=== PATIENT | female | born 1970 | race Caucasian/White ===

== ENCOUNTER 2020-10-07 10:39 | Outpatient (REF) | payer OTHER, SELFPAY ==
--- NOTE | 2020-10-07 11:00 | CT_ITS ---
EXAMINATION: CT ABDOMEN AND PELVIS WITHOUT CONTRAST CLINICAL INFORMATION: Right-sided abdominal pain, mass upper abdominal wall. COMPARISON: None TECHNIQUE: Multidetector volumetric imaging was performed from the superior aspect of the liver through the pubic symphysis. Sagittal and coronal reformatted images were obtained on the technologist's workstation. This CT examination was performed using dose optimization techniques as appropriate, variously including the following: *Automated exposure control *Adjustment of mA and/or kV according to patient size (this includes techniques or standardized protocols for targeted exams where dose is matched to indication/reason for exam; i.e. extremities or head) *Use of iterative reconstruction technique DLP: 507 mGy-cm FINDINGS: LUNG BASES: There is a 3 mm subpleural nodule right lower lobe anterobasal segment image 8/23. Otherwise, the lung bases are clear. Heart size appears normal. No pleural effusion or thickening. LIVER, GALLBLADDER, AND BILIARY TREE: The liver is enlarged in size measuring 19 cm. Otherwise normal shape and attenuation. No focal hepatic lesion or biliary ductal dilatation is present. The gallbladder has been surgically removed. PANCREAS: Unremarkable. SPLEEN: Unremarkable. ADRENAL GLANDS: Unremarkable. KIDNEYS AND URETERS: The kidneys are normal in size, shape, and attenuation. No hydronephrosis, hydroureter, or calculi seen. No perinephric stranding. BLADDER: Unremarkable. GASTROINTESTINAL TRACT: There is scattered stool and gas seen throughout the colon. A few scattered diverticula are seen in the sigmoid colon. No mural thickening, pericolic fat stranding, obstruction seen. Oral contrast opacified small bowel loops are normal caliber. The appendix is normal caliber. ABDOMINAL WALL: No significant hernia is appreciated. LYMPH NODES: Normal. VASCULAR: Unremarkable. PELVIC VISCERA: The uterus is atrophied or surgically removed. No pelvic mass or free fluid seen. OSSEOUS STRUCTURES: Unremarkable. CT/CT abdomen pelvis wo con IMPRESSION: Mild constipation. No acute intra-abdominal process seen. No radiopaque urolith or hydronephrosis. No evidence of abdominal mass seen. The gallbladder has been surgically removed. Suspect mild hepatomegaly.
[2020-10-07 12:00] LABS: Basophils Absolute Auto 0.2 X10*3/uL (0.0-0.2); Basophils Percent Auto 1.3 % (0-2); Eosinophils Absolute Auto 0.3 X10*3/uL (0.0-0.4); Eosinophils Percent Auto 2.2 % (0-4); Hemoglobin 15.8 g/dl (12.0-16.0); Imm Gran Abs Auto 0.08 X10*3/uL (0.00-0.03); Imm Gran Pct Auto 0.6 % (0.0-0.4); Lymphocytes Absolute Auto 5.7 X10*3/uL (1.2-4.9); Lymphocytes Percent Auto 42.2 % (20-40); MANUAL DIFF FLAG SCAN; Mean Corpuscular HGB Conc 32.2 g/dl (31.0-35.0); Mean Corpuscular Hemoglobin 29.8 pg (27.0-33.0); Mean Corpuscular Volume 92.3 fL (80-98); Monocytes Absolute Auto 0.6 X10*3/uL (0.1-1.2); Monocytes Percent Auto 4.6 % (2-11); Neutrophils Absolute Auto 6.6 X10*3/uL (2.0-8.3); Neutrophils Percent Auto 49.1 % (45-73); Platelet Count 308 X10*3/uL (160-400); Red Blood Count 5.31 X10*6/uL (4.20-5.50); Red Cell Distribution Width 14.2 % (11.0-16.0); SCAN SMEAR FLAG 1; White Blood Count 13.5 X10*3/uL (4.8-10.8)
[2020-10-07 13:55] LABS: Alanine Aminotransferase 31 U/L (0-31); Albumin Level 4.3 g/dL (3.5-5.0); Alkaline Phosphatase 79 U/L (39-117); Anion Gap 14 (12-20); Aspartate Amino Transferase 34 U/L (5-31); Bilirubin Total 0.3 mg/dL (0.0-1.0); Blood Urea Nitrogen 13 mg/dL (9-16); C Reactive Protein 2.65 mg/dL (< or = 0.50); Calcium 9.5 mg/dL (8.4-10.2); Carbon Dioxide 29 mmol/L (22-29); Chloride 104 mmol/L (96-108); Cholesterol 269 mg/dL; Estimated Glomerular Filt Rate > 60; Glucose Random 115 mg/dL (60-115); Lipase 21 U/L (8-78); Potassium 4.8 mmol/l (3.3-5.1); Sodium 142 mmol/L (135-145)
[2020-10-07 14:10] LABS: T4 Thyroxine 6.4 ug/dL (4.5-12.0)
[2020-10-07] MEDS: Barium Sulfate Oral (Vanilla) 450 ML ORAL.SUSP 900 ML PO (14:10)
[2020-10-07 14:21] LABS: SLIDE REVIEW VERIFIED
== END 2020-10-07 10:40 | disposition home or self-care (01) ==
LOC: HO.CT 10:39
PROVIDERS: PCP Internal Medicine; Visit Provider Internal Medicine
DX: R10.11 Right upper quadrant pain (principal); R19.00 Intra-abdominal and pelvic swelling, mass and lump, unspecified site; J44.9 Chronic obstructive pulmonary disease, unspecified
CPT/HCPCS: 36415; 74176; 80053; 82465; 83690; 84436; 84443; 85025; 86140

== ENCOUNTER → 2020-10-14 10:50 | Outpatient (BNVA) | payer OTHER, SELFPAY | PROVIDERS: PCP Internal Medicine; Referring Provider Internal Medicine; Visit Provider Surgery | DX: D17.1 Benign lipomatous neoplasm of skin and subcutaneous tissue of trunk (principal) | CPT/HCPCS: 99202 ==

== ENCOUNTER 2020-11-09 11:25 | Outpatient (REF) | payer OTHER, SELFPAY ==
[2020-11-09 11:51] VITALS: BP 136/77; PULSE 96; RESP 16; TEMP 36.4; O2SAT 96
[2020-11-09 11:52] VITALS: BMI 32.9
[2020-11-09 12:10] VITALS: BP 115/76; PULSE 92; RESP 16; O2SAT 97
--- NOTE | 2020-11-09 12:32 | OP_ITS ---
SURGEON: Alexander Pascual MD INDICATIONS: The patient is a 50-year-old female with note of a lipomatous mass on the lower chest wall near the xiphoid region. This was about 2.5 cm lipoma. She understood technique of excision under local anesthesia. She was aware of the risks, benefits, and alternatives. PREOPERATIVE DIAGNOSIS: Lipoma, lower chest wall. POSTOPERATIVE DIAGNOSIS: Lipoma, lower chest wall. PROCEDURE PERFORMED: Excision of lipoma, lower chest wall. ESTIMATED BLOOD LOSS: COMPLICATIONS: ANESTHESIA: ASSISTANTS: SPECIMENS: DESCRIPTION OF PROCEDURE: She was brought to the minor procedure room and placed supine on the table. The area of the lipoma was prepped and draped. Lidocaine 1% was used for local anesthesia. A transverse incision was made on the skin overlying the lipoma using blade #15. It was carried down to full-thickness skin and subcutaneous fat. We proceeded to do sharp dissection of the subcutaneous layer using Metzenbaum scissors until we were able to visualize the lipoma. We sharply dissected lipoma off the rest of subcutaneous layer until this was completely delivered and sent as specimen. The lipoma measured about 2.5 cm x 2 cm. I closed incision with multiple full-thickness nylon 3-0 interrupted sutures. Dressings were applied. The patient tolerated the procedure well. There were no complications noted. There was minimal blood loss. She will be seen in the office for followup in 2 weeks for removal of sutures. MD CATRACHITO Ramirez/ILIANA / [phone]
--- NOTE | 2020-11-09 13:41 | PM.OP ---
Brief Operative Note Date of Service: 11/09/20 Pre-op diagnosis: lipoma lower chest wall Post-op diagnosis: same Procedure: exc of lipoma lower chest wall Surgeon: Alexander Pascual MD Anesthesia: local Estimated blood loss (mL): 1 Pathology: other (lipoma) Condition: stable Disposition: other (home)
== END 2020-11-09 11:26 | disposition home or self-care (01) ==
LOC: HO.MS 11:25
PROVIDERS: PCP Internal Medicine; Visit Provider Surgery
PROC: (CPT 21555; principal; 2020-11-09 12:00)
DX: D17.1 Benign lipomatous neoplasm of skin and subcutaneous tissue of trunk (principal); J44.9 Chronic obstructive pulmonary disease, unspecified; Z88.0 Allergy status to penicillin
CPT/HCPCS: 21555; 88304

== ENCOUNTER → 2020-11-10 09:45 | Outpatient (BNVA) | payer OTHER, SELFPAY | PROVIDERS: PCP Internal Medicine; Visit Provider Physician Assistant | DX: Z13.89 Encounter for screening for other disorder (principal) | CPT/HCPCS: 99212 ==

== ENCOUNTER → 2020-11-24 08:46 | Outpatient (BNVA) | payer OTHER, SELFPAY | PROVIDERS: PCP Internal Medicine; Visit Provider Surgery | DX: D17.1 Benign lipomatous neoplasm of skin and subcutaneous tissue of trunk (principal) | CPT/HCPCS: 99212 ==

== ENCOUNTER → 2020-12-15 13:38 | Outpatient (BNVA) | payer OTHER, SELFPAY | PROVIDERS: PCP Internal Medicine; Visit Provider Internal Medicine | DX: J44.9 Chronic obstructive pulmonary disease, unspecified (principal); F17.200 Nicotine dependence, unspecified, uncomplicated | CPT/HCPCS: 99212 ==

== ENCOUNTER → 2020-12-22 13:41 | Outpatient (BNVA) | payer OTHER, SELFPAY | PROVIDERS: PCP Internal Medicine; Visit Provider Physician Assistant ==

== ENCOUNTER → 2021-04-21 10:36 | Outpatient (BNVA) | payer OTHER, SELFPAY | PROVIDERS: PCP Internal Medicine; Visit Provider Internal Medicine | DX: J44.9 Chronic obstructive pulmonary disease, unspecified (principal); J45.909 Unspecified asthma, uncomplicated; F17.200 Nicotine dependence, unspecified, uncomplicated | CPT/HCPCS: 99212 ==

== ENCOUNTER 2021-07-01 07:31 | Outpatient (REF) | payer OTHER, SELFPAY | END 2021-07-01 07:32 | disposition home or self-care (01) | LOC: HO.HOSX 07:31 | PROVIDERS: Visit Provider Orthopaedic Surgery | DX: G56.01 Carpal tunnel syndrome, right upper limb (principal); M25.511 Pain in right shoulder; F17.210 Nicotine dependence, cigarettes, uncomplicated | CPT/HCPCS: 99202 ==

== ENCOUNTER 2021-07-01 08:01 | Outpatient (REF) | payer OTHER, SELFPAY ==
--- NOTE | ~2021-07-01 | XR_ITS ---
EXAMINATION: XR SHOULDER, RIGHT CLINICAL INFORMATION: Right shoulder pain. COMPARISON: 06/17/2014 TECHNIQUE: AP external rotation, Grashey, scapular Y, and axillary views of the right shoulder. FINDINGS: The bones and soft tissues are normal, unchanged when compared to 06/17/2014. No fracture. Glenohumeral and acromioclavicular alignment is anatomic with normal joint space. No abnormal soft tissue calcifications. XR/XR shoulder RT min 2V IMPRESSION: Normal unchanged right shoulder.
== END 2021-07-01 08:02 | disposition home or self-care (01) ==
LOC: HO.XRAY 08:01
PROVIDERS: PCP Internal Medicine; Visit Provider Orthopaedic Surgery
DX: M25.511 Pain in right shoulder (principal); G56.01 Carpal tunnel syndrome, right upper limb
CPT/HCPCS: 73030

== ENCOUNTER → 2021-07-07 12:45 | Outpatient (BNVA) | payer OTHER, SELFPAY | PROVIDERS: PCP Internal Medicine; Visit Provider Physician Assistant ==

== ENCOUNTER 2021-08-17 10:47 | Outpatient (REF) | payer OTHER, SELFPAY ==
[2021-08-17 11:56] LABS: Basophils Absolute Auto 0.1 X10*3/uL (0.0-0.2); Basophils Percent Auto 1.1 % (0-2); Eosinophils Absolute Auto 0.4 X10*3/uL (0.0-0.4); Eosinophils Percent Auto 2.6 % (0-4); Hematocrit 47.6 % (37-47); Hemoglobin 15.3 g/dl (12.0-16.0); Imm Gran Abs Auto 0.11 X10*3/uL (0.00-0.03); Imm Gran Pct Auto 0.8 % (0.0-0.4); Lymphocytes Absolute Auto 5.1 X10*3/uL (1.2-4.9); Lymphocytes Percent Auto 38.1 % (20-40); MANUAL DIFF FLAG SCAN; Mean Corpuscular HGB Conc 32.1 g/dl (31.0-35.0); Mean Corpuscular Hemoglobin 30.1 pg (27.0-33.0); Mean Corpuscular Volume 93.7 fL (80-98); Mean Platelet Volume 11.4 fL (9.4-12.3); Monocytes Absolute Auto 0.7 X10*3/uL (0.1-1.2); Monocytes Percent Auto 5.4 % (2-11); Neutrophils Absolute Auto 6.9 X10*3/uL (2.0-8.3); Platelet Count 334 X10*3/uL (160-400); Red Blood Count 5.08 X10*6/uL (4.20-5.50); Red Cell Distribution Width 14.4 % (11.0-16.0); SCAN SMEAR FLAG 1; White Blood Count 13.3 X10*3/uL (4.8-10.8)
[2021-08-17 12:29] LABS: Alanine Aminotransferase 31 U/L (0-31); Albumin Level 4.3 g/dL (3.5-5.0); Alkaline Phosphatase 80 U/L (39-117); Anion Gap 13 (12-20); Aspartate Amino Transferase 22 U/L (5-31); Bilirubin Total 0.3 mg/dL (0.0-1.0); Blood Urea Nitrogen 5 mg/dL (9-16); Carbon Dioxide 31 mmol/L (22-29); Chloride 100 mmol/L (96-108); Cholesterol 318 mg/dL; Estimated Glomerular Filt Rate > 60; Glucose Random 112 mg/dL (60-115); HDL Cholesterol 34 mg/dL; LDL Cholesterol Calculated 216 mg/dl; Potassium 4.8 mmol/L (3.3-5.1); Sodium 139 mmol/L (135-145); Triglycerides 340 mg/dL
[2021-08-17 13:07] LABS: SLIDE REVIEW VERIFIED
[2021-08-17 13:42] LABS: Estimated Average Glucose 128 mg/dL; Hemoglobin A1c % 6.1 %
[2021-08-18 19:07] LABS: Prolactin 11.2 ng/mL
== END 2021-08-17 10:48 | disposition home or self-care (01) ==
LOC: HO.LAB 10:47
PROVIDERS: Absent Provider Physician Assistant; PCP Internal Medicine; Visit Provider Internal Medicine
DX: F43.10 Post-traumatic stress disorder, unspecified (principal); K21.9 Gastro-esophageal reflux disease without esophagitis; Z79.899 Other long term (current) drug therapy; J44.9 Chronic obstructive pulmonary disease, unspecified; F17.200 Nicotine dependence, unspecified, uncomplicated; Z71.6 Tobacco abuse counseling
CPT/HCPCS: 36415; 80053; 80061; 83036; 84146; 85025; 99212

== ENCOUNTER 2021-08-24 10:03 | Outpatient (REF) | payer OTHER, SELFPAY ==
--- NOTE | 2021-08-24 10:03 | EMG_ITS ---
This is a 50-year-old woman with a 1-year history of right hand pain and numbness. Complete list of medications is not available. Normal neurological examination. IMPRESSION: Rule out carpal tunnel syndrome. Nerve conduction EMG study: Normal electrodiagnostic study of the right upper extremity with no evidence of carpal tunnel syndrome. Mild delay in the right ulnar nerve at the elbow consistent with early compression of the ulnar nerve at the elbow. Normal EMG of the right C5-T1 innervated muscles. MD PAT Romano/ILIANA / [id number]
== END 2021-08-24 10:04 | disposition home or self-care (01) ==
LOC: HO.NEURO 10:03
PROVIDERS: PCP Internal Medicine; Visit Provider Orthopaedic Surgery
DX: G56.01 Carpal tunnel syndrome, right upper limb (principal)
CPT/HCPCS: 95885; 95910

== ENCOUNTER 2021-09-13 09:01 | Outpatient (REF) | payer OTHER, SELFPAY ==
--- NOTE | ~2021-09-13 | MM_ITS ---
EXAMINATION: MM SCREENING DIGITAL BREAST TOMOSYNTHESIS, BILATERAL CLINICAL INFORMATION: Screening. Asymptomatic. The lifetime risk of breast cancer based on the Tyrer-Cuzick Model is 4.5%. COMPARISON: Mammography: May 06, 2018 and studies dating back to December 01, 2011 TECHNIQUE: Digital breast tomosynthesis is performed in both the craniocaudal and mediolateral oblique views along with computer-aided detection (CAD). Synthesized 2D images are generated from the tomosynthesis. FINDINGS: The breasts are almost entirely fatty (ACR BI-RADS breast composition Category a). There are no significant masses, abnormal calcifications, or other abnormalities. MM/MM tomosynthesis screening BI IMPRESSION: There are no significant changes from prior study. ASSESSMENT: BI-RADS 1: Negative RECOMMENDATION: Routine annual mammography screening. This patient's information was entered into a reminder system with a target due date for their next mammogram.
--- NOTE | ~2021-09-13 | MM_ITS ---
EXAMINATION: BONE DENSITOMETRY CLINICAL INDICATION: Menopause. COMPARISON: This is the patient's baseline examination. TECHNIQUE: Using a [employer] DXA System (software version: 13.1) manufactured by [employer], dual-energy x-ray absorptiometry was performed of the lumbar spine and left hip. The images are of good technical quality. Summary results are attached. FINDINGS: AP SPINE L1-L4: BMD 1.134 g/cm2, Z-score -0.4, T-score -0.4, normal. LEFT FEMUR, NECK: BMD 0.892 g/cm2, Z-score -0.5, T-score -1.1, osteopenia. LEFT FEMUR, TOTAL: BMD 1.031 g/cm2, Z-score 0.3, T-score 0.2, normal. IDENTIFIED RISK FACTORS: Early menopause, secondary osteoporosis, tobacco use (current smoker), anticonvulsants, hysterectomy, right oophorectomy. HISTORY OF FRACTURE: None listed. MEDICATIONS: None listed. MM/XR DEXA axial skeleton IMPRESSION: 1. DIAGNOSIS: Osteopenia based on the lowest T-score value of -1.1 in the femoral neck applying World Health Organization criteria. 2. 10-YEAR FRACTURE RISK PREDICTION, FRAX: Major osteoporotic fracture (clinical spine, forearm, hip or shoulder) 3.7%. Hip fracture 0.3%. 3. Treatment Recommendations: NOF guidelines recommend consideration for treatment in postmenopausal women and men age 50 and older presenting with the following: -A hip or vertebral (clinical or morphometric) fracture. -T-score less than or equal to -2.5 at the femoral neck or spine after appropriate evaluation to exclude secondary causes. -Low bone mass at the hip or spine and a 10-year fracture probability by FRAX of greater than or equal to 3% for hip fracture or greater than or equal to 20% for major osteoporotic fracture based on the [place] adapted WHO algorithm. 4. Other Recommendations: All treatment decisions require clinical judgment and consideration of individual patient factors, including patient preferences, comorbidities, previous drug use, risk factors not captured in the FRAX model (e.g. frailty, falls, vitamin D deficiency, increased bone turnover, interval significant decline in bone density) and possible under or overestimation of fracture risk by FRAX. Additional medical evaluation for secondary cause of low bone mineral density may be appropriate. FUTURE SCAN RECOMMENDATION: People with diagnosed cases of osteoporosis or at high risk for fracture should have regular bone mineral density tests. For patients eligible for Medicare, routine testing is allowed once every 2 years. The testing frequency can be increased to one year for patients who have rapidly progressing disease, those who are receiving or discontinuing medical therapy to restore bone mass, or have additional risk factors.
== END 2021-09-13 09:02 | disposition home or self-care (01) ==
LOC: HO.MAMMO 09:01
PROVIDERS: Visit Provider Internal Medicine
DX: Z12.31 Encounter for screening mammogram for malignant neoplasm of breast (principal); Z13.820 Encounter for screening for osteoporosis; M85.80 Other specified disorders of bone density and structure, unspecified site; F17.200 Nicotine dependence, unspecified, uncomplicated; N95.1 Menopausal and female climacteric states; Z79.899 Other long term (current) drug therapy
CPT/HCPCS: 77063; 77067; 77080; 99202

== ENCOUNTER 2021-09-17 06:57 | Outpatient (REF) | payer OTHER, SELFPAY | END 2021-09-17 06:58 | disposition home or self-care (01) | LOC: HO.LAB 06:57 | PROVIDERS: PCP Internal Medicine; Visit Provider Internal Medicine Gastroenterology | DX: Z13.89 Encounter for screening for other disorder (principal) ==

== ENCOUNTER 2021-09-19 11:37 | Outpatient (REF) | payer OTHER, SELFPAY ==
[2021-09-19 13:42] LABS: C Reactive Protein 2.87 mg/dL (< or = 0.50); Iron 60 mcg/dL (30-160); Percent Iron Saturation 16 % (15-50); Total Iron Binding Capacity 375 mcg/dL (228-428); Unsaturated Iron Binding 315 ug/dL
[2021-09-19 14:04] LABS: Ferritin 40 ng/mL (10-250)
[2021-09-19 14:14] LABS: Folate 4.2 ng/mL (> or = 4.0); Vitamin B12 290 pg/mL (200-900)
[2021-09-21 14:16] LABS: Anti Nuclear Antibody Screen NEGATIVE (NEGATIVE)
[2021-09-21 19:01] LABS: IgA 267 mg/dL (47-310); IgG 902 mg/dL (600-1640); IgM 66 mg/dL (50-300)
[2021-09-21 19:07] LABS: Alpha 1 Anti-trypsin 163 mg/dL (83-199)
[2021-09-22 06:56] LABS: Aldolase 7.8 U/L (<=8.1)
[2021-09-23 21:41] LABS: Calprotectin, Fecal 57 mcg/g
[2021-09-25 09:26] LABS: Soluble Liver Ag Autoantibody <20.1 U (0.0-20.0)
[2021-09-25 12:11] LABS: Smooth Muscle Antibody <20 U (<20)
[2021-09-26 18:56] LABS: Histamine Plasma <1.5 ng/mL (< OR = 1.8)
[2021-09-27 14:06] LABS: Gliadin Deamidated IgA Ab 6.7 U/mL; Gliadin Deamidated IgG Ab <1.0 U/mL; Transglutaminase Ab IgG <1.0 U/mL; Transglutaminase IgA <1.0 U/mL
[2021-09-27 14:37] LABS: A1A Clinical Indication NG; A1A Referring Physician NG
== END 2021-09-19 11:38 | disposition home or self-care (01) ==
LOC: HO.LAB 11:37
PROVIDERS: PCP Internal Medicine; Visit Provider Internal Medicine Gastroenterology
DX: G89.29 Other chronic pain (principal); R10.33 Periumbilical pain; D72.829 Elevated white blood cell count, unspecified; K52.839 Microscopic colitis, unspecified; R94.5 Abnormal results of liver function studies; R79.82 Elevated C-reactive protein (CRP)
CPT/HCPCS: 36415; 82085; 82103; 82104; 82550; 82607; 82728; 82746; 82784; 83088; 83516; 83520; 83540; 83993; 85652; 86038; 86039; 86140; 86255

== ENCOUNTER → 2021-11-29 10:17 | Outpatient (BNVA) | payer OTHER, SELFPAY | PROVIDERS: PCP Internal Medicine; Visit Provider Internal Medicine | DX: J44.9 Chronic obstructive pulmonary disease, unspecified (principal); F17.200 Nicotine dependence, unspecified, uncomplicated | CPT/HCPCS: 99212 ==

== ENCOUNTER 2022-01-03 08:55 | Inpatient (IN) | payer OTHER, SELFPAY ==
[2022-01-03] VITALS (12 sets, daily range): BP systolic 102–131; BP diastolic 56–91; PULSE 83–134; RESP 15–32; TEMP 36.6–37.1; O2SAT 02–99; BMI 31.7
--- NOTE | ~2022-01-03 | XR_ITS ---
EXAMINATION: XR CHEST CLINICAL INFORMATION: Shortness of breath, hypoxia and wheezing COMPARISON: Previous chest x-ray December 2017 TECHNIQUE: Frontal view of the chest was obtained. FINDINGS: No significant abnormality is noted involving the heart, lungs, mediastinum, bony thorax or soft tissues. XR/XR chest 1V IMPRESSION: Unremarkable examination.
--- NOTE | ~2022-01-03 | CT_ITS ---
EXAMINATION: CT ANGIOGRAM OF THE CHEST WITH AND WITHOUT CONTRAST (CT PULMONARY ANGIOGRAM FOR PE) CLINICAL INFORMATION: Reason for Exam dyspnea, hypoxia COMPARISON: Previous chest x-ray 01/03/2022 TECHNIQUE: Prior to contrast administration, noncontrast localization images were obtained. Subsequently, multidetector volumetric imaging was performed from the thoracic inlet to below the diaphragms following the administration of 65 mL Omnipaque 350 intravenous contrast. No contrast reaction reported Sagittal, coronal, and MIP oblique sagittal reformatted images were obtained on the CT workstation, uploaded to PACS, and reviewed. This CT examination was performed using dose optimization techniques as appropriate, variously including the following: *Automated exposure control *Adjustment of mA and/or kV according to patient size (this includes techniques or standardized protocols for targeted exams where dose is matched to indication/reason for exam; i.e. extremities or head) *Use of iterative reconstruction technique Total exam dose-length product 169 mGy-cm FINDINGS: QUALITY OF STUDY/CONTRAST BOLUS: Satisfactory. PULMONARY ARTERIES: No central or segmental pulmonary emboli. THORACIC AORTA: No aneurysm or dissection. LUNG: There is a small 3 mm right upper lobe nodule axial image 102 series 7. There is a 2 mm calcified left upper lobe nodule axial image 167 series 7. There is a 4 mm peripheral or subpleural right upper lobe nodule axial image 185 series 7. PLEURA: No pleural effusion or pneumothorax. MEDIASTINUM: Normal heart size. Trace pericardial effusion. No hilar or mediastinal lymphadenopathy. No evidence of septal bowing or right heart strain. CHEST WALL/AXILLA: No axillary or internal mammary lymphadenopathy. OSSEOUS STRUCTURES: No acute or suspicious osseous abnormality. UPPER ABDOMEN: Unremarkable. The gallbladder has been removed. No reflux of contrast into the hepatic veins to suggest elevated right heart pressures. CT/CT angio chest PE protocol IMPRESSION: No evidence of pulmonary embolism.. Small pulmonary nodules. According to the UPDATED 2017 Fleischner Society recommendations, the advised follow-up imaging for less than 6 mm nodule: Low risk, no chest CT follow-up and high risk, optional chest CT follow-up in one VTE: negative
--- NOTE | 2022-01-03 09:03 | ECG_ITS ---
Test Reason : SOB Blood Pressure : / mmHG Vent. Rate : 128 BPM Atrial Rate : 128 BPM P-R Int : 142 ms QRS Dur : 064 ms QT Int : 296 ms P-R-T Axes : 071 120 071 degrees QTc Int : 432 ms Poor data quality Likely limb leads reversal Sinus tachycardia Low voltage QRS Septal infarct , age undetermined Lateral infarct , age undetermined Abnormal ECG When compared with ECG of 07-FEB-2008 13:32, Vent. rate has increased BY 47 BPM Questionable change in QRS duration Septal infarct is now Present Lateral infarct is now Present Referred By: Crissy Tran Electronically Signed By:Bryan Rico
--- NOTE | 2022-01-03 09:04 | ED_ITS ---
HPI - SOB/Dyspnea General Chief Complaint: Dyspnea Stated Complaint: SOB X'S 7 DAYS, ON CPAP PER EMS Time Seen by Provider: 01/03/22 09:03 Source: patient, EMS and old records reviewed Mode of arrival: EMS Limitations: no limitations History of Present Illness HPI Narrative: 51-year-old female with a history of COPD, active smoker, bipolar disorder, depression, GERD, PTSD who presents to the ER from home via EMS with 7 days of worsening shortness of breath. She reports this all started when she started to cut back on her cigarette smoking to try to quit. Also reports her inhalers ran out. she states her breathing is worse with any exertion she has to stop and lean over. It is also worse with lying flat. She has a dry cough without any phlegm production. She has had no fever or chills, no chest pain. She reports nausea since she was in the back of the ambulance. EMS found her hypoxic to 78% on room air and in respiratory distress. She was placed on 100% CPAP 10, given a Duoneb and brought to the ER for further evaluation. MD elicited complaint: shortness of breath Pertinent past history: COPD Onset (ago): week(s) (1) Timing: constant Severity: severe Exacerbating factors: lying flat and exertion Relieving factors: nothing Known history of: COPD Associated symptoms: wheezing and orthopnea Treatment prior to arrival: oxygen, bronchodilator and NIPPV Related Data Home oxygen amount: none Home Medications Medication Instructions Recorded Confirmed quetiapine 200 mg tablet,extended 200 mg PO BEDTIME 10/14/20 01/03/22 release 24 hr risperidone 2 mg tablet 2 mg PO BEDTIME 10/14/20 01/03/22 gabapentin 600 mg tablet 1,200 mg PO TID tab 12/15/20 01/03/22 hydroxyzine HCl 25 mg tablet 25 mg PO TID PRN tab 12/15/20 01/03/22 omeprazole 40 mg capsule,delayed 40 mg PO .qhs cap 12/15/20 01/03/22 release albuterol sulfate 90 mcg/actuation 2 inh INHALATION Q4H PRN 01/03/22 01/03/22 aerosol inhaler (ProAir HFA) naproxen sodium 220 mg tablet 220 mg PO BID PRN 01/03/22 01/03/22 simethicone 80 mg chewable tablet 80 mg PO DAILY PRN 01/03/22 01/03/22 Previous Rx's Medication Instructions Recorded fluticasone 500 mcg-salmeterol 50 1 ea INHALATION BID #60 ea 12/05/21 mcg/dose blistr powdr for inhalation (Wixela Inhub) montelukast 10 mg tablet 10 mg PO DAILY #90 tab 12/05/21 umeclidinium 62.5 mcg/actuation 1 inh PO DAILY #30 ea 12/05/21 blister powder for inhalation (Incruse Ellipta) Allergies Allergy/AdvReac Type Severity Reaction Status Date / Time codeine [CODEINE] Allergy Unknown NAUSEA & Verified 11/29/21 10:36 VOMITING, HIVES Penicillins [PENICILLINS] Allergy Unknown DIFF Verified 11/29/21 10:36 BREATHING, RASH ENVIRONMENTAL Allergy Unknown SOB,WHEEZIN Uncoded 07/07/21 12:46 G Review of Systems Review of Systems: Constitutional: No Fever, No Chills ENT/Mouth: No sore throat, No Rhinorrhea, No Swallowing Difficulty Eyes: No Eye Pain, No Swelling, No Redness Cardiovascular: No Chest Pain, + SOB, + Orthopnea, No Edema Respiratory: + Cough, No Sputum, + Wheezing, + dyspnea Gastrointestinal: No Nausea, No Vomiting, No Diarrhea, No abdominal Pain Genitourinary: No Dysuria, No Urinary Frequency, No Hematuria Musculoskeletal: No joint pain, No Myalgias Skin: No Skin Lesions, No rash Neuro: No Weakness, No Numbness, No Dizziness, No Headache Psych: + Anxiety/Panic, No Depression Heme/Lymph: No Bruising, No Lymphadenopathy Endocrine: No Polyuria, No Polydipsia [facility] Past Medical History Medical History Acid reflux Asthma COPD (chronic obstructive pulmonary disease) Depression Hx of lipoma Lipoma of abdominal wall Smoker Surgical History History of cholecystectomy History of hysterectomy History of shoulder surgery Family History Family History Mother Crohn disease Brother Colitis Social History Social History Household Members: Spouse Alcohol intake: never Patient Tobacco Use Status: Current everyday Tobacco user Cigarettes Per Day: 8 Use of substances other than those prescribed or required for medical reasons: No Substance Use Type: Marijuana Advance Directives: No Advance Directives Information Provided: Yes Current occupational status: disabled 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 Oriented X3. Moderate respiratory distress. Eyes: Pupils equal, round and reactive to light. ENT: Pharynx normal. Neck: Normal inspection. Neck supple. CVS: Pulses normal. Tachycardic, regular rhythm, HR 130 Respiratory: Moderate respiratory distress. Breath sounds coarse throughout with decreased aeration of the left lung and expiratory wheezes throughout Abdomen: Obese, Soft and nontender. +BS x4 Skin: Skin warm and dry. Normal skin color. Normal skin turgor. No rashes. Extremities: No lower extremity edema. No calf tenderness Neuro: Oriented X 3. No motor deficit. No sensory deficit. Course Course Course Narrative: 51 y/o female with history of COPD, active smoker, depression, bipolar who presents with SOB x1 week in the setting of running out of her inhalers and cutting back on her cigarette smoking. Found hypoxic and respiratory distress with SpO2 78% requiring rescue CPAP by EMS. On arrival to the ER she is tachypneic and tachycardic, poor air entry in left lung and wheezey. Transitioned to V60 rescue BiPAP 15/10 with 30% FiO2. Albuterol 10 mg in line ordered as well as Solumedrol 125 mg. Will check ABG, CXR, EKG, and lab workup. BP stable 120s systolic. Holding off on fluids for now with concern for possible CHF component. Reevaluation(s) Reevaluation #1: 9:50 - ABG showing compensated hypercarbic and hypoxic resp failue w/ PO2 PCO2 both in the 60s. Nauseated and needed to come off BiPAP. Zofran ordered. More alert now. CXR without PNA. COVID negative. Levaquin ordered for COPD exaceration. BNP normal. 1L IVF ordered as well. Reevaluation #2: 10:45 - remains on BiPAP, FiO2 up to 40%. RR high 20s and HR 130s. She reports feeling better. She remains coarse and wheezy now with scattered rhonchi. [place] Body Weight 105lbs - sepsis bolus 1.5L total, an additional 500 cc ordered. Duoneb ordered now - will reassess. Reevaluation #3: 12 pm - patient's RR down to 17. She is feeling better. She would like a trial off of BiPAP. Placed on 6L NC and maintaining saturations of 95%, speaking in complete sentences. Will plan for admission. patient agrees with plan. MDM - SOB/Dyspnea Differential Diagnosis Differential diagnosis: Likely acute exacerbation of chronic obstructive airways disease, congestive heart failure, pneumonia, asthma with exacerbation, pulmonary embolism, pleural effusion, sleep apnea and anemia Medical Records Attestation: I reviewed the patient's medical records. Lab Data Attestation: I reviewed the patient's lab results. Result diagrams: 01/03/22 09:44 01/03/22 09:44 Labs: Lab Results 01/03/22 01/03/22 01/03/22 Range/Units 09:18 09:44 09:44 WBC 20.6 H (4.8-10.8) X10*3/uL RBC 5.24 (4.20-5.50) X10*6/uL Hgb 14.9 (12.0-16.0) g/dl Hct 47.9 H (37.0-47.0) % MCV 91.4 (80.0-98.0) fL MCH 28.4 (27.0-33.0) pg MCHC 31.1 (31.0-35.0) g/dl RDW 15.0 (11.0-16.0) % Plt Count 268 (160-400) X10*3/uL MPV 11.5 (9.4-12.3) fL Immature Gran % (Auto) 0.6 H (0.0-0.4) % Neut % (Auto) 66.2 (45-73) % Lymph % (Auto) 27.2 (20-40) % Gates % (Auto) 4.6 (2-11) % Eos % (Auto) 0.7 (0-4) % Baso % (Auto) 0.7 (0-2) % Lymph # (Auto) 5.6 H (1.2-4.9) X10*3/uL Gates # (Auto) 0.9 (0.1-1.2) X10*3/uL Eos # (Auto) 0.2 (0.0-0.4) X10*3/uL Baso # (Auto) 0.1 (0.0-0.2) X10*3/uL Abs Immat Gran (auto) 0.13 H (0.00-0.03) X10*3/uL Absolute Neuts (auto) 13.7 H (2.0-8.3) x10*3/uL Absolute Nucleated RBC 0.000 (0.0-0.012) X10*3/uL Nucleated RBC % (auto) 0.0 (0.0-0.2) /100WBC Smear Tech's Comments VERIFIED O2 Saturation 86.0 % ABG pH at Pt Temp 7.41 (7.35-7.45) ABG pCO2 at Pt Temp 65 H* (32-45) mmHg ABG pO2 at Pt Temp 61 L (83-108) mmHg ABG HCO3 41 H (22-26) mmol/L ABG Base Excess (Actual) 13.3 mmol/L Sodium 137 (135-145) mmol/L Potassium 4.1 (3.3-5.1) mmol/L Chloride 94 L (96-108) mmol/L Carbon Dioxide 36 H (22-29) mmol/L Anion Gap 11 L (12-20) BUN 4 L (9-16) mg/dL Creatinine 0.75 (0.5-1.4) mg/dL Estim Creat Clear Calc 83.8 Estimated GFR > 60 Random Glucose 135 H (60-115) mg/dL Lactic Acid (0.5-2.0) mmol/L Calcium 9.4 (8.4-10.2) mg/dL Magnesium 1.9 (1.6-2.6) mg/dL Total Bilirubin 0.4 (0.0-1.0) mg/dL Direct Bilirubin 0.2 (0.0-0.5) mg/dL AST 14 (5-31) U/L ALT 13 (0-31) U/L Alkaline Phosphatase 74 (39-117) U/L Troponin I High Sens (<3.5-17.0) ng/L B-Natriuretic Peptide (<100) pg/mL Total Protein 6.7 (6.5-8.0) g/dL Albumin 4.0 (3.5-5.0) g/dL Procalcitonin ng/mL COVID-19 ([facility]) (Negative) COVID-19 Clin Com 01/03/22 01/03/22 01/03/22 Range/Units 09:44 09:44 09:44 WBC (4.8-10.8) X10*3/uL RBC (4.20-5.50) X10*6/uL Hgb (12.0-16.0) g/dl Hct (37.0-47.0) % MCV (80.0-98.0) fL MCH (27.0-33.0) pg MCHC (31.0-35.0) g/dl RDW (11.0-16.0) % Plt Count (160-400) X10*3/uL MPV (9.4-12.3) fL Immature Gran % (Auto) (0.0-0.4) % Neut % (Auto) (45-73) % Lymph % (Auto) (20-40) % Gates % (Auto) (2-11) % Eos % (Auto) (0-4) % Baso % (Auto) (0-2) % Lymph # (Auto) (1.2-4.9) X10*3/uL Gates # (Auto) (0.1-1.2) X10*3/uL Eos # (Auto) (0.0-0.4) X10*3/uL Baso # (Auto) (0.0-0.2) X10*3/uL Abs Immat Gran (auto) (0.00-0.03) X10*3/uL Absolute Neuts (auto) (2.0-8.3) x10*3/uL Absolute Nucleated RBC (0.0-0.012) X10*3/uL Nucleated RBC % (auto) (0.0-0.2) /100WBC Smear Tech's Comments O2 Saturation % ABG pH at Pt Temp (7.35-7.45) ABG pCO2 at Pt Temp (32-45) mmHg ABG pO2 at Pt Temp (83-108) mmHg ABG HCO3 (22-26) mmol/L ABG Base Excess (Actual) mmol/L Sodium (135-145) mmol/L Potassium (3.3-5.1) mmol/L Chloride (96-108) mmol/L Carbon Dioxide (22-29) mmol/L Anion Gap (12-20) BUN (9-16) mg/dL Creatinine (0.5-1.4) mg/dL Estim Creat Clear Calc Estimated GFR Random Glucose (60-115) mg/dL Lactic Acid (0.5-2.0) mmol/L Calcium (8.4-10.2) mg/dL Magnesium (1.6-2.6) mg/dL Total Bilirubin (0.0-1.0) mg/dL Direct Bilirubin (0.0-0.5) mg/dL AST (5-31) U/L ALT (0-31) U/L Alkaline Phosphatase (39-117) U/L Troponin I High Sens < 3.5 (<3.5-17.0) ng/L B-Natriuretic Peptide 53 (<100) pg/mL Total Protein (6.5-8.0) g/dL Albumin (3.5-5.0) g/dL Procalcitonin 0.03 ng/mL COVID-19 ([facility]) Negative (Negative) COVID-19 Clin Com See Note 01/03/22 Range/Units 09:55 WBC (4.8-10.8) X10*3/uL RBC (4.20-5.50) X10*6/uL Hgb (12.0-16.0) g/dl Hct (37.0-47.0) % MCV (80.0-98.0) fL MCH (27.0-33.0) pg MCHC (31.0-35.0) g/dl RDW (11.0-16.0) % Plt Count (160-400) X10*3/uL MPV (9.4-12.3) fL Immature Gran % (Auto) (0.0-0.4) % Neut % (Auto) (45-73) % Lymph % (Auto) (20-40) % Gates % (Auto) (2-11) % Eos % (Auto) (0-4) % Baso % (Auto) (0-2) % Lymph # (Auto) (1.2-4.9) X10*3/uL Gates # (Auto) (0.1-1.2) X10*3/uL Eos # (Auto) (0.0-0.4) X10*3/uL Baso # (Auto) (0.0-0.2) X10*3/uL Abs Immat Gran (auto) (0.00-0.03) X10*3/uL Absolute Neuts (auto) (2.0-8.3) x10*3/uL Absolute Nucleated RBC (0.0-0.012) X10*3/uL Nucleated RBC % (auto) (0.0-0.2) /100WBC Smear Tech's Comments O2 Saturation % ABG pH at Pt Temp (7.35-7.45) ABG pCO2 at Pt Temp (32-45) mmHg ABG pO2 at Pt Temp (83-108) mmHg ABG HCO3 (22-26) mmol/L ABG Base Excess (Actual) mmol/L Sodium (135-145) mmol/L Potassium (3.3-5.1) mmol/L Chloride (96-108) mmol/L Carbon Dioxide (22-29) mmol/L Anion Gap (12-20) BUN (9-16) mg/dL Creatinine (0.5-1.4) mg/dL Estim Creat Clear Calc Estimated GFR Random Glucose (60-115) mg/dL Lactic Acid 1.0 (0.5-2.0) mmol/L Calcium (8.4-10.2) mg/dL Magnesium (1.6-2.6) mg/dL Total Bilirubin (0.0-1.0) mg/dL Direct Bilirubin (0.0-0.5) mg/dL AST (5-31) U/L ALT (0-31) U/L Alkaline Phosphatase (39-117) U/L Troponin I High Sens (<3.5-17.0) ng/L B-Natriuretic Peptide (<100) pg/mL Total Protein (6.5-8.0) g/dL Albumin (3.5-5.0) g/dL Procalcitonin ng/mL COVID-19 ([facility]) (Negative) COVID-19 Clin Com ABG Data Attestation: I personally reviewed and interpreted this ABG as follows: Interpretation: Compensated chronic hypoxic and hypercarbic respiratory failure ECG Data Attestation: I personally reviewed and interpreted this ECG as follows: ECG interpretation date: 01/03/22 Interpretation: sinus tachycardia, heart rate 120 beats per minute, normal MN interval, low v oltage QRS, no ST segment elevations or depressions Critical Care Time Critical Care Time Critical Care Time: Yes Total Critical Care Time: 60 Attestation: I have personally provided critical care time exclusive of time spent on separately billable procedures. Time includes review of lab data, radiology results, discussion with consultants, and monitoring for potential decompensation. Intervention performed as documented. Discharge Plan Discharge Clinical Impression: Acute respiratory failure with hypoxia, Acute exacerbation of chronic obstructive airways disease Patient Disposition: Admitted As Inpatient
[2022-01-03] MEDS: methylPREDNISolone Sod Succ 125 MG/2 ML VIAL IVPUSH (09:10)
[2022-01-03] MEDS: ondansetron HCL 4 MG/2 ML VIAL IVPUSH ×2 (09:11→15:46)
[2022-01-03 09:25] LABS: ABG Base Excess 13.3 mmol/L; ABG HCO3 41 mmol/L (22-26); ABG pCO2 65 mmHg (32-45); ABG pH 7.41 (7.35-7.45); ABG pO2 61 mmHg (83-108)
[2022-01-03] MEDS: Albuterol Sulfate (0.083%) 2.5 MG/3 ML VIAL.NEB 10 MG INHALE (09:34)
[2022-01-03 09:56] LABS: Basophils Absolute Auto 0.1 X10*3/uL (0.0-0.2); Basophils Percent Auto 0.7 % (0-2); Eosinophils Absolute Auto 0.2 X10*3/uL (0.0-0.4); Eosinophils Percent Auto 0.7 % (0-4); Hematocrit 47.9 % (37.0-47.0); Hemoglobin 14.9 g/dl (12.0-16.0); Imm Gran Abs Auto 0.13 X10*3/uL (0.00-0.03); Imm Gran Pct Auto 0.6 % (0.0-0.4); Lymphocytes Absolute Auto 5.6 X10*3/uL (1.2-4.9); Lymphocytes Percent Auto 27.2 % (20-40); MANUAL DIFF FLAG SCAN; Mean Corpuscular HGB Conc 31.1 g/dl (31.0-35.0); Mean Corpuscular Hemoglobin 28.4 pg (27.0-33.0); Mean Corpuscular Volume 91.4 fL (80.0-98.0); Mean Platelet Volume 11.5 fL (9.4-12.3); Monocytes Absolute Auto 0.9 X10*3/uL (0.1-1.2); Monocytes Percent Auto 4.6 % (2-11); Neutrophils Absolute Auto 13.7 x10*3/uL (2.0-8.3); Neutrophils Percent Auto 66.2 % (45-73); Platelet Count 268 X10*3/uL (160-400); Red Blood Count 5.24 X10*6/uL (4.20-5.50); SCAN SMEAR FLAG 1; White Blood Count 20.6 X10*3/uL (4.8-10.8)
[2022-01-03] MEDS: 0.9 % Sodium Chloride 1,000 ML 999 ML IVCONT (10:03)
[2022-01-03 10:05] LABS: ABG Refer to POC result
[2022-01-03 10:08] LABS: Alanine Aminotransferase 13 U/L (0-31); Alkaline Phosphatase 74 U/L (39-117); Anion Gap 11 (12-20); Aspartate Amino Transferase 14 U/L (5-31); Bilirubin Direct 0.2 mg/dL (0.0-0.5); Bilirubin Total 0.4 mg/dL (0.0-1.0); Blood Urea Nitrogen 4 mg/dL (9-16); Calcium 9.4 mg/dL (8.4-10.2); Carbon Dioxide 36 mmol/L (22-29); Chloride 94 mmol/L (96-108); Creatinine Clr Calc Pharmacy 83.8; Estimated Glomerular Filt Rate > 60; Glucose Random 135 mg/dL (60-115); Magnesium 1.9 mg/dL (1.6-2.6); Potassium 4.1 mmol/L (3.3-5.1); Sodium 137 mmol/L (135-145); Total Protein 6.7 g/dL (6.5-8.0)
[2022-01-03 10:11] LABS: B Type Natriuretic Peptide 53 pg/mL (<100); Troponin-I High Sensitivity < 3.5 ng/L (<3.5-17.0)
[2022-01-03] MEDS: levoFLOXacin/D5W 750 MG/150 ML PIGGYBACK 100 MG IV (10:15)
[2022-01-03 10:17] LABS: SLIDE REVIEW VERIFIED
[2022-01-03 10:24] LABS: COVID-19 Test Negative (Negative)
[2022-01-03 10:26] LABS: Procalcitonin 0.03 ng/mL
--- NOTE | 2022-01-03 10:44 | PC.NURSE ---
CPAP WAS INCREASED TO 40% AT 1000. SHE IS ANXIOUS AT TIMES AND ON HER PHONE. HER O2 SATS DECREASE TO 83% WHEN PT REMOVED HER CPAP. REPLACED
--- NOTE | 2022-01-03 10:50 | PHA.MEDREC ---
Pharmacy Consult ? Medication Reconciliation Pharmacy has completed the medication reconciliation. Spoke with patient's spouse Ozzie, as patient was having difficult breathing. Chayo Bhandari, PharmD
[2022-01-03] MEDS: Albuterol/Iprat 2.5/0.5MG 3 ML AMPUL.NEB INHALE ×2 (11:05→16:37)
[2022-01-03] MEDS: 0.9 % Sodium Chloride 500 ML IV (13:30)
--- NOTE | 2022-01-03 13:37 | PM.IMHP ---
History of Present Illness Date of Service: 01/03/22 Chief Complaint: Shortness of breath ?51-year-old female with a history of COPD not on home O2, active smoker, bipolar disorder, depression, GERD, PTSD who presents to the ED with progressive dyspnea for a week, associated with non productive cough, she continues to smoke and furter states that she has run out of her inhalers. Her symptoms are more prominent with exertion, has no leg edema, no PND or orthopnea, reports no fever. On presentation was signficantly hpoxic with oxygen saturation of 78 on room air and was put on rescue CPAP, IV steroid and bronchodilators but nebs. She did well and was later transitioned to oxygen by nasal canula and at the time I saw her, she was talking full sentences and relates that she felt much more comfortable. WBC is 20 K, CXR is unremarkable. Covid is negative. She is double vaccinated with J and J and Moderna for booster. Review of Systems Review of Systems: Gen: no fever Resp: + sob, + cough CV: no chest, + [place], no leg edema GI: No n/v, no abd pain Neuro: No confusion Yes all other systems are reviewed and are negative [facility] Medical History Acid reflux Asthma COPD (chronic obstructive pulmonary disease) Depression Hx of lipoma Lipoma of abdominal wall Smoker Family History Mother Crohn disease Brother Colitis Surgical History History of cholecystectomy History of hysterectomy History of shoulder surgery Social History Household Members: Spouse Alcohol intake: never Patient Tobacco Use Status: Current everyday Tobacco user Cigarettes Per Day: 8 Use of substances other than those prescribed or required for medical reasons: No Substance Use Type: Marijuana Advance Directives: No Advance Directives Information Provided: Yes Current occupational status: disabled 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 Meds Allergies Allergy/AdvReac Type Severity Reaction Status Date / Time codeine [CODEINE] Allergy Unknown NAUSEA & Verified 11/29/21 10:36 VOMITING, HIVES Penicillins [PENICILLINS] Allergy Unknown DIFF Verified 11/29/21 10:36 BREATHING, RASH ENVIRONMENTAL Allergy Unknown SOB,WHEEZIN Uncoded 07/07/21 12:46 G Active Medications: Current Medications Pharmacy Consult (Consult Rx Perform Med Rec) 1 each MISCELLANE ONCE PRN PRN Reason: Consult order Home Medications Medication Instructions Recorded Confirmed Last Taken Type quetiapine 200 mg tablet,extended 200 mg PO BEDTIME 10/14/20 01/03/22 01/02/22 History release 24 hr risperidone 2 mg tablet 2 mg PO BEDTIME 10/14/20 01/03/22 01/02/22 History gabapentin 600 mg tablet 1,200 mg PO TID tab 12/15/20 01/03/22 01/02/22 History hydroxyzine HCl 25 mg tablet 25 mg PO TID PRN tab 12/15/20 01/03/22 01/02/22 History omeprazole 40 mg capsule,delayed 40 mg PO .qhs cap 12/15/20 01/03/22 01/02/22 History release albuterol sulfate 90 mcg/actuation 2 inh INHALATION Q4H PRN 01/03/22 01/03/22 01/03/22 History aerosol inhaler (ProAir HFA) naproxen sodium 220 mg tablet 220 mg PO BID PRN 01/03/22 01/03/22 Unknown History simethicone 80 mg chewable tablet 80 mg PO DAILY PRN 01/03/22 01/03/22 Unknown History Physical Exam Vital Signs and Narrative: Vital Signs: Last Vital Signs Temp 98.7 F 01/03/22 09:01 Pulse 122 H 01/03/22 12:00 Resp 24 H 01/03/22 12:00 BP 131/91 H 01/03/22 12:00 Pulse Ox 95 01/03/22 12:00 BMI result Body Mass Index 31.7 Const: Other: Constitutional: Alert, in no distress, Mental Status: Oriented to person, place and time. Eyes: Pupils are equal, round and reactive to light. Ear, Nose and Throat: Oropharynx clear, mucous membranes moist. Trachea midline. Respiratory: mild wheezes wheezing, rales or rhonchi. No accessory muscle use Cardiovascular: S1 S2 regular. No murmurs, rubs or gallops. Gastrointestinal: Abdomen soft, non-tender, non-distended. Normal bowel sounds.? Neurologic: Cranial nerves II-XII grossly intact. No focal neurological deficits. Moves all extremities spontaneously.? Skin: No rashes or lesions.? Musculoskeletal: No cyanosis or clubbing. Psychiatric: Normal mood and affect? Results Labs CBC and Chem 7: 01/03/22 09:44 01/03/22 09:44 Imaging Radiologist's Impressions: Impressions Chest X-Ray 01/03/22 09:29 IMPRESSION: Unremarkable examination. Assessment and Plan (1) Acute respiratory failure with hypoxia: Status: Acute (2) Acute exacerbation of chronic obstructive airways disease: Status: Acute (3) Leucocytosis: Status: Acute Plan 51-year-old female with a history of COPD not on home O2, active smoker, bipolar disorder, depression, GERD, PTSD who presents to the ED with progressive dyspnea for a week, associated with non productive cough, she continues to smoke and furter states that she has run out of her inhalers. She has acute hypoxic respiratory failure due to exacerbation of COPD 1/Acute Hypoxic respiratory failure due to COPD exacerbation and required rescue CPAP but is now doing better -Bronchodilators by Nebs -IV steroid -Azithromcyin for its anti imflamatory properties -Smoking cessation disucssed -Keep Oxygen around 92 % 2/PTSD/Depression/Anxiety--continue Hydroxyxine, risperidal, Seroquel 3/Leukocytosis--likely reactive, no sings of infection, monitor, repeat tomorrow 4/GERD--omeprazole 4/ Lovenox for DVT prophy Quality Stroke Does the patient have a stroke diagnosis?: No VTE Prior VTE?: No VTE Risk Level:: Medical - moderate - high VTE Device Contraindication: Treatment Not Indicated VTE Drug Contraindication: N/A - Med Ordered
[2022-01-03] MEDS: 0.9 % Sodium Chloride Flush 3 ML SYRINGE IVFLUSH (15:36)
[2022-01-03] MEDS: Enoxaparin Sodium 40 MG/0.4 ML SYRINGE SUBCUT (15:36)
[2022-01-03] MEDS: Gabapentin 600 MG TABLET 1200 MG PO ×2 (15:36→21:53)
[2022-01-03] MEDS: methylPREDNISolone Sod Succ 40 MG/ML VIAL IVPUSH (17:14)
--- NOTE | 2022-01-03 17:44 | PC.NURSE ---
assumed care of pt at 1730. pt moved to overflow bed 10, alert and oriented on a nasal cannula.
--- NOTE | 2022-01-03 21:40 | PC.NURSE ---
Assumed care of pt Pt medicated per JAN Pt tolerated well Will continue to monitor
[2022-01-03] MEDS: QUEtiapine Fumarate 100 MG TABLET PO (21:52)
[2022-01-03] MEDS: Melatonin 3 MG TABLET 6 MG PO (21:53)
--- NOTE | 2022-01-03 22:24 | PC.NURSE ---
Assumed care of pt Pt medicated per JAN Pt's HR in 120s. Looks like 120s all day. Pt afebrile. Denies any CP or palpitations Dr. Lowry made aware. Per orders, pt moved to bed 5 for tele. Pt O2 sat high 70s-low 80s on 2L NC. Pt O2 increased to 5L NC to keep O2 >88%. Pt denies any feeling of SOB. Pt states feeling much better than when she came in. Dr. Lowry aware.
[2022-01-03 23:11] LABS: D Dimer High Sensitivity 162 NG/ML
[2022-01-04] VITALS (9 sets, daily range): BP systolic 88–142; BP diastolic 59–74; PULSE 102–115; RESP 17–28; TEMP 36.4–36.8; O2SAT 86–93
[2022-01-04] MEDS: 0.9 % Sodium Chloride Flush 3 ML SYRINGE IVFLUSH (00:10)
[2022-01-04] MEDS: methylPREDNISolone Sod Succ 40 MG/ML VIAL IVPUSH ×3 (01:30→17:48)
[2022-01-04 01:43] LABS: Venous Blood Gas Refer to POC result
[2022-01-04 01:44] LABS: VBG Base Excess 16.9 mmol/L; VBG HCO3 47 mmol/L (22-26); VBG pCO2 82 mmHg; VBG pH 7.36 (7.32-7.43); VBG pO2 45 mmHg
[2022-01-04] MEDS: Omeprazole 40 MG CAPSULE.DR PO (05:59)
[2022-01-04] MEDS: Fluticasone/Vilanterol 100/25 BLST.W.DEV 1 PUFF INHALE (08:00)
[2022-01-04] MEDS: Albuterol/Iprat 2.5/0.5MG 3 ML AMPUL.NEB INHALE ×4 (08:00→20:20)
[2022-01-04] MEDS: Gabapentin 600 MG TABLET 1200 MG PO ×3 (08:05→20:06)
[2022-01-04] MEDS: Montelukast Sodium 10 MG TABLET PO (08:12)
[2022-01-04] MEDS: QUEtiapine Fumarate 100 MG TABLET PO ×2 (08:17→21:31)
[2022-01-04 08:40] LABS: Hematocrit 44.6 % (37.0-47.0); Hemoglobin 13.7 g/dl (12.0-16.0); Mean Corpuscular HGB Conc 30.7 g/dl (31.0-35.0); Mean Corpuscular Volume 94.5 fL (80.0-98.0); Mean Platelet Volume 12.2 fL (9.4-12.3); Platelet Count 267 X10*3/uL (160-400); Red Blood Count 4.72 X10*6/uL (4.20-5.50); Red Cell Distribution Width 14.7 % (11.0-16.0); White Blood Count 16.8 X10*3/uL (4.8-10.8)
--- NOTE | 2022-01-04 09:53 | HO.PM.IMPN ---
Subjective Subjective Date of Service: 01/04/22 Interval History: Seen in f/u copd exacerbation with acute hypoxic respiratory failure. She is doing overall better, but remains hypoxic on 6 liters by nasal canula Review of Systems Gen: no fever Resp: + sob, + cough CV: no chest, + [place], no leg edema GI: No n/v, no abd pain Neuro: No confusion Physical Exam Vital Signs: Vital Signs: Last Vital Signs Temp 97.8 F 01/04/22 08:03 Pulse 112 H 01/04/22 08:06 Resp 28 H 01/04/22 08:06 BP 102/64 01/04/22 08:04 Pulse Ox 88 L 01/04/22 08:03 BMI result Body Mass Index 31.7 Const: Other: Constitutional: Alert, in no distress, Mental Status: Oriented to person, place and time. Respiratory: mild wheezing, rales or rhonchi. No accessory muscle use Cardiovascular: S1 S2 regular. No murmurs, rubs or gallops. Gastrointestinal: Abdomen soft, non-tender, non-distended. Normal bowel sounds.? Neurologic: Cranial nerves II-XII grossly intact. No focal neurological deficits. Skin: No rashes or lesions.? Musculoskeletal: No cyanosis or clubbing. Psychiatric: Normal mood and affect? Objective Data Active Medications Acetaminophen (Acetaminophen 325 Mg Tablet) 650 mg PO Q6H PRN PRN Reason: Pain, Mild (Pain Scale 1-3) Al Hydroxide/Mg Hydroxide (Magnesium Hydrox/Alum Hydrox 30 Ml Oral.Susp) 30 ml PO Q4H PRN PRN Reason: Heartburn/Nausea Albuterol/Ipratropium (Albuterol/Iprat 2.5/0.5mg 3 Ml Ampul.Neb) 3 ml INHALE RQ4H WHILE AWAKE [facility] Last Admin: 01/04/22 08:00 Dose: 3 ml Documented by: BHASKAR Albuterol/Ipratropium (Albuterol/Iprat 2.5/0.5mg 3 Ml Ampul.Neb) 3 ml INHALE Q2H PRN PRN Reason: Shortness of Breath Doxycycline Hyclate (Doxycycline Hyclate 100 Mg Tablet) 100 mg PO Q12H [facility] Last Admin: 01/04/22 00:10 Dose: 100 mg Documented by: CARLA Enoxaparin Sodium (Enoxaparin Sodium 40 Mg/0.4 Ml Syringe) 40 mg SUBCUT Q24H [facility] Last Admin: 01/03/22 15:36 Dose: 40 mg Documented by: GAMALIEL Fluticasone/Vilanterol (Fluticasone/Vilanterol 100/25 Blst.W.Dev) 1 puff INHALE RDAILY [facility] Last Admin: 01/04/22 08:00 Dose: 1 puff Documented by: BHASKAR Gabapentin (Gabapentin 600 Mg Tablet) 1,200 mg PO TID [facility] Last Admin: 01/04/22 08:05 Dose: 1,200 mg Documented by: CHRISTIANO Hydroxyzine HCl (Hydroxyzine Hcl 25 Mg Tablet) 25 mg PO TID PRN PRN Reason: Anxiety Melatonin (Melatonin 3 Mg Tablet) 6 mg PO BEDTIME PRN PRN Reason: Insomnia Last Admin: 01/03/22 21:53 Dose: 6 mg Documented by: CARLA Methylprednisolone Sodium Succinate (Methylprednisolone Sod Succ 40 Mg/Ml Vial) 40 mg IVPUSH Q8H [facility] Last Admin: 01/04/22 08:05 Dose: 40 mg Documented by: CHRISTIANO Montelukast Sodium (Montelukast Sodium 10 Mg Tablet) 10 mg PO DAILY [facility] Last Admin: 01/04/22 08:12 Dose: 10 mg Documented by: CHRISTIANO Naproxen (Naproxen 250 Mg Tablet) 250 mg PO BID PRN PRN Reason: Pain, Mild (Pain Scale 1-3) Non-Formulary Medication (Umeclidinium [Incruse Ellipta]) 1 inhalation PO DAILY [facility] Omeprazole (Omeprazole 40 Mg Capsule.Dr) 40 mg PO DAILY@0630 [facility] Last Admin: 01/04/22 05:59 Dose: 40 mg Documented by: CARLA Ondansetron HCl (Ondansetron Hcl 4 Mg/2 Ml Vial) 4 mg IVPUSH Q8H PRN PRN Reason: Nausea and Vomiting Last Admin: 01/03/22 15:46 Dose: 4 mg Documented by: GAMALIEL Pharmacy Consult (Consult Rx Perform Med Rec) 1 each MISCELLANE ONCE PRN PRN Reason: Consult order Quetiapine Fumarate (Quetiapine Fumarate 100 Mg Tablet) 100 mg PO BID [facility] Last Admin: 01/04/22 08:17 Dose: 100 mg Documented by: CHRISTIANO Risperidone (Risperidone 2 Mg Tablet) 2 mg PO BEDTIME [facility] Last Admin: 01/03/22 22:14 Dose: Not Given Documented by: CARLA Non-Admin Reason: Nausea Simethicone (Simethicone 80 Mg Tab.Chew) 80 mg PO DAILY PRN PRN Reason: Abdominal Pain Sodium Chloride (0.9 % Sodium Chloride Flush 3 Ml Syringe) 3 ml IVFLUSH QSHIFT [facility] Last Admin: 01/04/22 08:10 Dose: Not Given Documented by: CHRISTIANO Non-Admin Reason: IV Running Labs CBC & Chem 7: 01/04/22 08:31 01/03/22 09:44 Labs: Laboratory Results - last 24 hr 01/03/22 01/03/22 01/03/22 09:44 09:44 09:44 MCV 91.4 MCH 28.4 MCHC 31.1 RDW 15.0 Plt Count 268 MPV 11.5 Immature Gran % (Auto) 0.6 H Neut % (Auto) 66.2 Lymph % (Auto) 27.2 [place]ner % (Auto) 4.6 Eos % (Auto) 0.7 Baso % (Auto) 0.7 Lymph # (Auto) 5.6 H [place]ner # (Auto) 0.9 Eos # (Auto) 0.2 Baso # (Auto) 0.1 Abs Immat Gran (auto) 0.13 H Absolute Neuts (auto) 13.7 H Absolute Nucleated RBC 0.000 Nucleated RBC % (auto) 0.0 Smear Tech's Comments VERIFIED D-Dimer High Sensitivty VBG pH VBG pCO2 VBG pO2 VBG HCO3 VBG O2 Saturation VBG Base Excess Anion Gap 11 L Estim Creat Clear Calc 83.8 Estimated GFR > 60 Random Glucose 135 H Lactic Acid Calcium 9.4 Magnesium 1.9 Total Bilirubin 0.4 Direct Bilirubin 0.2 AST 14 ALT 13 Alkaline Phosphatase 74 B-Natriuretic Peptide Total Protein 6.7 Albumin 4.0 Procalcitonin COVID-19 ([facility]) Negative COVID-19 Clin Com See Note 01/03/22 01/03/22 01/03/22 09:44 09:44 09:55 MCV MCH MCHC RDW Plt Count MPV Immature Gran % (Auto) Neut % (Auto) Lymph % (Auto) Sumner % (Auto) Eos % (Auto) Baso % (Auto) Lymph # (Auto) Sumner # (Auto) Eos # (Auto) Baso # (Auto) Abs Immat Gran (auto) Absolute Neuts (auto) Absolute Nucleated RBC Nucleated RBC % (auto) Smear Tech's Comments D-Dimer High Sensitivty VBG pH VBG pCO2 VBG pO2 VBG HCO3 VBG O2 Saturation VBG Base Excess Anion Gap Estim Creat Clear Calc Estimated GFR Random Glucose Lactic Acid 1.0 Calcium Magnesium Total Bilirubin Direct Bilirubin AST ALT Alkaline Phosphatase B-Natriuretic Peptide 53 Total Protein Albumin Procalcitonin 0.03 COVID-19 ([facility]) COVID-19 [facility] 01/03/22 01/04/22 01/04/22 22:59 01:36 08:31 MCV 94.5 MCH 29.0 MCHC 30.7 L RDW 14.7 Plt Count 267 MPV 12.2 Immature Gran % (Auto) Neut % (Auto) Lymph % (Auto) Sumner % (Auto) Eos % (Auto) Baso % (Auto) Lymph # (Auto) [place]ner # (Auto) Eos # (Auto) Baso # (Auto) Abs Immat Gran (auto) Absolute Neuts (auto) Absolute Nucleated RBC 0.000 Nucleated RBC % (auto) 0.0 Smear Tech's Comments D-Dimer High Sensitivty 162 VBG pH 7.36 VBG pCO2 82 VBG pO2 45 VBG HCO3 47 H VBG O2 Saturation 71.0 VBG Base Excess 16.9 Anion Gap Estim Creat Clear Calc Estimated GFR Random Glucose Lactic Acid Calcium Magnesium Total Bilirubin Direct Bilirubin AST ALT Alkaline Phosphatase B-Natriuretic Peptide Total Protein Albumin Procalcitonin COVID-19 ([facility]) COVID-19 Clin WebEvents Assessment and Plan (1) Acute respiratory failure with hypoxia: Status: Acute (2) COPD exacerbation: Status: Acute Plan 51-year-old female with a history of COPD not on home O2, active smoker, bipolar disorder, depression, GERD, PTSD who presents to the ED with progressive dyspnea for a week, associated with non productive cough, she continues to smoke and furter states that she has run out of her inhalers. She has acute hypoxic respiratory failure due to exacerbation of COPD 1/Acute Hypoxic respiratory failure due to COPD exacerbation and required rescue CPAP but is now doing better -Bronchodilators by Nebs -IV steroid for 1 more day -Doxy for bronchitis -Smoking cessation disucssed once again -Keep Oxygen around 92 % 2/PTSD/Depression/Anxiety--continue Hydroxyxine, risperidal, Seroquel 3/Leukocytosis--likely reactive, no sings of infection, monitor, repeat tomorrow 4/GERD--omeprazole 4/ Lovenox for DVT prophy Quality Stroke Does the patient have a stroke diagnosis?: No VTE Prior VTE?: No VTE Risk Level:: Medical - moderate - high VTE Device Contraindication: Treatment Not Indicated VTE Drug Contraindication: N/A - Med Ordered
--- NOTE | 2022-01-04 10:20 | PC.NURSE ---
Pt medicated per jan. Pt verbalizes feeling a lot better than when she came in. Pt continues to require O2 in the bed. Provider aware. BP at one point this AM 88/63. Provider made aware and tech rechecked it. BP came up to 102/64 and provider notified. no orders to follow. pt offering no complaints of pain at this time. lungs sound diminished. Pt is an ax1 to the bedside commode. Belongings and call pandya within reach.
--- NOTE | 2022-01-04 15:13 | MHC.CM.PN ---
Addendum entered by Clementina Kessler 01/04/22 15:53: HCP completed, signed and witnessed. Original given to patient. Copy placed in chart. Original Note: Met with patient in regards to discharge planning. Patient lives with her Joseph, ambulates independently and had no services prior to coming to the hospital. No services anticipated to be needed because pateint is not homebound. PCP verified. Patient received J&J vaccine and Moderna booster. Patient's brother will transport patient home when medically stable. Continue to monitor for d/c needs.
[2022-01-04] MEDS: Enoxaparin Sodium 40 MG/0.4 ML SYRINGE SUBCUT (15:18)
[2022-01-04] MEDS: risperiDONE 2 MG TABLET PO (20:06)
[2022-01-05] VITALS (10 sets, daily range): BP systolic 112–124; BP diastolic 61–85; PULSE 93–115; RESP 18–20; TEMP 36.5–37.1; O2SAT 88–94
[2022-01-05] MEDS: 0.9 % Sodium Chloride Flush 3 ML SYRINGE IVFLUSH ×4 (00:35→20:55)
[2022-01-05] MEDS: methylPREDNISolone Sod Succ 40 MG/ML VIAL IVPUSH ×3 (00:35→17:42)
[2022-01-05] MEDS: ondansetron HCL 4 MG/2 ML VIAL IVPUSH (00:36)
[2022-01-05] MEDS: Benzonatate 100 MG CAPSULE PO ×2 (01:02→08:57)
[2022-01-05] MEDS: Omeprazole 40 MG CAPSULE.DR PO (05:50)
[2022-01-05] MEDS: Montelukast Sodium 10 MG TABLET PO (08:54)
[2022-01-05] MEDS: Gabapentin 600 MG TABLET 1200 MG PO ×3 (08:54→20:54)
[2022-01-05] MEDS: QUEtiapine Fumarate 100 MG TABLET PO ×2 (09:49→20:54)
--- NOTE | 2022-01-05 10:34 | HO.PM.IMPN ---
Subjective Subjective Date of Service: 01/05/22 Interval History: Seen in f/u copd exacerbation with acute hypoxic respiratory failure. She feels better but still fairly hypoxic and requiring high amount of O2 that signficantly drops with exertion Review of Systems Gen: no fever Resp: + sob, + cough CV: no chest, + [place], no leg edema GI: No n/v, no abd pain Neuro: No confusion Physical Exam Vital Signs: Vital Signs: Last Vital Signs Temp 98.1 F 01/05/22 07:06 Pulse 104 H 01/05/22 07:06 Resp 18 01/05/22 07:06 BP 114/61 01/05/22 07:06 Pulse Ox 89 L 01/05/22 08:24 BMI result Body Mass Index 31.7 Const: Other: Constitutional: Alert, in no distress, Mental Status: Oriented to person, place and time. Respiratory: mild wheezing, rales or rhonchi. No accessory muscle use Cardiovascular: S1 S2 regular. No murmurs, rubs or gallops. Gastrointestinal: Abdomen soft, non-tender, non-distended. Normal bowel sounds.? Neurologic: Cranial nerves II-XII grossly intact. No focal neurological deficits. Skin: No rashes or lesions.? Musculoskeletal: No cyanosis or clubbing. Psychiatric: Normal mood and affect? Objective Data Active Medications Acetaminophen (Acetaminophen 325 Mg Tablet) 650 mg PO Q6H PRN PRN Reason: Pain, Mild (Pain Scale 1-3) Al Hydroxide/Mg Hydroxide (Magnesium Hydrox/Alum Hydrox 30 Ml Oral.Susp) 30 ml PO Q4H PRN PRN Reason: Heartburn/Nausea Albuterol/Ipratropium (Albuterol/Iprat 2.5/0.5mg 3 Ml Ampul.Neb) 3 ml INHALE RQ4H WHILE AWAKE [facility] Last Admin: 01/05/22 08:09 Dose: Not Given Documented by: BRITNI Non-Admin Reason: Patient Refused Albuterol/Ipratropium (Albuterol/Iprat 2.5/0.5mg 3 Ml Ampul.Neb) 3 ml INHALE Q2H PRN PRN Reason: Shortness of Breath Benzonatate (Benzonatate 100 Mg Capsule) 100 mg PO TID PRN PRN Reason: Cough Last Admin: 01/05/22 08:57 Dose: 100 mg Documented by: IVORY Doxycycline Hyclate (Doxycycline Hyclate 100 Mg Tablet) 100 mg PO Q12H [facility] Last Admin: 01/04/22 21:28 Dose: 100 mg Documented by: KASIA Enoxaparin Sodium (Enoxaparin Sodium 40 Mg/0.4 Ml Syringe) 40 mg SUBCUT Q24H [facility] Last Admin: 01/04/22 15:18 Dose: 40 mg Documented by: CHRISTIANO Fluticasone/Vilanterol (Fluticasone/Vilanterol 100/25 Blst.W.Dev) 1 puff INHALE RDAILY [facility] Last Admin: 01/05/22 08:09 Dose: Not Given Documented by: BRITNI Non-Admin Reason: Patient Refused Gabapentin (Gabapentin 600 Mg Tablet) 1,200 mg PO TID [facility] Last Admin: 01/05/22 08:54 Dose: 1,200 mg Documented by: IVORY Hydroxyzine HCl (Hydroxyzine Hcl 25 Mg Tablet) 25 mg PO TID PRN PRN Reason: Anxiety Melatonin (Melatonin 3 Mg Tablet) 6 mg PO BEDTIME PRN PRN Reason: Insomnia Last Admin: 01/03/22 21:53 Dose: 6 mg Documented by: CARLA Methylprednisolone Sodium Succinate (Methylprednisolone Sod Succ 40 Mg/Ml Vial) 40 mg IVPUSH Q8H [facility] Last Admin: 01/05/22 08:54 Dose: 40 mg Documented by: IVORY Montelukast Sodium (Montelukast Sodium 10 Mg Tablet) 10 mg PO DAILY [facility] Last Admin: 01/05/22 08:54 Dose: 10 mg Documented by: IVORY Naproxen (Naproxen 250 Mg Tablet) 250 mg PO BID PRN PRN Reason: Pain, Mild (Pain Scale 1-3) Omeprazole (Omeprazole 40 Mg Capsule.Dr) 40 mg PO DAILY@0630 [facility] Last Admin: 01/05/22 05:50 Dose: 40 mg Documented by: GEOFFREY Ondansetron HCl (Ondansetron Hcl 4 Mg/2 Ml Vial) 4 mg IVPUSH Q8H PRN PRN Reason: Nausea and Vomiting Last Admin: 01/05/22 00:36 Dose: 4 mg Documented by: GEOFFREY Pharmacy Consult (Consult Rx Perform Med Rec) 1 each MISCELLANE ONCE PRN PRN Reason: Consult order Quetiapine Fumarate (Quetiapine Fumarate 100 Mg Tablet) 100 mg PO BID [facility] Last Admin: 01/05/22 09:49 Dose: 100 mg Documented by: IVORY Risperidone (Risperidone 2 Mg Tablet) 2 mg PO BEDTIME [facility] Last Admin: 01/04/22 20:06 Dose: 2 mg Documented by: KANWAL Simethicone (Simethicone 80 Mg Tab.Chew) 80 mg PO DAILY PRN PRN Reason: Abdominal Pain Sodium Chloride (0.9 % Sodium Chloride Flush 3 Ml Syringe) 3 ml IVFLUSH QSHIFT [facility] Last Admin: 01/05/22 08:54 Dose: 3 ml Documented by: IVORY Tiotropium [place] (Tiotropium [place] 18 Mcg Cap.W.Dev) 1 puff INHALE RDAILY [facility] Last Admin: 01/05/22 08:10 Dose: Not Given Documented by: BRITNI Non-Admin Reason: Patient Refused Labs CBC & Chem 7: 01/04/22 08:31 01/03/22 09:44 Microbiology Microbiology Results: Microbiology 01/03/22 09:55 Blood Culture - Preliminary Blood - Venous No growth after 24 hours. 01/03/22 09:44 Blood Culture - Preliminary Blood - Venous No growth after 24 hours. Assessment and Plan (1) Acute respiratory failure with hypoxia: Status: Acute (2) COPD exacerbation: Status: Acute (3) Acute exacerbation of chronic obstructive airways disease: Status: Acute Plan 51-year-old female with a history of COPD not on home O2, active smoker, bipolar disorder, depression, GERD, PTSD who presents to the ED with progressive dyspnea for a week, associated with non productive cough, she continues to smoke and furter states that she has run out of her inhalers. She has acute hypoxic respiratory failure due to exacerbation of COPD 1/Acute Hypoxic respiratory failure due to COPD exacerbation and required rescue CPAP but is now doing better -Bronchodilators by Nebs -IV steroid for 1 more day -Doxy for bronchitis -Smoking cessation disucssed once again -Keep Oxygen around 92 % -Assess heart function with Echo - 2/PTSD/Depression/Anxiety--continue Hydroxyxine, risperidal, Seroquel 3/Leukocytosis--likely reactive, no sings of infection, monitor, repeat tomorrow 4/GERD--omeprazole 4/ Lovenox for DVT prophy Quality Stroke Does the patient have a stroke diagnosis?: No VTE Prior VTE?: No VTE Risk Level:: Medical - moderate - high VTE Device Contraindication: Treatment Not Indicated VTE Drug Contraindication: N/A - Med Ordered
[2022-01-05] MEDS: Albuterol/Iprat 2.5/0.5MG 3 ML AMPUL.NEB INHALE ×3 (11:58→19:46)
[2022-01-05 13:34] LABS: Appearance Urine CLEAR; Color Urine YELLOW; Glucose Urine UA NEG (NEG); Leukocyte Esterase Urine NEG (NEG); Nitrite Urine NEG (NEG); PH 6.5 (5.0-8.0); Specific Gravity - Urine <= 1.005 (1.005-1.025); Urine Blood NEG (NEG); Urine Ketones NEG (NEG); Urine Protein NEG (NEG-TRACE)
--- NOTE | 2022-01-05 14:00 | CA_ITS ---
Transthoracic Echocardiogram Patient (Last, First, Middle): Milagro Loyd L Gender: Female Date of : 1970 Age: 51 Procedure Date: 01/05/2022 Procedure Type: Transthoracic Echocardiogram Location: [facility] Height: 154.94 cm Weight: 75.75 kg BSA: 1.75 m2 Heart Rate: bpm BP: 112 / 68 mmHg Engineering Teacher: JOSE Referring MD: Charlie Chandler MD Symptoms: [place] Study Quality: Fair/Contrast Conclusions: - Normal left ventricular cavity size. There is normal left ventricular wall thickness. The left ventricular systolic function is hyperdynamic. The visually estimated ejection fraction is between 65-70%. Findings Procedure Information Contrast agent, definity, is being given per protocol without apparent complications. Left Ventricle Normal left ventricular cavity size. There is normal left ventricular wall thickness. The left ventricular systolic function is hyperdynamic. The visually estimated ejection fraction is between 65-70%. There is no evidence of regional wall motion abnormalities. Diastolic function is normal for age. Right Ventricle Normal right ventricular cavity size and systolic function. Atria Both atria are normal in size. Aortic Valve Normal aortic valve structure and function. There is no aortic valve stenosis. There is no aortic valve regurgitation. Mitral Valve Normal mitral valve structure and function. There is no mitral valve regurgitation. There is no mitral valve stenosis. Pulmonic Valve Normal pulmonic valve structure and function. Tricuspid Valve Normal tricuspid valve structure and function. There is trace tricuspid valve regurgitation. Normal right atrial pressure. There is no evidence of pulmonary hypertension. Great Vessels All visible segments of the aorta are normal in size. The visualized portions of the pulmonary artery and branches are normal. Venous The inferior vena cava is normal in size and collapses greater than 50% with inspiration. Pericardium/Pleural Prominent epicardial adipose tissue noted. There is no evidence of pericardial effusion. Prior Study Comparison No prior study available for comparison. Measurements 2D Linear Measurements IVSd: 0.81 0.6-0.9/0.6-1.0 cm LVIDd: 4.25 3.9-5.3/4.2-5.9 cm LVIDd Index: 2.43 2.4-3.2/2.2-3.1 cm/m2 LVIDs: 3.00 2.0-3.6 cm LVPWd: 0.85 0.7-1.1 cm LA Diam: 2.60 2.7-3.8/3.0-4.0 cm LAIDs Index: 1.49 1.5-2.3 cm/m2 LV Mass: 134.74 67-162/88-224 g LV Mass Index: 76.99 43-95/49-115 g/m2 LVOT Diam: 1.90 3.0+(-)1.3 cm 2D Systolic Function EF 4C: 74.00 >55% EF 2C: 64.20 >55% EF BiP: 69.30 >55% Mitral Valve MV Pk E: 0.86 MV PK A: 0.99 MV Decel Time: 169.00 E/A: 0.90 E'Lateral: 9.14 E'Medial: 7.51 E/E' Med: 11.50 E/E' Lat: 9.40 PHT: 50.00 MVA PHT: 4.40 Decel Potter: 5.11 Aortic Valve AoV Pk Jaison: 1.60 AoV Mn Jaison: 1.00 AoV VTI: 0.28 AoV Pk Grad: 10.00 Aov Mn Grad: 5.00 NURA Cont.VTI: 2.32 LVOT LVOT Pk Jaison: 1.17 LVOT Mn Jaison: 0.91 LVOT VTI: 0.23 LVOT Pk Grad: 5.00 LVOT Mn Grad: 4.00 LVOT Diam: 1.90 LVOT Area: 2.84 Diastolic Function MV Pk E: 0.86 MV Pk A: 0.99 E/A: 0.90 E'Medial: 7.51 E/E' Med: 11.50 E' Laterial: 9.14 E/E' Lat: 9.40 Right Ventricle TAPSE (mm): 19.50 TVS' Jaison: 10.70 Tricuspid Valve TR Pk Jaison: 1.33 TR Pk Grad: 7.00 RA Press: 3.00 RVSP: 10.00 Great Vessels Aorta Sinus of Valsalva: 3.10 2.0-3.5 cm Ao Asc: 2.70 2.1-3.4 cm Ao Arch: 2.80 Updated in Other Vendor System with Status of Final Bryan Rico MD electronically signed on 01/05/2022 10:04:46 PM with status of Final
[2022-01-05] MEDS: Enoxaparin Sodium 40 MG/0.4 ML SYRINGE SUBCUT (14:25)
[2022-01-05] MEDS: risperiDONE 2 MG TABLET PO (20:54)
[2022-01-06] VITALS (12 sets, daily range): BP systolic 114–159; BP diastolic 65–82; PULSE 94–136; RESP 18–20; TEMP 36.2–36.9; O2SAT 82–97
[2022-01-06] MEDS: methylPREDNISolone Sod Succ 40 MG/ML VIAL IVPUSH ×3 (00:18→16:39)
[2022-01-06] MEDS: Benzonatate 100 MG CAPSULE PO ×3 (00:18→20:24)
[2022-01-06] MEDS: Omeprazole 40 MG CAPSULE.DR PO (05:24)
[2022-01-06] MEDS: Albuterol/Iprat 2.5/0.5MG 3 ML AMPUL.NEB INHALE ×4 (07:48→20:36)
[2022-01-06] MEDS: Fluticasone/Vilanterol 100/25 BLST.W.DEV 1 PUFF INHALE (07:48)
[2022-01-06] MEDS: Montelukast Sodium 10 MG TABLET PO (07:56)
[2022-01-06] MEDS: Gabapentin 600 MG TABLET 1200 MG PO ×3 (07:56→20:18)
[2022-01-06] MEDS: 0.9 % Sodium Chloride Flush 3 ML SYRINGE IVFLUSH ×3 (07:56→20:18)
[2022-01-06] MEDS: QUEtiapine Fumarate 100 MG TABLET PO ×2 (07:56→20:18)
--- NOTE | 2022-01-06 10:58 | P.PNIM_ITS ---
Subjective Subjective Date of Service: 01/06/22 Interval History: Seen in f/u copd exacerbation with acute hypoxic respiratory failure. She feels good and thinks she's good to go home Review of Systems Gen: no fever Resp: + sob, + cough CV: no chest, + [place], no leg edema GI: No n/v, no abd pain Neuro: No confusion Physical Exam Vital Signs: Vital Signs: Last Vital Signs Temp 97.4 F 01/06/22 07:26 Pulse 102 H 01/06/22 07:50 Resp 18 01/06/22 07:50 BP 123/82 01/06/22 07:26 Pulse Ox 92 01/06/22 07:26 BMI result Body Mass Index 31.7 Const: Other: Constitutional: Alert, in no distress, Mental Status: Oriented to person, place and time. Respiratory: mild wheezing, rales or rhonchi. No accessory muscle use Cardiovascular: S1 S2 regular. No murmurs, rubs or gallops. Gastrointestinal: Abdomen soft, non-tender, non-distended. Normal bowel sounds.? Neurologic: Cranial nerves II-XII grossly intact. No focal neurological deficits. Skin: No rashes or lesions.? Musculoskeletal: No cyanosis or clubbing. Psychiatric: Normal mood and affect? Objective Data Active Medications Acetaminophen (Acetaminophen 325 Mg Tablet) 650 mg PO Q6H PRN PRN Reason: Pain, Mild (Pain Scale 1-3) Al Hydroxide/Mg Hydroxide (Magnesium Hydrox/Alum Hydrox 30 Ml Oral.Susp) 30 ml PO Q4H PRN PRN Reason: Heartburn/Nausea Albuterol/Ipratropium (Albuterol/Iprat 2.5/0.5mg 3 Ml Ampul.Neb) 3 ml INHALE RQ4H WHILE AWAKE [facility] Last Admin: 01/06/22 07:48 Dose: 3 ml Documented by: BHARATI Albuterol/Ipratropium (Albuterol/Iprat 2.5/0.5mg 3 Ml Ampul.Neb) 3 ml INHALE Q2H PRN PRN Reason: Shortness of Breath Benzonatate (Benzonatate 100 Mg Capsule) 100 mg PO TID PRN PRN Reason: Cough Last Admin: 01/06/22 00:18 Dose: 100 mg Documented by: TIMMY Doxycycline Hyclate (Doxycycline Hyclate 100 Mg Tablet) 100 mg PO Q12H [facility] Last Admin: 01/05/22 20:55 Dose: 100 mg Documented by: TIMMY Enoxaparin Sodium (Enoxaparin Sodium 40 Mg/0.4 Ml Syringe) 40 mg SUBCUT Q24H [facility] Last Admin: 01/05/22 14:25 Dose: 40 mg Documented by: IVORY Fluticasone/Vilanterol (Fluticasone/Vilanterol 100/25 Blst.W.Dev) 1 puff INHALE RDAILY [facility] Last Admin: 01/06/22 07:48 Dose: 1 puff Documented by: BHARATI Gabapentin (Gabapentin 600 Mg Tablet) 1,200 mg PO TID [facility] Last Admin: 01/06/22 07:56 Dose: 1,200 mg Documented by: CHACORTA Hydroxyzine HCl (Hydroxyzine Hcl 25 Mg Tablet) 25 mg PO TID PRN PRN Reason: Anxiety Melatonin (Melatonin 3 Mg Tablet) 6 mg PO BEDTIME PRN PRN Reason: Insomnia Last Admin: 01/03/22 21:53 Dose: 6 mg Documented by: CARLA Methylprednisolone Sodium Succinate (Methylprednisolone Sod Succ 40 Mg/Ml Vial) 40 mg IVPUSH Q8H [facility] Last Admin: 01/06/22 07:56 Dose: 40 mg Documented by: CHACORTA Montelukast Sodium (Montelukast Sodium 10 Mg Tablet) 10 mg PO DAILY [facility] Last Admin: 01/06/22 07:56 Dose: 10 mg Documented by: CHACORTA Naproxen (Naproxen 250 Mg Tablet) 250 mg PO BID PRN PRN Reason: Pain, Mild (Pain Scale 1-3) Omeprazole (Omeprazole 40 Mg Capsule.Dr) 40 mg PO DAILY@0630 [facility] Last Admin: 01/06/22 05:24 Dose: 40 mg Documented by: TIMMY Ondansetron HCl (Ondansetron Hcl 4 Mg/2 Ml Vial) 4 mg IVPUSH Q8H PRN PRN Reason: Nausea and Vomiting Last Admin: 01/05/22 00:36 Dose: 4 mg Documented by: GEOFFREY Pharmacy Consult (Consult Rx Perform Med Rec) 1 each MISCELLANE ONCE PRN PRN Reason: Consult order Quetiapine Fumarate (Quetiapine Fumarate 100 Mg Tablet) 100 mg PO BID [facility] Last Admin: 01/06/22 07:56 Dose: 100 mg Documented by: CHACORTA Risperidone (Risperidone 2 Mg Tablet) 2 mg PO BEDTIME [facility] Last Admin: 01/05/22 20:54 Dose: 2 mg Documented by: TIMMY Simethicone (Simethicone 80 Mg Tab.Chew) 80 mg PO DAILY PRN PRN Reason: Abdominal Pain Sodium Chloride (0.9 % Sodium Chloride Flush 3 Ml Syringe) 3 ml IVFLUSH QSHIFT [facility] Last Admin: 01/06/22 07:56 Dose: 3 ml Documented by: CHACORTA Tiotropium [place] (Tiotropium [place] 18 Mcg Cap.W.Dev) 1 puff INHALE RDAILY [facility] Last Admin: 01/06/22 07:48 Dose: 1 puff Documented by: BHARATI Labs CBC & Chem 7: 01/04/22 08:31 01/03/22 09:44 Labs: Laboratory Results - last 24 hr 01/05/22 13:24 Urine Color YELLOW Urine Appearance CLEAR Urine pH 6.5 Ur Specific [place] <= 1.005 Urine Protein NEG Urine Glucose (UA) NEG Urine Ketones NEG Urine Blood NEG Urine Nitrite NEG Ur Leukocyte Esterase NEG Microbiology Microbiology Results: Microbiology 01/03/22 09:55 Blood Culture - Preliminary Blood - Venous No growth after 48 hours. 01/03/22 09:44 Blood Culture - Preliminary Blood - Venous No growth after 48 hours. Assessment and Plan (1) COPD exacerbation: Status: Acute (2) Acute respiratory failure with hypoxia: Status: Acute Plan 51-year-old female with a history of COPD not on home O2, active smoker, bipolar disorder, depression, GERD, PTSD who presents to the ED with progressive dyspnea for a week, associated with non productive cough, she continues to smoke and furter states that she has run out of her inhalers. She has acute hypoxic respiratory failure due to exacerbation of COPD 1/Acute Hypoxic respiratory failure due to COPD exacerbation and required rescue CPAP but is now doing better -Bronchodilators by Nebs -IV steroid to Prednisone today -Doxy for bronchitis -Smoking cessation disucssed once again -Keep Oxygen around 92 % -pulmonology consult -Assessed heart function with Echo 01/05/: Normal left ventricular cavity size.? There is normal left ? ? ventricular wall thickness.? The left ventricular systolic ? ? ? function is hyperdynamic.? The visually estimated ejection ? ? ? fraction is between 65-70%.? - 2/PTSD/Depression/Anxiety--continue Hydroxyxine, risperidal, Seroquel 3/Leukocytosis--likely reactive, no sings of infection, monitor, repeat tomorrow 4/GERD--omeprazole 4/ Lovenox for DVT prophy Quality Stroke Does the patient have a stroke diagnosis?: No VTE Prior VTE?: No VTE Risk Level:: Medical - moderate - high VTE Device Contraindication: Treatment Not Indicated VTE Drug Contraindication: N/A - Med Ordered
--- NOTE | 2022-01-06 11:14 | PM.DS ---
DS: Providers Provider Date of Service: 01/08/22 Date of admission: 01/03/22 13:52 Primary care physician: Alexander Malik MD Consults: 01/06/22 10:54 Consult to Pulmonology Routine Consulting Provider: David Cody Reason for consultation: COPD with severe hypoxia Has provider been notified: Yes DS: Diagnosis Discharge Diagnosis (1) COPD exacerbation: Status: Resolved (2) Acute respiratory failure with hypoxia: Status: Resolved DS: Summary Hospital Course Hospital Course: Chief Complaint: Shortness of breath 51-year-old female with a history of COPD not on home O2, active smoker, bipolar disorder, depression, GERD, PTSD who presents to the ED with progressive dyspnea for a week, associated with non productive cough, she continues to smoke and furter states that she has run out of her inhalers. Her symptoms are more prominent with exertion, has no leg edema, no PND or orthopnea, reports no fever.? On presentation was signficantly hpoxic with oxygen saturation of 78 on room air and was put on rescue CPAP, IV steroid and bronchodilators but nebs. She did well and was later transitioned to oxygen by nasal canula and at the time I saw her, she was talking full sentences and relates that she felt much more comfortable. WBC is 20 K, CXR is unremarkable. Covid is negative. She is double vaccinated with J and J and Moderna for booster.? Hospital course: 51-year-old female with a history of COPD not on home O2, active smoker, bipolar disorder, depression, GERD, PTSD who presents to the ED with progressive dyspnea for a week, associated with non productive cough, she continues to smoke and furter states that she has run out of her inhalers. She has acute hypoxic respiratory failure due to exacerbation of COPD 1/Acute Hypoxic respiratory failure due to COPD exacerbation and required rescue CPAP in the ED, further work included CT of chest which was negative for PE. She continued to be singificantly hypoxic despite IV steroid and bronchodilators by nebs with oxygen requimenet as high 8 liters and dropping dramatically with activity as such a consultation was requested with Dr. Cody from pulmonary and Diamox was added with improvement in her condition. She is now doing much better and will be discharged with home oxygen, steroid elton and smoking cessation is strongly advise. 2/PTSD/Depression/Anxiety--continue Hydroxyxine, risperidal, Seroquel 3/Leukocytosis--likely reactive, no sings of infection, monitor, repeat tomorrow 4/GERD--omeprazole 5/HTN--started on Cardizem 120 in light of tacycardia assocated with COPD and likely bronchodilators. Time Spent with Patient Time attestation: Total time spent providing and/or coordinating discharge services: Discharge coordination time: Greater than 30 minutes Quality: Stroke Does the patient have a stroke diagnosis?: No Physical Exam Vital Signs: Vital Signs: Last Vital Signs Temp 97.4 F 01/06/22 07:26 Pulse 102 H 01/06/22 07:50 Resp 18 01/06/22 07:50 BP 123/82 01/06/22 07:26 Pulse Ox 92 01/06/22 07:26 BMI result Body Mass Index 31.7 DS: Data Data Completed and Pending Labs on day of discharge: Laboratory Results - last 24 hr 01/05/22 13:24 Urine Color YELLOW Urine Appearance CLEAR Urine pH 6.5 Ur Specific [place] <= 1.005 Urine Protein NEG Urine Glucose (UA) NEG Urine Ketones NEG Urine Blood NEG Urine Nitrite NEG Ur Leukocyte Esterase NEG Preliminary micro results at discharge 01/03/22 09:55 Blood Culture - Preliminary Blood - Venous No growth after 48 hours. 01/03/22 09:44 Blood Culture - Preliminary Blood - Venous No growth after 48 hours. Discharge Plan Discharge Anticipated Discharge Date/Time: 01/08/22 12:10 Patient Disposition: Home, Self-Care Discharge Diagnosis: Acute on chronic hypoxic respiratory failure due to COPD exacerbation Referrals: Alexander Malik MD [Primary Care Provider] - 1 Week Discharge Medications: New diltiazem HCl [Cardizem CD] 120 mg Capsule,Extended Release 24hr 120 mg PO DAILY Qty: 30 0RF Protocol: Hold for SBP/HR < HOLD for SBP < : 90 HOLD for HR < : 60 (DME) compressor, for nebulizer Device See Rx Instructions .Route Qty: 1 0RF Rx Instructions: As directed 4 times a day Continued fluticasone propion-salmeterol [Wixela Inhub] 500-50 mcg/dose blister with device 1 ea inhalation BID Qty: 60 3RF montelukast 10 mg tablet 10 mg PO DAILY Qty: 90 0RF Incruse Ellipta 62.5 mcg/actuation blister with device 1 inh PO DAILY Qty: 30 2RF albuterol sulfate [ProAir HFA] 90 mcg/actuation HFA aerosol inhaler 2 inh inhalation Q4H PRN (Reason: Wheezing) 0RF naproxen sodium 220 mg Tablet 220 mg PO BID PRN (Reason: Pain) 0RF simethicone 80 mg Tablet,Chewable 80 mg PO DAILY PRN (Reason: Abdominal Pain) 0RF quetiapine 200 mg tablet extended release 24 hr 200 mg PO BEDTIME 0RF risperidone 2 mg tablet 2 mg PO BEDTIME 0RF gabapentin 600 mg tablet 1,200 mg PO TID 0RF hydroxyzine HCl 25 mg tablet 25 mg PO TID PRN (Reason: Anxiety) 0RF Rx Instructions: 1-2 a day prn omeprazole 40 mg capsule,delayed release(DR/EC) 40 mg PO .qhs 0RF No Action levalbuterol HCl [Xopenex] 1.25 mg/3 mL solution for nebulization 1.25 mg inhalation Q4-6H PRN (Reason: shortness of breath or wheezing) 15 Days Qty: 90 5RF Discharge Orders: Discharge Order (Routine); Ordered 01/08/22 Ordered By: Charlie Chandler Diet: advance to usual diet and diabetic diet Activity on Discharge: As tolerated Stand Alone Forms: Patient Portal Discharge page Care Plan Goals: prevent rehospitalization and controll of COPD and chronic respiratory failure Health Concerns: Chronic respiratory failure with Hypoxia COPD Plan of Treatment: use onxygen as directed use inhalers as directed make appointment to go see Dr. Longo your lung doctor Assessment: as above Discharge Date/Time: 01/08/22 14:52
--- NOTE | 2022-01-06 12:54 | P.CONPL_ITS ---
History of Present Illness History of Present Illness Consult date: 01/06/22 Requesting physician: Charlie Chandler Chief complaint: COPD ex, hypoxic resp failure Narrative: 51-year-old lady, active 40+ pack-year smoker, follows with Dr. Longo, not on home supplemental O2 admitted on 01/03/2022 with progressive shortness of breath over week. Patient was noted to have significant hypoxia on ER evaluation was admitted to general medical gutierrez and treated with systemic glucocorticoids and bronchodilators for presumed COPD exacerbation. Patient FiO2 requirements r emain significantly higher requiring 6 L at rest and 10 L with exertion, which is new for her. She denies cough or sputum production, or any wheezing. Review of Systems Constitutional: Constitutional: Denies daytime sleepiness, Denies excessive sweating, Denies fatigue, Denies fever(s), Denies lethargy, Denies malaise, Denies night sweats, Denies snoring and Denies weight loss Eyes: Eyes: Denies blurry vision and Denies itchy eyes ENT: Denies nasal congestion, Denies post nasal drip, Denies sinus pain, Den ies sinus pressure and Denies other ( Thrush) Cardiovascular: Cardiovascular: Denies chest pain, Denies pedal edema, Reports dyspnea, Reports dyspnea on exertion, Denies orthopnea and Denies paroxysmal nocturnal dyspnea Respiratory: Respiratory: Denies cough, Denies hemoptysis, Denies excessive phlegm production, Reports dyspnea, Reports dyspnea on exertion, Denies snoring and Denies wheezing Gastrointestinal: Gastrointestinal: Denies abdominal pain and Denies heartburn Musculoskeletal: Musculoskeletal: Denies myalgias, Denies arthralgias and Denies joint swelling Integumentary/Breasts: Skin/Breast: Denies rash Neurologic: Denies memory loss and Denies seizure-like activity Psychiatric: Psychiatric: Denies abnormal sleep pattern, Denies anxiety and Denies memory loss Endocrine: Endocrine: Denies excessive sweating, Denies fatigue and Denies heat intolerance Hematologic/Lymphatic: Hematologic/Lymphatic: Denies easy bruising Allergic/Immunologic: Allergic/Immunologic: Denies itchy eyes, Denies seasonal rhinorrhea and Denies wheezing PMFSH Past Medical History Medical History Acid reflux Asthma COPD (chronic obstructive pulmonary disease) Depression Hx of lipoma Lipoma of abdominal wall Smoker Family History Family History Mother Crohn disease Brother Colitis Surgical History Surgical History History of cholecystectomy History of hysterectomy History of shoulder surgery Social History Social History Household Members: Spouse Housing: Apartment Do you presently have visiting nurse or other home services: No Alcohol intake: never Patient Tobacco Use Status: Current everyday Tobacco user Cigarettes Per Day: 8 Use of substances other than those prescribed or required for medical reasons: Yes Substance Use Type: Marijuana Substance Use Frequency: Daily Last Used Substance: Days (ago) Currently Displaying Signs/Symptoms of Drug Intoxication Withdrawal: No Any prior treatment program specific to substance use: No Advance Directives: No Advance Directives Information Provided: Yes Do you have thoughts of harming others: None Do you have a plan to hurt others: No Plan Recently lost weight without trying: No service: No Current occupational status: unemployed and disabled 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 Meds Allergies Allergy/AdvReac Type Severity Reaction Status Date / Time codeine [CODEINE] Allergy Unknown NAUSEA & Verified 11/29/21 10:36 VOMITING, HIVES Penicillins [PENICILLINS] Allergy Unknown DIFF Verified 11/29/21 10:36 BREATHING, RASH ENVIRONMENTAL Allergy Unknown SOB,WHEEZIN Uncoded 07/07/21 12:46 G Active Medications: Current Medications Acetaminophen (Acetaminophen 325 Mg Tablet) 650 mg PO Q6H PRN PRN Reason: Pain, Mild (Pain Scale 1-3) Al Hydroxide/Mg Hydroxide (Magnesium Hydrox/Alum Hydrox 30 Ml Oral.Susp) 30 ml PO Q4H PRN PRN Reason: Heartburn/Nausea Albuterol/Ipratropium (Albuterol/Iprat 2.5/0.5mg 3 Ml Ampul.Neb) 3 ml INHALE RQ4H WHILE AWAKE [facility] Last Admin: 01/06/22 11:32 Dose: 3 ml Documented by: Albuterol/Ipratropium (Albuterol/Iprat 2.5/0.5mg 3 Ml Ampul.Neb) 3 ml INHALE Q2H PRN PRN Reason: Shortness of Breath Benzonatate (Benzonatate 100 Mg Capsule) 100 mg PO TID PRN PRN Reason: Cough Last Admin: 01/06/22 11:07 Dose: 100 mg Documented by: Doxycycline Hyclate (Doxycycline Hyclate 100 Mg Tablet) 100 mg PO Q12H [facility] Last Admin: 01/06/22 11:05 Dose: 100 mg Documented by: Enoxaparin Sodium (Enoxaparin Sodium 40 Mg/0.4 Ml Syringe) 40 mg SUBCUT Q24H [facility] Last Admin: 01/05/22 14:25 Dose: 40 mg Documented by: Fluticasone/Vilanterol (Fluticasone/Vilanterol 100/25 Blst.W.Dev) 1 puff INHALE RDAILY [facility] Last Admin: 01/06/22 07:48 Dose: 1 puff Documented by: Gabapentin (Gabapentin 600 Mg Tablet) 1,200 mg PO TID [facility] Last Admin: 01/06/22 07:56 Dose: 1,200 mg Documented by: Hydroxyzine HCl (Hydroxyzine Hcl 25 Mg Tablet) 25 mg PO TID PRN PRN Reason: Anxiety Melatonin (Melatonin 3 Mg Tablet) 6 mg PO BEDTIME PRN PRN Reason: Insomnia Last Admin: 01/03/22 21:53 Dose: 6 mg Documented by: Methylprednisolone Sodium Succinate (Methylprednisolone Sod Succ 40 Mg/Ml Vial) 40 mg IVPUSH Q8H [facility] Last Admin: 01/06/22 07:56 Dose: 40 mg Documented by: Montelukast Sodium (Montelukast Sodium 10 Mg Tablet) 10 mg PO DAILY [facility] Last Admin: 01/06/22 07:56 Dose: 10 mg Documented by: Naproxen (Naproxen 250 Mg Tablet) 250 mg PO BID PRN PRN Reason: Pain, Mild (Pain Scale 1-3) Omeprazole (Omeprazole 40 Mg Capsule.Dr) 40 mg PO DAILY@0630 [facility] Last Admin: 01/06/22 05:24 Dose: 40 mg Documented by: Ondansetron HCl (Ondansetron Hcl 4 Mg/2 Ml Vial) 4 mg IVPUSH Q8H PRN PRN Reason: Nausea and Vomiting Last Admin: 01/05/22 00:36 Dose: 4 mg Documented by: Pharmacy Consult (Consult Rx Perform Med Rec) 1 each MISCELLANE ONCE PRN PRN Reason: Consult order Quetiapine Fumarate (Quetiapine Fumarate 100 Mg Tablet) 100 mg PO BID [facility] Last Admin: 01/06/22 07:56 Dose: 100 mg Documented by: Risperidone (Risperidone 2 Mg Tablet) 2 mg PO BEDTIME [facility] Last Admin: 01/05/22 20:54 Dose: 2 mg Documented by: Simethicone (Simethicone 80 Mg Tab.Chew) 80 mg PO DAILY PRN PRN Reason: Abdominal Pain Sodium Chloride (0.9 % Sodium Chloride Flush 3 Ml Syringe) 3 ml IVFLUSH QSHIFT [facility] Last Admin: 01/06/22 07:56 Dose: 3 ml Documented by: Tiotropium [place] (Tiotropium [place] 18 Mcg Cap.W.Dev) 1 puff INHALE RDAILY [facility] Last Admin: 01/06/22 07:48 Dose: 1 puff Documented by: Home Medications Medication Instructions Recorded Confirmed Last Taken Type quetiapine 200 mg tablet,extended 200 mg PO BEDTIME 10/14/20 01/03/22 01/02/22 History release 24 hr risperidone 2 mg tablet 2 mg PO BEDTIME 10/14/20 01/03/22 01/02/22 History gabapentin 600 mg tablet 1,200 mg PO TID tab 12/15/20 01/03/22 01/02/22 History hydroxyzine HCl 25 mg tablet 25 mg PO TID PRN tab 12/15/20 01/03/22 01/02/22 History omeprazole 40 mg capsule,delayed 40 mg PO .qhs cap 12/15/20 01/03/22 01/02/22 History release albuterol sulfate 90 mcg/actuation 2 inh INHALATION Q4H PRN 01/03/22 01/03/22 01/03/22 History aerosol inhaler (ProAir HFA) naproxen sodium 220 mg tablet 220 mg PO BID PRN 01/03/22 01/03/22 Unknown History simethicone 80 mg chewable tablet 80 mg PO DAILY PRN 01/03/22 01/03/22 Unknown History Physical Exam Vital Signs: Vital Signs: Last Vital Signs Temp 97.2 F 01/06/22 11:32 Pulse 112 H 01/06/22 11:33 Resp 20 01/06/22 11:33 BP 137/76 01/06/22 11:32 Pulse Ox 89 L 01/06/22 11:32 BMI result Body Mass Index 31.7 Const: General: no acute distress and alert Nutritional Appearance: obese Orientation/consciousness: Other orientation findings ( oriented) HENMT: Head: Yes atraumatic Mouth: no other ( thrush) Throat: No postnasal drainage Eyes: General: appearance normal, both eyes and all related structures Sclerae: sclerae normal EOM: EOMs intact bilaterally Neck: Neck: Yes supple Lymphatic: no lymphadenopathy noted Resp: Effort & Inspection: normal respiratory effort and no use of accessory muscles Auscultation: clear to auscultation bilaterally Cardio: Rate: regular rate Rhythm: regular rhythm Heart sounds: no gallops, no murmurs and no rubs GI: Palpation (GI): Soft to palpation and Other GI palpation findings present ( nontender) Skin: General skin exam: other ( warm) Rashes: no rashes Extrem: General: No clubbing, No cyanosis and Yes edema ( Trace bilateral) Results Laboratory Findings CBC and BMP: 01/04/22 08:31 01/03/22 09:44 Abnormal lab findings: Abnormal Labs 01/03/22 01/03/22 01/03/22 09:18 09:44 09:44 WBC 20.6 H Hct 47.9 H MCHC Immature Gran % (Auto) 0.6 H Lymph # (Auto) 5.6 H Abs Immat Gran (auto) 0.13 H Absolute Neuts (auto) 13.7 H ABG pCO2 at Pt Temp 65 H* ABG pO2 at Pt Temp 61 L ABG HCO3 41 H VBG HCO3 Chloride 94 L Carbon Dioxide 36 H Anion Gap 11 L BUN 4 L Random Glucose 135 H 01/04/22 01/04/22 01:36 08:31 WBC 16.8 H Hct MCHC 30.7 L Immature Gran % (Auto) Lymph # (Auto) Abs Immat Gran (auto) Absolute Neuts (auto) ABG pCO2 at Pt Temp ABG pO2 at Pt Temp ABG HCO3 VBG HCO3 47 H Chloride Carbon Dioxide Anion Gap BUN Random Glucose Microbiology: Microbiology 01/03/22 09:55 Blood - Venous Blood Culture - Preliminary No growth after 48 hours. 01/03/22 09:44 Blood - Venous Blood Culture - Preliminary No growth after 48 hours. Assessment and Plan (1) Acute respiratory failure with hypoxia: Status: Acute (2) COPD (chronic obstructive pulmonary disease): Status: Acute Plan Impression: 51-year-old lady with underlying at least moderate COPD, previously not supplemental oxygen dependent, now admitted with progressive hypoxia. Patient has been empirically treated for COPD exacerbation with mild improvement, however she still has significant FiO2 requirements now at 6 L continuous flow. At this time patient does not appear to be in acute exacerbation of COPD, and other etiologies for her current dyspnea and hypoxia should be evaluated. Recommendations: Will start with CT angiogram with PE protocol. Consider di scontinuation of systemic glucocorticoids. Procedures Date of Service Date of Service: 01/06/22
--- NOTE | 2022-01-06 12:55 | MHC.CM.PN ---
Female 51 COPD DP home with family transport. No discharge today. Patient is requiring high supplemental Oxygen 12L. Per MD rounds, a pulmonary consult has been ordered. CM will follow to assess dc needs, and adjust the plan as needed.
[2022-01-06] MEDS: iohexoL 350 MG/ML 100 ML INFUS..BTL IV (14:45)
[2022-01-06] MEDS: Enoxaparin Sodium 40 MG/0.4 ML SYRINGE SUBCUT (14:54)
[2022-01-06] MEDS: methylPREDNISolone Sod Succ 40 MG/ML VIAL 60 MG IVPUSH (20:17)
[2022-01-06] MEDS: risperiDONE 2 MG TABLET PO (20:18)
[2022-01-07] VITALS (10 sets, daily range): BP systolic 112–142; BP diastolic 58–86; PULSE 98–121; RESP 16–22; TEMP 36.4–36.6; O2SAT 91–96
[2022-01-07] MEDS: methylPREDNISolone Sod Succ 40 MG/ML VIAL 60 MG IVPUSH ×3 (06:11→20:10)
[2022-01-07] MEDS: Omeprazole 40 MG CAPSULE.DR PO (06:11)
[2022-01-07] MEDS: Fluticasone/Vilanterol 100/25 BLST.W.DEV 1 PUFF INHALE (07:57)
[2022-01-07] MEDS: Albuterol/Iprat 2.5/0.5MG 3 ML AMPUL.NEB INHALE ×4 (07:57→19:31)
[2022-01-07] MEDS: QUEtiapine Fumarate 100 MG TABLET PO ×2 (09:24→20:10)
[2022-01-07] MEDS: 0.9 % Sodium Chloride Flush 3 ML SYRINGE IVFLUSH ×3 (09:25→20:11)
[2022-01-07] MEDS: acetaZOLAMIDE sodium 500 MG VIAL 375 MG IVPUSH ×2 (09:54→20:11)
[2022-01-07] MEDS: Gabapentin 600 MG TABLET 1200 MG PO ×3 (09:54→20:10)
--- NOTE | 2022-01-07 11:07 | P.PNIM_ITS ---
Subjective Subjective Date of Service: 01/07/22 Interval History: Seen in f/u copd exacerbation with acute hypoxic respiratory failure. She feels much better, O2 is better and wants to go home, CTA yesterday was negative for PE Review of Systems Gen: no fever Resp: + sob, + cough CV: no chest, + [place], no leg edema GI: No n/v, no abd pain Neuro: No confusion Physical Exam Vital Signs: Vital Signs: Last Vital Signs Temp 97.9 F 01/07/22 07:38 Pulse 121 H 01/07/22 11:05 Resp 18 01/07/22 11:05 BP 142/86 H 01/07/22 07:38 Pulse Ox 92 01/07/22 07:38 BMI result Body Mass Index 31.7 Const: Other: General: AO X 3, no acute distress Resp: CTA bilateral CVS: S1,S2,RRR GI: +BS, NT, no distention Skin: No rash Neuro: motor grossly intact Psych: appropriate affect Objective Data Active Medications Acetaminophen (Acetaminophen 325 Mg Tablet) 650 mg PO Q6H PRN PRN Reason: Pain, Mild (Pain Scale 1-3) Al Hydroxide/Mg Hydroxide (Magnesium Hydrox/Alum Hydrox 30 Ml Oral.Susp) 30 ml PO Q4H PRN PRN Reason: Heartburn/Nausea Albuterol/Ipratropium (Albuterol/Iprat 2.5/0.5mg 3 Ml Ampul.Neb) 3 ml INHALE RQ4H WHILE AWAKE [facility] Last Admin: 01/07/22 11:04 Dose: 3 ml Documented by: BHASKAR Albuterol/Ipratropium (Albuterol/Iprat 2.5/0.5mg 3 Ml Ampul.Neb) 3 ml INHALE Q2H PRN PRN Reason: Shortness of Breath Benzonatate (Benzonatate 100 Mg Capsule) 100 mg PO TID PRN PRN Reason: Cough Last Admin: 01/06/22 20:24 Dose: 100 mg Documented by: TRICIA Doxycycline Hyclate (Doxycycline Hyclate 100 Mg Tablet) 100 mg PO Q12H [facility] Last Admin: 01/06/22 22:29 Dose: 100 mg Documented by: TRICIA Enoxaparin Sodium (Enoxaparin Sodium 40 Mg/0.4 Ml Syringe) 40 mg SUBCUT Q24H [facility] Last Admin: 01/06/22 14:54 Dose: 40 mg Documented by: CHACORTA Fluticasone/Vilanterol (Fluticasone/Vilanterol 100/25 Blst.W.Dev) 1 puff INHALE RDAILY [facility] Last Admin: 01/07/22 07:57 Dose: 1 puff Documented by: BHASKAR Gabapentin (Gabapentin 600 Mg Tablet) 1,200 mg PO TID [facility] Last Admin: 01/07/22 09:54 Dose: 1,200 mg Documented by: LAURENCE Hydroxyzine HCl (Hydroxyzine Hcl 25 Mg Tablet) 25 mg PO TID PRN PRN Reason: Anxiety Melatonin (Melatonin 3 Mg Tablet) 6 mg PO BEDTIME PRN PRN Reason: Insomnia Last Admin: 01/03/22 21:53 Dose: 6 mg Documented by: CARLA Methylprednisolone Sodium Succinate (Methylprednisolone Sod Succ 40 Mg/Ml Vial) 60 mg IVPUSH Q8H [facility] Last Admin: 01/07/22 06:11 Dose: 60 mg Documented by: TRICIA Montelukast Sodium (Montelukast Sodium 10 Mg Tablet) 10 mg PO DAILY [facility] Last Admin: 01/06/22 07:56 Dose: 10 mg Documented by: CHACORTA Naproxen (Naproxen 250 Mg Tablet) 250 mg PO BID PRN PRN Reason: Pain, Mild (Pain Scale 1-3) Omeprazole (Omeprazole 40 Mg Capsule.Dr) 40 mg PO DAILY@0630 [facility] [place] Last Admin: 01/07/22 06:11 Dose: 40 mg Documented by: TRICIA Ondansetron HCl (Ondansetron Hcl 4 Mg/2 Ml Vial) 4 mg IVPUSH Q8H PRN PRN Reason: Nausea and Vomiting Last Admin: 01/05/22 00:36 Dose: 4 mg Documented by: EGOFFREY Pharmacy Consult (Consult Rx Perform Med Rec) 1 each MISCELLANE ONCE PRN PRN Reason: Consult order Quetiapine Fumarate (Quetiapine Fumarate 100 Mg Tablet) 100 mg PO BID [facility] [place] Last Admin: 01/07/22 09:24 Dose: 100 mg Documented by: LAURENCE Risperidone (Risperidone 2 Mg Tablet) 2 mg PO BEDTIME [facility] [place] Last Admin: 01/06/22 20:18 Dose: 2 mg Documented by: TRICIA Simethicone (Simethicone 80 Mg Tab.Chew) 80 mg PO DAILY PRN PRN Reason: Abdominal Pain Sodium Chloride (0.9 % Sodium Chloride Flush 3 Ml Syringe) 3 ml IVFLUSH QSHIFT [facility] [place] Last Admin: 01/07/22 09:25 Dose: 3 ml Documented by: LAURENCE Tiotropium [place] (Tiotropium [place] 18 Mcg Cap.W.Dev) 1 puff INHALE RDAILY [facility] [place] Last Admin: 01/07/22 07:57 Dose: 1 puff Documented by: BHASKAR Labs CBC & Chem 7: 01/04/22 08:31 01/03/22 09:44 Assessment and Plan (1) COPD exacerbation: Status: Acute (2) Acute respiratory failure with hypoxia: Status: Acute Plan 51-year-old female with a history of COPD not on home O2, active smoker, bipolar disorder, depression, GERD, PTSD who presents to the ED with progressive dyspnea for a week, associated with non productive cough, she continues to smoke and furter states that she has run out of her inhalers. She has acute hypoxic respiratory failure due to exacerbation of COPD 1/Acute Hypoxic respiratory failure due to COPD exacerbation and required rescue CPAP but is now doing better -Bronchodilators by Nebs -IV steroid to Prednisone today -Doxy for bronchitis -Smoking cessation disucssed once again -Keep Oxygen around 92 % -pulmonology consult -Assessed heart function with Echo 01/05/: Normal left ventricular cavity size.? There is normal left ? ? ventricular wall thickness.? The left ventricular systolic ? ? ? function is hyperdynamic.? The visually estimated ejection ? ? ? fraction is between 65-70%.? CTA negative for PE.. Will reassess home O2? - 2/PTSD/Depression/Anxiety--continue Hydroxyxine, risperidal, Seroquel 3/Leukocytosis--likely reactive, no sings of infection, monitor, repeat tomorrow 4/GERD--omeprazole 5/HTN--add Cardizem 120 daily Lovenox for DVT prophy Quality Stroke Does the patient have a stroke diagnosis?: No VTE Prior VTE?: No VTE Risk Level:: Medical - moderate - high VTE Device Contraindication: Treatment Not Indicated VTE Drug Contraindication: N/A - Med Ordered
[2022-01-07] MEDS: dilTIAZem HCL CD 120 MG CAP.ER.DEG PO (12:35)
[2022-01-07] MEDS: Benzonatate 100 MG CAPSULE PO ×2 (12:40→21:39)
[2022-01-07] MEDS: Enoxaparin Sodium 40 MG/0.4 ML SYRINGE SUBCUT (17:32)
[2022-01-07] MEDS: risperiDONE 2 MG TABLET PO (20:10)
[2022-01-08] VITALS (7 sets, daily range): BP systolic 114–128; BP diastolic 61–73; PULSE 94–139; RESP 16–20; TEMP 36.4–36.7; O2SAT 88–131
[2022-01-08] MEDS: Omeprazole 40 MG CAPSULE.DR PO (05:17)
[2022-01-08] MEDS: methylPREDNISolone Sod Succ 40 MG/ML VIAL 60 MG IVPUSH (05:19)
[2022-01-08] MEDS: Albuterol/Iprat 2.5/0.5MG 3 ML AMPUL.NEB INHALE ×3 (07:37→14:42)
[2022-01-08] MEDS: Fluticasone/Vilanterol 100/25 BLST.W.DEV 1 PUFF INHALE (07:37)
[2022-01-08] MEDS: predniSONE 10 MG TABLET 30 MG PO (08:21)
[2022-01-08] MEDS: dilTIAZem HCL CD 120 MG CAP.ER.DEG PO (08:21)
[2022-01-08] MEDS: QUEtiapine Fumarate 100 MG TABLET PO (08:21)
[2022-01-08] MEDS: Gabapentin 600 MG TABLET 1200 MG PO ×2 (08:22→14:25)
--- NOTE | 2022-01-08 08:22 | HO.PM.IMPN ---
Subjective Subjective Date of Service: 01/08/22 Interval History: Seen in f/u copd exacerbation with acute hypoxic respiratory failure. She feels much better, O2 is better and wants to go home, CTA yesterday was negative for PE Review of Systems Gen: no fever Resp: + sob, + cough CV: no chest, + [place], no leg edema GI: No n/v, no abd pain Neuro: No confusion Physical Exam Vital Signs: Vital Signs: Last Vital Signs Temp 98.1 F 01/08/22 08:00 Pulse 110 H 01/08/22 08:00 Resp 16 01/08/22 08:00 BP 128/73 01/08/22 08:00 Pulse Ox 96 01/08/22 08:00 BMI result Body Mass Index 31.7 Const: Other: General: AO X 3, no acute distress Resp: CTA bilateral CVS: S1,S2,RRR GI: +BS, NT, no distention Skin: No rash Neuro: motor grossly intact Psych: appropriate affect Objective Data Active Medications Acetaminophen (Acetaminophen 325 Mg Tablet) 650 mg PO Q6H PRN PRN Reason: Pain, Mild (Pain Scale 1-3) Al Hydroxide/Mg Hydroxide (Magnesium Hydrox/Alum Hydrox 30 Ml Oral.Susp) 30 ml PO Q4H PRN PRN Reason: Heartburn/Nausea Albuterol/Ipratropium (Albuterol/Iprat 2.5/0.5mg 3 Ml Ampul.Neb) 3 ml INHALE RQ4H WHILE AWAKE [facility] Last Admin: 01/08/22 07:37 Dose: 3 ml Documented by: BRITNI Albuterol/Ipratropium (Albuterol/Iprat 2.5/0.5mg 3 Ml Ampul.Neb) 3 ml INHALE Q2H PRN PRN Reason: Shortness of Breath Benzonatate (Benzonatate 100 Mg Capsule) 100 mg PO TID PRN PRN Reason: Cough Last Admin: 01/07/22 21:39 Dose: 100 mg Documented by: TRICIA Diltiazem HCl (Diltiazem Hcl Cd 120 Mg Cap.Er.Deg) 120 mg PO DAILY [facility]; Protocol Last Admin: 01/07/22 12:35 Dose: 120 mg Documented by: LAURENCE Doxycycline Hyclate (Doxycycline Hyclate 100 Mg Tablet) 100 mg PO Q12H [facility] Last Admin: 01/07/22 21:39 Dose: 100 mg Documented by: TRICIA Enoxaparin Sodium (Enoxaparin Sodium 40 Mg/0.4 Ml Syringe) 40 mg SUBCUT Q24H [facility] Last Admin: 01/07/22 17:32 Dose: 40 mg Documented by: LAURENCE Fluticasone/Vilanterol (Fluticasone/Vilanterol 100/25 Blst.W.Dev) 1 puff INHALE RDAILY [facility] Last Admin: 01/08/22 07:37 Dose: 1 puff Documented by: BRITNI Gabapentin (Gabapentin 600 Mg Tablet) 1,200 mg PO TID [facility] Last Admin: 01/07/22 20:10 Dose: 1,200 mg Documented by: TRICIA Hydroxyzine HCl (Hydroxyzine Hcl 25 Mg Tablet) 25 mg PO TID PRN PRN Reason: Anxiety Melatonin (Melatonin 3 Mg Tablet) 6 mg PO BEDTIME PRN PRN Reason: Insomnia Last Admin: 01/03/22 21:53 Dose: 6 mg Documented by: CARLA Montelukast Sodium (Montelukast Sodium 10 Mg Tablet) 10 mg PO DAILY [facility] Last Admin: 01/07/22 12:41 Dose: Not Given Documented by: LAURENCE Non-Admin Reason: Med Not Available Naproxen (Naproxen 250 Mg Tablet) 250 mg PO BID PRN PRN Reason: Pain, Mild (Pain Scale 1-3) Omeprazole (Omeprazole 40 Mg Capsule.Dr) 40 mg PO DAILY@0630 [facility] Last Admin: 01/08/22 05:17 Dose: 40 mg Documented by: TRICIA Ondansetron HCl (Ondansetron Hcl 4 Mg/2 Ml Vial) 4 mg IVPUSH Q8H PRN PRN Reason: Nausea and Vomiting Last Admin: 01/05/22 00:36 Dose: 4 mg Documented by: GEOFFREY Pharmacy Consult (Consult Rx Perform Med Rec) 1 each MISCELLANE ONCE PRN PRN Reason: Consult order Prednisone (Prednisone 10 Mg Tablet) 30 mg PO DAILY [facility] Quetiapine Fumarate (Quetiapine Fumarate 100 Mg Tablet) 100 mg PO BID [facility] Last Admin: 01/07/22 20:10 Dose: 100 mg Documented by: TRICIA Risperidone (Risperidone 2 Mg Tablet) 2 mg PO BEDTIME [facility] Last Admin: 01/07/22 20:10 Dose: 2 mg Documented by: TRICIA Simethicone (Simethicone 80 Mg Tab.Chew) 80 mg PO DAILY PRN PRN Reason: Abdominal Pain Sodium Chloride (0.9 % Sodium Chloride Flush 3 Ml Syringe) 3 ml IVFLUSH QSHIFT [facility] Last Admin: 01/07/22 20:11 Dose: 3 ml Documented by: TRICIA Tiotropium [place] (Tiotropium [place] 18 Mcg Cap.W.Dev) 1 puff INHALE RDAILY [facility] Last Admin: 01/08/22 07:37 Dose: 1 puff Documented by: BRITNI Labs CBC & Chem 7: 01/04/22 08:31 01/03/22 09:44 Assessment and Plan (1) COPD exacerbation: Status: Acute (2) Acute respiratory failure with hypoxia: Status: Acute Plan 51-year-old female with a history of COPD not on home O2, active smoker, bipolar disorder, depression, GERD, PTSD who presents to the ED with progressive dyspnea for a week, associated with non productive cough, she continues to smoke and furter states that she has run out of her inhalers. She has acute hypoxic respiratory failure due to exacerbation of COPD 1/Acute Hypoxic respiratory failure due to COPD exacerbation and required rescue CPAP but is now doing better -Bronchodilators by Nebs - Prednisone -Doxy for bronchitis -Smoking cessation disucssed once again -Keep Oxygen around 92 % -pulmonology consult -Assessed heart function with Echo 01/05/: Normal left ventricular cavity size.? There is normal left ? ? ventricular wall thickness.? The left ventricular systolic ? ? ? function is hyperdynamic.? The visually estimated ejection ? ? ? fraction is between 65-70%.? CTA negative for PE.. Will reassess home O2? - 2/PTSD/Depression/Anxiety--continue Hydroxyxine, risperidal, Seroquel 3/Leukocytosis--likely reactive, no sings of infection, monitor, repeat tomorrow 4/GERD--omeprazole 5/HTN--add Cardizem 120 daily Lovenox for DVT prophy Quality Stroke Does the patient have a stroke diagnosis?: No VTE Prior VTE?: No VTE Risk Level:: Medical - moderate - high VTE Device Contraindication: Treatment Not Indicated VTE Drug Contraindication: N/A - Med Ordered
[2022-01-08] MEDS: 0.9 % Sodium Chloride Flush 3 ML SYRINGE IVFLUSH (08:23)
[2022-01-08] MEDS: Montelukast Sodium 10 MG TABLET PO (08:25)
--- NOTE | 2022-01-08 10:55 | PM.PNPUL ---
Subjective Subjective Date of Service: 01/08/22 Interval history: Dyspnea and O2 requirements improving with diuresis. Objective Data Labs CBC & Chem 7: 01/04/22 08:31 01/03/22 09:44 Microbiology Microbiology Results: Microbiology 01/03/22 09:55 Blood - Venous Blood Culture - Preliminary No growth after 48 hours. 01/03/22 09:44 Blood - Venous Blood Culture - Preliminary No growth after 48 hours. Review of Systems Cardiovascular: Reports dyspnea and Reports dyspnea on exertion Respiratory: Denies cough, Reports dyspnea, Reports dyspnea on exertion and Denies wheezing Allergic/Immunologic: Denies wheezing Physical Exam Vital Signs: Vital Signs: Last Vital Signs Temp 98.1 F 01/08/22 08:00 Pulse 110 H 01/08/22 08:00 Resp 16 01/08/22 08:00 BP 128/73 01/08/22 08:00 Pulse Ox 96 01/08/22 08:00 BMI result Body Mass Index 31.7 Const: General: no acute distress, alert and awake Eyes: Sclerae: sclerae normal EOM: EOMs intact bilaterally Neck: Neck: Yes no lymphadenopathy, Yes trachea midline and Yes supple Resp: Effort & Inspection: normal respiratory effort and no respiratory distress Auscultation: clear to auscultation bilaterally Cardio: Rate: regular rate Rhythm: regular rhythm Heart sounds: no gallops, no murmurs and no rubs GI: Palpation (GI): Soft to palpation and Other GI palpation findings present ( Nontender) Auscultation: normal bowel sounds Extrem: General: No clubbing, No cyanosis and Yes pedal edema ( Trace bilateral) Procedures Date of Service Date of Service: 01/08/22 Assessment and Plan Assessment and plan (1) Acute respiratory failure with hypoxia: Status: Acute Plan Impression: 51-year-old lady, active smoker, with underlying moderate to severe COPD, not on home O2 hospitalized with progressive dyspnea. No evidence of an acute COPD exacerbation at this time. CT angiogram chest negative for pulmonary embolism, but with some evidence of pulmonary edema. FiO2 requirements a improving with diuresis. Recommendations: Consider discontinuation of doxycycline. Consider further diuresis with monitoring of electrolytes and renal function. Time Spent With Patient Time: Total time spent is greater than 50% in coordination of care (as documented) at patient's floor/unit and/or counseling patient: Time with patient: 25 - 35 minutes Progress Note: Quality Stroke Does the patient have a stroke diagnosis?: No
[2022-01-08] MEDS: Benzonatate 100 MG CAPSULE PO (11:29)
[2022-01-08] MEDS: acetaZOLAMIDE sodium 500 MG VIAL 375 MG IVPUSH (11:30)
[2022-01-08 11:47] LABS: Anion Gap 11 (12-20); Blood Urea Nitrogen 15 mg/dL (9-16); Calcium 9.6 mg/dL (8.4-10.2); Carbon Dioxide 28 mmol/L (22-29); Chloride 102 mmol/L (96-108); Creatinine Clr Calc Pharmacy 74.8; Estimated Glomerular Filt Rate > 60; Glucose Random 132 mg/dL (60-115); Potassium 4.6 mmol/L (3.3-5.1); Sodium 136 mmol/L (135-145)
--- NOTE | 2022-01-08 13:01 | MHC.CM.PN ---
PT CLEARED TO DC HOME TODAY WITH NO NEW SERVICES PT TO ARRANGE TRANSPORT
[2022-01-08] MEDS: Enoxaparin Sodium 40 MG/0.4 ML SYRINGE SUBCUT (14:25)
== END 2022-01-08 14:52 | disposition home or self-care (01) | DRG 140 ==
LOC: HO.ED 12:40 → HO.EDOVER 14:11 → HO.IMC 01-04 19:49
PROVIDERS: Hospitalist; Internal Medicine Pulmonary Disease; Physician Assistant; Admitting Provider Internal Medicine; Emergency Provider Emergency Medicine; PCP Internal Medicine; Visit Provider Internal Medicine
DX: J44.1 Chronic obstructive pulmonary disease with (acute) exacerbation (principal); J96.01 Acute respiratory failure with hypoxia; F17.210 Nicotine dependence, cigarettes, uncomplicated; K21.9 Gastro-esophageal reflux disease without esophagitis; F31.9 Bipolar disorder, unspecified; F43.10 Post-traumatic stress disorder, unspecified; Z20.822 Contact with and (suspected) exposure to COVID-19; D72.829 Elevated white blood cell count, unspecified; Z71.6 Tobacco abuse counseling; Z88.0 Allergy status to penicillin; Z88.5 Allergy status to narcotic agent; Z79.1 Long term (current) use of non-steroidal anti-inflammatories (NSAID); Z79.51 Long term (current) use of inhaled steroids; Z79.899 Other long term (current) drug therapy
CPT/HCPCS: 36415; 71045; 71275; 80048; 80076; 81003; 82803; 83605; 83735; 83880; 84145; 84484; 85025; 85027; 85379; 87040; 87635; 93005; 93306; 94640; 94644; 94660; 96361; 96365; 96366; 96375; 99285; 99291; J1650; J1956; J2405; J2920; J2930; Q9957; Q9967

== ENCOUNTER → 2022-01-11 11:05 | Outpatient (BNVA) | payer OTHER, SELFPAY | PROVIDERS: PCP Internal Medicine; Visit Provider Internal Medicine | DX: J44.1 Chronic obstructive pulmonary disease with (acute) exacerbation (principal); J96.01 Acute respiratory failure with hypoxia; F17.200 Nicotine dependence, unspecified, uncomplicated; Z99.81 Dependence on supplemental oxygen | CPT/HCPCS: 99212 ==

== ENCOUNTER → 2022-03-22 11:02 | Outpatient (BNVA) | payer OTHER, SELFPAY | PROVIDERS: PCP Internal Medicine; Visit Provider Internal Medicine | DX: J44.9 Chronic obstructive pulmonary disease, unspecified (principal); J96.91 Respiratory failure, unspecified with hypoxia; F17.210 Nicotine dependence, cigarettes, uncomplicated | CPT/HCPCS: 99212 ==

== ENCOUNTER → 2022-03-29 10:31 | Outpatient (BNVA) | payer OTHER, SELFPAY | PROVIDERS: PCP Internal Medicine; Visit Provider Orthopaedic Surgery | DX: R20.0 Anesthesia of skin (principal); R20.2 Paresthesia of skin | CPT/HCPCS: 99212 ==

== ENCOUNTER → 2022-10-04 09:28 | Outpatient (BNVA) | payer OTHER, SELFPAY | PROVIDERS: PCP Internal Medicine; Visit Provider Internal Medicine | DX: J44.9 Chronic obstructive pulmonary disease, unspecified (principal); J96.91 Respiratory failure, unspecified with hypoxia; F17.210 Nicotine dependence, cigarettes, uncomplicated | CPT/HCPCS: 99212 ==

== ENCOUNTER 2022-12-06 10:12 | Outpatient (REF) | payer OTHER, SELFPAY ==
[2022-12-06 10:45] LABS: Basophils Absolute Auto 0.2 X10*3/uL (0.0-0.2); Basophils Percent Auto 1.2 % (0-2); Eosinophils Absolute Auto 0.5 X10*3/uL (0.0-0.4); Eosinophils Percent Auto 3.8 % (0-4); Hematocrit 48.9 % (37.0-47.0); Hemoglobin 15.1 g/dl (12.0-16.0); Imm Gran Abs Auto 0.04 X10*3/uL (0.00-0.03); Imm Gran Pct Auto 0.3 % (0.0-0.4); Lymphocytes Absolute Auto 5.1 X10*3/uL (1.2-4.9); Lymphocytes Percent Auto 37.6 % (20-40); MANUAL DIFF FLAG SCAN; Mean Corpuscular HGB Conc 30.9 g/dl (31.0-35.0); Mean Corpuscular Hemoglobin 27.8 pg (27.0-33.0); Mean Corpuscular Volume 90.1 fL (80.0-98.0); Mean Platelet Volume 12.2 fL (9.4-12.3); Monocytes Absolute Auto 0.6 X10*3/uL (0.1-1.2); Neutrophils Absolute Auto 7.3 x10*3/uL (2.0-8.3); Neutrophils Percent Auto 53.1 % (45-73); Platelet Count 342 X10*3/uL (160-400); Red Blood Count 5.43 X10*6/uL (4.20-5.50); Red Cell Distribution Width 15.1 % (11.0-16.0); SCAN SMEAR FLAG 1; White Blood Count 13.7 X10*3/uL (4.8-10.8)
[2022-12-06 11:14] LABS: SLIDE REVIEW VERIFIED
[2022-12-06 11:19] LABS: Alanine Aminotransferase 15 U/L (0-31); Albumin Level 4.3 g/dL (3.5-5.0); Alkaline Phosphatase 92 U/L (39-117); Anion Gap 11 (12-20); Aspartate Amino Transferase 11 U/L (5-31); Bilirubin Total 0.6 mg/dL (0.0-1.0); Blood Urea Nitrogen 7 mg/dL (9-16); Calcium 9.6 mg/dL (8.4-10.2); Carbon Dioxide 33 mmol/L (22-29); Chloride 102 mmol/L (96-108); Cholesterol 293 mg/dL; Estimated Glomerular Filt Rate > 60; Glucose Fasting 139 mg/dL (60-99); HDL Cholesterol 35 mg/dL; LDL Cholesterol Calculated 208 mg/dl; Potassium 4.3 mmol/L (3.3-5.1); Sodium 142 mmol/L (135-145); Total Protein 7.5 g/dL (6.5-8.0); Triglycerides 251 mg/dL
[2022-12-06 11:22] LABS: Vitamin D 25-OH Total 17.1 ng/mL (>30)
== END 2022-12-06 10:13 | disposition home or self-care (01) ==
LOC: HO.LAB 10:12
PROVIDERS: PCP Internal Medicine; Visit Provider Internal Medicine
DX: Z00.00 Encounter for general adult medical examination without abnormal findings (principal); E55.9 Vitamin D deficiency, unspecified
CPT/HCPCS: 36415; 80053; 80061; 82306; 85025

== ENCOUNTER → 2022-12-20 10:23 | Outpatient (BNVA) | payer OTHER, SELFPAY | PROVIDERS: PCP Internal Medicine; Visit Provider Internal Medicine | DX: J44.9 Chronic obstructive pulmonary disease, unspecified (principal); J96.91 Respiratory failure, unspecified with hypoxia; J45.909 Unspecified asthma, uncomplicated; F17.210 Nicotine dependence, cigarettes, uncomplicated | CPT/HCPCS: 99212 ==

== ENCOUNTER → 2023-01-03 10:08 | Outpatient (BNVA) | payer OTHER, SELFPAY | PROVIDERS: PCP Internal Medicine; Visit Provider Internal Medicine | DX: J44.9 Chronic obstructive pulmonary disease, unspecified (principal); J96.91 Respiratory failure, unspecified with hypoxia; F17.210 Nicotine dependence, cigarettes, uncomplicated | CPT/HCPCS: 99212 ==

== ENCOUNTER 2023-01-24 10:13 | Outpatient (REF) | payer OTHER, SELFPAY ==
--- NOTE | ~2023-01-24 | MM_ITS ---
EXAMINATION: MM SCREENING DIGITAL BREAST TOMOSYNTHESIS, BILATERAL CLINICAL INFORMATION: Screening. Asymptomatic. The lifetime risk of breast cancer based on the Tyrer-Cuzick Model is 4%. COMPARISON: Mammography: 09/13/2021, 05/06/2018 TECHNIQUE: Digital breast tomosynthesis is performed in both the craniocaudal and mediolateral oblique views along with computer-aided detection (CAD). Synthesized 2D images are generated from the tomosynthesis. FINDINGS: The breasts are almost entirely fatty (ACR BI-RADS breast composition Category a). There are no significant masses, abnormal calcifications, or other abnormalities. No architectural abnormality or developing density or significant change from prior studies. Background stromal markings are stable. The axilla are unremarkable. MM/MM tomosynthesis screening BI IMPRESSION: No mammographic evidence of malignancy. ASSESSMENT: BI-RADS 1: Negative RECOMMENDATION: Routine annual mammography screening. This patient's information was entered into a reminder system with a target due date for their next mammogram.
== END 2023-01-24 10:14 | disposition home or self-care (01) ==
LOC: HO.MAMMO 10:13
PROVIDERS: PCP Internal Medicine; Visit Provider Internal Medicine
DX: Z12.31 Encounter for screening mammogram for malignant neoplasm of breast (principal)
CPT/HCPCS: 77063; 77067

== ENCOUNTER → 2023-03-07 11:00 | Outpatient (BNVA) | payer OTHER, SELFPAY | PROVIDERS: PCP Internal Medicine; Visit Provider Internal Medicine | DX: J44.9 Chronic obstructive pulmonary disease, unspecified (principal); J96.91 Respiratory failure, unspecified with hypoxia; F17.210 Nicotine dependence, cigarettes, uncomplicated; Z99.81 Dependence on supplemental oxygen | CPT/HCPCS: 99212 ==

== ENCOUNTER → 2023-05-09 10:53 | Outpatient (BNVA) | payer OTHER, SELFPAY | PROVIDERS: Visit Provider Internal Medicine | DX: J44.9 Chronic obstructive pulmonary disease, unspecified (principal); J96.91 Respiratory failure, unspecified with hypoxia; F17.210 Nicotine dependence, cigarettes, uncomplicated | CPT/HCPCS: 99212 ==

== ENCOUNTER 2023-07-11 11:05 | Outpatient (AMB) | payer OTHER, SELFPAY ==
--- NOTE | 2023-07-11 11:16 | MHC.OFFVIS ---
Intake Vital Signs 07/11/23 11:17 Height 5 ft 1 in Weight 161 lb BMI 30.4 BP 110/60 Blood Pressure Location Lt brachial Position Sitting Pulse 121 H Pulse Source Pulse Oximeter Pulse Oximetry (%) 90 L Oxygen Delivery Method Nasal Cannula Oxygen Flow Rate 2 Intake Visit Reasons: COPD Intake Note: pt is here for follow up and states she is doing okay, her baseline, she does need 90 days supply on medication per insurance. 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 Allergies codeine [CODEINE] Allergy (Unknown, Verified 07/11/23 11:45) NAUSEA & VOMITING, HIVES Penicillins [PENICILLINS] Allergy (Unknown, Verified 07/11/23 11:45) DIFF BREATHING, RASH ENVIRONMENTAL Allergy (Unknown, Uncoded 07/11/23 11:45) SOB,WHEEZING Medication List - Last Reconciled 07/11/23 by Haven Longo MD Advair Diskus 500-50 mcg/dose (fluticasone propion-salmeterol) 1 ea PO BID NS albuterol sulfate 2.5 mg (3 mL) inhalation Q4-6H PRN compressor, for nebulizer As directed 4 times a day diltiazem HCl (Cardizem CD) 120 mg See Protocol PO DAILY docusate sodium (Colace) 200 mg (2 x 100 mg) PO BEDTIME 30 days gabapentin 1,200 mg PO TID hydroxyzine HCl 25 mg PO TID PRN montelukast 10 mg PO DAILY naproxen sodium 220 mg PO BID PRN omeprazole 40 mg PO DAILY 90 days quetiapine ER 200 mg PO BEDTIME risperidone 2 mg PO BEDTIME umeclidinium 62.5 mcg/actuation (Incruse Ellipta) 1 inh PO DAILY 30 days Ventolin HFA 90 mcg/actuation (albuterol sulfate) 2 puffs inhalation Q4-6H PRN NS Do you need a note to return to daycare/school/sports/work: No HPI COPD HPI Details 52 YEARS OLD FEMALE, PAST SMOKER, HAS SUCCESSFULLY QUIT SINCE 2 MONTHS AGO. SHE IS TELLING THE PROUDLY THAT SHE HAS NOT GONE BACK TO SMOKING. CONTINUES TO HAVE COUGH AND INTERMITTENT WHEEZING. IN THE LAST FEW DAYS SHE IS HAVING WHEEZING THROUGHOUT THE DAY ON ANY MINIMAL EXERTION. YET SHE DOES NOT HAVE ANY UPPER AIRWAYS INFECTION. SHE IS ON OXYGEN 24 HOURS A DAY. SHE HAS SMOKED DID 1 PACK OF CIGARETTES A DAY FOR ALMOST 35 YEARS. SO EVEN THOUGH SHE HAS QUIT SMOKING I THINK SHE IS GOOD CANDIDATE FOR ANNUAL LUNG SCREENING PROGRAM. PFSH Medical History Acid reflux Acute exacerbation of chronic obstructive airways disease Asthma COPD (chronic obstructive pulmonary disease) COPD (chronic obstructive pulmonary disease) Depression History of smoking at least 1 pack per day for at least 30 years Hx of lipoma Lipoma of abdominal wall Respiratory failure with hypoxia Smoker Surgical History History of cholecystectomy History of hysterectomy History of shoulder surgery Family History Mother Crohn disease Brother Colitis Social History Household Members: Spouse Housing: Apartment Do you presently have visiting nurse or other home services: No Alcohol intake: never Patient Tobacco Use Status: Former Tobacco user Cigarettes Per Day: 2 Substance Use Type: Marijuana service: No Current occupational status: unemployed and disabled 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 Review of Systems Const All systems reviewed & are unremarkable except as noted in HPI and below Eyes Reports no additional complaints ENT Reports no additional complaints Card Denies chest pain, Denies irregular heart rhythm and Denies leg edema Resp Reports as per HPI GI Reports heartburn (Controlled with omeprazole) Reports no additional complaints Musc Reports back pain (Mild off and on) Skin/Breast Reports system reviewed and no additional complaints, except as documented Neuro Reports no additional complaints Psych Reports anxiety Endo Reports no additional complaints Physical Exam Vital Signs: Last Vital Signs Pulse 121 H 07/11/23 11:17 BP 110/60 07/11/23 11:17 Pulse Ox 90 L 07/11/23 11:17 Oxygen Delivery Method Nasal Cannula 07/11/23 11:17 Oxygen Flow Rate 2 07/11/23 11:17 BMI result Body Mass Index 30.4 Const General: healthy appearing, comfortable, no acute distress, alert and awake Orientation/consciousness: patient oriented x3 HEENT Head: Yes normal to inspection General nose exam: No nasal polyps present and No nasal discharge present Face and sinus: Yes sinuses nontender Mouth: oropharynx normal Throat: Yes posterior oropharynx normal Eyes General: appearance normal, both eyes and all related structures Neck Neck: Yes normal visual inspection, Yes no lymphadenopathy, Yes trachea midline and Yes no JVD Thyroid: Thyroid normal Chest Chest palpation & inspection: normal inspection of the chest, normal palpation of entire chest wall and no tenderness Resp Other: PERCUSSION NOTE IS RESONANT, BREATH SOUNDS ARE DISTANT WITH PROLONGED EXPIRATORY PHASE. NO CREPITATIONS BUT SHE HAS SCATTERED WHEEZES ON BOTH SIDES. Cardio Palpation: normal PMI Rate: regular rate and tachycardic (HR 100 TO 120 BP IS A LITTLE LOW. ) Rhythm: regular rhythm Heart sounds: no gallops and no murmurs GI Palpation (GI): Soft to palpation, nontender, No hepatosplenomegaly present and no masses Auscultation: normal bowel sounds Back/Spine/Pelvis Thoracic/Lumbar Spine: thoracic and lumbar spine normal to inspection Skin General skin exam: no rashes or lesions noted Neuro General: patient oriented x3 and no focal motor deficits Cranial nerves: Yes CN's II-XII intact bilaterally Extrem General: Yes normal to inspection, Yes no clubbing, cyanosis or edema and Yes no calf tenderness Psych Appearance: grossly normal and well kempt Speech and movement: Normal speech and movement present Affect: Anxious affect present Assessment & Plan Assessment & Plan (1) COPD (chronic obstructive pulmonary disease): Comment: She has severe obstructive airway disorder, related to her long-time smoking. Has mild acute exacerbation at this time . PREDNISONE 10 MG ONCE A DAY FOR 7 DAYS IS AGAIN PRESCRIBED. And she is advised to continue her regular medical regimen as below. *ADVAIR 500-50 1 inh bid INCRUSE ELLIPTA 1 inhalation daily in the evening. ProAir 2 puffs Q 4-6 hours p.r.n. for acute distress, when outdoors. Albuterol solution by nebulizer Q 4-6 hours p.r.n. when indoors Code(s): J44.9 - Chronic obstructive pulmonary disease, unspecified (2) Respiratory failure with hypoxia: Comment: She has resting and exertional Hypoxemia , requiring oxygen supplementation. Does desaturate very quickly if taken off the oxygen. Advised to continue 2 L/minute at rest and increased to 3 L/minute when walking or doing any physical work. Also use O2 2 L/minute during sleep. Code(s): J96.91 - Respiratory failure, unspecified with hypoxia (3) History of smoking at least 1 pack per day for at least 30 years: Comment: SHE HAS HISTORY OF SMOKING 1 PACK A DAY FOR AT LEAST 35 YEARS. AT PRESENT SHE. HAS QUIT FOR THE PAST 2 MONTHS SHE IS STILL GOOD CANDIDATE FOR ANNUAL LUNG SCREENING, AND IS BEING REFERRED FOR THE SAME. Code(s): Z87.891 - Personal history of nicotine dependence Orders: Referrals Thoracic Surgery Referral J44.9 - Chronic obstructive pulmonary disease, unspecified, J96.91 - Respiratory failure, unspecified with hypoxia, Z87.891 - Personal history of nicotine dependence Medications: New prednisone 5 mg PO BID 7 days 14 tabs 0RF Asthma excarbation Changed From Advair Diskus 500-50 mcg/dose (fluticasone propion-salmeterol) 1 ea PO BID 180 ea 3RF copd NS To Advair Diskus 500-50 mcg/dose (fluticasone propion-salmeterol) 1 ea PO BID 180 ea 3RF COPD 90 days NS From umeclidinium 62.5 mcg/actuation (Incruse Ellipta) 1 inh PO DAILY 30 days 30 ea 3RF copd To umeclidinium 62.5 mcg/actuation (Incruse Ellipta) 1 inh PO DAILY 30 ea 3RF copd 90 days Coding Level of Care Code Est Pt Level 3 (43375) Diagnoses COPD (chronic obstructive pulmonary disease) J44.9 Respiratory failure with hypoxia J96.91 History of smoking at least 1 pack per day for at least 30 years Z87.891
[2023-07-11 11:17] VITALS: BP 110/60; PULSE 121; O2SAT 90; BMI 30.4
== END 2023-07-11 11:35 | disposition home or self-care (01) ==
PROVIDERS: PCP Internal Medicine; Visit Provider Internal Medicine
DX: J44.9 Chronic obstructive pulmonary disease, unspecified (principal); J96.91 Respiratory failure, unspecified with hypoxia; Z87.891 Personal history of nicotine dependence
CPT/HCPCS: 99213

== ENCOUNTER → 2023-07-11 11:05 | Outpatient (BNVA) | payer OTHER, SELFPAY | PROVIDERS: PCP Internal Medicine; Visit Provider Internal Medicine | DX: J96.91 Respiratory failure, unspecified with hypoxia (principal); J44.1 Chronic obstructive pulmonary disease with (acute) exacerbation; Z87.891 Personal history of nicotine dependence; Z99.81 Dependence on supplemental oxygen | CPT/HCPCS: 99212 ==

== ENCOUNTER 2023-09-19 10:46 | Outpatient (AMB) | payer OTHER, SELFPAY ==
--- NOTE | 2023-09-19 10:52 | MHC.OFFVIS ---
Intake Vital Signs 09/19/23 10:53 Height 5 ft 1 in Weight 165 lb BMI 31.2 BP 128/77 Blood Pressure Location Lt brachial Position Sitting Pulse 126 H Intake Visit Reasons: Gastroesophageal reflux disease (GERD) Intake Note: Patient follow up for GERD. Patient denies any GI issues, GERD med is helping her. Supervisor Contact Lens Required: No Accompanied by: Self / Same As Patient Allergies codeine [CODEINE] Allergy (Unknown, Verified 09/19/23 10:51) NAUSEA & VOMITING, HIVES Penicillins [PENICILLINS] Allergy (Unknown, Verified 09/19/23 10:51) DIFF BREATHING, RASH ENVIRONMENTAL Allergy (Unknown, Uncoded 07/11/23 11:45) SOB,WHEEZING Medication List - Last Reconciled 09/19/23 by Kortney Moctezuma PA-C Advair Diskus 500-50 mcg/dose (fluticasone propion-salmeterol) 1 ea PO BID 90 days NS albuterol sulfate 2.5 mg (3 mL) inhalation Q4-6H PRN compressor, for nebulizer As directed 4 times a day diltiazem HCl (Cardizem CD) 120 mg See Protocol PO DAILY docusate sodium (Colace) 200 mg (2 x 100 mg) PO BEDTIME 30 days gabapentin 1,200 mg PO TID hydroxyzine HCl 25 mg PO TID PRN montelukast 10 mg PO DAILY naproxen sodium 220 mg PO BID PRN omeprazole 40 mg PO DAILY 90 days quetiapine ER 200 mg PO BEDTIME risperidone 2 mg PO BEDTIME umeclidinium 62.5 mcg/actuation (Incruse Ellipta) 1 inh PO DAILY 90 days Ventolin HFA 90 mcg/actuation (albuterol sulfate) 2 puffs inhalation Q4-6H PRN NS HPI HPI Comments History of Present Illness Details A 53 y/o female f/u acid reflux-she needed refill for omeprazole and stool she need to come in for appointment. Doing very well- omeprazole 40 mg -she has had no issues Appetite is good-dietary modifications with good response Difficult for her getting around due to respiratory problems-does get short of breath on exertion O2 dependent @ 2l Smoking 2 cigs QD- down from pk 11/2022-cologuard negative No nausea, vomiting, hematemesis, hematochezia fever or chills PFSH Medical History (Updated 09/19/23 @ 13:46 by Kortney Moctezuma PA-C) Respiratory failure with hypoxia COPD (chronic obstructive pulmonary disease) Asthma Nicotine dependence, cigarettes, uncomplicated Acid reflux Depression Surgical History Status post excision of lipoma History of cholecystectomy History of shoulder surgery History of hysterectomy History of endometrial ablation History of loop electrosurgical excision procedure (LEEP) History of colposcopy Family History Mother Crohn disease Brother Colitis Social History Household Members: Spouse Housing: Apartment Do you presently have visiting nurse or other home services: No Alcohol intake: never Patient Tobacco Use Status: Former Tobacco user Cigarettes Per Day: 2 Substance Use Type: Marijuana service: No Current occupational status: unemployed and disabled 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 Review of Systems Const Reports fatigue Card Denies chest pain and Denies dyspnea Resp Denies dyspnea GI Denies abdominal pain Psych Reports depression, Denies homicidal ideation and Denies suicidal ideation Endo Reports fatigue Physical Exam Vital Signs: Last Vital Signs Pulse 126 H 09/19/23 10:53 BP 128/77 09/19/23 10:53 BMI result Body Mass Index 31.2 Const General: comfortable and no acute distress Orientation/consciousness: patient oriented x3 Limitations: physical limitations (O2 l) Eyes Sclerae: sclerae normal Resp Other: O2 via in nasal cannula Effort & Inspection: normal respiratory effort and able to speak in complete sentences Auscultation: no wheezes and diminished lung sounds Cardio Rate: tachycardic (FEB 104) Rhythm: regular rhythm GI Palpation (GI): Soft to palpation and nontender Auscultation: normal bowel sounds Skin General skin exam: no rashes or lesions noted Neuro General: patient oriented x3 Extrem General: Yes full ROM Psych Mental Status: mental status grossly normal Speech and movement: Clear speech present Affect: normal affect Attitude: cooperative Thought process: Normal thought process present Thought content: Normal thought content present Assessment & Plan Assessment & Plan (1) Acid reflux: Comment: Good spirits, asymptomatic Continue omeprazole 40 mg daily, Continue eating small portions at a time, avoidance of culprits, Code(s): K21.9 - Gastro-esophageal reflux disease without esophagitis Medications: Refilled omeprazole 40 mg PO DAILY 90 days 90 caps 4RF Patient Instructions: Pleasant 53-year-old female multiple comorbidities O2 dependent, follows up with acid reflux. Dietary modifications and consistent PPI with good response Reviewed reflux precautions Encouraged to call questions or concerns Reviewed Cologuard report negative Appreciate the opportunity assist in the care the patient She may follow-up p.r.n. Coding Level of Care Code Est Pt Level 4 (06464) Diagnoses Acid reflux K21.9 Time Spent (min) 35
[2023-09-19 10:53] VITALS: BP 128/77; PULSE 126; BMI 31.2
== END 2023-09-19 13:29 | disposition home or self-care (01) ==
PROVIDERS: PCP Internal Medicine; Visit Provider Physician Assistant
DX: K21.9 Gastro-esophageal reflux disease without esophagitis (principal)
CPT/HCPCS: 99214

== ENCOUNTER → 2023-09-19 10:46 | Outpatient (BNVA) | payer OTHER, SELFPAY | PROVIDERS: PCP Internal Medicine; Visit Provider Physician Assistant | DX: K21.9 Gastro-esophageal reflux disease without esophagitis (principal) | CPT/HCPCS: 99212 ==

== ENCOUNTER 2023-11-14 10:44 | Outpatient (AMB) | payer OTHER, SELFPAY ==
[2023-11-14 10:50] VITALS: BP 110/70; PULSE 139; O2SAT 88; BMI 31.9
--- NOTE | 2023-11-14 10:50 | MHC.OFFVIS ---
Intake Vital Signs 11/14/23 10:50 Height 5 ft 1 in Weight 168 lb 10.458 oz BMI 31.9 BP 110/70 Blood Pressure Location Lt brachial Position Sitting Pulse 139 H Pulse Source Pulse Oximeter Pulse Oximetry (%) 88 L Oxygen Delivery Method Nasal Cannula Oxygen Flow Rate 2 Intake Visit Reasons: COPD Intake Note: pt is here for follow up and states she is having a flare up of her copd that started last night, she can tell her oxygen is being affected, dry cough. She is asking for a standard wheelchair if possible to help with long distance walking. Also, she needs nebulizer supplies sent to [place]. She also needs refills sent in on inhalers and albuterol solution, she just picked up last ones. Allergies codeine [CODEINE] Allergy (Unknown, Verified 11/14/23 11:06) NAUSEA & VOMITING, HIVES Penicillins [PENICILLINS] Allergy (Unknown, Verified 11/14/23 11:06) DIFF BREATHING, RASH ENVIRONMENTAL Allergy (Unknown, Uncoded 11/14/23 11:06) SOB,WHEEZING Medication List - Last Reconciled 11/14/23 by Haven Longo MD Advair Diskus 500-50 mcg/dose (fluticasone propion-salmeterol) 1 ea PO BID 90 days NS albuterol sulfate 2.5 mg (3 mL) inhalation Q4-6H PRN compressor, for nebulizer As directed 4 times a day diltiazem HCl (Cardizem CD) 120 mg See Protocol PO DAILY docusate sodium (Colace) 200 mg (2 x 100 mg) PO BEDTIME 30 days gabapentin 1,200 mg PO TID hydroxyzine HCl 25 mg PO TID PRN montelukast 10 mg PO DAILY naproxen sodium 220 mg PO BID PRN omeprazole 40 mg PO DAILY 90 days quetiapine ER 200 mg PO BEDTIME risperidone 2 mg PO BEDTIME umeclidinium 62.5 mcg/actuation (Incruse Ellipta) 1 inh PO DAILY 90 days Ventolin HFA 90 mcg/actuation (albuterol sulfate) 2 puffs inhalation Q4-6H PRN NS Do you need a note to return to daycare/school/sports/work: No HPI COPD HPI Details THIS 53 YEARS OLD FEMALE, WITH SEVERE OBSTRUCTIVE PULMONARY DISORDER, COMES FOR HER ROUTINE FOLLOW-UP. CONTINUES TO HAVE VERY FREQUENT BOUTS OF COUGH AND ALWAYS FEELS CONGESTED. THE SYMPTOMS ARE SOMEWHAT WORSE DUE TO CHANGE IN THE WEATHER. SHE CLAIMS THAT SHE HAS HARD TIME IN WALKING MORE THAN A FEW BLOCKS. SHE CLAIMS THAT SHE HAS NOT SMOKED FOR THE LAST FEW MONTHS. [facility] Medical History Respiratory failure with hypoxia COPD (chronic obstructive pulmonary disease) Asthma Nicotine dependence, cigarettes, uncomplicated Acid reflux Depression Surgical History Status post excision of lipoma History of cholecystectomy History of shoulder surgery History of hysterectomy History of endometrial ablation History of loop electrosurgical excision procedure (LEEP) History of colposcopy Family History Mother Crohn disease Brother Colitis Social History Household Members: Spouse Housing: Apartment Do you presently have visiting nurse or other home services: No Alcohol intake: never Patient Tobacco Use Status: Former Tobacco user Cigarettes Per Day: 2 Substance Use Type: Marijuana service: No Current occupational status: unemployed and disabled 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 Review of Systems Const All systems reviewed & are unremarkable except as noted in HPI and below Eyes Reports no additional complaints ENT Reports no additional complaints Card Denies chest pain, Denies irregular heart rhythm and Denies leg edema Resp Reports as per HPI GI Reports heartburn (Controlled with omeprazole) Reports no additional complaints Musc Reports back pain (Mild off and on) Skin/Breast Reports system reviewed and no additional complaints, except as documented Neuro Reports no additional complaints Psych Reports anxiety Endo Reports no additional complaints Physical Exam Vital Signs: Last Vital Signs Pulse 139 H 11/14/23 10:50 BP 110/70 11/14/23 10:50 Pulse Ox 88 L 11/14/23 10:50 Oxygen Delivery Method Nasal Cannula 11/14/23 10:50 Oxygen Flow Rate 2 11/14/23 10:50 BMI result Body Mass Index 31.9 Const General: healthy appearing, comfortable, no acute distress, alert and awake Orientation/consciousness: patient oriented x3 HEENT Head: Yes normal to inspection General nose exam: No nasal polyps present and No nasal discharge present Face and sinus: Yes sinuses nontender Mouth: oropharynx normal Throat: Yes posterior oropharynx normal Eyes General: appearance normal, both eyes and all related structures Neck Neck: Yes normal visual inspection, Yes no lymphadenopathy, Yes trachea midline and Yes no JVD Thyroid: Thyroid normal Chest Chest palpation & inspection: normal inspection of the chest, normal palpation of entire chest wall and no tenderness Resp Other: PERCUSSION NOTE IS RESONANT, BREATH SOUNDS ARE DISTANT WITH PROLONGED EXPIRATORY PHASE. NO CREPITATIONS BUT SHE HAS SCATTERED WHEEZES ON BOTH SIDES. SHE IS OBVIOUSLY SHORT OF BREATH DURING EXAMINATION. Cardio Palpation: normal PMI Rate: regular rate and tachycardic (HR 100 TO 120 BP IS A LITTLE LOW. ) Rhythm: regular rhythm Heart sounds: no gallops and no murmurs GI Palpation (GI): Soft to palpation, nontender, No hepatosplenomegaly present and no masses Auscultation: normal bowel sounds Back/Spine/Pelvis Thoracic/Lumbar Spine: thoracic and lumbar spine normal to inspection Skin General skin exam: no rashes or lesions noted Neuro General: patient oriented x3 and no focal motor deficits Cranial nerves: Yes CN's II-XII intact bilaterally Extrem General: Yes normal to inspection, Yes no clubbing, cyanosis or edema and Yes no calf tenderness Psych Appearance: grossly normal and well kempt Speech and movement: Normal speech and movement present Affect: Anxious affect present Assessment & Plan Assessment & Plan (1) COPD (chronic obstructive pulmonary disease): Comment: She has severe obstructive airway disorder, related to her long-time smoking. SHE CONTINUES TO BE SIGNIFICANTLY SHORT OF BREATH. SHE IS ALSO PRONE TO HAVE ACUTE EXACERBATION , QUITE FREQUENTLY. Code(s): J44.9 - Chronic obstructive pulmonary disease, unspecified Plan: TX: ADVAIR 500-50 1 inh bid INCRUSE ELLIPTA 1 inhalation daily in the evening. ProAir 2 puffs Q 4-6 hours p.r.n. for acute distress, when outdoors. Albuterol solution by nebulizer Q 4-6 hours p.r.n. when indoors BECAUSE OF HER ONGOING SYMPTOMS, I WILL START HER ON AZITHROMYCIN 250 MG 3 TIMES A WEEK AND PREDNISONE 5 MG ON ALTERNATE DAYS. I DID OFFER HER TO JOIN PULMONARY REHAB PROGRAM, BUT SHE WANTS TO WAIT . (2) Respiratory failure with hypoxia: Comment: She has resting and exertional Hypoxemia , requiring oxygen supplementation. Does desaturate very quickly if taken off the oxygen. Advised to continue 2 L/minute at rest and increased to 3 L/minute when walking or doing any physical work. Also use O2 2 L/minute during sleep. Code(s): J96.91 - Respiratory failure, unspecified with hypoxia Plan: ABOVE (3) Asthma: Comment: Mild asthma but more predominantly she has chronic obstructive pulmonary disease. Treatment as under COPD Code(s): J45.909 - Unspecified asthma, uncomplicated Plan: ABOVE Medications: New azithromycin 250 MG TAB PO ON ,W,F ( 3 DAYS A WEEK ) 250 mg PO 3XW 30 days 13 tabs 3RF COPD RXCERBATION prednisone 5 mg PO Q OTHER DAY 28 days 14 tabs 3RF COPD Coding Level of Care Code Est Pt Level 4 (85756) Diagnoses COPD (chronic obstructive pulmonary disease) J44.9 Respiratory failure with hypoxia J96.91 Asthma J45.909
== END 2023-11-14 11:06 | disposition home or self-care (01) ==
PROVIDERS: PCP Internal Medicine; Visit Provider Internal Medicine
DX: J44.9 Chronic obstructive pulmonary disease, unspecified (principal); J96.91 Respiratory failure, unspecified with hypoxia; J45.909 Unspecified asthma, uncomplicated
CPT/HCPCS: 99214

== ENCOUNTER → 2023-11-14 10:44 | Outpatient (BNVA) | payer OTHER, SELFPAY | PROVIDERS: PCP Internal Medicine; Visit Provider Internal Medicine | DX: J44.9 Chronic obstructive pulmonary disease, unspecified (principal); J45.909 Unspecified asthma, uncomplicated; J96.91 Respiratory failure, unspecified with hypoxia | CPT/HCPCS: 99212 ==

== ENCOUNTER 2024-01-30 10:11 | Outpatient (REF) | payer OTHER, SELFPAY | END 2024-01-30 10:12 | disposition home or self-care (01) | LOC: HO.MAMMO 10:11 | PROVIDERS: PCP Internal Medicine; Visit Provider Internal Medicine | DX: Z12.31 Encounter for screening mammogram for malignant neoplasm of breast (principal) | CPT/HCPCS: 77063; 77067 ==

== ENCOUNTER → 2024-01-30 10:30 | Outpatient (BNV) | payer OTHER, SELFPAY | PROVIDERS: PCP Internal Medicine; Visit Provider Radiology Diagnostic Radiology | DX: Z12.31 Encounter for screening mammogram for malignant neoplasm of breast (principal) | CPT/HCPCS: 77063; 77067 ==

== ENCOUNTER 2024-02-06 14:14 | Outpatient (AMB) | payer OTHER, SELFPAY ==
[2024-02-06 14:42] VITALS: BP 92/60; PULSE 115; O2SAT 91; BMI 31.2
--- NOTE | 2024-02-06 14:42 | MHC.OFFVIS ---
Intake Vital Signs 02/06/24 14:42 Height 5 ft 1 in Weight 165 lb BMI 31.2 BP 92/60 Blood Pressure Location Lt brachial Position Sitting Pulse 115 H Pulse Source Pulse Oximeter Pulse Oximetry (%) 91 L Oxygen Delivery Method Nasal Cannula Oxygen Flow Rate 2.5 Intake Visit Reasons: COPD Intake Note: pt is here for follow for up and states all is well needs refill on zithomax, incruse, dulura, albuterol hfa and albuterol for neb. and prednisone. and nicotine patch at 7mg. 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: No Allergies codeine [CODEINE] Allergy (Unknown, Verified 02/06/24 14:57) NAUSEA & VOMITING, HIVES Penicillins [PENICILLINS] Allergy (Unknown, Verified 02/06/24 14:57) DIFF BREATHING, RASH ENVIRONMENTAL Allergy (Unknown, Uncoded 02/06/24 14:57) SOB,WHEEZING Medication List - Last Reconciled 02/06/24 by Haven Longo MD albuterol sulfate 2.5 mg (3 mL) inhalation Q4-6H PRN azithromycin 250 mg PO 3XW 30 days compressor, for nebulizer As directed 4 times a day diltiazem HCl (Cardizem CD) 120 mg See Protocol PO DAILY docusate sodium (Colace) 200 mg (2 x 100 mg) PO BEDTIME 30 days gabapentin 1,200 mg PO TID hydroxyzine HCl 25 mg PO TID PRN mometasone-formoterol 200-5 mcg/actuation (Dulera) 2 puffs inhalation BID montelukast 10 mg PO DAILY naproxen sodium 220 mg PO BID PRN omeprazole 40 mg PO DAILY 90 days prednisone 5 mg PO Q OTHER DAY 28 days quetiapine ER 200 mg PO BEDTIME risperidone 2 mg PO BEDTIME umeclidinium 62.5 mcg/actuation (Incruse Ellipta) 1 inh PO DAILY Ventolin HFA 90 mcg/actuation (albuterol sulfate) 2 puffs inhalation Q4-6H PRN NS Do you need a note to return to daycare/school/sports/work: No HPI COPD HPI Details 53 YEARS OLD FEMALE WITH HARD CORE COPD AND CHRONIC BRONCHITIS, IS HERE. FOR FOLLOW-UP AFTER 3 MONTHS SHE HAS BEEN ABLE TO REDUCE CIGARETTES FROM WHOLE 1 PACK TO 1 OR 2 CIGARETTES A DAY. SHE IS FEELING RELATIVELY BETTER, BUT STILL HAS CONGESTED FEELING WITH INTERMITTENT COUGH AND STILL GETS SHORT OF BREATH ON EXERTION. SHE IS ON CONTINUOUS OXYGEN 2 L/MINUTE. OVERALL SHE FEELS BETTER THAN BEFORE. [facility] Medical History Respiratory failure with hypoxia COPD (chronic obstructive pulmonary disease) Asthma Nicotine dependence, cigarettes, uncomplicated Acid reflux Depression Surgical History Status post excision of lipoma History of cholecystectomy History of shoulder surgery History of hysterectomy History of endometrial ablation History of loop electrosurgical excision procedure (LEEP) History of colposcopy Family History Mother Crohn disease Brother Colitis Social History Household Members: Spouse Housing: Apartment Do you presently have visiting nurse or other home services: No Alcohol intake: never Patient Tobacco Use Status: Former Tobacco user Cigarettes Per Day: 1 Substance Use Type: Marijuana service: No Current occupational status: unemployed and disabled 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 Review of Systems Const All systems reviewed & are unremarkable except as noted in HPI and below Eyes Reports no additional complaints ENT Reports no additional complaints Card Denies chest pain, Denies irregular heart rhythm and Denies leg edema Resp Reports as per HPI GI Reports heartburn (Controlled with omeprazole) Reports no additional complaints Musc Reports back pain (Mild off and on) Skin/Breast Reports system reviewed and no additional complaints, except as documented Neuro Reports no additional complaints Psych Reports anxiety Endo Reports no additional complaints Physical Exam Vital Signs: Last Vital Signs Pulse 115 H 02/06/24 14:42 BP 92/60 02/06/24 14:42 Pulse Ox 91 L 02/06/24 14:42 Oxygen Delivery Method Nasal Cannula 02/06/24 14:42 Oxygen Flow Rate 2.5 02/06/24 14:42 BMI result Body Mass Index 31.2 Const General: healthy appearing, comfortable, no acute distress, alert and awake Orientation/consciousness: patient oriented x3 HEENT Head: Yes normal to inspection General nose exam: No nasal polyps present and No nasal discharge present Face and sinus: Yes sinuses nontender Mouth: oropharynx normal Throat: Yes posterior oropharynx normal Eyes General: appearance normal, both eyes and all related structures Neck Neck: Yes normal visual inspection, Yes no lymphadenopathy, Yes trachea midline and Yes no JVD Thyroid: Thyroid normal Chest Chest palpation & inspection: normal inspection of the chest, normal palpation of entire chest wall and no tenderness Resp Other: PERCUSSION NOTE IS RESONANT, BREATH SOUNDS ARE DISTANT WITH PROLONGED EXPIRATORY PHASE. NO CREPITATIONS BUT SHE HAS A FEW SCATTERED WHEEZES ON BOTH SIDES. Cardio Palpation: normal PMI Rate: regular rate and tachycardic (HR 100 TO 120 BP IS A LITTLE LOW. ) Rhythm: regular rhythm Heart sounds: no gallops and no murmurs GI Palpation (GI): Soft to palpation, nontender, No hepatosplenomegaly present and no masses Auscultation: normal bowel sounds Back/Spine/Pelvis Thoracic/Lumbar Spine: thoracic and lumbar spine normal to inspection Skin General skin exam: no rashes or lesions noted Neuro General: patient oriented x3 and no focal motor deficits Cranial nerves: Yes CN's II-XII intact bilaterally Extrem General: Yes normal to inspection, Yes no clubbing, cyanosis or edema and Yes no calf tenderness Psych Appearance: grossly normal and well kempt Speech and movement: Normal speech and movement present Affect: Anxious affect present Assessment & Plan Assessment & Plan (1) COPD (chronic obstructive pulmonary disease): Comment: She has severe obstructive airway disorder, related to her long-time smoking. SHE CONTINUES TO BE SIGNIFICANTLY SHORT OF BREATH. SHE IS ALSO PRONE TO HAVE ACUTE EXACERBATION , QUITE FREQUENTLY. Code(s): J44.9 - Chronic obstructive pulmonary disease, unspecified Plan: CONTINUE PRESENT TREATMENT PLAN. AZITHROMYCIN 250 MG 3 TIMES A WEEK, FOR ANTI-INFLAMMATORY PURPOSE . DULERA 200-5 2 PUFFS B.I.D. Incruse ellipta one inh daily ALBUTEROL HFA 2 PUFFS Q 4-6 HOURS P.R.N. MONTELUKAST 10 MG DAILY. WILL HOLD PREDNISONE , AND TO BE USED ONLY DURING ACUTE EXACERBATION (2) Respiratory failure with hypoxia: Comment: She has resting and exertional Hypoxemia , requiring oxygen supplementation. Does desaturate very quickly if taken off the oxygen. Code(s): J96.91 - Respiratory failure, unspecified with hypoxia Plan: Advised to continue 2 L/minute at rest and increased to 3 L/minute when walking or doing any physical work. Also use O2 2 L/minute during sleep. (3) Nicotine dependence, cigarettes, uncomplicated: Comment: (smoker recently quit), but still smokes 1 or 2 cigarettes a day Code(s): F17.210 - Nicotine dependence, cigarettes, uncomplicated Plan: Again stressed that she should quit completely Medications: Refilled azithromycin 250 MG TAB PO ON ,W,F ( 3 DAYS A WEEK ) 250 mg PO 3XW 30 days 13 tabs 3RF COPD RXCERBATION umeclidinium 62.5 mcg/actuation (Incruse Ellipta) 1 inh PO DAILY 90 ea 5RF copd J44.9 - Chronic obstructive pulmonary disease, unspecified Coding Level of Care Code Est Pt Level 3 (84812) Diagnoses COPD (chronic obstructive pulmonary disease) J44.9 Respiratory failure with hypoxia J96.91 Nicotine dependence, cigarettes, uncomplicated F17.210
== END 2024-02-06 15:07 | disposition home or self-care (01) ==
PROVIDERS: PCP Internal Medicine; Visit Provider Internal Medicine
DX: J44.9 Chronic obstructive pulmonary disease, unspecified (principal); J96.91 Respiratory failure, unspecified with hypoxia; F17.210 Nicotine dependence, cigarettes, uncomplicated
CPT/HCPCS: 99213

== ENCOUNTER → 2024-02-06 14:14 | Outpatient (BNVA) | payer OTHER, SELFPAY | PROVIDERS: PCP Internal Medicine; Visit Provider Internal Medicine | DX: J42 Unspecified chronic bronchitis (principal); J96.91 Respiratory failure, unspecified with hypoxia; F17.210 Nicotine dependence, cigarettes, uncomplicated; Z99.81 Dependence on supplemental oxygen | CPT/HCPCS: 99212 ==

== ENCOUNTER 2024-05-30 10:33 | Outpatient (AMB) | payer OTHER, SELFPAY ==
--- NOTE | 2024-05-30 07:53 | MHC.OFFVIS ---
Intake Visit Reasons: Current Smoker Allergies codeine [CODEINE] Allergy (Unknown, Verified 02/06/24 14:57) NAUSEA & VOMITING, HIVES Penicillins [PENICILLINS] Allergy (Unknown, Verified 02/06/24 14:57) DIFF BREATHING, RASH ENVIRONMENTAL Allergy (Unknown, Uncoded 02/06/24 14:57) SOB,WHEEZING HPI HPI Current Smoker: Details: Initial visit for this 53yo smoker with a 35PYH. Patient has been smoking since age 15 for 38 years at 1ppd. Currently down to 2 cigarettes a day. . Reports daily marijuana use. Denies second hand smoke exposure. Denies exposure to chemicals or substances like asbestos. . Denies known family history of lung cancer. Denies personal history of cancers. Denies chest CT in last year. . Denies recent travel outside the [place]. Denies recent respiratory illness or recent hospitalization for respiratory issues. Denies testing positive for COVID. Admits receiving COVID Vaccine. x 2. . She does not shortness of breath. On portable O2, Notes cough. Denies fever, chills, hemoptysis, hoarseness or dysphagia. Denies significant chest pain, or unintentional weight loss. Patient Lung Cancer Screening Questionnaire reviewed with patient by provider. . Shared Decision Making Completed. Patient meets criteria. Discussed in detail with patient, the risk vs benefit of LDCT screening. Patient consents to proceed with scan. Discussed smoking cessation. [facility] Medical History (Updated 05/30/24 @ 10:49 by Roseline Wilson PA-C) Respiratory failure with hypoxia COPD (chronic obstructive pulmonary disease) Asthma Nicotine dependence, cigarettes, uncomplicated Acid reflux Depression Surgical History Status post excision of lipoma History of cholecystectomy History of shoulder surgery History of hysterectomy History of endometrial ablation History of loop electrosurgical excision procedure (LEEP) History of colposcopy Family History Mother Crohn disease Brother Colitis Social History (Updated 05/30/24 @ 10:50 by Roseline Wilson PA-C) Household Members: Spouse Housing: Apartment Do you presently have visiting nurse or other home services: No Alcohol intake: never Patient Tobacco Use Status: Former Tobacco user Cigarettes Per Day: 2 Years Smoked: (onset 15yo, 1ppd x 38yrs, now 2cig/day - 35pyh) Substance Use Type: Marijuana service: No Current occupational status: unemployed and disabled 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 - Patient meets criteria for LDCT for lung cancer screening purposes and is asymptomatic. - Smoking cessation counseling offered. Patients can always call [phone]. - Will arrange for a LDCT scan of the chest for screening purposes at [facility]. - Risks, benefits, and alternatives were discussed in detail and the patient agrees to proceed. - Risks discussed include but are not limited to: radiation exposure, anxiety during testing and while awaiting results, false negatives, false positives and possibility of additional intervention such as further imaging or surgical procedures for benign disease. - Benefits are obviously detection of lung cancer at an early stage which can lead to improved outcomes. - Discussed the importance of screening program compliance with adherence to yearly LDCT scan as scheduled - or sooner interval scans for personalized screening regimen. - Discussed follow up plan. Our office will send a letter discussing results and if needed set up phone call and office visit based on CT findings. - Patient educated on results categorization and the management decisions for suspicious findings potentially found on the screening LDCT scan. Any patient with a Lung RADS score of 3 or 4 will be reviewed by a multidisciplinary team at [facility] to form a plan of action in regards to scan findings. - If further work up is warranted for a suspicious lung finding this will be followed by the Lung Cancer Screening program in conjunction with the Thoracic Surgery Department at [facility]. - A copy of the office note and LDCT will be sent to the patient's PCP - as well as documentation on any associated further plans of care. - Incidental findings on LDCT are the PCP's responsibility. These findings are indicated with an S finding on the LDCT Assessment. A note discussing the findings will be sent to the PCP who is then responsible for further management. - All questions answered.? Coding Level of Care Code Lung Cancer Screening [id number] Diagnoses Nicotine dependence, cigarettes, uncomplicated F17.210
== END 2024-05-30 11:23 | disposition home or self-care (01) ==
PROVIDERS: PCP Internal Medicine; Referring Provider Internal Medicine; Visit Provider Physician Assistant Medical
DX: F17.210 Nicotine dependence, cigarettes, uncomplicated (principal)
CPT/HCPCS: G0296

== ENCOUNTER 2024-05-30 11:02 | Outpatient (REF) | payer OTHER, SELFPAY ==
--- NOTE | ~2024-05-30 | CT_ITS ---
EXAMINATION: CT LOW-DOSE SCREENING CHEST WITHOUT CONTRAST CLINICAL INFORMATION: Nicotine dependence, cigarettes, uncomplicated. The patient is a current smoker with a 38 pack-year history of smoking. COMPARISON: CT chest 01/06/2022. X-ray chest 01/03/2022. TECHNIQUE: Multidetector volumetric CT imaging of the chest is performed on a Siemens SOMATOM Definition scanner without contrast using low dose technique. Additional 2D coronal and sagittal reformatted images and axial 3D maximum intensity projection (MIP) images are generated on the CT workstation. This CT examination was performed using dose optimization techniques as appropriate, variously including the following: *Automated exposure control *Adjustment of mA and/or kV according to patient size (this includes techniques or standardized protocols for targeted exams where dose is matched to indication/reason for exam; i.e. extremities or head) *Use of iterative reconstruction technique TOTAL EXAM DLP: 49 mGy-cm. CTDIvol: 1.56 mGy. FINDINGS: PULMONARY NODULES: -Moderate respiratory motion limits the examination. -Exam is also limited by beam starvation artifact from patient habitus on this low-dose examination. -2 mm subpleural nodule lateral right apex, (series 5, image 69), previously measuring 4 mm when measured similarly. This is smaller and thus benign. -3 mm pleural-based nodule lateral posterior right upper lobe, posterior segment, (series 5, image 89) not seen previously. This has an inflammatory or infectious appearance. -4 mm groundglass nodule anterior right upper lobe, apical segment (series 5, image 89) not previously seen. -There are several similar scattered groundglass nodules in the lungs bilaterally, the largest in the anterior left apex measuring 5 mm, (series 5, image 88), which have an inflammatory/infectious appearance. -5 mm nodule anterior right upper lobe medially, subpleural location, new (series 5, image 143). -Triangular average diameter of 3 mm nodule in the minor fissure is consistent with an intrapulmonary lymph node (series 5, image 252). -No enlarging pre-existing nodules identified. LUNGS: -There is mild to moderate centrilobular emphysema. -Scattered centrilobular tree in bud type nodules most numerous in the lower lobes bilaterally are present, increased from the prior exam, and consistent with infectious/inflammatory etiology. -There is diffuse bronchial wall thickening and bronchiectasis, with numerous foci of endobronchial filling defects in the lower lobes bilaterally. -The number of small centrilobular groundglass nodules in both lungs limits detection of small solid nodules, and consideration for repeat exam after treatment is suggested. There are scattered foci of subpleural atelectasis/scarring. MEDIASTINUM: -There is a calcified 1.0 cm nodule in the left thyroid lobe. -There is a mildly prominent subcarinal lymph node measuring 10 mm, likely reactive. No additional mediastinal or hilar lymph nodes present. -Aorta is minimally calcified, and normal in caliber and course. -Main pulmonary artery is normal in size. -Esophagus appears normal. -Heart size is normal. There is a small pericardial effusion present. CORONARY ARTERY CALCIFICATION: Mild to moderate three-vessel calcification noted. CHEST WALL/AXILLA: No suspicious enlarged lymph nodes or masses, incompletely imaged due to body habitus. UPPER ABDOMEN: -Unremarkable. OSSEOUS STRUCTURES: No suspicious focal findings. CT/CT lung screening IMPRESSION: 1. Somewhat limited exam due to respiratory motion and beam starvation from body habitus. 2. Innumerable new centrilobular groundglass nodules, many grouped in tree in bud formations, consistent with infectious/inflammatory abnormality. These are most numerous in the lower lobes. There is associated diffuse bronchiectasis, with bilateral lower lobe bronchial wall thickening and endobronchial mucous plugging. A repeat examination may be of benefit after clearing of these infectious/inflammatory abnormalities. 3. Otherwise, stable solid nodules measuring up to 3 mm with no enlarging nodules or definite new solid nodules. A lateral right upper lobe nodule has apparently decreased in size from 4 mm to 2 mm. This finding is benign. 4. Mild to moderate emphysema. 5. Small pericardial effusion. ASSESSMENT: 1. Lung-RADS Category 2: Benign appearance or behavior of nodules. Findings possibly obscured by acute abnormality, beam starvation, and mild respiratory artifact. 2. Lung-RADS Category S: None. RECOMMENDATION: Return for repeat examination due to limitations of the study as detailed, after treatment/clearing of the acute infectious/inflammatory abnormalities.
== END 2024-05-30 11:03 | disposition home or self-care (01) ==
LOC: HO.CT 11:02
PROVIDERS: PCP Internal Medicine; Visit Provider Physician Assistant Medical
DX: Z12.2 Encounter for screening for malignant neoplasm of respiratory organs (principal); F17.210 Nicotine dependence, cigarettes, uncomplicated
CPT/HCPCS: 71271; G0296

== ENCOUNTER → 2024-05-30 11:02 | Outpatient (BNV) | payer OTHER, SELFPAY | PROVIDERS: PCP Internal Medicine; Visit Provider Radiology Diagnostic Radiology | DX: F17.200 Nicotine dependence, unspecified, uncomplicated (principal) | CPT/HCPCS: 71271 ==

== ENCOUNTER 2024-06-18 10:17 | Outpatient (AMB) | payer OTHER, SELFPAY ==
[2024-06-18 10:31] VITALS: BP 110/74; PULSE 128; O2SAT 88; BMI 32.1
--- NOTE | 2024-06-18 10:31 | MHC.OFFVIS ---
Vital Signs 06/18/24 10:31 Height 5 ft 1 in Weight 169 lb 12.095 oz BMI 32.1 BP 110/74 Blood Pressure Location Lt brachial Position Sitting Pulse 128 H Pulse Source Pulse Oximeter Pulse Oximetry (%) 88 L Oxygen Delivery Method Nasal Cannula Oxygen Flow Rate 2 Intake Visit Reasons: COPD Allergies codeine [CODEINE] Allergy (Unknown, Verified 06/18/24 11:09) NAUSEA & VOMITING, HIVES Penicillins [PENICILLINS] Allergy (Unknown, Verified 06/18/24 11:09) DIFF BREATHING, RASH ENVIRONMENTAL Allergy (Unknown, Uncoded 06/18/24 11:09) SOB,WHEEZING Medication List - Last Reconciled 06/18/24 by Haven Longo MD albuterol sulfate 2.5 mg (3 mL) inhalation Q4-6H PRN albuterol sulfate 2.5 mg (3 mL) inhalation Q4-6H PRN 30 days azithromycin 250 mg PO 3XW 30 days budesonide-formoterol 160-4.5 mcg/actuation (Symbicort) 2 puffs inhalation BID 30 days compressor, for nebulizer As directed 4 times a day diltiazem HCl CD (Cardizem CD) 120 mg See Protocol PO DAILY docusate sodium (Colace) 200 mg (2 x 100 mg) PO BEDTIME 30 days gabapentin 1,200 mg PO TID hydroxyzine HCl 25 mg PO TID PRN montelukast 10 mg PO DAILY naproxen sodium 220 mg PO BID PRN nicotine 1 patch transdermal DAILY 28 days omeprazole 40 mg PO DAILY 90 days prednisone 5 mg PO Q OTHER DAY 28 days quetiapine ER 200 mg PO BEDTIME risperidone 2 mg PO BEDTIME umeclidinium 62.5 mcg/actuation (Incruse Ellipta) 1 inh PO DAILY Ventolin HFA 90 mcg/actuation (albuterol sulfate) 2 puffs inhalation Q4-6H PRN NS Do you need a note to return to daycare/school/sports/work: No HPI HPI COPD: Details: THIS 53 YEARS OLD FEMALE A [employer] SMOKER WITH COPD AND HYPOXEMIA , IS HERE FOR FOLLOW-UP. SHE HAS BEEN RELATIVELY STABLE IN THE LAST 4 MONTHS. SHE HAS TRIED CUT DOWN SMOKING AND CLAIMS THAT SHE IS DOWN TO ONLY 1-2 CIGARETTES A DAY. SHE PLANS TO QUIT COMPLETELY IN THE NEXT. MONTH OR SO SHE IS ON NICOTINE PATCH . HER LONG-ACTING INHALER HAS BEEN CHANGED FROM DULERA TO SYMBICORT WHICH SHE IS USING 2 PUFFS B.I.D. SHE CONTINUES TO USE O2 2 L/MINUTE 24 HOURS A DAY. WITH THE HELP OF PREDNISONE 5 MG ON ALTERNATE DAYS AND AZITHROMYCIN 3 TIMES A WEEK, SHE HAS HAD NO ACUTE EXACERBATION. [facility] Medical History Respiratory failure with hypoxia COPD (chronic obstructive pulmonary disease) Asthma Nicotine dependence, cigarettes, uncomplicated Acid reflux Depression Surgical History Status post excision of lipoma History of cholecystectomy History of shoulder surgery History of hysterectomy History of endometrial ablation History of loop electrosurgical excision procedure (LEEP) History of colposcopy Family History Mother Crohn disease Brother Colitis Social History Household Members: Spouse Housing: Apartment Do you presently have visiting nurse or other home services: No Alcohol intake: never Patient Tobacco Use Status: Former Tobacco user Cigarettes Per Day: 2 Years Smoked: (onset 15yo, 1ppd x 38yrs, now 2cig/day - 35pyh) Substance Use Type: Marijuana service: No Current occupational status: unemployed and disabled 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 Review of Systems Const All systems reviewed & are unremarkable except as noted in HPI and below Eyes Reports no additional complaints ENT Reports no additional complaints Card Denies chest pain, Denies irregular heart rhythm and Denies leg edema Resp Reports as per HPI GI Reports heartburn (Controlled with omeprazole) Reports no additional complaints Musc Reports back pain (Mild off and on) Skin/Breast Reports system reviewed and no additional complaints, except as documented Neuro Reports no additional complaints Psych Reports anxiety Endo Reports no additional complaints Physical Exam Vital Signs: Last Vital Signs Pulse 128 H 06/18/24 10:31 BP 110/74 06/18/24 10:31 Pulse Ox 88 L 06/18/24 10:31 Oxygen Delivery Method Nasal Cannula 06/18/24 10:31 Oxygen Flow Rate 2 06/18/24 10:31 BMI result Body Mass Index 32.1 Const General: healthy appearing, comfortable, no acute distress, alert and awake Orientation/consciousness: patient oriented x3 HEENT Head: Yes normal to inspection General nose exam: No nasal polyps present and No nasal discharge present Face and sinus: Yes sinuses nontender Mouth: oropharynx normal Throat: Yes posterior oropharynx normal Eyes General: appearance normal, both eyes and all related structures Neck Neck: Yes normal visual inspection, Yes no lymphadenopathy, Yes trachea midline and Yes no JVD Thyroid: Thyroid normal Chest Chest palpation & inspection: normal inspection of the chest, normal palpation of entire chest wall and no tenderness Resp Other: PERCUSSION NOTE IS RESONANT, BREATH SOUNDS ARE DISTANT WITH PROLONGED EXPIRATORY PHASE. NO CREPITATIONS BUT SHE HAS A FEW SCATTERED WHEEZES ON BOTH SIDES. Cardio Palpation: normal PMI Rate: regular rate and tachycardic (HR 100 TO 120 BP IS A LITTLE LOW. ) Rhythm: regular rhythm Heart sounds: no gallops and no murmurs GI Palpation (GI): Soft to palpation, nontender, No hepatosplenomegaly present and no masses Auscultation: normal bowel sounds Back/Spine/Pelvis Thoracic/Lumbar Spine: thoracic and lumbar spine normal to inspection Skin General skin exam: no rashes or lesions noted Neuro General: patient oriented x3 and no focal motor deficits Cranial nerves: Yes CN's II-XII intact bilaterally Extrem General: Yes normal to inspection, Yes no clubbing, cyanosis or edema and Yes no calf tenderness Psych Appearance: grossly normal and well kempt Speech and movement: Normal speech and movement present Affect: Anxious affect present Assessment & Plan Assessment & Plan (1) Nicotine dependence, cigarettes, uncomplicated: Comment: (current smoker - onset 15yo, 1ppd x 38yrs, now 2cig/day, 35pyh), SHE IS ON QUIT SMOKING PLAN WITH THE USE OF NICOTINE PATCH. Code(s): F17.210 - Nicotine dependence, cigarettes, uncomplicated Category: Medical Plan: CLAIMS THAT SHE IS DOWN TO ONLY 1 OR 2 CI,GARETTES A DAY. DISCUSSED AGAIN AND I ENCOURAGED HER TO QUIT COMPLETELY. (2) COPD (chronic obstructive pulmonary disease): Comment: (severe obstructive airway disorder, related to long-time smoking. Continues to be significantly short of breath and prone to acute exacerbations) she has been started on prednisone 5 mg on alternate days and azithromycin 250 mg 3 days a week. with this regimen she has had no acute exacerbation and symptoms are much less than before. Code(s): J44.9 - Chronic obstructive pulmonary disease, unspecified Category: Medical Plan: Continue present medical regimen which includes. Symbicort 160-4.52 puffs b.i.d. montelukast 10 mg daily . Incruse Ellipta 1 inhalation daily Ventolin HFA 2 puffs Q 6 hours p.r.n. prednisone 5 mg on alternate days azithromycin 250 mg p.o. 3 days a week (3) Respiratory failure with hypoxia: Comment: She has resting and exertional Hypoxemia , requiring oxygen supplementation. Does desaturate very quickly if taken off the oxygen. Code(s): J96.91 - Respiratory failure, unspecified with hypoxia Category: Medical Plan: continue to use O2 2 L/minute 24 hours a day Coding Level of Care Code Est Pt Level 4 (35366) Diagnoses Nicotine dependence, cigarettes, uncomplicated F17.210 COPD (chronic obstructive pulmonary disease) J44.9 Respiratory failure with hypoxia J96.91
== END 2024-06-18 11:05 | disposition home or self-care (01) ==
PROVIDERS: PCP Internal Medicine; Visit Provider Internal Medicine
DX: F17.210 Nicotine dependence, cigarettes, uncomplicated (principal); J44.9 Chronic obstructive pulmonary disease, unspecified; J96.91 Respiratory failure, unspecified with hypoxia
CPT/HCPCS: 99214

== ENCOUNTER → 2024-06-18 10:17 | Outpatient (BNVA) | payer OTHER, SELFPAY | PROVIDERS: PCP Internal Medicine; Visit Provider Internal Medicine | DX: J44.9 Chronic obstructive pulmonary disease, unspecified (principal); J96.91 Respiratory failure, unspecified with hypoxia; F17.210 Nicotine dependence, cigarettes, uncomplicated; Z99.81 Dependence on supplemental oxygen | CPT/HCPCS: 99212 ==

== ENCOUNTER 2024-08-18 22:38 | Inpatient (IN) | payer OTHER, SELFPAY ==
--- NOTE | ~2024-08-18 | XR_ITS ---
EXAMINATION: XR CHEST CLINICAL INFORMATION: Shortness of breath COMPARISON: 01/03/2022 TECHNIQUE: 2 views of the chest were obtained. FINDINGS: Normal cardiomediastinal silhouette. No consolidation, mild bronchial wall thickening. No pleural effusion or pneumothorax. No acute osseous abnormalities. XR/XR chest 2V IMPRESSION: Mild bronchial wall thickening suggesting small airways disease. No consolidation. Electronically signed by: Juan Mclean MD 08/19/2024 12:30 AM EDT
--- NOTE | ~2024-08-18 | CT_ITS ---
EXAMINATION: CT ANGIOGRAM CHEST CLINICAL INFORMATION: Pain. COMPARISON: May 30, 2024 TECHNIQUE: Multiple axial images were obtained through the chest after the administration of 65 mL of Omnipaque 350 intravenous contrast. Extensive vascular post-processing including two-dimensional and three-dimensional reformatted images were created and reviewed on an independent workstation. This CT examination was performed using dose optimization techniques as appropriate, variously including the following: *Automated exposure control *Adjustment of mA and/or kV according to patient size (this includes techniques or standardized protocols for targeted exams where dose is matched to indication/reason for exam; i.e. extremities or head) *Use of iterative reconstruction technique DLP: 382 mGy-cm FINDINGS: QUALITY OF STUDY/CONTRAST BOLUS: Satisfactory PULMONARY ARTERIES: No pulmonary emboli. THORACIC AORTA: No aneurysm. LUNG: There is bilateral bronchial thickening with bilateral lower lobe mild bronchiectasis. There is also diffuse bilateral reticular nodular densities most pronounced in the lower lung jones. There is atelectatic change or scarring at the lung bases. PLEURA: No pleural effusion or pneumothorax. MEDIASTINUM: Normal heart size. No pericardial effusion. No hilar or mediastinal lymphadenopathy. No evidence of septal bowing or right heart strain. CORONARY ARTERY CALCIFICATION: Minimal. CHEST WALL/AXILLA: No axillary or internal mammary lymphadenopathy. OSSEOUS STRUCTURES: No acute or suspicious osseous abnormality. UPPER ABDOMEN: Unremarkable. No reflux of contrast into the hepatic veins to suggest elevated right heart pressures. CT/CT angio chest PE protocol IMPRESSION: 1. No evidence of PE. 2. No evidence of aortic aneurysm. 3. There is diffuse bilateral reticular nodular densities most pronounced in the lower lung jones with bilateral lower lobe mild bronchiectasis. A similar finding was seen on most recent CT. 4. There is atelectatic change or scarring at the lung bases. VTE: negative. Fleischner guidelines were followed. Electronically signed by: Edwar Stinson MD 08/19/2024 06:17 AM EDT
[2024-08-18 22:47] VITALS: BP 116/71; PULSE 120; O2SAT 97
--- NOTE | 2024-08-18 22:48 | ECG_ITS ---
Test Reason : SOB Blood Pressure : / mmHG Vent. Rate : 126 BPM Atrial Rate : 126 BPM P-R Int : 136 ms QRS Dur : 086 ms QT Int : 320 ms P-R-T Axes : 075 132 059 degrees QTc Int : 463 ms Sinus tachycardia Right ventricular hypertrophy with repolarization abnormality Anterior infarct (cited on or before 03-JAN-2022) Abnormal ECG When compared with ECG of 03-JAN-2022 09:15, No significant changes seen Referred By: Reagan Garza Electronically Signed By:VICTOR M COOPER
[2024-08-18 22:49] VITALS: BP 122/80; PULSE 130; RESP 35; TEMP 36.7; O2SAT 92; BMI 50.2
--- NOTE | 2024-08-18 22:56 | ED.GENADULT ---
HPI - General Adult General Chief complaint: Dyspnea Stated complaint: SOB Time Seen by Provider: 08/18/24 22:47 History of Present Illness ED Provider: Kayla RAY narrative: 53-year-old female with past medical history of COPD on 3 L baseline presenting for shortness of breath. Patient states that her symptoms began earlier today with chest tightness and difficulty breathing. They have gotten progressively worse. She endorses nausea and cough however denies diaphoresis, chest pain, abdominal pain, nausea, vomiting, urinary symptoms, fevers, chills Related Data Home Medications ?Medication ?Instructions ?Recorded ?Confirmed quetiapine 200 mg tablet,extended 200 mg PO BEDTIME 10/14/20 09/19/23 release 24 hr risperidone 2 mg tablet 2 mg PO BEDTIME 10/14/20 09/19/23 gabapentin 600 mg tablet 1,200 mg PO TID 12/15/20 09/19/23 hydroxyzine HCl 25 mg tablet 25 mg PO TID PRN Anxiety 12/15/20 09/19/23 naproxen sodium 220 mg tablet 220 mg PO BID PRN Pain 01/03/22 09/19/23 Previous Rx's ?Medication ?Instructions ?Recorded compressor, for nebulizer #1 ea 01/08/22 diltiazem HCl 120 mg 120 mg PO DAILY #30 caps 01/08/22 capsule,extended release 24 hr (Cardizem CD) docusate sodium 100 mg capsule 200 mg (2 x 100 mg) PO BEDTIME 30 05/23/23 (Colace) days #60 caps omeprazole 40 mg capsule,delayed 40 mg PO DAILY 90 days #90 caps 09/19/23 release prednisone 5 mg tablet 5 mg PO Q OTHER DAY COPD 28 days 11/14/23 #14 tabs albuterol sulfate 2.5 mg/3 mL 2.5 mg (3 mL) inhalation Q4-6H PRN 02/12/24 (0.083 %) solution for nebulization shortness of breath or wheezing 30 days #180 mL nicotine 14 mg/24 hr daily 1 patch transdermal DAILY smoking 02/12/24 transdermal patch 28 days #28 ea albuterol sulfate 2.5 mg/3 mL 2.5 mg (3 mL) inhalation Q4-6H PRN 06/06/24 (0.083 %) solution for nebulization for wheezing #300 mL Ventolin HFA 90 mcg/actuation 2 puff inhalation Q4-6H PRN for 06/09/24 aerosol inhaler (albuterol sulfate) wheezing #18 ea budesonide-formoterol HFA 160 2 puff inhalation BID copd 30 days 06/16/24 mcg-4.5 mcg/actuation aerosol #10.2 grams inhaler (Symbicort) azithromycin 250 mg tablet 250 mg PO 3XW COPD RXCERBATION 07/02/24 30 days #13 tabs montelukast 10 mg tablet 10 mg PO DAILY #90 tabs 07/02/24 umeclidinium 62.5 mcg/actuation 1 inh PO DAILY copd #90 ea 07/02/24 blister powder for inhalation (Incruse Ellipta) Allergies Allergy/AdvReac Type Severity Reaction Status Date / Time codeine [CODEINE] Allergy Unknown NAUSEA & Verified 08/18/24 22:50 VOMITING, HIVES Penicillins [PENICILLINS] Allergy Unknown DIFF Verified 08/18/24 22:50 BREATHING, RASH ENVIRONMENTAL Allergy Unknown SOB,WHEEZIN Uncoded 08/18/24 22:50 G Review of Systems Review of Systems: Patient endorses shortness of breath, chest tightness, nausea cough Patient denies fevers, chills, headache, neck pain, abdominal pain, vomiting, urinary symptom Yes all other systems are reviewed and are negative PMFSH Past Medical History Medical History Respiratory failure with hypoxia COPD (chronic obstructive pulmonary disease) Asthma Nicotine dependence, cigarettes, uncomplicated Acid reflux Depression Surgical History Status post excision of lipoma History of cholecystectomy History of shoulder surgery History of hysterectomy History of endometrial ablation History of loop electrosurgical excision procedure (LEEP) History of colposcopy Family History Family History Mother Crohn disease Brother Colitis Social History Social History Household Members: Spouse Housing: Apartment Do you presently have visiting nurse or other home services: No Alcohol intake: never Patient Tobacco Use Status: Former Tobacco user Cigarettes Per Day: 2 Years Smoked: (onset 15yo, 1ppd x 38yrs, now 2cig/day - 35pyh) Use of substances other than those prescribed or required for medical reasons: No Substance Use Type: Marijuana Advance Directives: Yes Advance Directives on File: Yes Advance Directives Date on File: 01/04/22 Do you have a plan to hurt others: No Plan Patient : No service: No Current occupational status: unemployed and disabled 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 Physical Exam ED Vital Signs: Vital Signs - 24 hr 08/18/24 22:49 08/18/24 23:11 08/19/24 01:07 Temperature 98.1 F Pulse Rate 130 H 120 H 120 H Respiratory Rate 35 H 24 H 24 H Blood Pressure 122/80 Pulse Oximetry 92 Oxygen Delivery Method Nasal Cannula Oxygen Flow Rate 08/19/24 01:10 08/19/24 02:54 08/19/24 03:25 Temperature 98.4 F 98.6 F Pulse Rate 122 H 129 H Respiratory Rate 22 H 17 24 H Blood Pressure 148/79 H 143/101 H Pulse Oximetry 92 95 Oxygen Delivery Method Nasal Cannula Nasal Cannula Oxygen Flow Rate 3 3 08/19/24 04:19 08/19/24 05:08 08/19/24 07:34 Temperature 98.5 F Pulse Rate 133 H 125 H Respiratory Rate 26 H 22 H 20 Blood Pressure 111/63 108/66 Pulse Oximetry 98 91 L Oxygen Delivery Method BiPAP Nasal Cannula Oxygen Flow Rate 08/19/24 09:09 Temperature Pulse Rate 129 H Respiratory Rate 16 Blood Pressure 105/72 Pulse Oximetry 93 Oxygen Delivery Method Nasal Cannula Oxygen Flow Rate 4 BMI result Body Mass Index 50.2 Wheezing auscultated bilaterally Normal S1-S2 tachycardic with regular rhythm Abdomen is soft nontender nondistended Mild lower extremity edema appreciated Medications Administered Discontinued Medications Generic Name Dose Route Start Last Admin Trade Name Freq PRN Reason Stop Dose Admin Albuterol Sulfate 2.5 mg/ 5 mg 08/19/24 00:32 08/19/24 01:07 Albuterol Sulfate 2.5 mg INHALE 08/19/24 00:33 5 mg ONCE ONE Administration Albuterol/Ipratropium 9 ml 08/18/24 22:51 08/18/24 23:10 Albuterol/Iprat 2.5/0.5mg 3 Ml Ampul.Neb INHALE 08/18/24 22:52 9 ml ONCE ONE Administration Levofloxacin 750 mg in 150 mls @ 100 mls/hr 08/19/24 00:29 08/19/24 03:51 Levaquin IV 08/19/24 01:58 Infused ONCE ONE Infusion Magnesium Sulfate 2 gm in 50 mls @ 25 mls/hr 08/19/24 01:29 08/19/24 04:55 Magnesium Sulfate/H2o IV 08/19/24 03:28 Infused ONCE ONE Infusion Iohexol 65 ml 08/19/24 03:20 08/19/24 03:21 Iohexol 350 Mg/Ml 100 Ml Infus..Btl IV 08/19/24 03:21 65 ml ONCE ONE Administration Lorazepam 2 mg 08/19/24 03:36 08/19/24 03:51 Lorazepam 2 Mg/Ml Vial IVPUSH 08/19/24 03:37 2 mg ONCE ONE Administration Ondansetron HCl 4 mg 08/19/24 03:03 08/19/24 03:50 Ondansetron Hcl 4 Mg/2 Ml Vial IVPUSH 08/19/24 03:04 4 mg ONCE ONE Administration Prednisone 60 mg 08/18/24 22:51 08/18/24 23:02 Prednisone 20 Mg Tablet PO 08/18/24 22:52 60 mg ONCE ONE Administration Medical Decision Making Medical Decision Making MDM Narrative: This is a 53-year-old female with past medical history of COPD presenting for shortness of breath. I am concerned for the following; COPD exacerbation, pneumonia, COVID, flu, viral URI - minimal concern for ACS given HPI however I will obtain troponins and EKG - at this time there is no concern for PE as patient is low risk however should her clinical status deteriorates or remain unchanged I will reconsider this diagnosis - labs, imaging studies, duo nebs and steroids ordered - antibiotics ordered - I do not appreciate any large consolidation on chest x-ray and Radiology interpretation reads mild bronchial wall thickening - labs notable for negative troponin, leukocytosis, blood gas within normal limits, - reassessment patient is still moderate work of breathing - albuterol neb and magnesium ordered - pt now appears more comfortable - ICU consulted for evaluation -I discussed the patient with Dr. Wright from the medicine team. Recommendations: Patient needs BiPAP -PATRIC Modi from the ICU came to evaluate the patient: Plan: Keep the patient on BiPAP for 3-4 hours, get blood gases and re-evaluate. -throughout this 3 hours, patient kept taking off the BiPAP. Patient seems to be more awake and alert. -blood gases 730 in the morning show a venous pH of 7.37, pCO2 69, bicarb of 40. -patient is on 3 L of oxygen, states that she feels well, speaking full sentences, completely awake. Patient has been off BiPAP for about an hour. -I believe that at this time 8am, patient is stable to go to the floor. Patient discussed with Dr. Gill from the Medicine team. Dr. Emperatriz Jimenez from the ICU is aware of the patient. The medicine team is reviewing patient's chart, they will follow up with the ED shortly -sign out given to my colleage Dr. Almaguer 08/19/2024 at 09:18 hours,Dr. Aguilar Almaguer's note: Patient was accepted by the covering hospitalist, Dr. Gill. Differential Diagnosis Differential Diagnoses: The differential diagnosis associated with the presentation includes (Asthma exacerbation, chronic lung disease, respiratory failure) Admission/Observation Consideration of admission/observation: Escalation of care including admission/observation considered Consult Healthcare Provider Management of the patient was discussed with: Hospitalist and Apron Operator Lab Data MDM Lab Attestation statement: I reviewed the patient's lab results. 08/18/24 22:54 08/18/24 22:54 Labs: Lab Results 08/18/24 08/18/24 08/18/24 Range/Units 22:54 23:05 23:06 WBC 14.7 H (4.8-10.8) X10*3/uL RBC 4.73 (4.20-5.50) X10*6/uL Hgb 13.9 (12.0-16.0) g/dl Hct 44.1 (37.0-47.0) % MCV 93.2 (80.0-98.0) fL MCH 29.4 (27.0-33.0) pg MCHC 31.5 (31.0-35.0) g/dl RDW 13.8 (11.0-16.0) % Plt Count 296 (160-400) X10*3/uL MPV 11.2 (9.4-12.3) fL Immature Gran % (Auto) 0.5 H (0.0-0.4) % Neut % (Auto) 71.2 (45-73) % Lymph % (Auto) 22.3 (20-40) % [place] % (Auto) 4.0 (2-11) % Eos % (Auto) 1.0 (0-4) % Baso % (Auto) 1.0 (0-2) % Lymph # (Auto) 3.3 (1.2-4.9) X10*3/uL [place] # (Auto) 0.6 (0.1-1.2) X10*3/uL Eos # (Auto) 0.2 (0.0-0.4) X10*3/uL Baso # (Auto) 0.2 (0.0-0.2) X10*3/uL Abs Immat Gran (auto) 0.07 H (0.00-0.03) X10*3/uL Absolute Neuts (auto) 10.4 H (2.0-8.3) x10*3/uL Absolute Nucleated RBC 0.000 (0.0-0.012) X10*3/uL Nucleated RBC % (auto) 0.0 (0.0-0.2) /100WBC VBG pH 7.34 (7.32-7.43) VBG pCO2 77 mmHg VBG pO2 37 mmHg VBG HCO3 42 H (22-26) mmol/L VBG O2 Saturation 52.0 % VBG Base Excess 12.1 mmol/L Sodium 142 (135-145) mmol/L Potassium 4.2 (3.3-5.1) mmol/L Chloride 96 (96-108) mmol/L Carbon Dioxide 39 H (22-29) mmol/L Anion Gap 11 L (12-20) BUN 3 L (9-16) mg/dL Creatinine 0.65 (0.5-1.4) mg/dL Estim Creat Clear Calc 69.1 Estimated GFR > 60 Random Glucose 162 H (60-115) mg/dL Lactic Acid 1.2 (0.5-2.0) mmol/L Calcium 9.7 (8.4-10.2) mg/dL Total Bilirubin 0.4 (0.0-1.0) mg/dL AST 19 (5-31) U/L ALT 21 (0-31) U/L Alkaline Phosphatase 90 (39-117) U/L Troponin I High Sens < 2.7 (<3.5-17.0) ng/L B-Natriuretic Peptide 32 (<100) pg/mL Total Protein 7.5 (6.5-8.0) g/dL Albumin 4.1 (3.5-5.0) g/dL Influenza Type A (PCR) NEGATIVE (Negative) Influenza Type B (PCR) NEGATIVE (Negative) RSV RNA Qual (PCR) NEGATIVE (Negative) SARS-CoV-2 RNA (RT-PCR) NEGATIVE (Negative) 08/19/24 08/19/24 Range/Units 01:10 07:34 WBC (4.8-10.8) X10*3/uL RBC (4.20-5.50) X10*6/uL Hgb (12.0-16.0) g/dl Hct (37.0-47.0) % MCV (80.0-98.0) fL MCH (27.0-33.0) pg MCHC (31.0-35.0) g/dl RDW (11.0-16.0) % Plt Count (160-400) X10*3/uL MPV (9.4-12.3) fL Immature Gran % (Auto) (0.0-0.4) % Neut % (Auto) (45-73) % Lymph % (Auto) (20-40) % [place] % (Auto) (2-11) % Eos % (Auto) (0-4) % Baso % (Auto) (0-2) % Lymph # (Auto) (1.2-4.9) X10*3/uL [place] # (Auto) (0.1-1.2) X10*3/uL Eos # (Auto) (0.0-0.4) X10*3/uL Baso # (Auto) (0.0-0.2) X10*3/uL Abs Immat Gran (auto) (0.00-0.03) X10*3/uL Absolute Neuts (auto) (2.0-8.3) x10*3/uL Absolute Nucleated RBC (0.0-0.012) X10*3/uL Nucleated RBC % (auto) (0.0-0.2) /100WBC VBG pH 7.37 (7.32-7.43) VBG pCO2 69 mmHg VBG pO2 49 mmHg VBG HCO3 40 H (22-26) mmol/L VBG O2 Saturation 76.0 % VBG Base Excess 11.7 mmol/L Sodium (135-145) mmol/L Potassium (3.3-5.1) mmol/L Chloride (96-108) mmol/L Carbon Dioxide (22-29) mmol/L Anion Gap (12-20) BUN (9-16) mg/dL Creatinine (0.5-1.4) mg/dL Estim Creat Clear Calc Estimated GFR Random Glucose (60-115) mg/dL Lactic Acid (0.5-2.0) mmol/L Calcium (8.4-10.2) mg/dL Total Bilirubin (0.0-1.0) mg/dL AST (5-31) U/L ALT (0-31) U/L Alkaline Phosphatase (39-117) U/L Troponin I High Sens 4.0 (<3.5-17.0) ng/L B-Natriuretic Peptide (<100) pg/mL Total Protein (6.5-8.0) g/dL Albumin (3.5-5.0) g/dL Influenza Type A (PCR) (Negative) Influenza Type B (PCR) (Negative) RSV RNA Qual (PCR) (Negative) SARS-CoV-2 RNA (RT-PCR) (Negative) Critical Care Time Critical Care Time Critical Care Time: Yes Total Critical Care Time: 90 Attestation: I have personally provided critical care time. Time includes review of lab data, radiology results, discussion with consultants, and monitoring for potential decompensation. Intervention performed as documented. Discharge Plan Discharge Patient Disposition: Admitted As Inpatient Print Language: Prydeinig
[2024-08-18 23:02] LABS: MANUAL DIFF FLAG NO
[2024-08-18] MEDS: predniSONE 20 MG TABLET 60 MG PO (23:02)
[2024-08-18 23:03] LABS: Basophils Absolute Auto 0.2 X10*3/uL (0.0-0.2); Eosinophils Absolute Auto 0.2 X10*3/uL (0.0-0.4); Hematocrit 44.1 % (37.0-47.0); Hemoglobin 13.9 g/dl (12.0-16.0); Imm Gran Abs Auto 0.07 X10*3/uL (0.00-0.03); Imm Gran Pct Auto 0.5 % (0.0-0.4); Lymphocytes Absolute Auto 3.3 X10*3/uL (1.2-4.9); Lymphocytes Percent Auto 22.3 % (20-40); Mean Corpuscular HGB Conc 31.5 g/dl (31.0-35.0); Mean Corpuscular Hemoglobin 29.4 pg (27.0-33.0); Mean Corpuscular Volume 93.2 fL (80.0-98.0); Mean Platelet Volume 11.2 fL (9.4-12.3); Monocytes Absolute Auto 0.6 X10*3/uL (0.1-1.2); Neutrophils Absolute Auto 10.4 x10*3/uL (2.0-8.3); Neutrophils Percent Auto 71.2 % (45-73); Platelet Count 296 X10*3/uL (160-400); Red Blood Count 4.73 X10*6/uL (4.20-5.50); Red Cell Distribution Width 13.8 % (11.0-16.0); White Blood Count 14.7 X10*3/uL (4.8-10.8)
[2024-08-18 23:08] LABS: Venous Blood Gas Refer to POC result
[2024-08-18 23:09] LABS: VBG Base Excess 12.1 mmol/L; VBG HCO3 42 mmol/L (22-26); VBG pCO2 77 mmHg; VBG pH 7.34 (7.32-7.43); VBG pO2 37 mmHg
[2024-08-18] MEDS: Albuterol/Iprat 2.5/0.5MG 3 ML AMPUL.NEB 9 ML INHALE (23:10)
[2024-08-18 23:11] VITALS: PULSE 120; RESP 24; O2SAT 93
[2024-08-18 23:13] LABS: Lactic Acid 1.2 mmol/L (0.5-2.0)
--- NOTE | 2024-08-18 23:15 | MHC.EDTECH ---
Patient BIBA,changed into hospital attire,placed on the nuclear monitoring technician,vitals taken,EKG completed per order and signed by provider,pure-wick placed due to incontinence,on pt's request,tolerated well,call pandya in reach
[2024-08-18 23:18] LABS: Alanine Aminotransferase 21 U/L (0-31); Albumin Level 4.1 g/dL (3.5-5.0); Alkaline Phosphatase 90 U/L (39-117); Anion Gap 11 (12-20); Aspartate Amino Transferase 19 U/L (5-31); Bilirubin Total 0.4 mg/dL (0.0-1.0); Blood Urea Nitrogen 3 mg/dL (9-16); Calcium 9.7 mg/dL (8.4-10.2); Carbon Dioxide 39 mmol/L (22-29); Chloride 96 mmol/L (96-108); Creatinine Clr Calc Pharmacy 69.1; Estimated Glomerular Filt Rate > 60; Glucose Random 162 mg/dL (60-115); Potassium 4.2 mmol/L (3.3-5.1); Sodium 142 mmol/L (135-145); Total Protein 7.5 g/dL (6.5-8.0)
[2024-08-18 23:24] LABS: B Type Natriuretic Peptide 32 pg/mL (<100)
[2024-08-18 23:28] LABS: Troponin-I High Sensitivity < 2.7 ng/L (<3.5-17.0)
[2024-08-18 23:58] LABS: Influenza A PCR NEGATIVE (Negative); Influenza B PCR NEGATIVE (Negative); Resp Syncy Virus RNA Qual PCR NEGATIVE (Negative); SARS COV2 PCR INHOUSE NEGATIVE (Negative)
[2024-08-19] VITALS (14 sets, daily range): BP systolic 105–148; BP diastolic 63–101; PULSE 117–133; RESP 16–26; TEMP 36.8–37.3; O2SAT 90–98
[2024-08-19] MEDS: Albuterol Sulfate 2.5 MG, Albuterol Sulfate (0.083%) 2.5 MG 5 MG INHALE (01:07)
--- NOTE | 2024-08-19 01:11 | MHC.EDTECH ---
Patient placed on the bedpan, had a medium amount of brown liquid stool,kristin-care given,replaced the purewick,vitals taken,pt repositioned to comfort
[2024-08-19] MEDS: levoFLOXacin/D5W 750 MG/150 ML PIGGYBACK 100 MG IV (01:15)
[2024-08-19] MEDS: Magnesium Sulfate/H2O 2 GM/50 ML PIGGYBACK IV (02:53)
[2024-08-19] MEDS: iohexoL 350 MG/ML 100 ML INFUS..BTL 65 ML IV (03:21)
--- NOTE | 2024-08-19 03:36 | PC.NURSE ---
Discussed with MD Perez patients anxiety with BiPAP, verbal read back order for 2mg Ativan.
[2024-08-19] MEDS: ondansetron HCL 4 MG/2 ML VIAL IVPUSH (03:50)
[2024-08-19] MEDS: LORazepam 2 MG/ML VIAL IVPUSH (03:51)
[2024-08-19 07:38] LABS: VBG Base Excess 11.7 mmol/L; VBG HCO3 40 mmol/L (22-26); VBG pCO2 69 mmHg; VBG pH 7.37 (7.32-7.43); VBG pO2 49 mmHg
[2024-08-19 07:42] LABS: Venous Blood Gas Refer to POC result
--- NOTE | 2024-08-19 08:33 | P.HPHOSP_ITS ---
History of Present Illness Date of Service: 08/19/24 Attending physician on admission: Daron Berger Chief Complaint: SOB, dyspnea 53 yo F with a pmhx significant for COPD on 3L O2 at baseline, current smoker (1 cig/day), GERD, HTN, and depression, who presented to the ED yesterday with worsening shortness of breath and dyspnea x1 day. Mild nausea and nonproductive cough. She also complains of chest tightness. New congestion today but denies any body aches or sick contacts recently. Review of Systems 2 Constitutional: Constitutional: Denies body ache(s), Denies fever(s) and Denies headache(s) Eyes: Eyes: Denies blurry vision and Denies change in vision ENT: Denies headache(s), Reports nasal congestion, Denies nasal discharge and Denies sore throat Cardiovascular: Cardiovascular: Reports chest pain and Reports dyspnea Respiratory: Respiratory: Reports as per HPI and Reports dyspnea Gastrointestinal: Gastrointestinal: Denies abdominal pain, Denies melena, Denies hematochezia, Denies constipation, Denies diarrhea, Reports nausea and Denies vomiting Genitourinary: Genitourinary: Denies dysuria and Denies urinary hesitancy Musculoskeletal: Musculoskeletal: Denies myalgias Integumentary/Breasts: Skin/Breast: Denies rash Neurologic: Denies confusion, Denies headache(s) and Denies memory loss Psychiatric: Psychiatric: Denies confusion and Denies memory loss [facility] Medical History Respiratory failure with hypoxia COPD (chronic obstructive pulmonary disease) Asthma Nicotine dependence, cigarettes, uncomplicated Acid reflux Depression Family History Mother Crohn disease Brother Colitis Surgical History Status post excision of lipoma History of cholecystectomy History of shoulder surgery History of hysterectomy History of endometrial ablation History of loop electrosurgical excision procedure (LEEP) History of colposcopy Social History Household Members: Spouse Housing: Apartment Do you presently have visiting nurse or other home services: No Alcohol intake: never Patient Tobacco Use Status: Former Tobacco user Cigarettes Per Day: 2 Years Smoked: (onset 15yo, 1ppd x 38yrs, now 2cig/day - 35pyh) Use of substances other than those prescribed or required for medical reasons: No Substance Use Type: Marijuana Advance Directives: Yes Advance Directives on File: Yes Advance Directives Date on File: 01/04/22 Do you have a plan to hurt others: No Plan Patient : No service: No Current occupational status: unemployed and disabled 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 Meds Allergies Allergy/AdvReac Type Severity Reaction Status Date / Time codeine [CODEINE] Allergy Unknown NAUSEA & Verified 08/18/24 22:50 VOMITING, HIVES Penicillins [PENICILLINS] Allergy Unknown DIFF Verified 08/18/24 22:50 BREATHING, RASH ENVIRONMENTAL Allergy Unknown SOB,WHEEZIN Uncoded 08/18/24 22:50 G Home Medications ?Medication ?Instructions ?Recorded ?Confirmed ?Last Taken ?Type quetiapine 200 mg tablet,extended 200 mg PO BEDTIME 10/14/20 08/19/24 08/17/24 History release 24 hr risperidone 2 mg tablet 2 mg PO BEDTIME 10/14/20 08/19/24 08/17/24 History gabapentin 600 mg tablet 1,200 mg PO TID 12/15/20 08/19/24 08/17/24 History hydroxyzine HCl 25 mg tablet 25 mg PO TID PRN Anxiety 12/15/20 08/19/24 01/02/22 History naproxen sodium 220 mg tablet 220 mg PO BID PRN Pain 01/03/22 08/19/24 Unknown History atorvastatin 20 mg tablet 20 mg PO DAILY 08/19/24 08/19/24 08/17/24 History budesonide-formoterol HFA 160 2 puff inhalation BID 08/19/24 08/19/24 08/17/24 History mcg-4.5 mcg/actuation aerosol inhaler (Symbicort) docusate sodium 100 mg capsule 200 mg PO BEDTIME PRN Constipation 08/19/24 08/19/24 Unknown History (Colace) montelukast 10 mg tablet 10 mg PO DAILY PRN Allergy Symptoms 08/19/24 08/19/24 Unknown History omeprazole 40 mg capsule,delayed 40 mg PO DAILY@0630 08/19/24 08/19/24 08/17/24 History release umeclidinium 62.5 mcg/actuation 1 inh inhalation DAILY 08/19/24 08/19/24 08/17/24 History blister powder for inhalation (Incruse Ellipta) Physical Exam 2 Vital Signs and Narrative: Vital Signs: Last Vital Signs Temp 98.5 F 08/19/24 05:08 Pulse 125 H 08/19/24 07:34 Resp 20 08/19/24 07:34 BP 108/66 08/19/24 07:34 Pulse Ox 91 L 08/19/24 07:34 O2 Del Method Nasal Cannula 08/19/24 07:34 O2 Flow Rate 3 08/19/24 02:54 Oxygen Flow Rate 3 08/18/24 22:49 BMI result Body Mass Index 50.2 General: AOx3, no acute distress Resp: rhonchi, no wheezing, fine crackles in lower lung bases, increaased dyspnea with conversation CVS: S1, S2, tachy, regular rhythm GI: +BS, NT, no distention Skin: Warm, dry Extremities: No edema Psych: Appropriate affect Const: General: No confusion Orientation/consciousness: No confusion Neuro: General: No confusion Results Labs 08/18/24 22:54 08/18/24 22:54 Labs: Laboratory Results - last 24 hr 08/18/24 08/18/24 08/18/24 22:54 23:05 23:06 MCV 93.2 MCH 29.4 MCHC 31.5 RDW 13.8 Plt Count 296 MPV 11.2 Immature Gran % (Auto) 0.5 H Neut % (Auto) 71.2 Lymph % (Auto) 22.3 [place] % (Auto) 4.0 Eos % (Auto) 1.0 Baso % (Auto) 1.0 Lymph # (Auto) 3.3 [place] # (Auto) 0.6 Eos # (Auto) 0.2 Baso # (Auto) 0.2 Abs Immat Gran (auto) 0.07 H Absolute Neuts (auto) 10.4 H Absolute Nucleated RBC 0.000 Nucleated RBC % (auto) 0.0 VBG pH 7.34 VBG pCO2 77 VBG pO2 37 VBG HCO3 42 H VBG O2 Saturation 52.0 VBG Base Excess 12.1 Anion Gap 11 L Estim Creat Clear Calc 69.1 Estimated GFR > 60 Random Glucose 162 H Lactic Acid 1.2 Calcium 9.7 Total Bilirubin 0.4 AST 19 ALT 21 Alkaline Phosphatase 90 Troponin I High Sens < 2.7 B-Natriuretic Peptide 32 Total Protein 7.5 Albumin 4.1 Influenza Type A (PCR) NEGATIVE Influenza Type B (PCR) NEGATIVE RSV RNA Qual (PCR) NEGATIVE SARS-CoV-2 RNA (RT-PCR) NEGATIVE 08/19/24 08/19/24 01:10 07:34 MCV MCH MCHC RDW Plt Count MPV Immature Gran % (Auto) Neut % (Auto) Lymph % (Auto) [place] % (Auto) Eos % (Auto) Baso % (Auto) Lymph # (Auto) [place] # (Auto) Eos # (Auto) Baso # (Auto) Abs Immat Gran (auto) Absolute Neuts (auto) Absolute Nucleated RBC Nucleated RBC % (auto) VBG pH 7.37 VBG pCO2 69 VBG pO2 49 VBG HCO3 40 H VBG O2 Saturation 76.0 VBG Base Excess 11.7 Anion Gap Estim Creat Clear Calc Estimated GFR Random Glucose Lactic Acid Calcium Total Bilirubin AST ALT Alkaline Phosphatase Troponin I High Sens 4.0 B-Natriuretic Peptide Total Protein Albumin Influenza Type A (PCR) Influenza Type B (PCR) RSV RNA Qual (PCR) SARS-CoV-2 RNA (RT-PCR) Imaging Radiologist's Impressions: Impressions Chest X-Ray 08/18/24 22:48 IMPRESSION: Mild bronchial wall thickening suggesting small airways disease. No consolidation. Electronically signed by: Juan Mclean MD 08/19/2024 12:30 AM EDT Chest CTA 08/19/24 02:32 IMPRESSION: 1. No evidence of PE. 2. No evidence of aortic aneurysm. 3. There is diffuse bilateral reticular nodular densities most pronounced in the lower lung jones with bilateral lower lobe mild bronchiectasis. A similar finding was seen on most recent CT. 4. There is atelectatic change or scarring at the lung bases. VTE: negative. Fleischner guidelines were followed. Electronically signed by: Edwar Stinson MD 08/19/2024 06:17 AM EDT Assessment and Plan (1) Acute exacerbation of chronic obstructive pulmonary disease: Status: Acute (2) Respiratory failure, acute and chronic: Qualifiers: Respiratory failure complication: hypoxia and hypercapnia Qualified Code(s): J96.21 - Acute and chronic respiratory failure with hypoxia; J96.22 - Acute and chronic respiratory failure with hypercapnia Status: Acute (3) Morbid obesity with BMI of 50.0-59.9, adult: Status: Chronic Plan 53 yo F with a pmhx significant for COPD on 3L O2 at baseline, current smoker (1 cig/day), GERD, HTN, and depression, who presented to the ED yesterday with worsening shortness of breath and dyspnea x1 day. w/u in ED conclusive for COPD exacerbation with acute on chronic combined respiratory failure. She was consulted on by ICU and ultimately improved with BiPAP and has been off and continues to maintain normal O2 sat. COPD exacerbation with acute on chronic combined respiratory failure - WBC elevated at 14.7 , COVID/RSV/Flu negative, trops negative x2, lactate negative, BNP normal - no sepsis, leukocytosis, tachypnea and tachycardia due to exacerbation - CXR with mild bronchial wall thickening, CTA negative for PE - check respiratory panel - switch to levalbuterol/ipratropium nebs due to tachycardia Q4H while awake - IV solumedrol 40mg TID - doxycycline 100mg IV BID - monitor BMP and CBC GERD - continue omeprazole HTN - continue diltiazem full code VTE prophy: pnuemoboots, lovenox Pt with acute on chronic combined respiratory failure secondary to COPD exacerbation requiring at least 2 midnights stay for treatment and close monitoring. Quality Stroke Does the patient have a stroke diagnosis?: No VTE Prior VTE?: No VTE Risk Level:: Medical - moderate - high VTE Device Contraindication: N/A - Device Ordered VTE Drug Contraindication: N/A - Med Ordered
[2024-08-19] MEDS: Enoxaparin Sodium 40 MG/0.4 ML SYRINGE SUBCUT (10:26)
[2024-08-19] MEDS: methylPREDNISolone Sod Succ 40 MG/ML VIAL IVPUSH ×2 (10:26→17:24)
[2024-08-19] MEDS: levalbuterol HCL 2.5 MG, Ipratropium Bromide 0.5 MG INHALE (11:01)
--- NOTE | 2024-08-19 12:20 | PHA.MEDREC ---
Addendum entered by Bharat Hayward 08/19/24 12:32: reviewed Original Note: Pharmacy Consult ? Medication Reconciliation Pharmacy has completed the medication reconciliation. Spoke to patient to confirm med list . Patient states she is no longer on Nicotine 14 mg patches.
--- NOTE | 2024-08-19 14:06 | PC.NURSE ---
report received from previous RN, patient transported to overflow bed 6 without difficulty. placed in hospital stretcher for comfort, remains on 4L NC at this time with O2 saturations in the low 90s, OK per admitting providers, patient provided with remote for TV and callbell, offering no complaints at this time. plan of care ongoing
[2024-08-19] MEDS: Gabapentin 600 MG TABLET 1200 MG PO ×2 (15:07→21:24)
--- NOTE | 2024-08-19 15:59 | PC.NURSE ---
patient incontinent of urine, pericare provided, patient repositioned in bed. linens changed. all safety maintained
--- NOTE | 2024-08-19 16:43 | PC.NURSE ---
patient provided with dinner tray
[2024-08-19] MEDS: Doxycycline Hyclate 100 MG in 0.9 % Sodium Chloride 250 ML 166.67 MG IV (17:26)
--- NOTE | 2024-08-19 17:51 | PC.NURSE ---
patient complaining of pain at IV site in LAC, site inspected, no signs of infiltration or phlebitis, patient requested another one be put in somewhere else. 20g PIV placed in right forearm, patient endorsing more comfortable IV abx restarted running well, no signs of infiltration.
--- NOTE | 2024-08-19 19:44 | PC.NURSE ---
Pharmacy contacted for meds not available on unit.
[2024-08-19] MEDS: levalbuterol HCL 1.25 MG, Ipratropium Bromide 0.5 MG INHALE (20:13)
[2024-08-19] MEDS: QUEtiapine Fumarate 100 MG TABLET PO (21:24)
[2024-08-19] MEDS: risperiDONE 2 MG TABLET PO (21:24)
[2024-08-20] VITALS (10 sets, daily range): BP systolic 106–138; BP diastolic 52–78; PULSE 77–116; RESP 18–24; TEMP 36.6–37.1; O2SAT 89–96; BMI 50.9
[2024-08-20] MEDS: methylPREDNISolone Sod Succ 40 MG/ML VIAL IVPUSH ×3 (02:24→17:49)
[2024-08-20] MEDS: Doxycycline Hyclate 100 MG in 0.9 % Sodium Chloride 250 ML 166.67 MG IV ×2 (05:33→17:52)
[2024-08-20] MEDS: Omeprazole 40 MG CAPSULE.DR PO (05:34)
[2024-08-20 06:28] LABS: MANUAL DIFF FLAG NO
[2024-08-20 06:42] LABS: Basophils Percent Auto 0.2 % (0-2); Hematocrit 41.2 % (37.0-47.0); Hemoglobin 12.5 g/dl (12.0-16.0); Imm Gran Pct Auto 0.8 % (0.0-0.4); Lymphocytes Absolute Auto 1.9 X10*3/uL (1.2-4.9); Lymphocytes Percent Auto 14.3 % (20-40); Mean Corpuscular HGB Conc 30.3 g/dl (31.0-35.0); Mean Corpuscular Hemoglobin 28.8 pg (27.0-33.0); Mean Corpuscular Volume 94.9 fL (80.0-98.0); Mean Platelet Volume 12.2 fL (9.4-12.3); Monocytes Absolute Auto 0.3 X10*3/uL (0.1-1.2); Monocytes Percent Auto 2.2 % (2-11); Neutrophils Absolute Auto 10.8 x10*3/uL (2.0-8.3); Neutrophils Percent Auto 82.5 % (45-73); Platelet Count 283 X10*3/uL (160-400); Red Blood Count 4.34 X10*6/uL (4.20-5.50); Red Cell Distribution Width 14.1 % (11.0-16.0); White Blood Count 13.1 X10*3/uL (4.8-10.8)
[2024-08-20 06:52] LABS: Anion Gap 10 (12-20); Blood Urea Nitrogen 8 mg/dL (9-16); Calcium 9.4 mg/dL (8.4-10.2); Carbon Dioxide 39 mmol/L (22-29); Chloride 97 mmol/L (96-108); Creatinine Clr Calc Pharmacy 65.7; Estimated Glomerular Filt Rate > 60; Glucose Random 145 mg/dL (60-115); Potassium 4.9 mmol/L (3.3-5.1); Sodium 141 mmol/L (135-145)
[2024-08-20] MEDS: levalbuterol HCL 1.25 MG, Ipratropium Bromide 0.5 MG INHALE ×4 (07:30→19:41)
[2024-08-20] MEDS: Enoxaparin Sodium 40 MG/0.4 ML SYRINGE SUBCUT (08:05)
[2024-08-20] MEDS: Atorvastatin Calcium 20 MG TABLET PO (08:05)
[2024-08-20] MEDS: 0.9 % Sodium Chloride Flush 3 ML SYRINGE IVFLUSH ×3 (08:05→20:03)
[2024-08-20] MEDS: QUEtiapine Fumarate 100 MG TABLET PO ×2 (08:06→20:03)
[2024-08-20] MEDS: Gabapentin 600 MG TABLET 1200 MG PO ×3 (08:06→20:03)
[2024-08-20] MEDS: dilTIAZem HCL CD 120 MG CAP.ER.DEG PO (08:06)
--- NOTE | 2024-08-20 09:32 | MHC.CM.PN ---
pt lives withnhusband has selene 32 hrs a week is on home 02 may need assist with transport home
--- NOTE | 2024-08-20 10:15 | P.PNIM_ITS ---
Subjective Subjective Date of Service: 08/20/24 Interval History: COPD exacerbation and acute on chronic respiratory failure feeling better SOB and dyspnea improved, still on 4L O2, on 2L at home dry cough no fever, chills, body aches no chest pain, abd pain, nausea, or vomiting Constitutional Constitutional: Denies fatigue and Denies fever(s) Eyes Eyes: Denies change in vision ENT Ears, Nose, Mouth, and Throat: Denies nasal congestion, Denies nasal discharge and Denies sore throat Cardiovascular Cardiovascular: Denies rapid heart rate and Denies leg edema Respiratory Respiratory: Reports as per HPI Gastrointestinal Gastrointestinal: Denies constipation, Denies diarrhea, Denies nausea and Denies vomiting Genitourinary Genitourinary: Denies dysuria Endocrine Endocrine: Denies fatigue Physical Exam 2 Vital Signs: Vital Signs: Last Vital Signs Temp 98.1 F 08/20/24 07:45 Pulse 102 H 08/20/24 07:45 Resp 18 08/20/24 07:45 BP 111/52 L 08/20/24 07:45 Pulse Ox 93 08/20/24 07:45 O2 Del Method Nasal Cannula 08/20/24 07:45 O2 Flow Rate 4.0 08/20/24 07:45 Oxygen Flow Rate 3 08/18/24 22:49 BMI result Body Mass Index 50.9 General: AOx3, no acute distress Resp: no wheezing, fine crackles bilat CVS: S1, S2, RRR Skin: Warm, dry Extremities: No edema, pneumoboots present Psych: Appropriate affect Objective Data Active Medications Acetaminophen (Acetaminophen 325 Mg Tablet) 650 mg PO Q6H PRN PRN Reason: Pain, Mild (Pain Scale 1-3), fever or headache Atorvastatin Calcium (Atorvastatin Calcium 20 Mg Tablet) 20 mg PO DAILY [facility] Last Admin: 08/20/24 08:05 Dose: 20 mg Documented By: MANDI Calcium Carbonate (Calcium Carbonate 750 Mg Tab.Chew) 750 mg PO Q4H PRN PRN Reason: Heartburn Levalbuterol HCl 1.25 mg/ (Ipratropium [place] 0.5 mg) 0 mg INHALE RQ4H WHILE AWAKE [facility] Last Admin: 08/20/24 07:30 Dose: 1 dose Documented By: GILBERT Diltiazem HCl (Diltiazem Hcl Cd 120 Mg Cap.Er.Deg) 120 mg PO DAILY [facility]; Protocol Last Admin: 08/20/24 08:06 Dose: 120 mg Documented By: MANDI Enoxaparin Sodium (Enoxaparin Sodium 40 Mg/0.4 Ml Syringe) 40 mg SUBCUT Q24H [facility] Last Admin: 08/20/24 08:05 Dose: 40 mg Documented By: MANDI Gabapentin (Gabapentin 600 Mg Tablet) 1,200 mg PO TID [facility] Last Admin: 08/20/24 08:06 Dose: 1,200 mg Documented By: MANDI Hydroxyzine HCl (Hydroxyzine Hcl 25 Mg Tablet) 25 mg PO TID PRN PRN Reason: Anxiety Doxycycline Hyclate 100 mg/ (Sodium Chloride) 250 mls @ 166.67 mls/hr IV Q12H [facility] Last Infusion: 08/20/24 07:03 Dose: Infused Documented By: MANDI Magnesium Hydroxide (Milk Of Magnesia 30 Ml Oral.Susp) 30 ml PO DAILY PRN PRN Reason: Constipation Melatonin (Melatonin 3 Mg Tablet) 6 mg PO BEDTIME PRN PRN Reason: Insomnia Methylprednisolone Sodium Succinate (Methylprednisolone Sod Succ 40 Mg/Ml Vial) 40 mg IVPUSH Q8H [facility] Last Admin: 08/20/24 08:06 Dose: 40 mg Documented By: MANDI Montelukast Sodium (Montelukast Sodium 10 Mg Tablet) 10 mg PO DAILY PRN PRN Reason: Allergy Symptoms Omeprazole (Omeprazole 40 Mg Capsule.Dr) 40 mg PO DAILY@0630 [facility] Last Admin: 08/20/24 05:34 Dose: 40 mg Documented By: ROMAQC Ondansetron HCl (Ondansetron Hcl 4 Mg/2 Ml Vial) 4 mg IVPUSH Q8H PRN PRN Reason: Nausea and Vomiting Quetiapine Fumarate (Quetiapine Fumarate 100 Mg Tablet) 100 mg PO BID [facility] Last Admin: 08/20/24 08:06 Dose: 100 mg Documented By: MANDI Risperidone (Risperidone 2 Mg Tablet) 2 mg PO BEDTIME [facility] Last Admin: 08/19/24 21:24 Dose: 2 mg Documented By: RAULITO-MARISSA Sodium Chloride (0.9 % Sodium Chloride Flush 3 Ml Syringe) 3 ml IVFLUSH QSHIFT [facility] Last Admin: 08/20/24 08:05 Dose: 3 ml Documented By: MANDI Labs 08/20/24 06:05 08/20/24 06:05 Labs: Laboratory Results - last 24 hr 08/20/24 06:05 MCV 94.9 MCH 28.8 MCHC 30.3 L RDW 14.1 Plt Count 283 MPV 12.2 Immature Gran % (Auto) 0.8 H Neut % (Auto) 82.5 H Lymph % (Auto) 14.3 L [place] % (Auto) 2.2 Eos % (Auto) 0.0 Baso % (Auto) 0.2 Lymph # (Auto) 1.9 [place] # (Auto) 0.3 Eos # (Auto) 0.0 Baso # (Auto) 0.0 Abs Immat Gran (auto) 0.10 H Absolute Neuts (auto) 10.8 H Absolute Nucleated RBC 0.000 Nucleated RBC % (auto) 0.0 Anion Gap 10 L Estim Creat Clear Calc 65.7 Estimated GFR > 60 Random Glucose 145 H Calcium 9.4 Assessment and Plan (1) Acute exacerbation of chronic obstructive pulmonary disease: Status: Acute (2) Respiratory failure, acute and chronic: Status: Acute (3) Morbid obesity with BMI of 50.0-59.9, adult: Status: Chronic Plan COPD exacerbation with acute on chronic combined respiratory failure - WBC improving, now 13.1 - mild tachypnea, likey related to meds - respiratory panel pending - continue levalbuterol/ipratropium nebs due to tachycardia Q4H while awake - IV solumedrol 40mg TID - doxycycline 100mg IV BID - monitor BMP and CBC GERD - continue omeprazole HTN - continue diltiazem full code VTE prophy: pnuemoboots, lovenox Pt still requiring increased O2 from baseline. continue admission for IV steroids, doxycycline and breathing treatments, likely discharge tomorrow. Quality Stroke Does the patient have a stroke diagnosis?: No VTE Prior VTE?: No VTE Risk Level:: Medical - moderate - high VTE Device Contraindication: N/A - Device Ordered VTE Drug Contraindication: N/A - Med Ordered
[2024-08-20 14:31] LABS: Adenovirus PCR Not Detected (Not Detect.); Bordetella parapertussis PCR Not Detected (Not Detect.); Bordetella pertussis PCR Not Detected (Not Detect.); Chlamydia pneumoniae PCR Not Detected (Not Detect.); Coronavirus 229E PCR Not Detected (Not Detect.); Coronavirus HKU1 PCR Not Detected (Not Detect.); Coronavirus NL63 PCR Not Detected (Not Detect.); Coronavirus OC43 PCR Not Detected (Not Detect.); Human metapneumovirus PCR Not Detected (Not Detect.); Influenza A PCR Not Detected (Not Detect.); Influenza B PCR Not Detected (Not Detect.); Mycoplasma pneumoniae PCR Not Detected (Not Detect.); Parainfluenza 1 PCR Not Detected (Not Detect.); Parainfluenza 2 PCR Not Detected (Not Detect.); Parainfluenza 3 PCR Not Detected (Not Detect.); Parainfluenza 4 PCR Not Detected (Not Detect.); RSV PCR Not Detected (Not Detect.); Rhino/Enterovirus PCR Not Detected (Not Detect.)
[2024-08-20 14:32] LABS: SARS-CoV-2 PCR Not Detected (Not Detect.)
[2024-08-20] MEDS: Acetaminophen 325 MG TABLET 650 MG PO (14:37)
--- NOTE | 2024-08-20 15:02 | PM.EVENT ---
Event Note Date of Service: 08/20/24 Event Note: pt requested cough medication when seen, she was posturing and short of breath due to coughing. complains of sore throat with cough. lungs with minimal wheezing. she requested tylenol with codiene, states only mild reaction to codeine, itchies . after reviewing chart reaction reported is nausea, vomiting, hives. rx for tessalon 100mg TID was added, suggested she continue to tylenol Q6H PRN. nurse notified. Time Spent With Patient Time: Total time managing care of this patient today ____ minutes.
[2024-08-20] MEDS: Benzonatate 100 MG CAPSULE PO (15:34)
[2024-08-20] MEDS: risperiDONE 2 MG TABLET PO (20:03)
[2024-08-21] VITALS (8 sets, daily range): BP systolic 121–139; BP diastolic 68–85; PULSE 98–109; RESP 16–22; TEMP 36.6–36.9; O2SAT 89–92
[2024-08-21] MEDS: methylPREDNISolone Sod Succ 40 MG/ML VIAL IVPUSH ×3 (00:10→17:45)
[2024-08-21] MEDS: Benzonatate 100 MG CAPSULE PO ×3 (00:13→22:53)
[2024-08-21] MEDS: Acetaminophen 325 MG TABLET 650 MG PO ×3 (02:50→22:53)
[2024-08-21] MEDS: Omeprazole 40 MG CAPSULE.DR PO (05:41)
[2024-08-21] MEDS: Doxycycline Hyclate 100 MG in 0.9 % Sodium Chloride 250 ML 166.67 MG IV ×2 (05:45→17:45)
[2024-08-21] MEDS: 0.9 % Sodium Chloride Flush 3 ML SYRINGE IVFLUSH ×3 (07:21→19:25)
[2024-08-21] MEDS: Atorvastatin Calcium 20 MG TABLET PO (07:36)
[2024-08-21] MEDS: dilTIAZem HCL CD 120 MG CAP.ER.DEG PO (07:36)
[2024-08-21] MEDS: Gabapentin 600 MG TABLET 1200 MG PO ×3 (07:37→20:23)
[2024-08-21] MEDS: Enoxaparin Sodium 40 MG/0.4 ML SYRINGE SUBCUT (07:38)
[2024-08-21] MEDS: QUEtiapine Fumarate 100 MG TABLET PO ×2 (07:46→20:23)
[2024-08-21] MEDS: levalbuterol HCL 1.25 MG, Ipratropium Bromide 0.5 MG INHALE ×4 (07:54→19:50)
--- NOTE | 2024-08-21 09:17 | P.PNIM_ITS ---
Subjective Subjective Date of Service: 08/21/24 Interval History: COPD exacerbation and acute on chronic respiratory failure dyspnea with exertion still, does not feel ready to go home yet down to 3L O2 via NC dry cough, better with tessalon no fever, chills, body aches no chest pain, abd pain, nausea, or vomiting Constitutional Constitutional: Denies body ache(s), Denies chills and Denies fever(s) Eyes Eyes: Denies change in vision ENT Ears, Nose, Mouth, and Throat: Denies dizziness, Denies nasal congestion and Denies nasal discharge Cardiovascular Cardiovascular: Reports dyspnea on exertion Respiratory Respiratory: Reports cough and Reports dyspnea on exertion Gastrointestinal Gastrointestinal: Denies constipation, Denies diarrhea, Denies nausea and Denies vomiting Neurologic Neurologic: Denies dizziness Physical Exam 2 Vital Signs: Vital Signs: Last Vital Signs Temp 97.8 F 08/21/24 07:11 Pulse 107 H 08/21/24 07:56 Resp 16 08/21/24 07:56 BP 126/78 08/21/24 07:11 Pulse Ox 92 08/21/24 07:11 O2 Del Method Nasal Cannula 08/21/24 07:11 O2 Flow Rate 3 08/21/24 07:11 Oxygen Flow Rate 3 08/18/24 22:49 BMI result Body Mass Index 50.9 General: AOx3, no acute distress, sitting comfortably in chair on the phone Resp: mild wheezing throughout CVS: S1, S2, RRR Skin: Warm, dry Extremities: No edema Psych: Appropriate affect Objective Data Active Medications Acetaminophen (Acetaminophen 325 Mg Tablet) 650 mg PO Q6H PRN PRN Reason: Pain, Mild (Pain Scale 1-3), fever or headache Last Admin: 08/21/24 08:56 Dose: 650 mg Documented By: YASEMIN Atorvastatin Calcium (Atorvastatin Calcium 20 Mg Tablet) 20 mg PO DAILY [facility] Last Admin: 08/21/24 07:36 Dose: 20 mg Documented By: YASEMIN Benzonatate (Benzonatate 100 Mg Capsule) 100 mg PO TID PRN PRN Reason: Cough Last Admin: 08/21/24 00:13 Dose: 100 mg Documented By: PEPPER Calcium Carbonate (Calcium Carbonate 750 Mg Tab.Chew) 750 mg PO Q4H PRN PRN Reason: Heartburn Levalbuterol HCl 1.25 mg/ (Ipratropium [place] 0.5 mg) 0 mg INHALE RQ4H WHILE AWAKE [facility] Last Admin: 08/21/24 07:54 Dose: 1 dose Documented By: BHASKAR Diltiazem HCl (Diltiazem Hcl Cd 120 Mg Cap.Er.Deg) 120 mg PO DAILY [facility]; Protocol Last Admin: 08/21/24 07:36 Dose: 120 mg Documented By: YASEMIN Enoxaparin Sodium (Enoxaparin Sodium 40 Mg/0.4 Ml Syringe) 40 mg SUBCUT Q24H [facility] Last Admin: 08/21/24 07:38 Dose: 40 mg Documented By: YASEMIN Gabapentin (Gabapentin 600 Mg Tablet) 1,200 mg PO TID [facility] Last Admin: 08/21/24 07:37 Dose: 1,200 mg Documented By: YASEMIN Hydroxyzine HCl (Hydroxyzine Hcl 25 Mg Tablet) 25 mg PO TID PRN PRN Reason: Anxiety Doxycycline Hyclate 100 mg/ (Sodium Chloride) 250 mls @ 166.67 mls/hr IV Q12H [facility] Last Infusion: 08/21/24 07:24 Dose: Infused Documented By: YASEMIN Magnesium Hydroxide (Milk Of Magnesia 30 Ml Oral.Susp) 30 ml PO DAILY PRN PRN Reason: Constipation Melatonin (Melatonin 3 Mg Tablet) 6 mg PO BEDTIME PRN PRN Reason: Insomnia Methylprednisolone Sodium Succinate (Methylprednisolone Sod Succ 40 Mg/Ml Vial) 40 mg IVPUSH Q8H [facility] Last Admin: 08/21/24 07:38 Dose: 40 mg Documented By: YASEMIN Montelukast Sodium (Montelukast Sodium 10 Mg Tablet) 10 mg PO DAILY PRN PRN Reason: Allergy Symptoms Omeprazole (Omeprazole 40 Mg Capsule.Dr) 40 mg PO DAILY@0630 [facility] Last Admin: 08/21/24 05:41 Dose: 40 mg Documented By: PEPPER Ondansetron HCl (Ondansetron Hcl 4 Mg/2 Ml Vial) 4 mg IVPUSH Q8H PRN PRN Reason: Nausea and Vomiting Quetiapine Fumarate (Quetiapine Fumarate 100 Mg Tablet) 100 mg PO BID [facility] Last Admin: 08/21/24 07:46 Dose: 100 mg Documented By: YASEMIN Risperidone (Risperidone 2 Mg Tablet) 2 mg PO BEDTIME [facility] Last Admin: 08/20/24 20:03 Dose: 2 mg Documented By: PEPPER Sodium Chloride (0.9 % Sodium Chloride Flush 3 Ml Syringe) 3 ml IVFLUSH QSHIFT [facility] Last Admin: 08/21/24 07:21 Dose: 3 ml Documented By: YASEMIN Labs 08/20/24 06:05 08/20/24 06:05 Labs: Laboratory Results - last 24 hr 08/19/24 20:32 Respiratory Panel Elias See Note Adenovirus (Rapid PCR) Not Detected B.pert (TEM-PCR) Not Detected B.parapertussis DNA PCR Not Detected C. pneumoniae DNA (PCR) Not Detected Coronavirus OC43 (PCR) Not Detected Coronavirus HKU1 (PCR) Not Detected Coronavirus 229E (PCR) Not Detected Coronavirus NL63 (PCR) Not Detected Human Metapneumovir PCR Not Detected Influenza A (RT-PCR) Not Detected Influenza B (RT-PCR) Not Detected M. pneumoniae (PCR) Not Detected Parainfluenza 1 (PCR) Not Detected Parainfluenza 2 (PCR) Not Detected Parainfluenza 3 (PCR) Not Detected Parainfluenza 4 (PCR) Not Detected RSV (PCR) Not Detected Entero/Rhino (PCR) Not Detected SARS-CoV-2 RNA (RT-PCR) Not Detected Assessment and Plan (1) Acute exacerbation of chronic obstructive pulmonary disease: Status: Acute (2) Respiratory failure, acute and chronic: Status: Acute (3) Morbid obesity with BMI of 50.0-59.9, adult: Status: Chronic Plan COPD exacerbation with acute on chronic combined respiratory failure - mild tachypnea still, likely related to meds - CTA neg - respiratory panel neg - continue levalbuterol/ipratropium nebs due to tachycardia Q4H while awake - IV solumedrol 40mg TID - doxycycline 100mg IV BID - tessalon for cough - monitor BMP and CBC GERD - continue omeprazole HTN - continue diltiazem full code VTE prophy: pnuemoboots, lovenox Pt still requiring increased O2 from baseline and having dyspnea with exertion. continue admission for IV steroids, doxycycline and breathing treatments, likely discharge tomorrow. Quality Stroke Does the patient have a stroke diagnosis?: No VTE Prior VTE?: No VTE Risk Level:: Medical - moderate - high VTE Device Contraindication: N/A - Device Ordered VTE Drug Contraindication: N/A - Med Ordered
[2024-08-21 10:03] LABS: MANUAL DIFF FLAG NO
[2024-08-21 10:09] LABS: Basophils Percent Auto 0.2 % (0-2); Hematocrit 41.8 % (37.0-47.0); Imm Gran Abs Auto 0.12 X10*3/uL (0.00-0.03); Imm Gran Pct Auto 1.1 % (0.0-0.4); Lymphocytes Absolute Auto 1.2 X10*3/uL (1.2-4.9); Lymphocytes Percent Auto 11.1 % (20-40); Mean Corpuscular HGB Conc 31.1 g/dl (31.0-35.0); Mean Corpuscular Hemoglobin 29.2 pg (27.0-33.0); Mean Corpuscular Volume 93.9 fL (80.0-98.0); Mean Platelet Volume 12.1 fL (9.4-12.3); Monocytes Absolute Auto 0.2 X10*3/uL (0.1-1.2); Monocytes Percent Auto 1.8 % (2-11); Neutrophils Absolute Auto 9.4 x10*3/uL (2.0-8.3); Neutrophils Percent Auto 85.8 % (45-73); Platelet Count 259 X10*3/uL (160-400); Red Blood Count 4.45 X10*6/uL (4.20-5.50); Red Cell Distribution Width 13.8 % (11.0-16.0)
[2024-08-21 10:18] LABS: Anion Gap 12 (12-20); Blood Urea Nitrogen 10 mg/dL (9-16); Calcium 9.6 mg/dL (8.4-10.2); Carbon Dioxide 37 mmol/L (22-29); Chloride 94 mmol/L (96-108); Creatinine Clr Calc Pharmacy 59.7; Estimated Glomerular Filt Rate > 60; Glucose Random 267 mg/dL (60-115); Potassium 4.5 mmol/L (3.3-5.1); Sodium 138 mmol/L (135-145)
[2024-08-21] MEDS: risperiDONE 2 MG TABLET PO (20:23)
[2024-08-22] MEDS: methylPREDNISolone Sod Succ 40 MG/ML VIAL IVPUSH (01:09)
[2024-08-22 03:28] VITALS: BP 132/67; PULSE 106; RESP 17; TEMP 36.6; O2SAT 89
[2024-08-22] MEDS: Doxycycline Hyclate 100 MG in 0.9 % Sodium Chloride 250 ML 166.67 MG IV (06:00)
[2024-08-22] MEDS: Omeprazole 40 MG CAPSULE.DR PO (06:00)
[2024-08-22 07:52] VITALS: BP 145/71; PULSE 104; RESP 17; TEMP 36.9; O2SAT 92
[2024-08-22] MEDS: levalbuterol HCL 1.25 MG, Ipratropium Bromide 0.5 MG INHALE ×2 (08:18→11:37)
[2024-08-22 08:20] VITALS: PULSE 103; RESP 18; O2SAT 88
[2024-08-22] MEDS: Gabapentin 600 MG TABLET 1200 MG PO (09:44)
[2024-08-22] MEDS: Atorvastatin Calcium 20 MG TABLET PO (09:45)
[2024-08-22] MEDS: QUEtiapine Fumarate 100 MG TABLET PO (09:45)
[2024-08-22 09:46] VITALS: BP 121/64
[2024-08-22] MEDS: dilTIAZem HCL CD 120 MG CAP.ER.DEG PO (09:46)
[2024-08-22] MEDS: Enoxaparin Sodium 40 MG/0.4 ML SYRINGE SUBCUT (09:46)
[2024-08-22] MEDS: predniSONE 20 MG TABLET 40 MG PO (10:01)
--- NOTE | 2024-08-22 10:20 | P.DS_ITS ---
DS: Providers Provider Date of Service: 08/22/24 Date of admission: 08/19/24 08:50 Date of discharge: 08/22/24 Primary care physician: Unknown Physician DS: Diagnosis Discharge Diagnosis (1) Acute exacerbation of chronic obstructive pulmonary disease: Status: Acute (2) Respiratory failure, acute and chronic: Status: Acute (3) Morbid obesity with BMI of 50.0-59.9, adult: Status: Chronic DS: Summary Hospital Course Hospital Course: Admission: 53 yo F with a pmhx significant for COPD on 3L O2 at baseline, current smoker (1 cig/day), GERD, HTN, and depression, who presented to the ED 08/19 with worsening shortness of breath and dyspnea x1 day. Mild nausea and nonproductive cough. She also complains of chest tightness. New congestion today but denies any body aches or sick contacts recently. Hospital course: Pt presented with shortness of breath and dyspnea when admitted for COPD exacerbation and acute on chronic respiratory failure. She was treated with IV steroids, doxycycline for bronchitis, bronchodilators with nebs. Improved over the last few days. No respiratory difficulty, would like to go home today. We will send home with prednisone 40 mg daily for 5 days and doxycycline 100 mg BID for 5 days to complete the course for bronchitis. Continue home inhalers and oxygen. Benzonatate 100mg TID PRN for cough per pt request. Status at Discharge Functional status at discharge: independent ambulation Overall status at discharge: patient is back to baseline Time Attestation Discharge Coordination Time (in mins): 45 mins Quality: Safe Use of Opioids Does Pt have an Active Cancer Diagnosis on the Problem List?: No Quality: Stroke Does the patient have a stroke diagnosis?: No Physical Exam Vital Signs: Vital Signs: Last Vital Signs Temp 98.4 F 08/22/24 07:52 Pulse 103 H 08/22/24 08:20 Resp 18 08/22/24 08:20 BP 121/64 08/22/24 09:46 Pulse Ox 92 08/22/24 07:52 O2 Del Method Nasal Cannula 08/22/24 07:52 O2 Flow Rate 2 08/22/24 07:52 Oxygen Flow Rate 3 08/18/24 22:49 BMI result Body Mass Index 50.9 General: AOx3, no acute distress Resp: CTA bilaterally CVS: S1, S2, RRR GI: +BS, NT, no distention Skin: Warm, dry Extremities: No edema Psych: Appropriate affect DS: Data Data Completed and Pending Completed studies during hospitalization [Text1]: Procedures Assistance with Respiratory Ventilation, Less than 24 Consecutive Hours, Continuous Positive Airway Pressure (01/03/22) Discharge Plan Discharge Anticipated Discharge Date/Time: 08/22/24 09:52 Patient Disposition: Home, Self-Care Discharge Diagnosis: acute COPD exacerbation and acute on chronic respiratory failure Referrals: Physician,Unknown J [Primary Care Provider] - 1 Week Discharge Medications: New doxycycline hyclate 100 mg capsule 100 mg PO BID Qty: 10 0RF prednisone 20 mg tablet 40 mg PO DAILY Qty: 10 0RF benzonatate 100 mg capsule 100 mg PO TID PRN (Reason: cough) Qty: 21 0RF Continued albuterol sulfate 2.5 mg /3 mL (0.083 %) solution for nebulization 2.5 mg inhalation Q4-6H PRN (Reason: shortness of breath or wheezing) 30 Days Qty: 180 5RF albuterol sulfate [Ventolin HFA] 90 mcg/actuation HFA aerosol inhaler 2 puff inhalation Q4-6H PRN (Reason: for wheezing) Qty: 18 3RF naproxen sodium 220 mg Tablet 220 mg PO BID PRN (Reason: Pain) diltiazem HCl [Cardizem CD] 120 mg Capsule,Extended Release 24hr 120 mg PO DAILY Qty: 30 0RF Protocol: Hold for SBP/HR < HOLD for SBP < : 90 HOLD for HR < : 60 (DME) compressor, for nebulizer Device See Rx Instructions .Route Qty: 1 0RF Rx Instructions: As directed 4 times a day atorvastatin 20 mg tablet 20 mg PO DAILY budesonide-formoterol [Symbicort] 160-4.5 mcg/actuation HFA aerosol inhaler 2 puff inhalation BID Incruse Ellipta 62.5 mcg/actuation blister with device 1 inh INHALATION DAILY omeprazole 40 mg capsule,delayed release(DR/EC) 40 mg PO DAILY@0630 docusate sodium [Colace] 100 mg capsule 200 mg PO BEDTIME PRN (Reason: Constipation) montelukast 10 mg tablet 10 mg PO DAILY PRN (Reason: Allergy Symptoms) quetiapine 200 mg tablet extended release 24 hr 200 mg PO BEDTIME risperidone 2 mg tablet 2 mg PO BEDTIME gabapentin 600 mg tablet 1,200 mg PO TID hydroxyzine HCl 25 mg tablet 25 mg PO TID PRN (Reason: Anxiety) Rx Instructions: 1-2 a day prn Discharge Orders: Discharge Order (Routine); Ordered 08/22/24 Ordered By: Nini Martinez Diet: Advance to usual diet Activity on Discharge: As tolerated Stand Alone Forms: Patient Portal Discharge page Print Language: Belarusian Care Plan Goals: recovery from COPD exacerbation Health Concerns: COPD exacerbation, acute on chronic respiratory failure Plan of Treatment: take doxycycline twice daily for 5 days continue home oxygen take prednisone 40mg daily for 5 days benzonatate 100mg up to 3 times a day as needed for cough continue home inhalers and nebulizers as needed follow up with PCP in the next 1-2 weeks Assessment: see above
--- NOTE | 2024-08-22 10:48 | MHC.CM.PN ---
pt dcd home self care
[2024-08-22 11:39] VITALS: PULSE 103; RESP 20; O2SAT 94
== END 2024-08-22 12:42 | disposition home or self-care (01) | DRG 140 ==
LOC: HO.ED 08-19 09:17 → HO.EDOVER 08-19 09:24 → HO.S3 08-20 03:38
PROVIDERS: Emergency Medicine; Student in an Organized Health Care Education/Training Program; Admitting Provider Physician Assistant; Emergency Provider Emergency Medicine Emergency Medical Services; Visit Provider Physician Assistant
DX: J44.1 Chronic obstructive pulmonary disease with (acute) exacerbation (principal); J96.12 Chronic respiratory failure with hypercapnia; Z99.81 Dependence on supplemental oxygen; J96.11 Chronic respiratory failure with hypoxia; K21.9 Gastro-esophageal reflux disease without esophagitis; I10 Essential (primary) hypertension; E66.01 Morbid (severe) obesity due to excess calories; Z68.43 Body mass index [BMI] 50.0-59.9, adult; F17.210 Nicotine dependence, cigarettes, uncomplicated; Z71.6 Tobacco abuse counseling; Z20.822 Contact with and (suspected) exposure to COVID-19; Z79.899 Other long term (current) drug therapy
CPT/HCPCS: 0241U; 36415; 71046; 71275; 80048; 80053; 82803; 83605; 83880; 84484; 85025; 87633; 93005; 94640; 99285; J1650; J1956; J2060; J2405; J2919; J3475; Q9967

== ENCOUNTER → 2024-08-18 22:48 | Outpatient (BNV) | payer OTHER, SELFPAY | PROVIDERS: Admitting Provider Physician Assistant; Emergency Provider Emergency Medicine Emergency Medical Services; Visit Provider Internal Medicine | DX: R00.0 Tachycardia, unspecified (principal) | CPT/HCPCS: 93010 ==

== ENCOUNTER → 2024-08-19 08:50 | Outpatient (BNV) | payer OTHER, SELFPAY | PROVIDERS: Admitting Provider Physician Assistant; Emergency Provider Emergency Medicine Emergency Medical Services; Visit Provider Physician Assistant | DX: J44.1 Chronic obstructive pulmonary disease with (acute) exacerbation (principal); J96.21 Acute and chronic respiratory failure with hypoxia; J96.22 Acute and chronic respiratory failure with hypercapnia; E66.01 Morbid (severe) obesity due to excess calories; Z68.43 Body mass index [BMI] 50.0-59.9, adult | CPT/HCPCS: 99222; 99232 ==

== ENCOUNTER 2024-09-17 10:25 | Outpatient (AMB) | payer OTHER, SELFPAY ==
[2024-09-17 10:31] VITALS: BP 104/68; PULSE 128; O2SAT 91
--- NOTE | 2024-09-17 10:31 | MHC.OFFVIS ---
Vital Signs 09/17/24 10:31 Height 4 ft 11 in BP 104/68 Blood Pressure Location Lt brachial Position Sitting Pulse 128 H Pulse Source Pulse Oximeter Pulse Oximetry (%) 91 L Oxygen Delivery Method Nasal Cannula Oxygen Flow Rate 3 Intake Visit Reasons: COPD Intake Note: pt is here for follow up and is struggling with her breathing, she needs more albuterol for her nebulizer, 2 boxes is not enough for 30 days. post hospital she is here. Inter Fold Roll Cutter Required: No Allergies codeine [CODEINE] Allergy (Unknown, Verified 09/17/24 10:55) NAUSEA & VOMITING, HIVES Penicillins [PENICILLINS] Allergy (Unknown, Verified 09/17/24 10:55) DIFF BREATHING, RASH ENVIRONMENTAL Allergy (Unknown, Uncoded 09/17/24 10:55) SOB,WHEEZING Medication List - Last Reconciled 09/17/24 by Haven Longo MD albuterol sulfate 2.5 mg (3 mL) inhalation Q4-6H PRN 20 days atorvastatin 20 mg PO DAILY azithromycin 500 mg PO 3XW benzonatate 100 mg PO TID PRN budesonide-formoterol 160-4.5 mcg/actuation (Symbicort) 2 puffs inhalation BID compressor, for nebulizer As directed 4 times a day diltiazem HCl CD (Cardizem CD) 120 mg See Protocol PO DAILY docusate sodium (Colace) 200 mg PO BEDTIME PRN gabapentin 1,200 mg PO TID hydroxyzine HCl 25 mg PO TID PRN montelukast 10 mg PO DAILY PRN naproxen sodium 220 mg PO BID PRN omeprazole 40 mg PO DAILY@0630 prednisone 20 mg PO BID 7 days quetiapine ER 200 mg PO BEDTIME risperidone 2 mg PO BEDTIME umeclidinium 62.5 mcg/actuation (Incruse Ellipta) 1 inh inhalation DAILY Ventolin HFA 90 mcg/actuation (albuterol sulfate) 2 puffs inhalation Q4-6H PRN NS Do you need a note to return to daycare/school/sports/work: No HPI HPI COPD: Details: Ana comes in and presents with acute shortness of breath, anxious, tachycardiac, partly because she had shut off her O2. And when she walked in her O2 sat was 87%. Denies any increase in the cough or expectoration and also she had no fever or chills. Claims that is absolutely not smoking. Apparently since she has been off prednisone she has been using albuterol in the nebulizer more frequent, and rain out of the supply. She tends to get very anxious. [facility] Medical History Respiratory failure with hypoxia COPD (chronic obstructive pulmonary disease) Asthma Nicotine dependence, cigarettes, uncomplicated Acid reflux Depression Surgical History Status post excision of lipoma History of cholecystectomy History of shoulder surgery History of hysterectomy History of endometrial ablation History of loop electrosurgical excision procedure (LEEP) History of colposcopy Family History Mother Crohn disease Brother Colitis Social History (Updated 09/17/24 @ 10:37 by Karin Wallace [facility]) Household Members: Spouse Housing: Apartment 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) Alcohol intake: never Patient Tobacco Use Status: Current someday Tobacco user Tobacco use type: Cigarette Cigarettes Per Day: 1 Years Smoked: (onset 15yo, 1ppd x 38yrs, now 2cig/day - 35pyh) Second Hand Smoke Exposure: No Substance Use Type: Marijuana Advance Directives Date on File: 01/04/22 service: No Current occupational status: unemployed and disabled 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 Review of Systems Const All systems reviewed & are unremarkable except as noted in HPI and below Eyes Reports no additional complaints ENT Reports no additional complaints Card Denies chest pain, Denies irregular heart rhythm and Denies leg edema Resp Reports as per HPI GI Reports heartburn (Controlled with omeprazole) Reports no additional complaints Musc Reports back pain (Mild off and on) Skin/Breast Reports system reviewed and no additional complaints, except as documented Neuro Reports no additional complaints Psych Reports anxiety Endo Reports no additional complaints Physical Exam Vital Signs: Last Vital Signs Pulse 128 H 09/17/24 10:31 BP 104/68 09/17/24 10:31 Pulse Ox 91 L 09/17/24 10:31 Oxygen Delivery Method Nasal Cannula 09/17/24 10:31 Oxygen Flow Rate 3 09/17/24 10:31 Const General: healthy appearing, comfortable, no acute distress, alert and awake Orientation/consciousness: patient oriented x3 HEENT Head: Yes normal to inspection General nose exam: No nasal polyps present and No nasal discharge present Face and sinus: Yes sinuses nontender Mouth: oropharynx normal Throat: Yes posterior oropharynx normal Eyes General: appearance normal, both eyes and all related structures Neck Neck: Yes normal visual inspection, Yes no lymphadenopathy, Yes trachea midline and Yes no JVD Thyroid: Thyroid normal Chest Chest palpation & inspection: normal inspection of the chest, normal palpation of entire chest wall and no tenderness Resp Other: PERCUSSION NOTE IS RESONANT, BREATH SOUNDS ARE DISTANT WITH PROLONGED EXPIRATORY PHASE. NO CREPITATIONS BUT SHE HAS A FEW SCATTERED WHEEZES ON BOTH SIDES. Cardio Palpation: normal PMI Rate: regular rate and tachycardic (HR 100 TO 120 BP IS A LITTLE LOW. ) Rhythm: regular rhythm Heart sounds: no gallops and no murmurs GI Palpation (GI): Soft to palpation, nontender, No hepatosplenomegaly present and no masses Auscultation: normal bowel sounds Back/Spine/Pelvis Thoracic/Lumbar Spine: thoracic and lumbar spine normal to inspection Skin General skin exam: no rashes or lesions noted Neuro General: patient oriented x3 and no focal motor deficits Cranial nerves: Yes CN's II-XII intact bilaterally Extrem General: Yes normal to inspection, Yes no clubbing, cyanosis or edema and Yes no calf tenderness Psych Appearance: grossly normal and well kempt Speech and movement: Normal speech and movement present Affect: Anxious affect present Assessment & Plan Assessment & Plan (1) COPD (chronic obstructive pulmonary disease): Comment: (severe obstructive airway disorder, related to long-time smoking. Continues to be significantly short of breath and prone to acute exacerbations) She was started on prednisone 5 mg on alternate days and azithromycin 250 mg 3 days a week. Currently she is not using prednisone for a few weeks, and has gotten worse, with increased requirement for oxygen. Code(s): J44.9 - Chronic obstructive pulmonary disease, unspecified Category: Medical Plan: A short course of prednisone is prescribed. Continue Symbicort 160-4.5 2 puffs b.i.d. Incruse Ellipta 1 inhalation daily, Ventolin HFA 2 puffs Q 6 hours p.r.n. when outdoors. At home she may use albuterol solution in the nebulizer Q 6 hours p.r.n., advised to avoid any excessive use. (2) Respiratory failure with hypoxia: Comment: She has resting and exertional Hypoxemia , requiring oxygen supplementation. Does desaturate very quickly if taken off the oxygen. Today she walked into the office on room air, as she had stopped the O2, and had a very low O2 sat,( 87 % ) In the office she is requiring 3-4 L/minute of O2 to keep O2 sat above 90%. Code(s): J96.91 - Respiratory failure, unspecified with hypoxia Category: Medical Plan: Advised to keep herself on O2 3 L/minute and try to keep O2 sat above 89%. (3) Nicotine dependence, cigarettes, uncomplicated: Comment: (current smoker - onset 15yo, 1ppd x 38yrs, now 2cig/day, 35pyh), SHE IS ON QUIT SMOKING PLAN WITH THE USE OF NICOTINE PATCH. SHE CLAIMS THAT SHE IS NOT SMOKING ANYMORE. Code(s): F17.210 - Nicotine dependence, cigarettes, uncomplicated Category: Medical Plan: STRESSED THAT SHE CAN NOT GO BACK TO SMOKING. CONTINUE TO USE NICOTINE PATCH. Medications: New prednisone 20 mg PO BID 14 tabs 1RF copd /resp.failure 7 days Changed From albuterol sulfate 2.5 mg (3 mL) inhalation Q4-6H 30 days PRN 180 mL 5RF shortness of breath or wheezing To albuterol sulfate 2.5 mg (3 mL) inhalation Q4-6H PRN 180 mL 5RF shortness of breath or wheezing 20 days Coding Level of Care Code Est Pt Level 3 (03946) Diagnoses COPD (chronic obstructive pulmonary disease) J44.9 Respiratory failure with hypoxia J96.91 Nicotine dependence, cigarettes, uncomplicated F17.210
== END 2024-09-17 10:53 | disposition home or self-care (01) ==
PROVIDERS: PCP Internal Medicine; Visit Provider Internal Medicine
DX: J44.9 Chronic obstructive pulmonary disease, unspecified (principal); J96.91 Respiratory failure, unspecified with hypoxia; F17.210 Nicotine dependence, cigarettes, uncomplicated
CPT/HCPCS: 99213

== ENCOUNTER → 2024-09-17 10:25 | Outpatient (BNVA) | payer OTHER, SELFPAY | PROVIDERS: PCP Internal Medicine; Visit Provider Internal Medicine | DX: J44.9 Chronic obstructive pulmonary disease, unspecified (principal); J96.91 Respiratory failure, unspecified with hypoxia; F17.210 Nicotine dependence, cigarettes, uncomplicated | CPT/HCPCS: 99212 ==

== ENCOUNTER 2024-09-24 14:15 | Outpatient (AMB) | payer OTHER, SELFPAY ==
[2024-09-24 14:33] VITALS: BP 92/58; PULSE 131; O2SAT 90; BMI 34.7
--- NOTE | 2024-09-24 14:33 | A.OFFVIS_ITS ---
Vital Signs 09/24/24 14:33 Height 4 ft 11 in Weight 171 lb 15.369 oz BMI 34.7 BP 92/58 L Blood Pressure Location Lt brachial Position Sitting Pulse 131 H Pulse Source Pulse Oximeter Pulse Oximetry (%) 90 L Oxygen Delivery Method Nasal Cannula Oxygen Flow Rate 3 Intake Visit Reasons: COPD Intake Note: pt is here for follow up and states little better, oxygen has been in the 90's, little off today, slight anxious today. 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 Allergies codeine [CODEINE] Allergy (Unknown, Verified 09/24/24 14:59) NAUSEA & VOMITING, HIVES Penicillins [PENICILLINS] Allergy (Unknown, Verified 09/24/24 14:59) DIFF BREATHING, RASH ENVIRONMENTAL Allergy (Unknown, Uncoded 09/24/24 14:59) SOB,WHEEZING Medication List - Last Reconciled 09/24/24 by Haven Longo MD albuterol sulfate 2.5 mg (3 mL) inhalation Q4-6H PRN 20 days atorvastatin 20 mg PO DAILY azithromycin 500 mg PO 3XW benzonatate 100 mg PO TID PRN budesonide-formoterol 160-4.5 mcg/actuation (Symbicort) 2 puffs inhalation BID compressor, for nebulizer As directed 4 times a day diltiazem HCl CD (Cardizem CD) 120 mg See Protocol PO DAILY docusate sodium (Colace) 200 mg PO BEDTIME PRN gabapentin 1,200 mg PO TID hydroxyzine HCl 50 mg PO TID PRN montelukast 10 mg PO DAILY PRN naproxen sodium 220 mg PO BID PRN omeprazole 40 mg PO DAILY@0630 quetiapine ER 200 mg PO BEDTIME risperidone 2 mg PO BEDTIME umeclidinium 62.5 mcg/actuation (Incruse Ellipta) 1 inh inhalation DAILY Ventolin HFA 90 mcg/actuation (albuterol sulfate) 2 puffs inhalation Q4-6H PRN NS Do you need a note to return to daycare/school/sports/work: No HPI HPI COPD: Details: THIS 54 YEARS OLD FEMALE WITH ADVANCED CHRONIC OBSTRUCTIVE PULMONARY DISEASE, HAS BEEN TREATED FOR AN ACUTE EXACERBATION WITH COURSE OF PREDNISONE AND Z-RAMEZ. SHE HAS IMPROVED BUT STILL REMAINED SHORT OF BREATH ON MINIMAL EFFORT. WALKED IN THE OFFICE THE AND O2 SAT WAS LOW ON 1 L/MINUTE. HAD TO BE CHECKED UP TO 3 L/MINUTE TO BRING HER O2 SAT TO 90%. SHE CLAIMS THAT SHE IS NOT SMOKING. SHE CLAIMS THAT SHE IS USING HER MEDICATIONS REGULARLY. SHE IS DEFINITELY IMPROVED BUT STILL SHORT OF BREATH ON MINIMAL EXERTION. SHE REMAINS ANXIOUS. 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) Alcohol intake: never Patient Tobacco Use Status: Former Tobacco user Tobacco use type: Cigarette Cigarettes Per Day: 1 Years Smoked: (onset 15yo, 1ppd x 38yrs, now 2cig/day - 35pyh) Second Hand Smoke Exposure: No Substance Use Type: Marijuana Advance Directives Date on File: 01/04/22 service: No Current occupational status: unemployed and disabled 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 Review of Systems Const All systems reviewed & are unremarkable except as noted in HPI and below Eyes Reports no additional complaints ENT Reports no additional complaints Card Denies chest pain, Denies irregular heart rhythm and Denies leg edema Resp Reports as per HPI GI Reports heartburn (Controlled with omeprazole) Reports no additional complaints Musc Reports back pain (Mild off and on) Skin/Breast Reports system reviewed and no additional complaints, except as documented Neuro Reports no additional complaints Psych Reports anxiety Endo Reports no additional complaints Physical Exam Vital Signs: Last Vital Signs Pulse 131 H 09/24/24 14:33 BP 92/58 L 09/24/24 14:33 Pulse Ox 90 L 09/24/24 14:33 Oxygen Delivery Method Nasal Cannula 09/24/24 14:33 Oxygen Flow Rate 3 09/24/24 14:33 BMI result Body Mass Index 34.7 Const General: healthy appearing, comfortable, no acute distress, alert and awake Orientation/consciousness: patient oriented x3 HEENT Head: Yes normal to inspection General nose exam: No nasal polyps present and No nasal discharge present Face and sinus: Yes sinuses nontender Mouth: oropharynx normal Throat: Yes posterior oropharynx normal Eyes General: appearance normal, both eyes and all related structures Neck Neck: Yes normal visual inspection, Yes no lymphadenopathy, Yes trachea midline and Yes no JVD Thyroid: Thyroid normal Chest Chest palpation & inspection: normal inspection of the chest, normal palpation of entire chest wall and no tenderness Resp Other: PERCUSSION NOTE IS RESONANT, BREATH SOUNDS ARE VERY DISTANT WITH PROLONGED EXPIRATORY PHASE. NO CREPITATIONS OR WHEEZES ARE HEARD TODAY. Cardio Palpation: normal PMI Rate: regular rate and tachycardic (HR 100 TO 120 BP IS A LITTLE LOW. ) Rhythm: regular rhythm Heart sounds: no gallops and no murmurs GI Palpation (GI): Soft to palpation, nontender, No hepatosplenomegaly present and no masses Auscultation: normal bowel sounds Back/Spine/Pelvis Thoracic/Lumbar Spine: thoracic and lumbar spine normal to inspection Skin General skin exam: no rashes or lesions noted Neuro General: patient oriented x3 and no focal motor deficits Cranial nerves: Yes CN's II-XII intact bilaterally Extrem General: Yes normal to inspection, Yes no clubbing, cyanosis or edema and Yes no calf tenderness Psych Appearance: grossly normal and well kempt Speech and movement: Normal speech and movement present Affect: Anxious affect present Assessment & Plan Assessment & Plan (1) COPD (chronic obstructive pulmonary disease): Comment: (severe obstructive airway disorder, related to long-time smoking. Continues to be significantly short of breath and prone to acute exacerbations) She was started on prednisone 5 mg on alternate days and azithromycin 250 mg 3 days a week. After stopping to use prednisone she got much worse. She has been treated with a course of Z-Ramez and prednisone since last visit 1 week ago. She has definitely improved by about 50%. Has much less cough and wheezing but still remained short of breath on minimal exertion. Code(s): J44.9 - Chronic obstructive pulmonary disease, unspecified Category: Medical Plan: Continue to use Symbicort 160-4.52 puffs b.i.d. and albuterol sulfate 2.5 mg in the nebulizer Q 4-6 hours p.r.n. also may use Ventolin 2 puffs Q 4-6 hours p.r.n. when outdoors. Continue to use Incruse Ellipta 1 inhalation daily. I think she will benefit from long-term use of azithromycin , so she is prescribed azithromycin 250 mg 3 times a week. I think at this point she will do better with prednisone 5 mg on alternate days, which will be stopped as soon as she is more stable. Will screen her for alpha-1 antitrypsin deficiency , and blood test is ordered. She has very little urge to expectorate and would not be able to give any sputum sample for Gram stain and culture. I do not think she has any active respiratory infection. (2) Nicotine dependence, cigarettes, uncomplicated: Comment: (current smoker - onset 15yo, 1ppd x 38yrs, now 2cig/day, 35pyh), SHE IS ON QUIT SMOKING PLAN WITH THE USE OF NICOTINE PATCH. SHE CLAIMS THAT SHE IS NOT SMOKING ANYMORE. Code(s): F17.210 - Nicotine dependence, cigarettes, uncomplicated Category: Medical Plan: Stressedthat she should not go back to smoking . (3) Respiratory failure with hypoxia: Comment: She has resting and exertional Hypoxemia , requiring oxygen supplementation. Does desaturate very quickly if taken off the oxygen. We adjusted the O2 flow in the office and she needs 3 L/minute to keep O2 sat just above 90%. Code(s): J96.91 - Respiratory failure, unspecified with hypoxia Category: Medical Plan: Educated about the O2 uses. Use 3 L/minute when at rest. May need to increase to 4 L/minute when walking around . Orders: Orders Alpha 1 Anti-trypsin Today F17.210 - Nicotine dependence, cigarettes, uncomplicated, J44.9 - Chronic obstructive pulmonary disease, unspecified, J96.91 - Respiratory failure, unspecified with hypoxia Venous Blood Gas Today J44.9 - Chronic obstructive pulmonary disease, unspecified, J96.91 - Respiratory failure, unspecified with hypoxia Medications: New prednisone 5 mg PO Q OTHER DAY 28 days 14 tabs 3RF copd azithromycin 250 mg PO 3XW 6 weeks 19 tabs 3RF copd excerbation. Coding Level of Care Code Est Pt Level 3 (70362) Diagnoses COPD (chronic obstructive pulmonary disease) J44.9 Nicotine dependence, cigarettes, uncomplicated F17.210 Respiratory failure with hypoxia J96.91
== END 2024-09-24 15:00 | disposition home or self-care (01) ==
PROVIDERS: PCP Internal Medicine; Visit Provider Internal Medicine
DX: J44.9 Chronic obstructive pulmonary disease, unspecified (principal); F17.210 Nicotine dependence, cigarettes, uncomplicated; J96.91 Respiratory failure, unspecified with hypoxia
CPT/HCPCS: 99213

== ENCOUNTER → 2024-09-24 14:15 | Outpatient (BNVA) | payer OTHER, SELFPAY | PROVIDERS: PCP Internal Medicine; Visit Provider Internal Medicine | DX: J44.9 Chronic obstructive pulmonary disease, unspecified (principal); J96.91 Respiratory failure, unspecified with hypoxia; F17.210 Nicotine dependence, cigarettes, uncomplicated | CPT/HCPCS: 99212 ==

== ENCOUNTER 2024-09-29 12:18 | Outpatient (REF) | payer OTHER, SELFPAY ==
[2024-09-29 12:45] LABS: Venous Blood Gas Refer to POC result
[2024-09-29 12:50] LABS: VBG Base Excess 12.5 mmol/L; VBG HCO3 41 mmol/L (22-26); VBG pCO2 68 mmHg; VBG pH 7.38 (7.32-7.43); VBG pO2 43 mmHg
[2024-09-30 13:17] LABS: Alpha 1 Anti-trypsin 164 mg/dL (83-199)
== END 2024-09-29 12:19 | disposition home or self-care (01) ==
LOC: HO.LAB 12:18
PROVIDERS: PCP Internal Medicine; Visit Provider Internal Medicine
DX: J96.91 Respiratory failure, unspecified with hypoxia (principal); J44.9 Chronic obstructive pulmonary disease, unspecified; F17.210 Nicotine dependence, cigarettes, uncomplicated
CPT/HCPCS: 36415; 82103; 82803

== ENCOUNTER 2024-10-22 13:55 | Outpatient (AMB) | payer OTHER, SELFPAY ==
[2024-10-22 14:06] VITALS: BP 120/70; PULSE 128; O2SAT 90
--- NOTE | 2024-10-22 14:06 | MHC.OFFVIS ---
Vital Signs 10/22/24 14:06 Height 4 ft 11 in BMI Reason not done Patient refused/unable BP 120/70 Blood Pressure Location Lt brachial Position Sitting Pulse 128 H Pulse Source Pulse Oximeter Pulse Oximetry (%) 90 L Oxygen Delivery Method Nasal Cannula Oxygen Flow Rate 3 Intake Visit Reasons: COPD Intake Note: pt is here for follow up and states she is feeling better. using 3 liters at home. pt needs a refill on albuterol for nebulzer, the quantity is not taking her for 30 days and she is running out early. The pharmacy needs direction on this also. Manager Clinical Services Required: No Allergies codeine [CODEINE] Allergy (Unknown, Verified 10/22/24 14:26) NAUSEA & VOMITING, HIVES Penicillins [PENICILLINS] Allergy (Unknown, Verified 10/22/24 14:26) DIFF BREATHING, RASH ENVIRONMENTAL Allergy (Unknown, Uncoded 10/22/24 14:26) SOB,WHEEZING Medication List - Last Reconciled 10/22/24 by Haven Longo MD albuterol sulfate 2.5 mg (3 mL) inhalation Q4-6H PRN 20 days atorvastatin 20 mg PO DAILY azithromycin 250 mg PO 3XW 6 weeks benzonatate 100 mg PO TID PRN budesonide-formoterol 160-4.5 mcg/actuation (Symbicort) 2 puffs inhalation BID compressor, for nebulizer As directed 4 times a day diltiazem HCl CD (Cardizem CD) 120 mg See Protocol PO DAILY docusate sodium (Colace) 200 mg (2 x 100 mg) PO BEDTIME PRN gabapentin 1,200 mg PO TID hydroxyzine HCl 50 mg PO TID PRN montelukast 10 mg PO DAILY PRN naproxen sodium 220 mg PO BID PRN omeprazole 40 mg PO DAILY@0630 prednisone 5 mg PO Q OTHER DAY 28 days quetiapine ER 200 mg PO BEDTIME risperidone 2 mg PO BEDTIME umeclidinium 62.5 mcg/actuation (Incruse Ellipta) 1 inh inhalation DAILY Ventolin HFA 90 mcg/actuation (albuterol sulfate) 2 puffs inhalation Q4-6H PRN NS Do you need a note to return to daycare/school/sports/work: No HPI HPI COPD: Details: ROCHELLE , COMES AFTER 1 MONTH FOR FOLLOW-UP. 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 COUGH IS MINIMAL. GETS SHORT OF BREATH ON ANY PHYSICAL ACTIVITY. USING O2 3 L/MINUTE MOST OF THE TIMES. UNFORTUNATELY HAS BEEN SMOKING 1 OR 2 PUFFS AT A TIME A FEW TIMES DAILY. OVERALL SHE IS DOING MUCH BETTER THAN BEFORE. [facility] Medical History Respiratory failure with hypoxia COPD (chronic obstructive pulmonary disease) Asthma Nicotine dependence, cigarettes, uncomplicated Acid reflux Depression Surgical History Status post excision of lipoma History of cholecystectomy History of shoulder surgery History of hysterectomy History of endometrial ablation History of loop electrosurgical excision procedure (LEEP) History of colposcopy Family History Mother Crohn disease Brother Colitis Social History Household Members: Spouse Housing: Apartment Do you presently have visiting nurse or other home services: Yes (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[employer]) Alcohol intake: never Patient Tobacco Use Status: Former Tobacco user Tobacco use type: Cigarette Cigarettes Per Day: 1 Years Smoked: (onset 15yo, 1ppd x 38yrs, now 2cig/day - 35pyh) Second Hand Smoke Exposure: No Substance Use Type: Marijuana Advance Directives Date on File: 01/04/22 service: No Current occupational status: unemployed and disabled 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 Review of Systems Const All systems reviewed & are unremarkable except as noted in HPI and below Eyes Reports no additional complaints ENT Reports no additional complaints Card Denies chest pain, Denies irregular heart rhythm and Denies leg edema Resp Reports as per HPI GI Reports heartburn (Controlled with omeprazole) Reports no additional complaints Musc Reports back pain (Mild off and on) Skin/Breast Reports system reviewed and no additional complaints, except as documented Neuro Reports no additional complaints Psych Reports anxiety Endo Reports no additional complaints Physical Exam Vital Signs: Last Vital Signs Pulse 128 H 10/22/24 14:06 BP 120/70 10/22/24 14:06 Pulse Ox 90 L 10/22/24 14:06 Oxygen Delivery Method Nasal Cannula 10/22/24 14:06 Oxygen Flow Rate 3 10/22/24 14:06 Const General: healthy appearing, comfortable, no acute distress, alert and awake Orientation/consciousness: patient oriented x3 HEENT Head: Yes normal to inspection General nose exam: No nasal polyps present and No nasal discharge present Face and sinus: Yes sinuses nontender Mouth: oropharynx normal Throat: Yes posterior oropharynx normal Eyes General: appearance normal, both eyes and all related structures Neck Neck: Yes normal visual inspection, Yes no lymphadenopathy, Yes trachea midline and Yes no JVD Thyroid: Thyroid normal Chest Chest palpation & inspection: normal inspection of the chest, normal palpation of entire chest wall and no tenderness Resp Other: PERCUSSION NOTE IS RESONANT, BREATH SOUNDS ARE VERY DISTANT WITH PROLONGED EXPIRATORY PHASE. NO CREPITATIONS OR WHEEZES ARE HEARD TODAY. Cardio Palpation: normal PMI Rate: regular rate and tachycardic (HR 100 TO 120 BP IS A LITTLE LOW. ) Rhythm: regular rhythm Heart sounds: no gallops and no murmurs GI Palpation (GI): Soft to palpation, nontender, No hepatosplenomegaly present and no masses Auscultation: normal bowel sounds Back/Spine/Pelvis Thoracic/Lumbar Spine: thoracic and lumbar spine normal to inspection Skin General skin exam: no rashes or lesions noted Neuro General: patient oriented x3 and no focal motor deficits Cranial nerves: Yes CN's II-XII intact bilaterally Extrem General: Yes normal to inspection, Yes no clubbing, cyanosis or edema and Yes no calf tenderness Psych Appearance: grossly normal and well kempt Speech and movement: Normal speech and movement present Affect: Anxious affect present Assessment & Plan Assessment & Plan (1) COPD (chronic obstructive pulmonary disease): Comment: (severe obstructive airway disorder, related to long-time smoking. Continues to be significantly short of breath and prone to acute exacerbations) She was started on prednisone 5 mg on alternate days and azithromycin 250 mg 3 days a week. After stopping to use prednisone she got much worse. She is actually dependent on low-dose prednisone and azithromycin. Has much less cough and wheezing but still remained short of breath on minimal exertion. Code(s): J44.9 - Chronic obstructive pulmonary disease, unspecified Category: Medical Plan: Continue Symbicort 160-4.52 puffs b.i.d. Prednisone 5 mg but only twice a week Azithromycin 250 mg p.o. (M,W, F ) ALBUTEROL SOLUTION 2.5 MG IN THE NEBULIZER Q 6 HOURS P.R.N. OR ALBUTEROL HFA 2 PUFFS Q 6 HOURS P.R.N. WHEN OUTDOORS. (2) Respiratory failure with hypoxia: Comment: She has resting and exertional Hypoxemia , requiring oxygen supplementation. Does desaturate very quickly if taken off the oxygen. We adjusted the O2 flow in the office and she needs 3 L/minute to keep O2 sat just above 90%. Code(s): J96.91 - Respiratory failure, unspecified with hypoxia Category: Medical Plan: O2 3 L/MINUTE , ALL THE TIMES INCLUDING AT NIGHTTIME. (3) Nicotine dependence, cigarettes, uncomplicated: Comment: (current smoker - onset 15yo, 1ppd x 38yrs, now 2cig/day, 35pyh), SHE IS ON QUIT SMOKING PLAN WITH THE USE OF NICOTINE PATCH. SHE CLAIMS THAT SHE IS NOT SMOKING ANYMORE EXCEPT FOR 1 OR 2 PUFFS EVERY FEW HOURS Code(s): F17.210 - Nicotine dependence, cigarettes, uncomplicated Category: Medical Plan: HAD A LONG TALK WITH HER AGAIN AND I ADVISED HER NOT TO TOUCH THE CIGARETTE AT ALL . Medications: Changed From albuterol sulfate 2.5 mg (3 mL) inhalation Q4-6H 20 days PRN 180 mL 5RF shortness of breath or wheezing To albuterol sulfate 2.5 mg (3 mL) inhalation Q4-6H 30 days PRN 320 mL 4RF shortness of breath or wheezing Coding Level of Care Code Est Pt Level 3 (62408) Diagnoses COPD (chronic obstructive pulmonary disease) J44.9 Respiratory failure with hypoxia J96.91 Nicotine dependence, cigarettes, uncomplicated F17.210
== END 2024-10-22 14:26 | disposition home or self-care (01) ==
PROVIDERS: PCP Internal Medicine; Visit Provider Internal Medicine
DX: J44.9 Chronic obstructive pulmonary disease, unspecified (principal); J96.91 Respiratory failure, unspecified with hypoxia; F17.210 Nicotine dependence, cigarettes, uncomplicated
CPT/HCPCS: 99213

== ENCOUNTER → 2024-10-22 13:55 | Outpatient (BNVA) | payer OTHER, SELFPAY | PROVIDERS: PCP Internal Medicine; Visit Provider Internal Medicine | DX: J44.9 Chronic obstructive pulmonary disease, unspecified (principal); J96.91 Respiratory failure, unspecified with hypoxia; F17.210 Nicotine dependence, cigarettes, uncomplicated | CPT/HCPCS: 99212 ==

== ENCOUNTER 2024-11-09 08:25 | Inpatient (IN) | payer OTHER, SELFPAY ==
[2024-11-09] VITALS (14 sets, daily range): BP systolic 94–138; BP diastolic 47–84; PULSE 126–137; RESP 16–30; TEMP 36.6–37.3; O2SAT 78–97; BMI 34.5
--- NOTE | ~2024-11-09 | XR_ITS ---
CLINICAL HISTORY: SOB 1 view chest x-ray Comparison: 01/03/2022 Findings: Portions of the exam are obscured by overlying material. No consolidation or effusion. Heart size is normal. No acute fracture. IMPRESSION: 1. No acute findings. This document has been electronically signed by: Karson Esteves MD on 11/09/2024 09:03:28
--- NOTE | 2024-11-09 08:40 | ECG_ITS ---
Test Reason : tachycardia Blood Pressure : / mmHG Vent. Rate : 126 BPM Atrial Rate : 126 BPM P-R Int : 140 ms QRS Dur : 078 ms QT Int : 308 ms P-R-T Axes : 074 122 056 degrees QTc Int : 446 ms Sinus tachycardia with Fusion complexes Right ventricular hypertrophy Septal infarct (cited on or before 03-JAN-2022) Abnormal ECG When compared with ECG of 18-AUG-2024 22:52, No significant changes seen Referred By: Corinne Mendez Electronically Signed By:VICTOR M COOPER
--- NOTE | 2024-11-09 08:47 | ED_ITS ---
HPI - SOB/Dyspnea General Chief Complaint: Dyspnea Stated Complaint: COPD EXAC, 84 ON 3L PER EMS Time Seen by Provider: 11/09/24 08:30 Source: patient and EMS Mode of arrival: EMS Limitations: no limitations History of Present Illness ED Provider: Corinne Mendez HPI Narrative: 54-year-old female with a history of COPD with admissions for same present to the ER with complaints of difficulty breathing with waking. Patient reports she has had cough and sore throat for the last few days. She denies any fevers, chills, chest pain, leg swelling, leg pain. No recent travel. No sick contacts. Tried home nebulizer with no relief of symptoms. Received DuoNeb and 125 mg of Solu-Medrol by EMS prior to arrival. Per EMS patient was 85% on 3 L on their arrival. She is on 3 L chronically Related Data Home Medications ?Medication ?Instructions ?Recorded ?Confirmed quetiapine 200 mg tablet,extended 200 mg PO BEDTIME 10/14/20 11/09/24 release 24 hr risperidone 2 mg tablet 2 mg PO BEDTIME 10/14/20 11/09/24 gabapentin 600 mg tablet 1,200 mg PO TID 12/15/20 11/09/24 naproxen sodium 220 mg tablet 220 mg PO BID PRN Pain 01/03/22 11/09/24 atorvastatin 20 mg tablet 20 mg PO DAILY 08/19/24 09/17/24 budesonide-formoterol HFA 160 2 puff inhalation BID 08/19/24 11/09/24 mcg-4.5 mcg/actuation aerosol inhaler (Symbicort) montelukast 10 mg tablet 10 mg PO DAILY PRN Allergy Symptoms 08/19/24 11/09/24 omeprazole 40 mg capsule,delayed 40 mg PO DAILY@0630 08/19/24 11/09/24 release umeclidinium 62.5 mcg/actuation 1 inh inhalation DAILY 08/19/24 11/09/24 blister powder for inhalation (Incruse Ellipta) hydroxyzine HCl 25 mg tablet 25 mg PO TID PRN Anxiety 09/24/24 11/09/24 fluticasone 500 mcg-salmeterol 50 1 inh inhalation BID 11/09/24 11/09/24 mcg/dose blistr powdr for inhalation (Wixela Inhub) Previous Rx's ?Medication ?Instructions ?Recorded compressor, for nebulizer #1 ea 01/08/22 diltiazem HCl 120 mg 120 mg PO DAILY #30 caps 01/08/22 capsule,extended release 24 hr (Cardizem CD) Ventolin HFA 90 mcg/actuation 2 puff inhalation Q4-6H PRN for 06/09/24 aerosol inhaler (albuterol sulfate) wheezing #18 ea benzonatate 100 mg capsule 100 mg PO TID PRN cough #21 caps 08/22/24 azithromycin 250 mg tablet 250 mg PO 3XW copd excerbation. 6 09/24/24 weeks #19 tabs prednisone 5 mg tablet 5 mg PO Q OTHER DAY copd 28 days 09/24/24 #14 tabs docusate sodium 100 mg capsule 200 mg (2 x 100 mg) PO BEDTIME PRN 10/17/24 (Colace) Constipation #30 caps albuterol sulfate 2.5 mg/3 mL 2.5 mg (3 mL) inhalation Q4-6H PRN 10/22/24 (0.083 %) solution for nebulization shortness of breath or wheezing 30 days #320 mL Allergies Allergy/AdvReac Type Severity Reaction Status Date / Time codeine [CODEINE] Allergy Unknown NAUSEA & Verified 11/09/24 08:52 VOMITING, HIVES Penicillins [PENICILLINS] Allergy Unknown DIFF Verified 11/09/24 08:52 BREATHING, RASH ENVIRONMENTAL Allergy Unknown SOB,WHEEZIN Uncoded 11/09/24 08:52 G Review of Systems 2 Review of Systems: Yes all other systems are reviewed and are negative Constitutional: Constitutional: Reports no additional constitutional complaints, Denies body ache(s), Denies chills, Denies fever(s), Denies headache(s) and Denies weakness Eyes: Eyes: Reports no additional eye complaints and Denies change in vision ENT: Reports system reviewed and no additional complaints, except as documented, Denies dizziness, Denies headache(s), Denies nasal congestion, Denies nasal discharge, Denies neck pain and Reports sore throat Cardiovascular: Cardiovascular: Reports no additional cardiovascular complaints, Denies chest pain, Denies leg edema and Reports dyspnea Respiratory: Respiratory: Reports no additional respiratory complaints, Reports cough and Reports dyspnea Gastrointestinal: Gastrointestinal: Reports no additional gastrointestinal complaints, Denies abdominal pain, Denies diarrhea, Denies nausea and Denies vomiting Genitourinary: Genitourinary: Reports no additional female genitourinary complaints and Denies urinary incontinence Musculoskeletal: Musculoskeletal: Reports no additional musculoskeletal complaints, Denies back pain, Denies arthralgias, Denies joint swelling, Denies neck pain, Denies numbness and Denies tingling Integumentary/Breasts: Skin/Breast: Reports system reviewed and no additional complaints, except as docu and Denies rash Neurologic: Reports system reviewed and no additional complaints, except as documented, Denies Abnormal speech present, Denies dizziness, Denies headache(s), Denies numbness, Denies tingling and Denies weakness PMFSH Past Medical History Attestation statement: The following information was validated with the patient. Source: old records reviewed and nursing notes reviewed Medical History Respiratory failure with hypoxia COPD (chronic obstructive pulmonary disease) Asthma Nicotine dependence, cigarettes, uncomplicated Acid reflux Depression Surgical History Status post excision of lipoma History of cholecystectomy History of shoulder surgery History of hysterectomy History of endometrial ablation History of loop electrosurgical excision procedure (LEEP) History of colposcopy Family History Family History Mother Crohn disease Brother Colitis Social History Social History Household Members: Spouse Housing: Apartment Do you presently have visiting nurse or other home services: Yes ([employer]IC[employer]) Alcohol intake: never Patient Tobacco Use Status: Former Tobacco user Tobacco use type: Cigarette Cigarettes Per Day: 1 Years Smoked: (onset 15yo, 1ppd x 38yrs, now 2cig/day - 35pyh) Smoked in Last 30 Days: Yes Second Hand Smoke Exposure: No Use of substances other than those prescribed or required for medical reasons: No Substance Use Type: Marijuana Advance Directives: Yes Advance Directives on File: Yes Advance Directives Date on File: 01/04/22 Do you have a plan to hurt others: No Plan Patient : No service: No Current occupational status: unemployed and disabled 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 Physical Exam 2 Vital Signs: Vital Signs: Last Vital Signs Temp 98.2 F 11/09/24 10:04 Pulse 126 H 11/09/24 10:04 Resp 24 H 11/09/24 10:04 BP 94/55 L 11/09/24 10:04 Pulse Ox 88 L 11/09/24 10:04 O2 Del Method Nasal Cannula 11/09/24 10:04 O2 Flow Rate 4 11/09/24 10:04 Oxygen Flow Rate 5 11/09/24 08:45 BMI result Body Mass Index 34.5 Const: General: cooperative, healthy appearing, comfortable and no acute distress Orientation/consciousness: patient oriented x3 Limitations: no limitations HEENT: Head: Yes normal to inspection Ears: hearing grossly normal bilaterally General nose exam: Normal external nose present Face and sinus: Yes normal facial exam Mouth: Normal oral and palatal mucosa present Throat: Yes posterior oropharynx normal Eyes: General: appearance normal, both eyes and all related structures P upils: Equal, round and reactive pupils present Neck: Neck: Yes normal visual inspection Chest: Chest palpation & inspection: normal inspection of the chest Resp: Effort & Inspection: tachypneic and uses accessory muscles A uscultation: wheezes Cardio: Rate: regular rate Rhythm: regular rhythm Peripheral pulses: P eripheral pulses 2+ throughout GI: Inspection: Yes normal to inspection Palpation (GI): Soft to palpation and nontender Auscultation: normal bowel sounds Back/Spine/Pelvis: Thoracic/Lumbar Spine: thoracic and lumbar spine normal to inspection Skin: General skin exam: no rashes or lesions noted Neuro: General: patient oriented x3, no focal motor deficits and normal sensation to monofilament Cranial nerves: Yes Equal, round and reactive pupils present Cognition (Neuro): normal cognition Speech: No Abnormal speech present Gait exam (Neuro): Normal gait present Motor exam (neuro): 5/5 motor strength present throughout Extrem: General: Yes normal to inspection and Yes no pedal edema Medications Administered Discontinued Medications Generic Name Dose Route Start Last Admin Trade Name Freq PRN Reason Stop Dose Admin Levalbuterol HCl 2.5 mg/ 0 mg 11/09/24 08:48 11/09/24 08:58 Ipratropium [place] 0.5 mg INHALE 11/09/24 08:49 7.5 dose ONCE ONE Administration Gabapentin 600 mg 11/09/24 11:08 11/09/24 11:20 Gabapentin 600 Mg Tablet PO 11/09/24 11:09 600 mg ONCE ONE Administration Gabapentin 600 mg 11/09/24 11:32 11/09/24 11:45 Gabapentin 600 Mg Tablet PO 11/09/24 11:33 600 mg ONCE ONE Administration Sodium Chloride 1,000 mls @ 999 mls/hr 11/09/24 08:40 11/09/24 11:17 Ns IV 11/09/24 09:40 Infused .Q1H1M STA Infusion Magnesium Sulfate 2 gm in 50 mls @ 25 mls/hr 11/09/24 08:40 11/09/24 10:10 Magnesium Sulfate/H2o IV 11/09/24 10:39 Infused ONCE ONE Infusion Levofloxacin 750 mg in 150 mls @ 100 mls/hr 11/09/24 08:43 11/09/24 11:15 Levaquin IV 11/09/24 10:12 Infused ONCE ONE Infusion Medical Decision Making Medical Decision Making [facility] Narrative: 54 yo female with history of COPD on 3 L NC chronically here with SOB with prodrome of cough/sore throat for a few days. Hypoxic for EMS on arrival which prompted her to receive 125mg solumedrol, duoneb pre-hospital. On my exam the patient is sitting upright, using accessory muscles with tachypnea. She is not hypoxic at this time but is still finishing her DuoNeb. She is tachycardic. Afebrile. Will obtain labs, chest x-ray, EKG, viral testing Patient will receive antibiotics for COPD exacerbation, in addition to magnesium, bronchodilators. Anticipate admit Differential Diagnosis Differential Diagnoses: The differential diagnosis associated with the presentation includes COPD exacerbation Low suspicion for ACS, PE, pneumonia, influenza Admission/Observation Consideration of admission/observation: Escalation of care including admission/observation considered Continued wheezing with multiple nebulizers with oxygen saturations 86-88% on home 3 L. Will need admission for further management with nebs and IV steroids for COPD exacerbation. Consult Healthcare Provider Management of the patient was discussed with: Hospitalist [place]-accepted admission Lab Data [facility] Lab Attestation statement: I reviewed the patient's lab results. 11/09/24 09:31 11/09/24 09:31 Labs: Lab Results 11/09/24 11/09/24 11/09/24 Range/Units 09:30 09:31 09:37 WBC 17.1 H (4.8-10.8) X10*3/uL RBC 4.56 (4.20-5.50) X10*6/uL Hgb 13.1 (12.0-16.0) g/dl Hct 43.4 (37.0-47.0) % MCV 95.2 (80.0-98.0) fL MCH 28.7 (27.0-33.0) pg MCHC 30.2 L (31.0-35.0) g/dl RDW 15.2 (11.0-16.0) % Plt Count 226 (160-400) X10*3/uL MPV 11.7 (9.4-12.3) fL Immature Gran % (Auto) 0.5 H (0.0-0.4) % Neut % (Auto) 70.2 (45-73) % Lymph % (Auto) 20.3 (20-40) % [place] % (Auto) 3.4 (2-11) % Eos % (Auto) 4.8 H (0-4) % Baso % (Auto) 0.8 (0-2) % Lymph # (Auto) 3.5 (1.2-4.9) X10*3/uL [place] # (Auto) 0.6 (0.1-1.2) X10*3/uL Eos # (Auto) 0.8 H (0.0-0.4) X10*3/uL Baso # (Auto) 0.1 (0.0-0.2) X10*3/uL Abs Immat Gran (auto) 0.09 H (0.00-0.03) X10*3/uL Absolute Neuts (auto) 12.0 H (2.0-8.3) x10*3/uL Absolute Nucleated RBC 0.000 (0.0-0.012) X10*3/uL Nucleated RBC % (auto) 0.0 (0.0-0.2) /100WBC PT 12.6 H (10.9-12.4) SEC INR 1.1 (0.9-1.1) VBG pH 7.50 H (7.32-7.43) VBG pCO2 60 mmHg VBG pO2 52 mmHg VBG HCO3 47 H (22-26) mmol/L VBG O2 Saturation 87.0 % VBG Base Excess 20.5 mmol/L Sodium 145 (135-145) mmol/L Potassium 4.6 (3.3-5.1) mmol/L Chloride 97 (96-108) mmol/L Carbon Dioxide 38 H (22-29) mmol/L Anion Gap 15 (12-20) BUN 4 L (9-16) mg/dL Creatinine 0.75 (0.5-1.4) mg/dL Estim Creat Clear Calc 77.9 Estimated GFR > 60 Random Glucose 176 H (60-115) mg/dL Lactic Acid 1.4 (0.5-2.0) mmol/L Calcium 9.6 (8.4-10.2) mg/dL Magnesium 2.1 (1.6-2.6) mg/dL Total Bilirubin 0.4 (0.0-1.0) mg/dL Direct Bilirubin 0.1 (0.0-0.5) mg/dL AST 17 (5-31) U/L ALT 9 (0-31) U/L Alkaline Phosphatase 80 (39-117) U/L Troponin I High Sens < 2.7 (<3.5-17.0) ng/L Total Protein 6.9 (6.5-8.0) g/dL Albumin 3.7 (3.5-5.0) g/dL Urine Color Urine Appearance Urine pH (5.0-9.0) Ur Specific [place] (1.005-1.025) Urine Protein (Neg-Trace) mg/dL Urine Glucose (UA) (Negative) mg/dL Urine Ketones (Negative) mg/dL Urine Blood (Negative) Urine Nitrite (Negative) Ur Leukocyte Esterase (Negative) Influenza Type A (PCR) NEGATIVE (Negative) Influenza Type B (PCR) NEGATIVE (Negative) RSV RNA Qual (PCR) NEGATIVE (Negative) SARS-CoV-2 RNA (RT-PCR) NEGATIVE (Negative) 11/09/24 Range/Units 11:22 WBC (4.8-10.8) X10*3/uL RBC (4.20-5.50) X10*6/uL Hgb (12.0-16.0) g/dl Hct (37.0-47.0) % MCV (80.0-98.0) fL MCH (27.0-33.0) pg MCHC (31.0-35.0) g/dl RDW (11.0-16.0) % Plt Count (160-400) X10*3/uL MPV (9.4-12.3) fL Immature Gran % (Auto) (0.0-0.4) % Neut % (Auto) (45-73) % Lymph % (Auto) (20-40) % [place] % (Auto) (2-11) % Eos % (Auto) (0-4) % Baso % (Auto) (0-2) % Lymph # (Auto) (1.2-4.9) X10*3/uL [place] # (Auto) (0.1-1.2) X10*3/uL Eos # (Auto) (0.0-0.4) X10*3/uL Baso # (Auto) (0.0-0.2) X10*3/uL Abs Immat Gran (auto) (0.00-0.03) X10*3/uL Absolute Neuts (auto) (2.0-8.3) x10*3/uL Absolute Nucleated RBC (0.0-0.012) X10*3/uL Nucleated RBC % (auto) (0.0-0.2) /100WBC PT (10.9-12.4) SEC INR (0.9-1.1) VBG pH (7.32-7.43) VBG pCO2 mmHg VBG pO2 mmHg VBG HCO3 (22-26) mmol/L VBG O2 Saturation % VBG Base Excess mmol/L Sodium (135-145) mmol/L Potassium (3.3-5.1) mmol/L Chloride (96-108) mmol/L Carbon Dioxide (22-29) mmol/L Anion Gap (12-20) BUN (9-16) mg/dL Creatinine (0.5-1.4) mg/dL Estim Creat Clear Calc Estimated GFR Random Glucose (60-115) mg/dL Lactic Acid (0.5-2.0) mmol/L Calcium (8.4-10.2) mg/dL Magnesium (1.6-2.6) mg/dL Total Bilirubin (0.0-1.0) mg/dL Direct Bilirubin (0.0-0.5) mg/dL AST (5-31) U/L ALT (0-31) U/L Alkaline Phosphatase (39-117) U/L Troponin I High Sens (<3.5-17.0) ng/L Total Protein (6.5-8.0) g/dL Albumin (3.5-5.0) g/dL Urine Color Yellow Urine Appearance Clear Urine pH 7.0 (5.0-9.0) Ur Specific [place] 1.020 (1.005-1.025) Urine Protein Negative (Neg-Trace) mg/dL Urine Glucose (UA) Negative (Negative) mg/dL Urine Ketones Negative (Negative) mg/dL Urine Blood Negative (Negative) Urine Nitrite Negative (Negative) Ur Leukocyte Esterase Negative (Negative) Influenza Type A (PCR) (Negative) Influenza Type B (PCR) (Negative) RSV RNA Qual (PCR) (Negative) SARS-CoV-2 RNA (RT-PCR) (Negative) Independent Interpretation I performed an independent interpretation of an: EKG and Plain X-Ray Interpretation: I independently viewed the chest x-ray and agree with the radiology report Independently viewed the EKG which shows sinus tachycardia with a rate of 126, normal [place], normal QRS normal QT Radiology Impression Discussion of test interpretation with radiology: I have reviewed the radiologist's reading. Radiologist Impression: [place] [id number] XRay Report Signed Patient: Milagro Loyd MR#: [id number] : 1970 Acct:[id number] Age/Sex: 54 / F ADM Date: 11/09/24 Loc: .ED Attending Dr: Ordering Physician: Corinne Mendez NP Date of Service: 11/09/24 Procedure(s): XR chest 1V Accession Number(s): [id number] cc: Alexander Malik MD; Corinne Mendez NP~ CLINICAL HISTORY: SOB 1 view chest x-ray Comparison: 01/03/2022 Findings: Portions of the exam are obscured by overlying material. No consolidation or effusion. Heart size is normal. No acute fracture. IMPRESSION: 1. No acute findings. Independent Historian Clinical information obtained from an independent historian. History obtained from or confirmed by: EMS Tests considered The following testing was considered but not selected: see above Prescription Management I considered prescription management with: Antibiotic Chronic Conditions Patient?s care impacted by: Other (COPD) Critical Care Time Critical Care Time Critical Care Time: Yes Total Critical Care Time: 60 Attestation: I have personally provided critical care time exclusive of time spent on separately billable procedures. Time includes review of lab data, radiology results, discussion with consultants, and monitoring for potential decompensation. Intervention performed as documented. Discharge Plan Discharge Clinical Impression: Acute exacerbation of chronic obstructive airways disease Patient Disposition: Admitted As Inpatient Prescriptions: No Action albuterol sulfate [Ventolin HFA] 90 mcg/actuation HFA aerosol inhaler 2 puff inhalation Q4-6H PRN (Reason: for wheezing) Qty: 18 3RF docusate sodium [Colace] 100 mg capsule 200 mg PO BEDTIME PRN (Reason: Constipation) Qty: 30 3RF naproxen sodium 220 mg Tablet 220 mg PO BID PRN (Reason: Pain) diltiazem HCl [Cardizem CD] 120 mg Capsule,Extended Release 24hr 120 mg PO DAILY Qty: 30 0RF Protocol: Hold for SBP/HR < HOLD for SBP < : 90 HOLD for HR < : 60 (DME) compressor, for nebulizer Device See Rx Instructions .Route Qty: 1 0RF Rx Instructions: As directed 4 times a day atorvastatin 20 mg tablet 20 mg PO DAILY budesonide-formoterol [Symbicort] 160-4.5 mcg/actuation HFA aerosol inhaler 2 puff inhalation BID Incruse Ellipta 62.5 mcg/actuation blister with device 1 inh INHALATION DAILY omeprazole 40 mg capsule,delayed release(DR/EC) 40 mg PO DAILY@0630 montelukast 10 mg tablet 10 mg PO DAILY PRN (Reason: Allergy Symptoms) benzonatate 100 mg capsule 100 mg PO TID PRN (Reason: cough) Qty: 21 0RF fluticasone propion-salmeterol [Wixela Inhub] 500-50 mcg/dose Blister With Device 1 inh INHALATION BID quetiapine 200 mg tablet extended release 24 hr 200 mg PO BEDTIME risperidone 2 mg tablet 2 mg PO BEDTIME gabapentin 600 mg tablet 1,200 mg PO TID hydroxyzine HCl 25 mg tablet 25 mg PO TID PRN (Reason: Anxiety) Rx Instructions: 1-2 a day prn azithromycin 250 mg tablet 250 mg PO 3XW 42 Days Qty: 19 3RF prednisone 5 mg tablet 5 mg PO Q OTHER DAY 28 Days Qty: 14 3RF albuterol sulfate 2.5 mg /3 mL (0.083 %) solution for nebulization 2.5 mg inhalation Q4-6H PRN (Reason: shortness of breath or wheezing) 30 Days Qty: 320 4RF Print Language: Hungarian
[2024-11-09] MEDS: levalbuterol HCL 2.5 MG, Ipratropium Bromide 0.5 MG INHALE (08:58)
[2024-11-09 09:38] LABS: MANUAL DIFF FLAG NO
[2024-11-09 09:40] LABS: Basophils Absolute Auto 0.1 X10*3/uL (0.0-0.2); Basophils Percent Auto 0.8 % (0-2); Eosinophils Absolute Auto 0.8 X10*3/uL (0.0-0.4); Eosinophils Percent Auto 4.8 % (0-4); Hematocrit 43.4 % (37.0-47.0); Hemoglobin 13.1 g/dl (12.0-16.0); Imm Gran Abs Auto 0.09 X10*3/uL (0.00-0.03); Imm Gran Pct Auto 0.5 % (0.0-0.4); Lymphocytes Absolute Auto 3.5 X10*3/uL (1.2-4.9); Lymphocytes Percent Auto 20.3 % (20-40); Mean Corpuscular HGB Conc 30.2 g/dl (31.0-35.0); Mean Corpuscular Hemoglobin 28.7 pg (27.0-33.0); Mean Corpuscular Volume 95.2 fL (80.0-98.0); Mean Platelet Volume 11.7 fL (9.4-12.3); Monocytes Absolute Auto 0.6 X10*3/uL (0.1-1.2); Monocytes Percent Auto 3.4 % (2-11); Neutrophils Percent Auto 70.2 % (45-73); Platelet Count 226 X10*3/uL (160-400); Red Blood Count 4.56 X10*6/uL (4.20-5.50); Red Cell Distribution Width 15.2 % (11.0-16.0); White Blood Count 17.1 X10*3/uL (4.8-10.8)
[2024-11-09] MEDS: Magnesium Sulfate/H2O 2 GM/50 ML PIGGYBACK IV (09:40)
[2024-11-09 09:41] LABS: Venous Blood Gas Refer to POC result
[2024-11-09 09:42] LABS: VBG Base Excess 20.5 mmol/L; VBG HCO3 47 mmol/L (22-26); VBG pCO2 60 mmHg; VBG pO2 52 mmHg
[2024-11-09 09:45] LABS: INTERNATIONAL NORM RATIO 1.1 (0.9-1.1); Prothrombin Time 12.6 SEC (10.9-12.4)
[2024-11-09 09:55] LABS: Lactic Acid 1.4 mmol/L (0.5-2.0)
[2024-11-09 09:57] LABS: Alanine Aminotransferase 9 U/L (0-31); Albumin Level 3.7 g/dL (3.5-5.0); Alkaline Phosphatase 80 U/L (39-117); Anion Gap 15 (12-20); Aspartate Amino Transferase 17 U/L (5-31); Bilirubin Direct 0.1 mg/dL (0.0-0.5); Bilirubin Total 0.4 mg/dL (0.0-1.0); Blood Urea Nitrogen 4 mg/dL (9-16); Calcium 9.6 mg/dL (8.4-10.2); Carbon Dioxide 38 mmol/L (22-29); Chloride 97 mmol/L (96-108); Creatinine Clr Calc Pharmacy 77.9; Estimated Glomerular Filt Rate > 60; Glucose Random 176 mg/dL (60-115); Magnesium 2.1 mg/dL (1.6-2.6); Potassium 4.6 mmol/L (3.3-5.1); Sodium 145 mmol/L (135-145); Total Protein 6.9 g/dL (6.5-8.0)
[2024-11-09] MEDS: 0.9 % Sodium Chloride 1,000 ML 999 ML IV (10:00)
[2024-11-09] MEDS: levoFLOXacin/D5W 750 MG/150 ML PIGGYBACK 100 MG IV (10:01)
[2024-11-09 10:04] LABS: Troponin-I High Sensitivity < 2.7 ng/L (<3.5-17.0)
--- NOTE | 2024-11-09 10:20 | PC.NURSE ---
Pt medications reviewed/confirmed with pt and external list; will contact pharmacy for verification
[2024-11-09 10:29] LABS: Influenza A PCR NEGATIVE (Negative); Influenza B PCR NEGATIVE (Negative); Resp Syncy Virus RNA Qual PCR NEGATIVE (Negative); SARS COV2 PCR INHOUSE NEGATIVE (Negative)
[2024-11-09] MEDS: Gabapentin 600 MG TABLET PO ×2 (11:20→11:45)
[2024-11-09 11:28] LABS: Appearance Urine Clear; Color Urine Yellow; Glucose Urine UA Negative (Negative); Leukocyte Esterase Urine Negative (Negative); Nitrite Urine Negative (Negative); Urine Blood Negative (Negative); Urine Ketones Negative (Negative); Urine Protein Negative (Neg-Trace)
--- NOTE | 2024-11-09 14:26 | PHA.MEDREC ---
Addendum entered by Sadiq Jett [facility] 11/09/24 16:42: MED REC CHECKED BY [facility] Original Note: Pharmacy Consult ? Medication Reconciliation Pharmacy has completed the medication reconciliation. Spoke with patient to confirm. She reports using her nebulizer scheduled and naproxen scheduled. Patient reports she takes azithromycin MWF, last taken Sunday. She said she is no longer taking prednisone and montelukast. I called her to confirm this, he said the doctor discontinued the prednisone 5 mg q other day 2-3 days ago and he does not know why. He was able to find montelukast in her pill box at home (square pill with X/54), keeping it on home med list.
--- NOTE | 2024-11-09 14:38 | P.HPHOSP_ITS ---
History of Present Illness Date of Service: 11/09/24 Chief Complaint: sob 54-year-old woman presents to the ER with complaints of worsening shortness breath. She reported that she has been having a cough with a sore throat over the last several days. She denied fever, chills, nausea, vomiting, diarrhea, chest pain, no recent travel, no sick contacts. She had been using her inhalers and nebulizers at home with no relief. She does use supplemental oxygen 3 L at home but still remained with shortness of breath. In the ER chest x-ray was negative for consolidation or effusion, she was noted to be hypoxic with oxygen saturation of 86%, noted tachycardia tachypnea. Plan is to admit patient to treat for acute hypoxic respiratory failure secondary to COPD exacerbation. Review of Systems 2 Review of Systems: Denies any recent fever chills or decrease in appetite respiratory see HPI cardiovascular denied chest pain gastrointestinal denies any dysphagia abdominal pain nausea vomiting or diarrhea genitourinary denies any dysuria frequency or hematuria musculoskeletal denies any joint pain or swelling neuropsych denies any weakness or seizures all other systems reviewed are negative [facility] Medical History (Updated 11/09/24 @ 14:43 by Neli Prather NP) Respiratory failure with hypoxia COPD (chronic obstructive pulmonary disease) Asthma Nicotine dependence, cigarettes, uncomplicated Acid reflux Depression Family History Mother Crohn disease Brother Colitis Surgical History Status post excision of lipoma History of cholecystectomy History of shoulder surgery History of hysterectomy History of endometrial ablation History of loop electrosurgical excision procedure (LEEP) History of colposcopy Social History Household Members: Spouse Housing: Apartment Do you presently have visiting nurse or other home services: Yes ([employer]) Alcohol intake: never Patient Tobacco Use Status: Former Tobacco user Tobacco use type: Cigarette Cigarettes Per Day: 1 Years Smoked: (onset 15yo, 1ppd x 38yrs, now 2cig/day - 35pyh) Smoked in Last 30 Days: Yes Second Hand Smoke Exposure: No Use of substances other than those prescribed or required for medical reasons: No Substance Use Type: Marijuana Advance Directives: Yes Advance Directives on File: Yes Advance Directives Date on File: 01/04/22 Do you have a plan to hurt others: No Plan Patient : No service: No Current occupational status: unemployed and disabled 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 Meds Allergies Allergy/AdvReac Type Severity Reaction Status Date / Time codeine [CODEINE] Allergy Unknown NAUSEA & Verified 11/09/24 08:52 VOMITING, HIVES Penicillins [PENICILLINS] Allergy Unknown DIFF Verified 11/09/24 08:52 BREATHING, RASH ENVIRONMENTAL Allergy Unknown SOB,WHEEZIN Uncoded 11/09/24 08:52 G Active Medications: Current Medications Acetaminophen (Acetaminophen 325 Mg Tablet) 650 mg PO Q6H PRN PRN Reason: Pain, Mild 1-3,fever,headache Calcium Carbonate (Calcium Carbonate 750 Mg Tab.Chew) 750 mg PO Q4H PRN PRN Reason: Heartburn Levalbuterol HCl (Levalbuterol Hcl 1.25 Mg/3 Ml Vial.Neb) 1.25 mg INHALE Q4H LUIS Magnesium Hydroxide (Milk Of Magnesia 30 Ml Oral.Susp) 30 ml PO DAILY PRN PRN Reason: Constipation Melatonin (Melatonin 3 Mg Tablet) 6 mg PO BEDTIME PRN PRN Reason: Insomnia Methylprednisolone Sodium Succinate (Methylprednisolone Sod Succ 125 Mg/2 Ml Vial) 60 mg IVPUSH Q12H LUIS Sodium Chloride (0.9 % Sodium Chloride Flush 3 Ml Syringe) 3 ml IVFLUSH QSHIFT LUIS Home Medications ?Medication ?Instructions ?Recorded ?Confirmed ?Last Taken ?Type quetiapine 200 mg tablet,extended 200 mg PO BEDTIME 10/14/20 11/09/24 08/17/24 History release 24 hr risperidone 2 mg tablet 2 mg PO BEDTIME 10/14/20 11/09/24 08/17/24 History gabapentin 600 mg tablet 1,200 mg PO TID 12/15/20 11/09/24 08/17/24 History naproxen sodium 220 mg tablet 220 mg PO BID PRN Pain 01/03/22 11/09/24 Unknown History atorvastatin 20 mg tablet 20 mg PO DAILY 08/19/24 11/09/24 08/17/24 History budesonide-formoterol HFA 160 2 puff inhalation BID 08/19/24 11/09/24 08/17/24 History mcg-4.5 mcg/actuation aerosol inhaler (Symbicort) montelukast 10 mg tablet 10 mg PO DAILY Allergy Symptoms 08/19/24 11/09/24 Unknown History omeprazole 40 mg capsule,delayed 40 mg PO DAILY@0630 08/19/24 11/09/24 08/17/24 History release umeclidinium 62.5 mcg/actuation 1 inh inhalation DAILY 08/19/24 11/09/24 08/17/24 History blister powder for inhalation (Incruse Ellipta) hydroxyzine HCl 25 mg tablet 25 mg PO TID PRN Anxiety 09/24/24 11/09/24 Unknown History albuterol sulfate 2.5 mg/3 mL 2.5 mg inhalation Q4-6H shortness 11/09/24 11/09/24 Unknown History (0.083 %) solution for nebulization of breath or wheezing azithromycin 250 mg tablet 250 mg PO MOWEFR copd excerbation. 11/09/24 11/09/24 11/07/24 History docusate sodium 100 mg capsule 100 mg PO BEDTIME PRN Constipation 11/09/24 11/09/24 Unknown History (Colace) Physical Exam 2 Vital Signs and Narrative: Vital Signs: Last Vital Signs Temp 97.9 F 11/09/24 13:57 Pulse 132 H 11/09/24 13:57 Resp 26 H 11/09/24 13:57 BP 120/59 L 11/09/24 13:57 Pulse Ox 86 L 11/09/24 12:58 O2 Del Method Nasal Cannula 11/09/24 12:58 O2 Flow Rate 4.5 11/09/24 12:58 Oxygen Flow Rate 5 11/09/24 08:45 BMI result Body Mass Index 34.5 Appearing in no acute distress head is normocephalic atraumatic eyes pupils are PERRLA sclera is anicteric mouth throat mucous membranes are intact and moist neck is supple no lymphadenopathy, no JVD noted lung sounds diminished with very mild wheezing heart regular rate rhythm, clear S1, S2 positive bowel sounds, abdomen is soft, nontender neuro patient is alert x3, no focal deficits Results Labs 11/09/24 09:31 11/09/24 09:31 Labs: Laboratory Results - last 24 hr 11/09/24 11/09/24 11/09/24 09:30 09:31 09:37 MCV 95.2 MCH 28.7 MCHC 30.2 L RDW 15.2 Plt Count 226 MPV 11.7 Immature Gran % (Auto) 0.5 H Neut % (Auto) 70.2 Lymph % (Auto) 20.3 [place] % (Auto) 3.4 Eos % (Auto) 4.8 H Baso % (Auto) 0.8 Lymph # (Auto) 3.5 [place] # (Auto) 0.6 Eos # (Auto) 0.8 H Baso # (Auto) 0.1 Abs Immat Gran (auto) 0.09 H Absolute Neuts (auto) 12.0 H Absolute Nucleated RBC 0.000 Nucleated RBC % (auto) 0.0 PT 12.6 H INR 1.1 VBG pH 7.50 H VBG pCO2 60 VBG pO2 52 VBG HCO3 47 H VBG O2 Saturation 87.0 VBG Base Excess 20.5 Anion Gap 15 Estim Creat Clear Calc 77.9 Estimated GFR > 60 Random Glucose 176 H Lactic Acid 1.4 Calcium 9.6 Magnesium 2.1 Total Bilirubin 0.4 Direct Bilirubin 0.1 AST 17 ALT 9 Alkaline Phosphatase 80 Troponin I High Sens < 2.7 Total Protein 6.9 Albumin 3.7 Urine Color Urine Appearance Urine pH Ur Specific [place] Urine Protein Urine Glucose (UA) Urine Ketones Urine Blood Urine Nitrite Ur Leukocyte Esterase Influenza Type A (PCR) NEGATIVE Influenza Type B (PCR) NEGATIVE RSV RNA Qual (PCR) NEGATIVE SARS-CoV-2 RNA (RT-PCR) NEGATIVE 11/09/24 11:22 MCV MCH MCHC RDW Plt Count MPV Immature Gran % (Auto) Neut % (Auto) Lymph % (Auto) [place] % (Auto) Eos % (Auto) Baso % (Auto) Lymph # (Auto) [place] # (Auto) Eos # (Auto) Baso # (Auto) Abs Immat Gran (auto) Absolute Neuts (auto) Absolute Nucleated RBC Nucleated RBC % (auto) PT INR VBG pH VBG pCO2 VBG pO2 VBG HCO3 VBG O2 Saturation VBG Base Excess Anion Gap Estim Creat Clear Calc Estimated GFR Random Glucose Lactic Acid Calcium Magnesium Total Bilirubin Direct Bilirubin AST ALT Alkaline Phosphatase Troponin I High Sens Total Protein Albumin Urine Color Yellow Urine Appearance Clear Urine pH 7.0 Ur Specific [place] 1.020 Urine Protein Negative Urine Glucose (UA) Negative Urine Ketones Negative Urine Blood Negative Urine Nitrite Negative Ur Leukocyte Esterase Negative Influenza Type A (PCR) Influenza Type B (PCR) RSV RNA Qual (PCR) SARS-CoV-2 RNA (RT-PCR) Assessment and Plan (1) COPD (chronic obstructive pulmonary disease): Status: Acute (2) Respiratory failure with hypoxia: Status: Acute Plan 54 year old women admitted with acute hypoxic respiratory failure secondary to COPD exacerbation Acute hypoxic respiratory failure secondary to COPD exacerbation. Chest x-ray negative for consolidation or effusion tachycardia, Smoker Reported that she quit 2 weeks ago but had been vaping in between Nicotine replacement therapy as needed Tachycardia, tachypnea No sepsis Secondary to respiratory treatments and hypoxia Obesity class 1. BMI 34.5 Discussed importance of weight management as this may be contributing to worsening of other comorbidities Hyperlipidemia Continue statin GERD Continue PPI Mental health Continue home medications DVT prophylaxis with Lovenox Quality Stroke Does the patient have a stroke diagnosis?: No VTE Prior VTE?: No VTE Risk Level:: Medical - moderate - high VTE Device Contraindication: Treatment Not Indicated VTE Drug Contraindication: N/A - Med Ordered
[2024-11-09] MEDS: levalbuterol HCL 1.25 MG/3 ML VIAL.NEB INHALE ×3 (14:49→22:58)
[2024-11-09] MEDS: Doxycycline Hyclate 100 MG in 0.9 % Sodium Chloride 250 ML 166.67 MG IV (14:59)
[2024-11-09] MEDS: Enoxaparin Sodium 40 MG/0.4 ML SYRINGE SUBCUT (15:00)
[2024-11-09] MEDS: methylPREDNISolone Sod Succ 125 MG/2 ML VIAL 60 MG IVPUSH (15:00)
[2024-11-09] MEDS: 0.9 % Sodium Chloride Flush 3 ML SYRINGE IVFLUSH (15:00)
[2024-11-09] MEDS: Acetaminophen 325 MG TABLET 650 MG PO (15:40)
--- NOTE | 2024-11-09 17:58 | PC.NURSE ---
pt desat to 79% - when this RN entered room pt sitting upright with increased WOB, pt noted not to be wearing her O2. pt stated I took it off because I couldn't breathe . Educated about not doing that. placed pt on oxymask for improved comfort.
[2024-11-10] VITALS (13 sets, daily range): BP systolic 109–154; BP diastolic 56–77; PULSE 89–135; RESP 16–26; TEMP 36.3–37; O2SAT 88–96; BMI 34.5
[2024-11-10] MEDS: QUEtiapine Fumarate 100 MG TABLET PO ×3 (00:01→20:55)
[2024-11-10] MEDS: Gabapentin 600 MG TABLET 1200 MG PO ×4 (00:01→20:55)
[2024-11-10] MEDS: risperiDONE 2 MG TABLET PO ×2 (00:01→20:55)
--- NOTE | 2024-11-10 00:02 | PC.NURSE ---
pt medicated per mar, tolerated well whole with water.
[2024-11-10] MEDS: Doxycycline Hyclate 100 MG in 0.9 % Sodium Chloride 250 ML IV ×2 (02:36→14:29)
[2024-11-10] MEDS: methylPREDNISolone Sod Succ 125 MG/2 ML VIAL 60 MG IVPUSH ×2 (02:37→14:28)
--- NOTE | 2024-11-10 02:41 | PC.NURSE ---
provider aware of tachycardia, no new orders at this time.
[2024-11-10] MEDS: levalbuterol HCL 1.25 MG/3 ML VIAL.NEB INHALE ×5 (03:44→20:00)
[2024-11-10] MEDS: Omeprazole 40 MG CAPSULE.DR PO (05:47)
[2024-11-10 06:49] LABS: MANUAL DIFF FLAG NO
[2024-11-10 06:51] LABS: Basophils Percent Auto 0.2 % (0-2); Hematocrit 38.8 % (37.0-47.0); Hemoglobin 12.1 g/dl (12.0-16.0); Imm Gran Pct Auto 0.8 % (0.0-0.4); Lymphocytes Absolute Auto 1.3 X10*3/uL (1.2-4.9); Lymphocytes Percent Auto 10.4 % (20-40); Mean Corpuscular HGB Conc 31.2 g/dl (31.0-35.0); Mean Platelet Volume 12.7 fL (9.4-12.3); Monocytes Absolute Auto 0.1 X10*3/uL (0.1-1.2); Monocytes Percent Auto 0.9 % (2-11); Neutrophils Percent Auto 87.7 % (45-73); Platelet Count 183 X10*3/uL (160-400); Red Blood Count 4.17 X10*6/uL (4.20-5.50); White Blood Count 12.5 X10*3/uL (4.8-10.8)
[2024-11-10 07:10] LABS: Alanine Aminotransferase 9 U/L (0-31); Albumin Level 3.4 g/dL (3.5-5.0); Alkaline Phosphatase 66 U/L (39-117); Anion Gap 12 (12-20); Aspartate Amino Transferase 16 U/L (5-31); Bilirubin Total 0.2 mg/dL (0.0-1.0); Blood Urea Nitrogen 5 mg/dL (9-16); Calcium 9.4 mg/dL (8.4-10.2); Carbon Dioxide 33 mmol/L (22-29); Chloride 101 mmol/L (96-108); Creatinine Clr Calc Pharmacy 83.5; Estimated Glomerular Filt Rate > 60; Glucose Random 219 mg/dL (60-115); Magnesium 2.1 mg/dL (1.6-2.6); Potassium 4.2 mmol/L (3.3-5.1); Sodium 142 mmol/L (135-145); Total Protein 6.4 g/dL (6.5-8.0)
[2024-11-10] MEDS: 0.9 % Sodium Chloride Flush 3 ML SYRINGE IVFLUSH ×2 (08:17→20:55)
[2024-11-10] MEDS: dilTIAZem HCL CD 120 MG CAP.ER.DEG PO (08:19)
[2024-11-10] MEDS: Atorvastatin Calcium 20 MG TABLET PO (08:19)
--- NOTE | 2024-11-10 08:39 | HO.PM.IMPN ---
Subjective Subjective Date of Service: 11/10/24 Review of Systems Follow-up COPD Doing better but still with expiratory wheezing Tachycardic Physical Exam Vital Signs: Vital Signs: Last Vital Signs Temp 97.8 F 11/10/24 07:57 Pulse 135 H 11/10/24 07:57 Resp 18 11/10/24 07:57 BP 115/61 11/10/24 07:57 Pulse Ox 92 11/10/24 07:57 O2 Del Method Nasal Cannula 11/10/24 07:57 O2 Flow Rate 3.0 11/10/24 07:57 Oxygen Flow Rate 5 11/09/24 08:45 BMI result Body Mass Index 34.5 Appearing in no acute distress lung sounds are clear to auscultation heart regular rate rhythm, clear S1, S2 positive bowel sounds, abdomen is soft, nontender neuro patient is alert x3, no focal deficits Objective Data Active Medications Acetaminophen (Acetaminophen 325 Mg Tablet) 650 mg PO Q6H PRN PRN Reason: Pain, Mild 1-3,fever,headache Last Admin: 11/09/24 15:40 Dose: 650 mg Documented By: TODD Atorvastatin Calcium (Atorvastatin Calcium 20 Mg Tablet) 20 mg PO DAILY [facility] Last Admin: 11/10/24 08:19 Dose: 20 mg Documented By: ELIZABETH Calcium Carbonate (Calcium Carbonate 750 Mg Tab.Chew) 750 mg PO Q4H PRN PRN Reason: Heartburn Diltiazem HCl (Diltiazem Hcl Cd 120 Mg Cap.Er.Deg) 120 mg PO DAILY [facility]; Protocol Last Admin: 11/10/24 08:19 Dose: 120 mg Documented By: ELIZABETH Docusate Sodium (Docusate Sodium 100 Mg Capsule) 100 mg PO BEDTIME PRN PRN Reason: Constipation Enoxaparin Sodium (Enoxaparin Sodium 40 Mg/0.4 Ml Syringe) 40 mg SUBCUT Q24H [facility] Last Admin: 11/09/24 15:00 Dose: 40 mg Documented By: JR Fluticasone/Vilanterol (Fluticasone/Vilanterol 200/25 Blst.W.Dev) 1 puff INHALE DAILY [facility] Gabapentin (Gabapentin 600 Mg Tablet) 1,200 mg PO TID [facility] Last Admin: 11/10/24 08:18 Dose: 1,200 mg Documented By: ELIZABETH Hydroxyzine HCl (Hydroxyzine Hcl 25 Mg Tablet) 25 mg PO TID PRN PRN Reason: Anxiety Doxycycline Hyclate 100 mg/ (Sodium Chloride) 250 mls @ 166.67 mls/hr IV Q12H [facility] Last Infusion: 11/10/24 05:10 Dose: Infused Documented By: RIVKA Levalbuterol HCl (Levalbuterol Hcl 1.25 Mg/3 Ml Vial.Neb) 1.25 mg INHALE RQ4H [facility] Last Admin: 11/10/24 07:34 Dose: 1.25 mg Documented By: BHARATI Levalbuterol HCl (Levalbuterol Hcl 1.25 Mg/3 Ml Vial.Neb) 1.25 mg INHALE Q3H PRN PRN Reason: Wheezing Magnesium Hydroxide (Milk Of Magnesia 30 Ml Oral.Susp) 30 ml PO DAILY PRN PRN Reason: Constipation Melatonin (Melatonin 3 Mg Tablet) 6 mg PO BEDTIME PRN PRN Reason: Insomnia Methylprednisolone Sodium Succinate (Methylprednisolone Sod Succ 125 Mg/2 Ml Vial) 60 mg IVPUSH Q12H [facility] Last Admin: 11/10/24 02:37 Dose: 60 mg Documented By: LILLIAN Montelukast Sodium (Montelukast Sodium 10 Mg Tablet) 10 mg PO BEDTIME [facility] Omeprazole (Omeprazole 40 Mg Capsule.Dr) 40 mg PO DAILY@0630 [facility] Last Admin: 11/10/24 05:47 Dose: 40 mg Documented By: RIVKA Quetiapine Fumarate (Quetiapine Fumarate 100 Mg Tablet) 100 mg PO BID [facility] Last Admin: 11/10/24 08:18 Dose: 100 mg Documented By: ELIZABETH Risperidone (Risperidone 2 Mg Tablet) 2 mg PO BEDTIME [facility] Last Admin: 11/10/24 00:01 Dose: 2 mg Documented By: LILLIAN Sodium Chloride (0.9 % Sodium Chloride Flush 3 Ml Syringe) 3 ml IVFLUSH QSHIFT [facility] Last Admin: 11/10/24 08:17 Dose: 3 ml Documented By: ELIZABETH Tiotropium [place] (Tiotropium [place] 2.5 Mcg 1 Puff/2.5 Mcg Mist.Inhal) 2 puff INHALE DAILY [facility] Labs 11/10/24 06:12 11/10/24 06:12 Labs: Laboratory Results - last 24 hr 11/09/24 11/09/24 11/09/24 09:30 09:31 09:37 MCV 95.2 MCH 28.7 MCHC 30.2 L RDW 15.2 Plt Count 226 MPV 11.7 Immature Gran % (Auto) 0.5 H Neut % (Auto) 70.2 Lymph % (Auto) 20.3 [place] % (Auto) 3.4 Eos % (Auto) 4.8 H Baso % (Auto) 0.8 Lymph # (Auto) 3.5 [place] # (Auto) 0.6 Eos # (Auto) 0.8 H Baso # (Auto) 0.1 Abs Immat Gran (auto) 0.09 H Absolute Neuts (auto) 12.0 H Absolute Nucleated RBC 0.000 Nucleated RBC % (auto) 0.0 PT 12.6 H INR 1.1 VBG pH 7.50 H VBG pCO2 60 VBG pO2 52 VBG HCO3 47 H VBG O2 Saturation 87.0 VBG Base Excess 20.5 Anion Gap 15 Estim Creat Clear Calc 77.9 Estimated GFR > 60 Random Glucose 176 H Lactic Acid 1.4 Calcium 9.6 Magnesium 2.1 Total Bilirubin 0.4 Direct Bilirubin 0.1 AST 17 ALT 9 Alkaline Phosphatase 80 Troponin I High Sens < 2.7 Total Protein 6.9 Albumin 3.7 Urine Color Urine Appearance Urine pH Ur Specific [place] Urine Protein Urine Glucose (UA) Urine Ketones Urine Blood Urine Nitrite Ur Leukocyte Esterase Influenza Type A (PCR) NEGATIVE Influenza Type B (PCR) NEGATIVE RSV RNA Qual (PCR) NEGATIVE SARS-CoV-2 RNA (RT-PCR) NEGATIVE 11/09/24 11/10/24 11:22 06:12 MCV 93.0 MCH 29.0 MCHC 31.2 RDW 15.0 Plt Count 183 MPV 12.7 H Immature Gran % (Auto) 0.8 H Neut % (Auto) 87.7 H Lymph % (Auto) 10.4 [place] % (Auto) 0.9 L Eos % (Auto) 0.0 Baso % (Auto) 0.2 Lymph # (Auto) 1.3 [place] # (Auto) 0.1 Eos # (Auto) 0.0 Baso # (Auto) 0.0 Abs Immat Gran (auto) 0.10 H Absolute Neuts (auto) 11.0 H Absolute Nucleated RBC 0.000 Nucleated RBC % (auto) 0.0 PT INR VBG pH VBG pCO2 VBG pO2 VBG HCO3 VBG O2 Saturation VBG Base Excess Anion Gap 12 Estim Creat Clear Calc 83.5 Estimated GFR > 60 Random Glucose 219 H Lactic Acid Calcium 9.4 Magnesium 2.1 Total Bilirubin 0.2 Direct Bilirubin AST 16 ALT 9 Alkaline Phosphatase 66 Troponin I High Sens Total Protein 6.4 L Albumin 3.4 L Urine Color Yellow Urine Appearance Clear Urine pH 7.0 Ur Specific [place] 1.020 Urine Protein Negative Urine Glucose (UA) Negative Urine Ketones Negative Urine Blood Negative Urine Nitrite Negative Ur Leukocyte Esterase Negative Influenza Type A (PCR) Influenza Type B (PCR) RSV RNA Qual (PCR) SARS-CoV-2 RNA (RT-PCR) Assessment and Plan (1) Acute exacerbation of chronic obstructive pulmonary disease: Status: Resolved (2) Respiratory failure, acute and chronic: Status: Resolved (3) Morbid obesity with BMI of 50.0-59.9, adult: Status: Chronic (4) COPD (chronic obstructive pulmonary disease): Status: Acute Plan 54 year old women admitted with acute hypoxic respiratory failure secondary to COPD exacerbation Acute hypoxic respiratory failure secondary to COPD exacerbation. Chest x-ray negative for consolidation or effusion tachycardia, IV Solu-Medrol, scheduled DuoNebs Oxygen supplementation to keep oxygen saturation above 91% Tachycardia, tachypnea No sepsis Secondary to respiratory treatments and hypoxia Obesity class 1. BMI 34.5 Discussed importance of weight management as this may be contributing to worsening of other comorbidities Hyperlipidemia Continue statin GERD Continue PPI Mental health Continue home medications Smoker Reported that she quit 2 weeks ago but had been vaping in between Nicotine replacement therapy as needed DVT prophylaxis with Lovenox Quality Stroke Does the patient have a stroke diagnosis?: No VTE Prior VTE?: No VTE Risk Level:: Medical - moderate - high VTE Device Contraindication: Treatment Not Indicated VTE Drug Contraindication: N/A - Med Ordered
[2024-11-10] MEDS: Fluticasone/Vilanterol 200/25 BLST.W.DEV 1 PUFF INHALE (11:36)
[2024-11-10] MEDS: Tiotropium Bromide 2.5 mcg 1 PUFF/2.5 MCG MIST.INHAL 2 PUFF INHALE (11:36)
--- NOTE | 2024-11-10 14:27 | MHC.CM.PN ---
MANAGER [employer] AND CM MET WITH PT AT BEDSIDE PT LIVES WITH SPOUSE IN APARTMENT PT HAS DAILY [employer] SERVICES. S/O IS [employer] PT USES O2, NEBULIZER, COMODE, ROLLATOR, SHOWER CHAIR. PT USES [employer] FOR O2 PT HCP IS CAR RAO, PT'S PCP IS GERONIMO SAMPSON PT'S INSURANCE IS [employer] [facility]- [facility] RESUME [facility] VIA PRIVATE TRANSPORT
[2024-11-10] MEDS: Enoxaparin Sodium 40 MG/0.4 ML SYRINGE SUBCUT (14:29)
[2024-11-10] MEDS: Acetaminophen 325 MG TABLET 650 MG PO (17:20)
[2024-11-10] MEDS: Montelukast Sodium 10 MG TABLET PO (20:55)
[2024-11-11] MEDS: levalbuterol HCL 1.25 MG/3 ML VIAL.NEB INHALE ×2 (02:00→07:44)
[2024-11-11 02:03] VITALS: PULSE 115; RESP 24; O2SAT 92
[2024-11-11] MEDS: Doxycycline Hyclate 100 MG in 0.9 % Sodium Chloride 250 ML 166.67 MG IV (02:32)
[2024-11-11] MEDS: methylPREDNISolone Sod Succ 125 MG/2 ML VIAL 60 MG IVPUSH (02:32)
--- NOTE | 2024-11-11 02:49 | PC.NURSE ---
Small run of v tach reported by telemetry . Dr Wright made aware. Patient is asymptomatic.
[2024-11-11 03:50] VITALS: BP 116/61; PULSE 90; RESP 18; TEMP 36.6; O2SAT 94
[2024-11-11] MEDS: Omeprazole 40 MG CAPSULE.DR PO (05:47)
[2024-11-11 07:34] VITALS: BP 129/65; PULSE 114; RESP 18; TEMP 36.4; O2SAT 93
[2024-11-11] MEDS: Tiotropium Bromide 2.5 mcg 1 PUFF/2.5 MCG MIST.INHAL 2 PUFF INHALE (07:44)
[2024-11-11] MEDS: Fluticasone/Vilanterol 200/25 BLST.W.DEV 1 PUFF INHALE (07:44)
[2024-11-11 07:51] VITALS: PULSE 120; RESP 20; O2SAT 92
[2024-11-11] MEDS: dilTIAZem HCL CD 120 MG CAP.ER.DEG PO (08:55)
[2024-11-11] MEDS: Atorvastatin Calcium 20 MG TABLET PO (08:55)
[2024-11-11] MEDS: Gabapentin 600 MG TABLET 1200 MG PO (08:56)
[2024-11-11] MEDS: 0.9 % Sodium Chloride Flush 3 ML SYRINGE IVFLUSH (08:56)
--- NOTE | 2024-11-11 09:41 | P.DS_ITS ---
DS: Providers Provider Date of Service: 11/11/24 Date of admission: 11/09/24 12:08 Date of discharge: 11/11/24 Primary care physician: Alexander Malik MD DS: Diagnosis Discharge Diagnosis (1) Acute exacerbation of chronic obstructive pulmonary disease: Status: Resolved (2) Respiratory failure, acute and chronic: Status: Resolved (3) Morbid obesity with BMI of 50.0-59.9, adult: Status: Chronic (4) COPD (chronic obstructive pulmonary disease): Status: Acute DS: Summary Hospital Course Hospital Course: 54-year-old woman presents to the ER with complaints of worsening shortness breath. She reported that she has been having a cough with a sore throat over the last several days. She denied fever, chills, nausea, vomiting, diarrhea, chest pain, no recent travel, no sick contacts. She had been using her inhalers and nebulizers at home with no relief. She does use supplemental oxygen 3 L at home but still remained with shortness of breath. In the ER chest x-ray was negative for consolidation or effusion, she was noted to be hypoxic with oxygen saturation of 86%, noted tachycardia tachypnea. Plan is to admit patient to treat for acute hypoxic respiratory failure secondary to COPD exacerbation. 54-year-old woman treated for acute on chronic hypoxic respiratory failure secondary to COPD exacerbation. Chest x-ray was negative consolidation or effusion, she was treated with IV Solu-Medrol and scheduled DuoNebs. She did have some episodes of tachycardia which were likely related to the COPD and the respiratory treatments. She is on oxygen at home and should continue this to maintain oxygen saturations above 89%. No sepsis during hospitalization. Plan will be to discharge on short course of steroid taper and 2 more days of antibiotic. Obesity class 1. BMI 34.5. Discussed importance of weight management as this may be contributing to worsening of other comorbidities Hyperlipidemia. Continue statin GERD. Continue PPI Mental health. Continue home medications Smoker. Reported quitting smoking. She should reach out to outpatient programs for assistance with continuing smoking cessation Time Attestation Discharge Coordination Time (in mins): 40 Quality: Safe Use of Opioids Does Pt have an Active Cancer Diagnosis on the Problem List?: No Quality: Stroke Does the patient have a stroke diagnosis?: No Physical Exam Vital Signs: Vital Signs: Last Vital Signs Temp 97.6 F 11/11/24 07:34 Pulse 120 H 11/11/24 07:51 Resp 20 11/11/24 07:51 BP 129/65 11/11/24 07:34 Pulse Ox 93 11/11/24 07:34 O2 Del Method Nasal Cannula 11/11/24 07:34 O2 Flow Rate 4 11/11/24 07:34 Oxygen Flow Rate 5 11/09/24 08:45 BMI result Body Mass Index 34.5 Appearing in no acute distress head is normocephalic atraumatic eyes pupils are PERRLA sclera is anicteric mouth throat mucous membranes are intact and moist neck is supple no lymphadenopathy, no JVD noted lung sounds clear, mildly dim throughout heart regular rate rhythm, clear S1, S2 positive bowel sounds, abdomen is soft, nontender neuro patient is alert x3, no focal deficits DS: Data Data Completed and Pending Completed studies during hospitalization [Text1]: Procedures Assistance with Respiratory Ventilation, Less than 24 Consecutive Hours, Continuous Positive Airway Pressure (01/03/22) Labs on day of discharge: Preliminary micro results at discharge 11/09/24 09:29 Blood Culture - Preliminary Blood - Venous No growth after 24 hours. 11/09/24 09:31 Blood Culture - Preliminary Blood - Venous No growth after 24 hours. Discharge Plan Discharge Anticipated Discharge Date/Time: 11/11/24 09:31 Patient Disposition: Home, Self-Care Discharge Diagnosis: Acute on chronic hypoxic respiratory failure secondary to COPD exacerbation Referrals: Alexander Malik MD [Primary Care Provider] - 1 Week Discharge Medications: New prednisone 10 mg tablet See Taper PO DIRECTED Qty: 30 0RF Taper: Prednisone 40 mg daily for 3 Days and 0 Hour 30 mg daily for 3 Days and 0 Hour 20 mg daily for 3 Days and 0 Hour 10 mg daily for 3 Days and 0 Hour Rx Instructions: see taper instructions doxycycline hyclate 100 mg tablet 100 mg PO BID Qty: 4 0RF Continued albuterol sulfate [Ventolin HFA] 90 mcg/actuation HFA aerosol inhaler 2 puff inhalation Q4-6H PRN (Reason: for wheezing) Qty: 18 3RF naproxen sodium 220 mg Tablet 220 mg PO BID diltiazem HCl [Cardizem CD] 120 mg Capsule,Extended Release 24hr 120 mg PO DAILY Qty: 30 0RF Protocol: Hold for SBP/HR < HOLD for SBP < : 90 HOLD for HR < : 60 (DME) compressor, for nebulizer Device See Rx Instructions .Route Qty: 1 0RF Rx Instructions: As directed 4 times a day atorvastatin 20 mg tablet 20 mg PO DAILY budesonide-formoterol [Symbicort] 160-4.5 mcg/actuation HFA aerosol inhaler 2 puff inhalation BID Incruse Ellipta 62.5 mcg/actuation blister with device 1 inh INHALATION DAILY omeprazole 40 mg capsule,delayed release(DR/EC) 40 mg PO DAILY@0630 montelukast 10 mg tablet 10 mg PO DAILY albuterol sulfate 2.5 mg /3 mL (0.083 %) solution for nebulization 2.5 mg inhalation Q4-6H docusate sodium [Colace] 100 mg capsule 100 mg PO BEDTIME PRN (Reason: Constipation) quetiapine 200 mg tablet extended release 24 hr 200 mg PO BEDTIME risperidone 2 mg tablet 2 mg PO BEDTIME gabapentin 600 mg tablet 1,200 mg PO TID hydroxyzine HCl 25 mg tablet 25 mg PO TID PRN (Reason: Anxiety) Rx Instructions: 1-2 a day prn Discontinued azithromycin 250 mg tablet 250 mg PO MOWEFR Discharge Orders: Discharge Order (Routine); Ordered 11/11/24 Ordered By: Neli Prather Diet: Advance to usual diet Activity on Discharge: As tolerated Stand Alone Forms: Patient Portal Discharge page Print Language: Albanian Care Plan Goals: Continue oxygen therapy at home Complete steroid taper Health Concerns: Acute on chronic hypoxic respiratory failure secondary to COPD exacerbation Plan of Treatment: Follow-up with primary care provider as needed Take all medications as prescribed Assessment: See discharge summary
--- NOTE | 2024-11-11 09:49 | MHC.CM.PN ---
Patient medically cleared for dc home w/ resumption of current [employer] services. Brother will provide transport at 11am. RN aware.
== END 2024-11-11 11:15 | disposition home or self-care (01) | DRG 140 ==
LOC: HO.ED 12:15 → HO.EDOVER 12:21 → HO.S3 11-10 02:54
PROVIDERS: Nurse Practitioner Family; Admitting Provider Nurse Practitioner Acute Care; Emergency Provider Emergency Medicine; PCP Internal Medicine; Visit Provider Nurse Practitioner Acute Care
DX: J44.0 Chronic obstructive pulmonary disease with (acute) lower respiratory infection (principal); J96.01 Acute respiratory failure with hypoxia; E66.811 Obesity, class 1; E78.5 Hyperlipidemia, unspecified; K21.9 Gastro-esophageal reflux disease without esophagitis; Z68.34 Body mass index [BMI] 34.0-34.9, adult; Z71.3 Dietary counseling and surveillance; Z20.822 Contact with and (suspected) exposure to COVID-19; Z87.891 Personal history of nicotine dependence; Z79.899 Other long term (current) drug therapy
CPT/HCPCS: 0241U; 36415; 71045; 80048; 80053; 80076; 81003; 82803; 83605; 83735; 84484; 85025; 85610; 87040; 93005; 94640; 99221; 99285; J1650; J1956; J2919; J3475

== ENCOUNTER → 2024-11-09 08:40 | Outpatient (BNV) | payer OTHER, SELFPAY | PROVIDERS: Admitting Provider Nurse Practitioner Acute Care; Emergency Provider Emergency Medicine; PCP Internal Medicine; Visit Provider Internal Medicine | DX: R00.0 Tachycardia, unspecified (principal) | CPT/HCPCS: 93010 ==

== ENCOUNTER → 2024-11-09 08:41 | Outpatient (BNV) | payer OTHER, SELFPAY | PROVIDERS: Emergency Provider Emergency Medicine; PCP Internal Medicine; Visit Provider Specialist | DX: R06.02 Shortness of breath (principal) | CPT/HCPCS: 71045 ==

== ENCOUNTER → 2024-11-09 12:08 | Outpatient (BNV) | payer OTHER, SELFPAY | PROVIDERS: Admitting Provider Nurse Practitioner Acute Care; Emergency Provider Emergency Medicine; PCP Internal Medicine; Visit Provider Nurse Practitioner Acute Care | DX: J44.1 Chronic obstructive pulmonary disease with (acute) exacerbation (principal); J96.21 Acute and chronic respiratory failure with hypoxia; J96.22 Acute and chronic respiratory failure with hypercapnia; E66.01 Morbid (severe) obesity due to excess calories; Z68.43 Body mass index [BMI] 50.0-59.9, adult; J44.9 Chronic obstructive pulmonary disease, unspecified | CPT/HCPCS: 99223; 99232 ==

== ENCOUNTER 2024-12-25 14:24 | Outpatient (AMB) | payer OTHER, SELFPAY ==
--- NOTE | 2024-12-25 14:28 | MHC.OFFVIS ---
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 Allergies codeine [CODEINE] Allergy (Unknown, Verified 12/25/24 14:52) NAUSEA & VOMITING, HIVES Penicillins [PENICILLINS] Allergy (Unknown, Verified 12/25/24 14:52) DIFF BREATHING, RASH ENVIRONMENTAL Allergy (Unknown, Uncoded 12/25/24 14:52) SOB,WHEEZING Medication List - Last Reconciled 12/25/24 by Haven Longo MD albuterol sulfate 2.5 mg inhalation Q4-6H atorvastatin 20 mg PO DAILY budesonide-formoterol 160-4.5 mcg/actuation (Symbicort) 2 puffs inhalation BID compressor, for nebulizer As directed 4 times a day diltiazem HCl CD (Cardizem CD) 120 mg See Protocol PO DAILY docusate sodium (Colace) 100 mg PO BEDTIME PRN gabapentin 1,200 mg PO TID hydroxyzine HCl 25 mg PO TID PRN montelukast 10 mg PO DAILY naproxen sodium 220 mg PO BID omeprazole 40 mg PO DAILY quetiapine ER 200 mg PO BEDTIME risperidone 2 mg PO BEDTIME umeclidinium 62.5 mcg/actuation (Incruse Ellipta) 1 inh inhalation DAILY Ventolin HFA 90 mcg/actuation (albuterol sulfate) 2 puffs inhalation Q4-6H PRN NS Do you need a note to return to daycare/school/sports/work: No HPI HPI copd: Details: Idania Irby 54 years old female with chronic obstructive pulmonary disease and history of smoking, is here for post hospital follow-up. She was treated in the hospital for acute exacerbation of COPD ( no pneumonia) on --11/11 . Since her discharge this time she has not smoked. She does realize that without smoking she is feeling better. She has mild intermittent cough which is much less than before. She denies any wheezing attacks. She does get short of breath when she walks . Or climbs stairs She is using O2 2 L/minute all the time, she does go to sleep with oxygen on. She came walking to the office with her portable oxygen and was looking comfortable . [facility] Medical History (Updated 12/25/24 @ 15:01 by Haven Longo MD) Respiratory failure with hypoxia COPD (chronic obstructive pulmonary disease) Morbid obesity with BMI of 50.0-59.9, adult Asthma Nicotine dependence, cigarettes, uncomplicated Acid reflux Depression Surgical History Status post excision of lipoma History of cholecystectomy History of shoulder surgery History of hysterectomy History of endometrial ablation History of loop electrosurgical excision procedure (LEEP) History of colposcopy Family History Mother Crohn disease Brother Colitis Social History Household Members: Spouse Housing: Apartment Do you presently have visiting nurse or other home services: Yes (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) Alcohol intake: never Patient Tobacco Use Status: Former Tobacco user Tobacco use type: Cigarette Cigarettes Per Day: 1 Years Smoked: (onset 15yo, 1ppd x 38yrs, now 2cig/day - 35pyh) Second Hand Smoke Exposure: No Substance Use Type: Marijuana Advance Directives Date on File: 01/04/22 service: No Current occupational status: unemployed and disabled 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 Review of Systems Const All systems reviewed & are unremarkable except as noted in HPI and below Eyes Reports no additional complaints ENT Reports no additional complaints Card Denies chest pain, Denies irregular heart rhythm and Denies leg edema Resp Reports as per HPI GI Reports heartburn (Controlled with omeprazole) Reports no additional complaints Musc Reports back pain (Mild off and on) Skin/Breast Reports system reviewed and no additional complaints, except as documented Neuro Reports no additional complaints Psych Reports anxiety Endo Reports no additional complaints Physical Exam Vital Signs: Last Vital Signs Pulse 125 H 12/25/24 14:29 BP 102/72 12/25/24 14:29 Pulse Ox 90 L 12/25/24 14:29 Oxygen Delivery Method Nasal Cannula 12/25/24 14:29 Oxygen Flow Rate 3 12/25/24 14:29 BMI result Body Mass Index 35.3 Const General: healthy appearing, comfortable, no acute distress, alert and awake Orientation/consciousness: patient oriented x3 HEENT Head: Yes normal to inspection General nose exam: No nasal polyps present and No nasal discharge present Face and sinus: Yes sinuses nontender Mouth: oropharynx normal Throat: Yes posterior oropharynx normal Eyes General: appearance normal, both eyes and all related structures Neck Neck: Yes normal visual inspection, Yes no lymphadenopathy, Yes trachea midline and Yes no JVD Thyroid: Thyroid normal Chest Chest palpation & inspection: normal inspection of the chest, normal palpation of entire chest wall and no tenderness Resp Other: PERCUSSION NOTE IS RESONANT, BREATH SOUNDS ARE VERY DISTANT WITH PROLONGED EXPIRATORY PHASE. NO CREPITATIONS OR WHEEZES ARE HEARD TODAY. Cardio Palpation: normal PMI Rate: regular rate and tachycardic (HR 100 TO 120 BP IS A LITTLE LOW. ) Rhythm: regular rhythm Heart sounds: no gallops and no murmurs GI Palpation (GI): Soft to palpation, nontender, No hepatosplenomegaly present and no masses Auscultation: normal bowel sounds Back/Spine/Pelvis Thoracic/Lumbar Spine: thoracic and lumbar spine normal to inspection Skin General skin exam: no rashes or lesions noted Neuro General: patient oriented x3 and no focal motor deficits Cranial nerves: Yes CN's II-XII intact bilaterally Extrem General: Yes normal to inspection, Yes no clubbing, cyanosis or edema and Yes no calf tenderness Psych Appearance: grossly normal and well kempt Speech and movement: Normal speech and movement present Assessment & Plan Assessment & Plan (1) Nicotine dependence, cigarettes, uncomplicated: Comment: She has longstanding history of smoking and has advanced chronic obstructive pulmonary disease. Since admission 4 weeks ago she has not smoked, and she admits that she is feeling much better. Code(s): F17.210 - Nicotine dependence, cigarettes, uncomplicated Category: Medical Plan: Had a good talk with her and stressed that she should not go back to smoking. She does not need to use any nicotine products at this time. (2) COPD (chronic obstructive pulmonary disease): Comment: As far as chronic obstructive pulmonary disease is concerned it is fairly stable at this time. Improved after treatment in the hospital 4 weeks ago. Lungs are clear to auscultation, no wheezes because she has not smoked. Code(s): J44.9 - Chronic obstructive pulmonary disease, unspecified Category: Medical Plan: Continue Symbicort 160-4.52 puffs b.i.d. Incruse Ellipta 1 inhalation daily Ventolin 2 puffs Q 6 hours p.r.n. (3) Respiratory failure with hypoxia: Comment: She has resting and exertional Hypoxemia , requiring oxygen supplementation. Does desaturate very quickly if taken off the oxygen. We adjusted the O2 flow in the office and she needs 3 L/minute to keep O2 sat just above 90%. Code(s): J96.91 - Respiratory failure, unspecified with hypoxia Category: Medical Plan: Continue using O2 24 hours a day. During the daytime when she is using portable cylinder she may increase to 3 L/minute to make sure that O2 sat stays above 90. Coding Level of Care Code Est Pt Level 3 (99475) Diagnoses Nicotine dependence, cigarettes, uncomplicated F17.210 COPD (chronic obstructive pulmonary disease) J44.9 Respiratory failure with hypoxia J96.91
[2024-12-25 14:29] VITALS: BP 102/72; PULSE 125; O2SAT 90; BMI 35.3
== END 2024-12-25 14:53 | disposition home or self-care (01) ==
PROVIDERS: PCP Internal Medicine; Visit Provider Internal Medicine
DX: F17.210 Nicotine dependence, cigarettes, uncomplicated (principal); J44.9 Chronic obstructive pulmonary disease, unspecified; J96.91 Respiratory failure, unspecified with hypoxia
CPT/HCPCS: 99213

== ENCOUNTER → 2024-12-25 14:24 | Outpatient (BNVA) | payer OTHER, SELFPAY | PROVIDERS: PCP Internal Medicine; Visit Provider Internal Medicine | DX: J44.9 Chronic obstructive pulmonary disease, unspecified (principal); J96.91 Respiratory failure, unspecified with hypoxia; F17.210 Nicotine dependence, cigarettes, uncomplicated | CPT/HCPCS: 99212 ==

== ENCOUNTER 2024-12-31 13:55 | Outpatient (AMB) | payer OTHER, SELFPAY ==
--- NOTE | 2024-12-31 14:05 | A.OFFVIS_ITS ---
Vital Signs 12/31/24 14:16 Height 4 ft 11 in Weight 167 lb 8.821 oz BMI 33.8 BP 122/75 Blood Pressure Location Lt brachial Position Sitting Pulse 124 H Pulse Oximetry (%) 86 L Oxygen Delivery Method Nasal Cannula Intake Visit Reasons: bloody hemorrhoids R/S from 11/10/24 Intake Note: Milagro presents in the office asa follow up for bloody hemorrhoids. CC: states she is actively bleeding! She states she has constipation at time. Etl Tester Required: No Allergies codeine [CODEINE] Allergy (Unknown, Verified 12/31/24 14:16) NAUSEA & VOMITING, HIVES Penicillins [PENICILLINS] Allergy (Unknown, Verified 12/31/24 14:16) DIFF BREATHING, RASH ENVIRONMENTAL Allergy (Unknown, Uncoded 12/31/24 14:16) SOB,WHEEZING HPI Comments Details: 54 y.o F with PMH of advanced COPD on O2, prev [facility] [place] who is here for intermittent rectal bleeding. Reports started experiencing bleeding on wiping a few months ago. Comes and goes. Had a flare up earlier this week as well and saw blood on wiping after every BM. Stool itself is brown. No abd pain, rectal pressure, diarrhea. Occ constipated and strains. Has been using prep H without much response. [facility] Medical History Respiratory failure with hypoxia COPD (chronic obstructive pulmonary disease) Morbid obesity with BMI of 50.0-59.9, adult Asthma Nicotine dependence, cigarettes, uncomplicated Acid reflux Depression Surgical History Status post excision of lipoma History of cholecystectomy History of shoulder surgery History of hysterectomy History of endometrial ablation History of loop electrosurgical excision procedure (LEEP) History of colposcopy Family History Mother Crohn disease Brother Colitis Social History Household Members: Spouse Housing: Apartment Do you presently have visiting nurse or other home services: Yes (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) Alcohol intake: never Patient Tobacco Use Status: Former Tobacco user Tobacco use type: Cigarette Cigarettes Per Day: 1 Years Smoked: (onset 15yo, 1ppd x 38yrs, now 2cig/day - 35pyh) Second Hand Smoke Exposure: No Substance Use Type: Marijuana Advance Directives Date on File: 01/04/22 service: No Current occupational status: unemployed and disabled 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 No blood on gloved finger Alert and oriented x3, normal gait Assessment & Plan Assessment & Plan (1) Hemorrhoids: Code(s): K64.9 - Unspecified hemorrhoids Category: Medical (2) Constipation: Code(s): K59.00 - Constipation, unspecified Category: Medical Plan S/sx consistent with rectal bleeding 2/2 hemorrhoids which in turn was likely from constiaption and straining. H/H normal from last month. Plan: - REviewed instructions as below - Topical hydrocortisone - Last cologuard NEG 2022. Follow up 2 months to review response Medications: New hydrocortisone 1% (Anti-Itch (hydrocortisone)) 1 appl topical BEDTIME 28.35 grams 0RF 14 days sennosides (senna) 17.2 mg (2 x 8.6 mg) PO DAILY 180 tabs 0RF 90 days Refilled omeprazole 40 mg PO DAILY 90 caps 4RF Patient Instructions: - Drink plenty of fluids - Take fiber 1 tbsp mixed in a cup of water daily - Take senna 2 tabs or miralax 17g mixed in a cup of water IF constipated - Sitz baths - Steroid cream daily at night for 7-10 nights - Avoid aggressive wiping, use kristin bottles to wash and then pat dry. Coding Level of Care Code Est Pt Level 4 (07137) Diagnoses Hemorrhoids K64.9 Constipation K59.00
[2024-12-31 14:16] VITALS: BP 122/75; PULSE 124; O2SAT 86; BMI 33.8
== END 2024-12-31 14:33 | disposition home or self-care (01) ==
PROVIDERS: PCP Internal Medicine; Visit Provider Internal Medicine
DX: K64.9 Unspecified hemorrhoids (principal); K59.00 Constipation, unspecified
CPT/HCPCS: 99214

== ENCOUNTER → 2024-12-31 13:55 | Outpatient (BNVA) | payer OTHER, SELFPAY | PROVIDERS: PCP Internal Medicine; Visit Provider Internal Medicine | DX: K64.9 Unspecified hemorrhoids (principal); K59.00 Constipation, unspecified | CPT/HCPCS: 99212 ==

== ENCOUNTER 2025-02-25 10:50 | Outpatient (AMB) | payer OTHER, SELFPAY ==
--- NOTE | 2025-02-25 11:24 | MHC.OFFVIS ---
Vital Signs 02/25/25 11:25 Height 4 ft 11 in Weight 169 lb 12.095 oz BMI 34.3 BP 106/68 Blood Pressure Location Rt brachial Position Sitting Pulse 129 H Pulse Source Pulse Oximeter Pulse Oximetry (%) 88 L Oxygen Delivery Method Nasal Cannula Oxygen Flow Rate 2 Intake Visit Reasons: COPD Allergies codeine [CODEINE] Allergy (Unknown, Verified 02/25/25 11:46) NAUSEA & VOMITING, HIVES Penicillins [PENICILLINS] Allergy (Unknown, Verified 02/25/25 11:46) DIFF BREATHING, RASH ENVIRONMENTAL Allergy (Unknown, Uncoded 02/25/25 11:46) SOB,WHEEZING Medication List - Last Reconciled 02/25/25 by Haven Longo MD albuterol sulfate 2.5 mg inhalation Q4-6H budesonide-formoterol 160-4.5 mcg/actuation (Symbicort) 2 puffs inhalation BID compressor, for nebulizer As directed 4 times a day diltiazem HCl CD (Cardizem CD) 120 mg See Protocol PO DAILY gabapentin 1,200 mg PO TID hydrocortisone 1% 1 appl topical BEDTIME hydroxyzine HCl 25 mg PO TID PRN montelukast 10 mg PO DAILY naproxen sodium 220 mg PO BID omeprazole 40 mg PO DAILY quetiapine ER 200 mg PO BEDTIME risperidone 2 mg PO BEDTIME sennosides (senna) 17.2 mg (2 x 8.6 mg) PO DAILY 90 days umeclidinium 62.5 mcg/actuation (Incruse Ellipta) 1 inh inhalation DAILY Ventolin HFA 90 mcg/actuation (albuterol sulfate) 2 puffs inhalation Q4-6H PRN NS Do you need a note to return to daycare/school/sports/work: No HPI HPI COPD: Details: 54 YEARS OLD FEMALE A LONG-TIME SMOKER WHO CLAIMS TO HAVE QUIT SMOKING COMPLETELY SINCE 3 MONTHS AGO. SHE IS HERE FOR HER FOLLOW-UP FOR ADVANCED COPD. USES HER INHALERS REGULARLY AND O2 2 L/MINUTE . 24 HOURS A DAY SINCE SHE HAS QUIT SMOKING HER COUGH AND SHORTNESS OF BREATH OR DEFINITELY LESS. SHE WALKS AROUND WITH MILD SHORTNESS OF BREATH. SHE SAY IS THAT SHE NEEDS THE AIR CONDITIONING STARTED IN HER APARTMENT SOON BECAUSE OTHERWISE SHE STARTS HAVING CHEST CONGESTION AND INCREASED SHORTNESS OF BREATH. [facility] Medical History Respiratory failure with hypoxia COPD (chronic obstructive pulmonary disease) Morbid obesity with BMI of 50.0-59.9, adult Asthma Nicotine dependence, cigarettes, uncomplicated Acid reflux Depression Surgical History Status post excision of lipoma History of cholecystectomy History of shoulder surgery History of hysterectomy History of endometrial ablation History of loop electrosurgical excision procedure (LEEP) History of colposcopy Family History Mother Crohn disease Brother Colitis Social History Household Members: Spouse Housing: Apartment Do you presently have visiting nurse or other home services: Yes (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) Alcohol intake: never Patient Tobacco Use Status: Former Tobacco user Tobacco use type: Cigarette Cigarettes Per Day: 1 Years Smoked: (onset 15yo, 1ppd x 38yrs, now 2cig/day - 35pyh) Second Hand Smoke Exposure: No Substance Use Type: Marijuana Advance Directives Date on File: 01/04/22 service: No Current occupational status: unemployed and disabled 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 Review of Systems Const All systems reviewed & are unremarkable except as noted in HPI and below Eyes Reports no additional complaints ENT Reports no additional complaints Card Denies chest pain, Denies irregular heart rhythm and Denies leg edema Resp Reports as per HPI GI Reports heartburn (Controlled with omeprazole) Reports no additional complaints Musc Reports back pain (Mild off and on) Skin/Breast Reports system reviewed and no additional complaints, except as documented Neuro Reports no additional complaints Psych Reports anxiety Endo Reports no additional complaints Physical Exam Vital Signs: Last Vital Signs Pulse 129 H 02/25/25 11:25 Pulse Ox 88 L 02/25/25 11:25 Oxygen Delivery Method Nasal Cannula 02/25/25 11:25 Oxygen Flow Rate 2 02/25/25 11:25 BMI result Body Mass Index 34.3 Const General: healthy appearing, comfortable, no acute distress, alert and awake Orientation/consciousness: patient oriented x3 HEENT Head: Yes normal to inspection General nose exam: No nasal polyps present and No nasal discharge present Face and sinus: Yes sinuses nontender Mouth: oropharynx normal Throat: Yes posterior oropharynx normal Eyes General: appearance normal, both eyes and all related structures Neck Neck: Yes normal visual inspection, Yes no lymphadenopathy, Yes trachea midline and Yes no JVD Thyroid: Thyroid normal Chest Chest palpation & inspection: normal inspection of the chest, normal palpation of entire chest wall and no tenderness Resp Other: PERCUSSION NOTE IS RESONANT, BREATH SOUNDS ARE VERY DISTANT WITH PROLONGED EXPIRATORY PHASE. NO CREPITATIONS OR WHEEZES ARE HEARD TODAY. Cardio Palpation: normal PMI Rate: regular rate and tachycardic (HR 100 TO 120 BP IS A LITTLE LOW. ) Rhythm: regular rhythm Heart sounds: no gallops and no murmurs GI Palpation (GI): Soft to palpation, nontender, No hepatosplenomegaly present and no masses Auscultation: normal bowel sounds Back/Spine/Pelvis Thoracic/Lumbar Spine: thoracic and lumbar spine normal to inspection Skin General skin exam: no rashes or lesions noted Neuro General: patient oriented x3 and no focal motor deficits Cranial nerves: Yes CN's II-XII intact bilaterally Extrem General: Yes normal to inspection, Yes no clubbing, cyanosis or edema and Yes no calf tenderness Psych Appearance: grossly normal and well kempt Speech and movement: Normal speech and movement present Assessment & Plan Assessment & Plan (1) COPD (chronic obstructive pulmonary disease): Comment: COPD is fairly stable at this time. She states that since she quit smoking completely she can notice the difference her cough and shortness of breath or definitely less. ago. Lungs are clear to auscultation, no wheezes because she has not smoked. Code(s): J44.9 - Chronic obstructive pulmonary disease, unspecified Category: Medical Plan: Commended for not smoking Continue Symbicort 160-4.52 puffs b.i.d. and Incruse Ellipta 1 inhalation daily. Albuterol solution in the nebulizer Q 4-6 hours p.r.n. (2) Respiratory failure with hypoxia: Comment: She has resting and exertional Hypoxemia , requiring oxygen supplementation. Does desaturate very quickly if taken off the oxygen. We adjusted the O2 flow in the office and she needs 2- 3 L/minute to keep O2 sat just above 90% Code(s): J96.91 - Respiratory failure, unspecified with hypoxia Category: Medical Plan: Advised to stay on oxygen 2 L/minute at night and 2 L/minute during the daytime. When resting at home she may try to go without oxygen. (3) Nicotine dependence, cigarettes, uncomplicated: Comment: She has longstanding history of smoking and has advanced chronic obstructive pulmonary disease. Claims that she has quit smoking completely since 3 months ago. Code(s): F17.210 - Nicotine dependence, cigarettes, uncomplicated Category: Medical Plan: Commended for not smoking, Should continue to have annual lung screening with LDCT . Coding Level of Care Code Est Pt Level 3 (50162) Diagnoses COPD (chronic obstructive pulmonary disease) J44.9 Respiratory failure with hypoxia J96.91 Nicotine dependence, cigarettes, uncomplicated F17.210
[2025-02-25 11:25] VITALS: BP 106/68; PULSE 129; O2SAT 88; BMI 34.3
== END 2025-02-25 11:46 | disposition home or self-care (01) ==
LOC: HO.HPS 10:51
PROVIDERS: PCP Internal Medicine; Visit Provider Internal Medicine
DX: J44.9 Chronic obstructive pulmonary disease, unspecified (principal); J96.91 Respiratory failure, unspecified with hypoxia; F17.210 Nicotine dependence, cigarettes, uncomplicated
CPT/HCPCS: 99213

== ENCOUNTER → 2025-02-25 10:50 | Outpatient (BNVA) | payer OTHER, SELFPAY | PROVIDERS: PCP Internal Medicine; Visit Provider Internal Medicine | DX: J44.9 Chronic obstructive pulmonary disease, unspecified (principal); J96.91 Respiratory failure, unspecified with hypoxia; Z87.891 Personal history of nicotine dependence; Z99.81 Dependence on supplemental oxygen | CPT/HCPCS: 99212 ==

== ENCOUNTER 2025-03-19 13:12 | Outpatient (AMB) | payer OTHER, SELFPAY ==
[2025-03-19 13:12] VITALS: BP 117/63; PULSE 128; RESP 18; TEMP 36.6; O2SAT 87; BMI 34.7
--- NOTE | 2025-03-19 13:12 | MHC.PC.OV ---
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-spouse Allergies codeine [CODEINE] Allergy (Unknown, Verified 03/19/25 13:12) NAUSEA & VOMITING, HIVES Penicillins [PENICILLINS] Allergy (Unknown, Verified 03/19/25 13:12) DIFF BREATHING, RASH ENVIRONMENTAL Allergy (Unknown, Uncoded 03/19/25 13:12) SOB,WHEEZING Tobacco use date assessed: 03/19/25 Dental Screening Dental Screen Date: 03/19/25 Did you have a dental visit in the last 12 months?: No Did you have a dental problem in the last 6 months where you did not have access to dental care?: No Was dental information given to patient?: Patient has dentist HPI HPI Comments History of Present Illness Details 54 y.o F with PMH of advanced COPD on O2,bipolar disorder, GERD, low vitamin D, hyperlipidemia presenting for follow up. Last seen by pcp in december. GI: history of BRBPR. Saw GI in December. Recurrent episode of bleeding to due to hemorrhoids. requests referral Rsp: Follows with Dr Gill brink. 02 dependent 3L. Hospitalized for exacerbation in Nov Bipolar disorder:Follows with Aida Kraus. stable Cologuard negative in 2022 ROS see HPI PHYSICAL EXAM: GENERAL: Alert and oriented x 3. NAD EYES: EOMI. Anicteric. HENT: Moist mucous membranes. No scleral icterus. No cervical lymphadenopathy. LUNGS: Clear to auscultation bilaterally. CARDIOVASCULAR: Regular rate and rhythm. No murmur. No JVD. ABDOMEN: Soft, non-tender +bs EXTREMITIES: No edema. Non-tender. SKIN: No rashes or lesions. Warm. NEUROLOGIC: No focal neurological deficits. CN II-XII grossly intact PSYCHIATRIC: Cooperative. Appropriate mood and affect [facility] Medical History Respiratory failure with hypoxia COPD (chronic obstructive pulmonary disease) Morbid obesity with BMI of 50.0-59.9, adult Asthma Nicotine dependence, cigarettes, uncomplicated Acid reflux Depression Surgical History Status post excision of lipoma History of cholecystectomy History of shoulder surgery History of hysterectomy History of endometrial ablation History of loop electrosurgical excision procedure (LEEP) History of colposcopy Family History Mother Crohn disease Brother Colitis Social History Household Members: Spouse Housing: Apartment Do you presently have visiting nurse 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 home 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 1. Little interest or pleasure in doing things: not at all 2. Feeling down, depressed, or hopeless: not at all 3. Trouble falling or staying asleep, or sleeping too much: not at all 4. Feeling tired or having little energy: not at all 5. Poor appetite or overeating: not at all 6. Feeling bad about yourself - or that you are a failure or have let yourself or your family down: not at all 7. Trouble concentrating on things, such as reading the newspaper or watching television: not at all 8. Moving or speaking so slowly that other people could have noticed. Or the opposite - being so fidgety or restless that you have been moving around a lot more than usual: not at all 9. Thoughts that you would be better off or of hurting yourself in some way: not at all Total score: 0 Depression Screening Interpretation: Negative Depression Screening Done: Yes 77887 - PHQ-9 Billing: Yes Source: Developed by Robbie Tseet B.W. Michelet, Faisal Shepard and colleagues, with an educational naseem from [employer]. Thrive Questionnaire Date Thrive assessed: 03/19/25 I am a: Patient What is your living situation today?: I have a steady place to live Within the past 12 months, did the food you bought not last and you didn't have the money to get more?: Never true Within the past 12 months, did you worry whether your food would run out before you got money to buy more?: Never true Do you have trouble paying for medicines?: No Do you have trouble getting transportation to medical appointments?: No Do you have trouble paying your heating and electricity bill?: No Do you have trouble taking care of your child, family member or friend?: No Do you have trouble with day-to-day activities such as bathing, preparing meals, shopping, managing finances, etc.?: No Are you currently unemployed and looking for a job?: No Are you interested in more education?: No Please select the resources that you would like help with: None THRIVE Score: 0 AUDIT C Alcohol Use Questionnaire (AUDIT-C) 1. How often do you have a drink containing alcohol?: Never 3. How often do you have six or more drinks on one occasion?: Never Total Score: 0 PRANEETH-7 AMB Questionnaire PRANEETH-7 Date PRANEETH - 7 assessed: 03/19/25 Feeling nervous, anxious, or on edge: 0 = Not at all Not being able to stop or control worryin = Not at all Worrying too much about different things: 0 = Not at all Trouble relaxin = Not at all Being so restless that it is hard to sit still: 0 = Not at all Becoming easily annoyed or irritable: 0 = Not at all Feeling afraid as if something awful might happen: 0 = Not at all Total PRANEETH-7 score (0-4 normal; 5-9 mild; 10-14 moderate; 15-21 severe): 0 Source: Developed by Drs. Juan Cardoza, Pam Tafoya, Faisal Shepard and colleagues, with an educational naseem from [employer]. Physical exam (Primary Care) Vital Signs: Last Vital Signs Temp 97.8 F 03/19/25 13:12 Pulse 128 H 03/19/25 13:12 Resp 18 03/19/25 13:12 BP 117/63 03/19/25 13:12 Pulse Ox 87 L 03/19/25 13:12 Oxygen Delivery Method Nasal Cannula 03/19/25 13:12 Oxygen Flow Rate 2 03/19/25 13:12 BMI result Body Mass Index 34.7 Tobacco/Smoking Status: Tobacco use Status Tobacco use date assessed 03/19/25 03/19/25 13:13 Patient Tobacco Use Status Former Tobacco user 03/19/25 13:13 Tobacco use type Cigarette 03/19/25 13:13 PHQ-9: PHQ-9 Score PHQ-9: Total score 0 03/22/25 10:50 Depression Screening Interpretation: Negative Thrive Assessment: Date of Thrive Assessment Date Thrive assessed 03/19/25 03/19/25 13:13 Coding Level of Care Code New Pt Level 4 (23612) Complex EM visit Add On G2211 Diagnoses Chronic obstructive pulmonary disease, unspecified COPD type J44.9 COPD type: unspecified COPD Hemorrhoids, unspecified hemorrhoid type K64.9 Hemorrhoid type: unspecified Moderate persistent asthma, unspecified whether complicated J45.40 Asthma complication type: unspecified Asthma persistence: persistent Asthma severity: moderate Depression, unspecified depression type F32.A Depression Type: unspecified Additional Codes PHQ-9 - 85401 - PHQ-9 Billing: Yes ([id number]) Assessment & Plan Assessment & Plan (1) COPD (chronic obstructive pulmonary disease): Comment: COPD is fairly stable at this time. She states that since she quit smoking completely she can notice the difference her cough and shortness of breath or definitely less. ago. Lungs are clear to auscultation, no wheezes because she has not smoked. Code(s): J44.9 - Chronic obstructive pulmonary disease, unspecified Category: Medical Qualifiers: COPD type: unspecified COPD Qualified Code(s): J44.9 - Chronic obstructive pulmonary disease, unspecified (2) Hemorrhoids: Code(s): K64.9 - Unspecified hemorrhoids Category: Medical Qualifiers: Hemorrhoid type: unspecified Qualified Code(s): K64.9 - Unspecified hemorrhoids (3) Asthma: Code(s): J45.909 - Unspecified asthma, uncomplicated Category: Medical Qualifiers: Asthma complication type: unspecified Asthma persistence: persistent Asthma severity: moderate Qualified Code(s): J45.40 - Moderate persistent asthma, uncomplicated (4) Depression: Code(s): F32.9 - Major depressive disorder, single episode, unspecified Category: Medical Qualifiers: Depression Type: unspecified Qualified Code(s): F32.A - Depression, unspecified Plan 54 year old to establish care Past medical, surgical, social reviewed referral to gen surgery for hemorroids Labs ordered Mammograim ordered Orders: Orders MM screening mammo BI 03/19/25 Z12.31 - Encounter for screening mammogram for malignant neoplasm of breast UA CC w/rflx Micro + Cult 03/19/25 J44.9 - Chronic obstructive pulmonary disease, unspecified, J45.909 - Unspecified asthma, uncomplicated, J96.91 - Respiratory failure, unspecified with hypoxia, K64.9 - Unspecified hemorrhoids Hemoglobin A1c 03/19/25 J44.9 - Chronic obstructive pulmonary disease, unspecified, J45.909 - Unspecified asthma, uncomplicated, J96.91 - Respiratory failure, unspecified with hypoxia, K64.9 - Unspecified hemorrhoids Comprehensive Met. Panel 03/19/25 J44.9 - Chronic obstructive pulmonary disease, unspecified, J45.909 - Unspecified asthma, uncomplicated, J96.91 - Respiratory failure, unspecified with hypoxia, K64.9 - Unspecified hemorrhoids Complete Blood Count Auto Diff 03/19/25 J44.9 - Chronic obstructive pulmonary disease, unspecified, J45.909 - Unspecified asthma, uncomplicated, J96.91 - Respiratory failure, unspecified with hypoxia, K64.9 - Unspecified hemorrhoids TSH reflex Free T4 03/19/25 J44.9 - Chronic obstructive pulmonary disease, unspecified, J45.909 - Unspecified asthma, uncomplicated, J96.91 - Respiratory failure, unspecified with hypoxia, K64.9 - Unspecified hemorrhoids Referrals General Surgery Referral K64.9 - Unspecified hemorrhoids Medications: New diltiazem HCl CD (Cardizem CD) 120 mg See Protocol PO DAILY 90 caps 3RF atorvastatin 20 mg PO DAILY 90 tabs 3RF naproxen (Naprosyn) 500 mg PO BID PRN 60 tabs 3RF pain cholecalciferol (vitamin D3) 50 mcg PO DAILY 90 caps 3RF
== END 2025-03-19 13:58 | disposition home or self-care (01) ==
LOC: HO.HMCHD 13:13
PROVIDERS: PCP Internal Medicine; Visit Provider Internal Medicine
DX: J44.9 Chronic obstructive pulmonary disease, unspecified (principal); K64.9 Unspecified hemorrhoids; J45.40 Moderate persistent asthma, uncomplicated; F32.A Depression, unspecified

== ENCOUNTER → 2025-03-19 13:12 | Outpatient (BNVA) | payer OTHER, SELFPAY | PROVIDERS: PCP Internal Medicine; Visit Provider Internal Medicine | DX: J44.9 Chronic obstructive pulmonary disease, unspecified (principal); K21.9 Gastro-esophageal reflux disease without esophagitis; E78.5 Hyperlipidemia, unspecified; K64.9 Unspecified hemorrhoids; J45.40 Moderate persistent asthma, uncomplicated; F32.A Depression, unspecified; Z99.81 Dependence on supplemental oxygen; J96.91 Respiratory failure, unspecified with hypoxia | CPT/HCPCS: 96127; 99202 ==

== ENCOUNTER 2025-04-22 15:17 | Outpatient (AMB) | payer OTHER, SELFPAY ==
[2025-04-22 15:32] VITALS: BP 136/73; PULSE 136; BMI 35.3
--- NOTE | 2025-04-22 15:32 | MHC.OFFVIS ---
Vital Signs 04/22/25 15:32 Height 4 ft 11 in Weight 175 lb BMI 35.3 BP 136/73 Blood Pressure Location Rt brachial Position Sitting Pulse 136 H Intake Visit Reasons: HEMORRHOIDS Intake Note: Patient referred by pcp Oralia Black for hemorrhoids. Sees Dr. Dhaliwal (GI) constipation. Rx HC1% and Senna tabs did not help. Patient c/o: bleedinhg from external hemorrhoid. Anal itch, burning. Shorts Sifter Required: No Accompanied by: Self / Same As Patient Allergies codeine (CODEINE) Allergy (Unknown, Verified 04/22/25 15:35) NAUSEA & VOMITING, HIVES Penicillins (PENICILLINS) Allergy (Unknown, Verified 04/22/25 15:35) DIFF BREATHING, RASH ENVIRONMENTAL Allergy (Unknown, Uncoded 04/22/25 15:35) SOB,WHEEZING Medication List - Last Reconciled 04/22/25 by Alexander Pascual MD albuterol sulfate 2.5 mg (3 mL) inhalation Q4-6H atorvastatin 20 mg PO DAILY budesonide-formoterol 160-4.5 mcg/actuation (Symbicort) 2 puffs PO BID cholecalciferol (vitamin D3) 50 mcg PO DAILY compressor, for nebulizer As directed 4 times a day diltiazem HCl CD (Cardizem CD) 120 mg See Protocol PO DAILY gabapentin 1,200 mg PO TID hydrocortisone 1% 1 appl topical BEDTIME inhalational spacing device (Aerochamber Mechanical Vent) As directed montelukast 10 mg PO DAILY naproxen (Naprosyn) 500 mg PO BID PRN naproxen sodium 220 mg PO BID omeprazole 40 mg PO DAILY quetiapine ER 200 mg PO BEDTIME risperidone 2 mg PO BEDTIME sennosides (senna) 17.2 mg (2 x 8.6 mg) PO DAILY 90 days umeclidinium 62.5 mcg/actuation (Incruse Ellipta) 1 inh inhalation DAILY Ventolin HFA 90 mcg/actuation (albuterol sulfate) 2 puffs inhalation Q4-6H PRN NS HPI HPI HEMORRHOIDS: Details: [age] year old female referred for hemorrhoid issues. She says that she has had hemorrhoids for many years. She says she has this periodic problem with pain with bowel movements with the hemorrhoids. She says she has some itchiness pain around her anus periodically as well She does not describe prolapse of her hemorrhoids She does admit to frequent constipation. She is now on oxygen by nasal cannula because of her COPD. She says that she started this about 3 years ago. She says she had been a heavy smoker but just quit about 4 months ago. COUNTS INCLUDE 234 BEDS AT THE [facility] Medical History (Updated 04/22/25 @ 15:51 by Alexander Pascual MD) Bleeding hemorrhoids Respiratory failure with hypoxia COPD (chronic obstructive pulmonary disease) Morbid obesity with BMI of 50.0-59.9, adult Asthma Nicotine dependence, cigarettes, uncomplicated Acid reflux Depression Surgical History Status post excision of lipoma History of cholecystectomy History of shoulder surgery History of hysterectomy History of endometrial ablation History of loop electrosurgical excision procedure (LEEP) History of colposcopy Family History Mother Crohn disease Brother Colitis Social History Household Members: Spouse Housing: Apartment Do you presently have visiting nurse or other home services: 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) Alcohol intake: never Patient Tobacco Use Status: Former Tobacco user Tobacco use type: Cigarette Cigarettes Per Day: 1 Years Smoked: (onset 15yo, 1ppd x 38yrs, now 2cig/day - 35pyh) Second Hand Smoke Exposure: No Substance Use Type: Marijuana Advance Directives Date on File: 01/04/22 service: No Current occupational status: unemployed and disabled 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 Cognitive needs: Yes (cane and wheelchair) Hearing needs: No Vision needs: Yes (rx glasses) Review of Systems Const Denies chills and Denies fever(s) Card Denies chest pain, Reports dyspnea and Reports dyspnea on exertion Resp Denies cough, Reports dyspnea and Reports dyspnea on exertion GI Reports hematochezia, Denies change in bowel habits and Reports constipation Denies hematuria Musc Denies back pain and Denies limited range of motion Neuro Denies focal weakness and Denies convulsions Psych Denies depression and Denies mood swings Physical Exam Vital Signs: Last Vital Signs Pulse 136 H 04/22/25 15:32 BP 136/73 04/22/25 15:32 BMI result Body Mass Index 35.3 Const Other: Appears short of breath, as baseline, with oxygen by nasal cannula Resp Other: On O2 by nasal cannula, appears short of breath Cardio Rate: regular rate GI Other: Rectal exam shows small external hemorrhoids, no perianal lesions Palpation (GI): Soft to palpation and nontender Office Procedures Anoscopy She was in the limb akira-knife position. The anoscope was gently inserted. A full exam of the anal canal was done. She did have mixed internal external hemorrhoids on both the left and right side. This not appear to be bulky. There was no fissure or any lesion. There is no bleeding. There is no induration on digital exam. [id number] Assessment & Plan Assessment & Plan (1) Bleeding hemorrhoids: Code(s): K64.9 - Unspecified hemorrhoids Category: Medical Plan: She describes passage of bright blood per rectum periodically and this appeared to be outlet bleeding from her hemorrhoids. On anoscopy, she has internal and external hemorrhoid hemorrhoids although this did not appear to be bulky. I would not recommend hemorrhoidectomy at this time. She does have pretty significant perioperative risks with her COPD and is on home O2 by nasal cannula. She is short of breath at baseline I have prescribed her Metamucil to help with the constipation as this will also less on her heel symptoms. I will prescribe her Calmoseptine for perianal burning I told her that I can see her in the office for follow up in about 3 months. She is comfortable with the plan. Coding Level of Care Code New Pt Level 3 (10188) Diagnoses Bleeding hemorrhoids K64.9 CPT Codes Details - CPT: 20147-Oseeucza ([id number])
== END 2025-04-22 15:47 | disposition home or self-care (01) ==
LOC: HO.HGS 15:17
PROVIDERS: PCP Internal Medicine; Visit Provider Surgery
DX: K64.9 Unspecified hemorrhoids (principal)
CPT/HCPCS: 46600; 99203

== ENCOUNTER → 2025-04-22 15:17 | Outpatient (BNVA) | payer OTHER, SELFPAY | PROVIDERS: PCP Internal Medicine; Visit Provider Surgery | DX: K64.4 Residual hemorrhoidal skin tags (principal); K59.00 Constipation, unspecified | CPT/HCPCS: 46600; 99202 ==

== ENCOUNTER 2025-06-15 12:51 | Outpatient (AMB) | payer OTHER, SELFPAY ==
--- NOTE | 2025-06-15 13:33 | A.OFFVIS_ITS ---
Vital Signs 06/15/25 13:34 Height 4 ft 11 in Weight 171 lb 15.369 oz BMI 34.7 BP 118/68 Blood Pressure Location Lt brachial Position Sitting Pulse 120 H Pulse Source Pulse Oximeter Pulse Oximetry (%) 88 L Oxygen Delivery Method Nasal Cannula Oxygen Flow Rate 1.5 Intake Visit Reasons: copd Intake Note: pt is here for follow up and states she has head cold, was put on prednisone and antibiotic, and now still little trouble with breathing, low O2 and some cough, pt needs refill on symbicort, incruse, montekulast, incruse Surveillance System Monitor Required: No Allergies codeine (CODEINE) Allergy (Unknown, Verified 06/15/25 13:56) NAUSEA & VOMITING, HIVES Penicillins (PENICILLINS) Allergy (Unknown, Verified 06/15/25 13:56) DIFF BREATHING, RASH ENVIRONMENTAL Allergy (Unknown, Uncoded 06/15/25 13:56) SOB,WHEEZING Medication List - Last Reconciled 06/15/25 by Haven Longo MD albuterol sulfate 2.5 mg (3 mL) inhalation Q4-6H atorvastatin 20 mg PO DAILY budesonide-formoterol 160-4.5 mcg/actuation (Symbicort) 2 puffs PO BID cholecalciferol (vitamin D3) 50 mcg PO DAILY compressor, for nebulizer As directed 4 times a day diltiazem HCl CD (Cardizem CD) 120 mg See Protocol PO DAILY gabapentin 1,200 mg PO TID hydrocortisone 1% 1 appl topical BEDTIME inhalational spacing device (Aerochamber Mechanical Vent) As directed menthol-zinc oxide 0.44-20.6 % (Calmoseptine) 1 appl topical TID PRN montelukast 10 mg PO DAILY naproxen (Naprosyn) 500 mg PO BID PRN naproxen sodium 220 mg PO BID omeprazole 40 mg PO DAILY psyllium seed (sugar) (Metamucil (sugar) oral powder) 1 tbsp PO BID quetiapine ER 200 mg PO BEDTIME risperidone 2 mg PO BEDTIME sennosides (senna) 17.2 mg (2 x 8.6 mg) PO DAILY 90 days umeclidinium 62.5 mcg/actuation (Incruse Ellipta) 1 inh inhalation DAILY Ventolin HFA 90 mcg/actuation (albuterol sulfate) 2 puffs inhalation Q4-6H PRN NS Do you need a note to return to daycare/school/sports/work: No HPI HPI copd: Details: THIS 54 YEARS OLD FEMALE IS HERE FOR FOLLOW-UP AFTER 4 MONTHS. COPD WAS STABLE AND UNDER CONTROL BUT DURING THE LAST WEEK SHE HAD AN ACUTE EXACERBATION, PROBABLY STARTED DUE TO ACUTE SINUSITIS. SHE HAD CALLED MY PARTNER DR. ADKINS , WHO PRESCRIBED HER A COURSE OF PREDNISONE FOR 5 DAYS AND ALSO DOXYCYCLINE 100 B.I.D. FOR 10 DAYS. SHE IS FEELING BETTER AND BACK TO HER BASELINE. HER BREATHING IS SHORT USUAL, ESPECIALLY WHEN SHE TRIES TO WALK IN THE HOUSE, WHEN SHE HAS TO GO OUTDOORS SHE NEEDS TO GO BY WHEELCHAIR. SHE IS ON O2. 2 L/MINUTE 24 HOURS A DAY IT IS 5 MONTHS SINCE WHEN SHE HAS NOT SMOKED. SHE DOES PARTICIPATE IN ANNUAL LUNG SCREENING PROGRAM. [facility] Medical History Bleeding hemorrhoids Respiratory failure with hypoxia COPD (chronic obstructive pulmonary disease) Morbid obesity with BMI of 50.0-59.9, adult Asthma Nicotine dependence, cigarettes, uncomplicated Acid reflux Depression Surgical History Status post excision of lipoma History of cholecystectomy History of shoulder surgery History of hysterectomy History of endometrial ablation History of loop electrosurgical excision procedure (LEEP) History of colposcopy Family History Mother Crohn disease Brother Colitis Social History Household Members: Spouse Housing: Apartment Do you presently have visiting nurse or other home services: Yes (HOME HEALTH ADMINISTRATOR services) Alcohol intake: never Patient Tobacco Use Status: Former Tobacco user Tobacco use type: Cigarette Cigarettes Per Day: 1 Years Smoked: (onset 15yo, 1ppd x 38yrs, now 2cig/day - 35pyh) Second Hand Smoke Exposure: No Substance Use Type: Marijuana Advance Directives Date on File: 01/04/22 service: No Current occupational status: unemployed and disabled 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 Cognitive needs: Yes (cane and wheelchair) Hearing needs: No Vision needs: Yes (rx glasses) Review of Systems Const All systems reviewed & are unremarkable except as noted in HPI and below Eyes Reports no additional complaints ENT Reports no additional complaints Card Denies chest pain, Denies irregular heart rhythm and Denies leg edema Resp Reports as per HPI GI Reports heartburn (Controlled with omeprazole) Reports no additional complaints Musc Reports back pain (Mild off and on) Skin/Breast Reports system reviewed and no additional complaints, except as documented Neuro Reports no additional complaints Psych Reports anxiety Endo Reports no additional complaints Physical Exam Vital Signs: Last Vital Signs Pulse 120 H 06/15/25 13:34 BP 118/68 06/15/25 13:34 Pulse Ox 88 L 06/15/25 13:34 Oxygen Delivery Method Nasal Cannula 06/15/25 13:34 Oxygen Flow Rate 1.5 06/15/25 13:34 BMI result Body Mass Index 34.7 Const General: healthy appearing, comfortable, no acute distress, alert and awake Orientation/consciousness: patient oriented x3 HEENT Head: Yes normal to inspection General nose exam: No nasal polyps present and No nasal discharge present Face and sinus: Yes sinuses nontender Mouth: oropharynx normal Throat: Yes posterior oropharynx normal Eyes General: appearance normal, both eyes and all related structures Neck Neck: Yes normal visual inspection, Yes no lymphadenopathy, Yes trachea midline and Yes no JVD Thyroid: Thyroid normal Chest Chest palpation & inspection: normal inspection of the chest, normal palpation of entire chest wall and no tenderness Resp Other: PERCUSSION NOTE IS RESONANT, BREATH SOUNDS ARE VERY DISTANT WITH PROLONGED EXPIRATORY PHASE. NO CREPITATIONS OR WHEEZES ARE HEARD TODAY. Cardio Palpation: normal PMI Rate: regular rate and tachycardic (HR 100 TO 120 BP IS A LITTLE LOW. ) Rhythm: regular rhythm Heart sounds: no gallops and no murmurs GI Palpation (GI): Soft to palpation, nontender, No hepatosplenomegaly present and no masses Auscultation: normal bowel sounds Back/Spine/Pelvis Thoracic/Lumbar Spine: thoracic and lumbar spine normal to inspection Skin General skin exam: no rashes or lesions noted Neuro General: patient oriented x3 and no focal motor deficits Cranial nerves: Yes CN's II-XII intact bilaterally Extrem General: Yes normal to inspection, Yes no clubbing, cyanosis or edema and Yes no calf tenderness Psych Appearance: grossly normal and well kempt Speech and movement: Normal speech and movement present Assessment & Plan Assessment & Plan (1) COPD (chronic obstructive pulmonary disease): Comment: COPD is fairly stable at this time. She states that since she quit smoking completely she can notice the difference her cough and shortness of breath or definitely less. ago. Lungs are clear to auscultation, no wheezes because she has not smoked. * she did have an acute exacerbation during the past 10 days, was treated with a course of prednisone and doxycycline 100 b.i.d. for 10 days which she has completed. Now she feels to be back to her baseline. Code(s): J44.9 - Chronic obstructive pulmonary disease, unspecified Category: Medical Qualifiers: COPD type: unspecified COPD Qualified Code(s): J44.9 - Chronic obstructive pulmonary disease, unspecified Plan: Continue using, Symbicort 160-4.52 puffs b.i.d. Incruse Ellipta 1 inhalation daily. Albuterol HFA 2 puffs Q 4-6 hours p.r.n. ( use with the help of spacer ) (2) Respiratory failure with hypoxia: Comment: She has resting and exertional Hypoxemia , requiring oxygen supplementation. Does desaturate very quickly if taken off the oxygen. We adjusted the O2 flow in the office and she needs 2- 3 L/minute to keep O2 sat just above 90% Code(s): J96.91 - Respiratory failure, unspecified with hypoxia Category: Medical Plan: Advised to continue using O2 2 L/minute at night and during the daytime (3) Nicotine dependence, cigarettes, uncomplicated: Comment: She has longstanding history of smoking and has advanced chronic obstructive pu lmonary disease. Claims that she has quit smoking completely since 5 months now . Code(s): F17.210 - Nicotine dependence, cigarettes, uncomplicated Category: Medical Plan: Commended for having quit smoking and not going back to it. Advised to continue having annual low dose lung scan. Coding Level of Care Code Est Pt Level 3 (06464) Diagnoses Chronic obstructive pulmonary disease, unspecified COPD type J44.9 COPD type: unspecified COPD Respiratory failure with hypoxia J96.91 Nicotine dependence, cigarettes, uncomplicated F17.210
[2025-06-15 13:34] VITALS: BP 118/68; PULSE 120; O2SAT 88; BMI 34.7
== END 2025-06-15 13:55 | disposition home or self-care (01) ==
LOC: HO.HPS 12:51
PROVIDERS: PCP Internal Medicine; Visit Provider Internal Medicine
DX: J44.9 Chronic obstructive pulmonary disease, unspecified (principal); J96.91 Respiratory failure, unspecified with hypoxia; F17.210 Nicotine dependence, cigarettes, uncomplicated
CPT/HCPCS: 99213

== ENCOUNTER → 2025-06-15 12:51 | Outpatient (BNVA) | payer OTHER, SELFPAY | PROVIDERS: PCP Internal Medicine; Visit Provider Internal Medicine | DX: J96.91 Respiratory failure, unspecified with hypoxia (principal); J44.9 Chronic obstructive pulmonary disease, unspecified; F17.210 Nicotine dependence, cigarettes, uncomplicated; Z99.81 Dependence on supplemental oxygen | CPT/HCPCS: 99212 ==

== ENCOUNTER 2025-06-24 03:22 | Inpatient (IN) | payer OTHER, SELFPAY ==
[2025-06-24] VITALS (15 sets, daily range): BP systolic 99–163; BP diastolic 57–91; PULSE 112–134; RESP 18–28; TEMP 36.6–37.4; O2SAT 62–96; BMI 35.8
--- NOTE | ~2025-06-24 | XR_ITS ---
EXAMINATION: XR CHEST CLINICAL INFORMATION: dyspnea COMPARISON: November 09, 2024 TECHNIQUE: Frontal view of the chest was obtained. FINDINGS: Prominence of the interstitial lung markings. Indistinct margins in the perihilar regions. Pulmonary reticular pattern. Blunting of the left costophrenic angle. No pneumothorax. Cardiomediastinal silhouette size is normal. 4 mm focal calcification adjacent to the left supraspinatus tendon insertion. XR/XR chest 1V IMPRESSION: Pulmonary edema versus acute small airway inflammatory processes. Small volume left sided pleural effusion. Concerning calcific tendinosis/tendinopathy, left supraspinatus. Electronically signed by: Martell Chauhan MD 06/24/2025 07:47 AM EDT
[2025-06-24] MEDS: Albuterol Sulfate 5 MG, Albuterol/Iprat 2.5/0.5MG 3 ML 3 ML INHALE (03:44)
--- NOTE | 2025-06-24 06:45 | ECG_ITS ---
Test Reason : dyspnea Blood Pressure : */* mmHG Vent. Rate : 119 BPM Atrial Rate : 119 BPM P-R Int : 150 ms QRS Dur : 86 ms QT Int : 312 ms P-R-T Axes : 75 110 -39 degrees QTcB Int : 438 ms Poor data quality Sinus tachycardia Possible Right ventricular hypertrophy Abnormal ECG When compared with ECG of 09-Nov-2024 09:02, Criteria for Septal infarct are no longer Present Referred By: Verona Gonzalez Electronically Signed By: ANH RENO MD
--- NOTE | 2025-06-24 07:19 | ED_ITS ---
HPI - SOB/Dyspnea General Chief Complaint: Dyspnea Stated Complaint: diff. breathing Time Seen by Provider: 06/24/25 07:12 Source: patient and EMS Mode of arrival: EMS Limitations: no limitations History of Present Illness ED Provider: DR. Mitchell HPI Narrative: A 54-year-old female PMH significant for COPD on 3 L supplemental oxygen at home, former smoker, GERD, HTN, depression. presents to the ER with complaints of worsening shortness breath. She reported that she has been having a cough for 2 days. She denied fever, chills, nausea, vomiting, diarrhea, chest pain, no recent travel, no sick contacts. She had been using her inhalers and nebulizers at home with no relief. She does use supplemental oxygen 3 L at home but still remained with shortness of breath. No recent travel, no lower extremity swelling or tenderness. Related Data Home Medications ?Medication ?Instructions ?Recorded ?Confirmed quetiapine 200 mg tablet,extended 200 mg PO BEDTIME 06/15/25 release 24 hr risperidone 2 mg tablet 2 mg PO BEDTIME 10/14/2009/29 gabapentin 600 mg tablet 1,200 mg PO TID 12/15/2009/29 naproxen sodium 220 mg tablet 220 mg PO BID Pain 01/0306/15/25 montelukast 10 mg tablet 10 mg PO DAILY Allergy Sympt oms 08/19/24 06/15/25 Previous Rx's ?Medication ?Instructions ?Recorded compressor, for nebulizer #1 ea 01/08/22 omeprazole 40 mg capsule,delayed 40 mg PO DAILY #90 ca ps 12/31/24 release Ventolin HFA 90 mcg/actuation 2 puff inhalation Q4-6H PRN for 01/08/25 aerosol inhaler (albuterol sulfate) wheezing #18 ea umeclidinium 62.5 mcg/actuation 1 inh inhalation DAILY #30 ea 03/05/25 blister powder for inhalation (Incruse Ellipta) atorvastatin 20 mg tablet 20 mg PO DAILY #90 tabs 03/05 03/29 cholecalciferol (vitamin D3) 50 50 mcg PO DAILY #90 ca ps 03/19/25 mcg (2,000 unit) capsule diltiazem HCl 120 mg 120 mg PO DAILY #90 caps capsule,extended release 24 hr (Cardizem CD) naproxen 500 mg tablet (Naprosyn) 500 mg PO BID PRN pa in #60 tabs 03/19/25 sennosides 8.6 mg tablet (senna) 17.2 mg (2 x 8.6 mg) PO DAILY 90 04/13/25 days #180 tabs budesonide-formoterol HFA 160 2 puff PO BID #10.2 ea 0 04/16/25 mcg-4.5 mcg/actuation aerosol inhaler (Symbicort) inhalational spacing device #50 ea 04/20/25 (Aerochamber Mechanical Vent) menthol 0.44 %-zinc oxide 20.6 % 1 appl topical TID NC N Perianal 04/22/25 topical ointment (Calmoseptine) burning #113 grams psyllium seed (sugar) oral powder 1 tbsp PO BID #1,254 grams 04/22/25 (Metamucil (sugar) oral powder) albuterol sulfate 2.5 mg/3 mL 2.5 mg (3 mL) inhalation Q4-6H 05/28/25 (0.083 %) solution for nebulization shortness of breat h or wheezing #180 mL hydrocortisone 1 % topical ointment 1 appl topical BED TIME #28.4 grams 06/04/25 Allergies Allergy/AdvReac Type Severity Reaction Status Date / Time codeine (CODEINE) Allergy Unknown NAUSEA & Verified 06/24/25 03:40 VOMITING, HIVES Penicillins (PENICILLINS) Allergy Unknown DIFF Verified 06/24/25 03:40 BREATHING, RASH ENVIRONMENTAL Allergy Unknown SOB,WHEEZIN Uncoded 06/24/25 03:40 G Review of Systems 2 Review of Systems: All other systems are reviewed and are negative Constitutional: Reports as per HPI and Reports no additional constitutional complaints Eyes: Reports as per HPI and Reports no additional eye complaints Reports system reviewed and no additional complaints, except as documented Cardiovascular: Reports as per HPI and Reports no additional cardiovascular complaints Respiratory: Reports as per HPI and Reports no additional respiratory complaints Gastrointestinal: Reports as per HPI and Reports no additional gastrointestinal complaints Genitourinary: Reports no additional female genitourinary complaints Musculoskeletal: Reports no additional musculoskeletal complaints Skin/Breast: Reports system reviewed and no additional complaints, except as docu Psychiatric: Reports no additional psychiatric complaints Endocrine: Reports no additional endocrine complaints Hematologic/Lymphatic: Reports no additional hematologic/lymphatic complaints Allergic/Immunologic: Reports no additional allergic/immunologic complaints Reports system reviewed and no additional complaints, except as documented and Reports Abnormal speech present [facility] Past Medical History Medical History Bleeding hemorrhoids Respiratory failure with hypoxia COPD (chronic obstructive pulmonary disease) Morbid obesity with BMI of 50.0-59.9, adult Asthma Nicotine dependence, cigarettes, uncomplicated Acid reflux Depression Surgical History Status post excision of lipoma History of cholecystectomy History of shoulder surgery History of hysterectomy History of endometrial ablation History of loop electrosurgical excision procedure (LEEP) History of colposcopy Family History Family History Mother Crohn disease Brother Colitis Social History Social History Household Members: Spouse Housing: Apartment Do you presently have visiting nurse or other home services: Yes ([employer] services) Alcohol intake: never Patient Tobacco Use Status: Former Tobacco user Tobacco use type: Cigarette Cigarettes Per Day: 1 Years Smoked: (onset 15yo, 1ppd x 38yrs, now 2cig/day - 35pyh) Smoked in Last 30 Days: Yes Second Hand Smoke Exposure: No Substance Use Type: Marijuana Substance Use Frequency: Daily Advance Directives: Yes Advance Directives on File: Yes Advance Directives Date on File: 01/04/22 service: No Current occupational status: unemployed and disabled 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 Blood pressure elevated. Heart rate normal. Respiratory rate normal. Temperature normal. Oxygen saturation is low. Appearance: Alert. Oriented X3. No acute distress. Head: Normal external exam. Normocephalic. Atraumatic. No [place] signs noted. No raccoon eyes noted Eyes: PERRLA. EOMI. Conjunctiva and sclera normal. Eyelids normal. ENT: TM's Normal. Pharynx normal. Uvula midline. Moist mucous membranes. No trismus noted. No drooling noted. No muffled voice noted. Neck: Normal inspection. Neck supple. FROM. No adenopathy. Thyroid Normal. No meningeal signs. No neck mass noted. CVS: Normal heart rate and rhythm. Heart sound normal. No murmurs noted. Pulses normal throughout. Respiratory: No respiratory distress. Painless inspiration. Diffuse expiratory wheezing with prolonged expiration and decreased breathing sounds bilaterally. Chest nontender. No accessory muscle usage noted or decreased air movement noted. Abdomen: Soft and nontender. Bowel sounds normal in all 4 quadrants. No distention noted. No organomegaly noted. No visible injury noted. Back: No CVA tenderness. Full range of motion noted. Skin: Skin warm and dry. Normal skin color. Normal skin turgor. No rashes/lesions/lacerations noted. Extremities: No lower extremity edema. Extremities exhibit normal range of motion. Extremities nontender. Neuro: Oriented X 3. Cranial nerve exam: II-XII are grossly intact No motor deficit. No sensory deficit. Reflexes normal. Course Reevaluation(s) Reevaluation #1: A former smoker with history of COPD O2 dependent, hypoxic 86% on room air. Meet SIRS criteria, no septic shock patient is receiving ceftriaxone and doxycycline, and small bolus of 250 cc normal saline. Normal lactic acid. Time: 09:38 Medications Administered Discontinued Medications Generic Name Dose Route Start Last Admin Trade Name Freq PRN Reason Stop Dose Admin Ceftriaxone Sodium 1 gm 06/24/25 07:17 06/24/25 07:54 Ceftriaxone Sodium 1 Gm Vial IVPUSH 06/24/25 07:18 1 gm ONCE ONE Administration Albuterol Sulfate 5 mg/ 0 mg 06/24/25 03:33 06/24/25 03:44 Albuterol/Ipratropium 3 ml INHALE 06/24/25 03:34 7.5 each ONCE ONE Administration Magnesium Sulfate 2 gm in 50 mls @ 150 mls/hr 06/24/25 07:17 06/24/25 07:55 Magnesium Sulfate/H2o IV 06/24/25 07:36 Infused ONCE ONE Infusion Methylprednisolone Sodium Succinate 125 mg 06/24/25 07:17 06/24/25 07:29 Methylprednisolone Sod Succ 125 Mg/2 Ml Vial IVPUSH 06/24/25 07:18 125 mg ONCE ONE Administration Medical Decision Making Differential Diagnosis Differential Diagnoses: The differential diagnosis associated with the presentation includes (CHF, COPD, pneumonia, septic shock, acute on chronic respiratory failure, electrolyte derangement, severe anemia.) Admission/Observation Consideration of admission/observation: Escalation of care including admission/observation considered Consult Healthcare Provider Management of the patient was discussed with: Hospitalist (Dr. Smith) Lab Data MDM Lab Attestation statement: I reviewed the patient's lab results. 06/24/25 07:45 06/24/25 07:45 Labs: Lab Results 06/24/25 06/24/25 06/24/25 Range/Units 07:45 07:51 07:55 WBC 14.5 H (4.8-10.8) X10*3/uL RBC 4.28 (4.20-5.50) X10*6/uL Hgb 12.0 (12.0-16.0) g/dl Hct 40.1 (37.0-47.0) % MCV 93.7 (80.0-98.0) fL MCH 28.0 (27.0-33.0) pg MCHC 29.9 L (31.0-35.0) g/dl RDW 14.6 (11.0-16.0) % Plt Count 266 D (160-400) X10*3/uL MPV 11.8 (9.4-12.3) fL Immature Gran % (Auto) 0.5 H (0.0-0.4) % Neut % (Auto) 56.6 (45-73) % Lymph % (Auto) 32.0 (20-40) % Gillespie % (Auto) 5.5 (2-11) % Eos % (Auto) 4.6 H (0-4) % Baso % (Auto) 0.8 (0-2) % Lymph # (Auto) 4.6 (1.2-4.9) X10*3/uL Gillespie # (Auto) 0.8 (0.1-1.2) X10*3/uL Eos # (Auto) 0.7 H (0.0-0.4) X10*3/uL Baso # (Auto) 0.1 (0.0-0.2) X10*3/uL Abs Immat Gran (auto) 0.07 H (0.00-0.03) X10*3/uL Absolute Neuts (auto) 8.2 (2.0-8.3) x10*3/uL Absolute Nucleated RBC 0.000 (0.0-0.012) X10*3/uL Nucleated RBC % (auto) 0.0 (0.0-0.2) /100WBC VBG pH 7.35 (7.32-7.43) VBG pCO2 82 mmHg VBG pO2 76 mmHg VBG HCO3 45 H (22-26) mmol/L VBG O2 Saturation 92.0 % VBG Base Excess 15.7 mmol/L Sodium 144 (135-145) mmol/L Potassium 4.4 (3.3-5.1) mmol/L Chloride 96 (96-108) mmol/L Carbon Dioxide 37 H (22-29) mmol/L Anion Gap 15 (12-20) BUN 7 L (9-16) mg/dL Creatinine 0.68 (0.5-1.4) mg/dL Estim Creat Clear Calc 87.7 Estimated GFR > 60 Random Glucose 151 H (60-115) mg/dL Lactic Acid F/U @ 2Hr 1.5 (0.5-2.0) mmol/L Calcium 9.2 (8.4-10.2) mg/dL Magnesium 2.9 H (1.6-2.6) mg/dL Total Bilirubin 0.4 (0.0-1.0) mg/dL AST 19 (5-31) U/L ALT 19 (0-31) U/L Alkaline Phosphatase 84 (39-117) U/L Troponin I High Sens 2.7 (<3.5-17.0) ng/L B-Natriuretic Peptide 31 (<100) pg/mL Total Protein 6.8 (6.5-8.0) g/dL Albumin 3.9 (3.5-5.0) g/dL Independent Interpretation I performed an independent interpretation of an: Plain X-Ray (Chest:Pulmonary edema versus acute small airway inflammatory processes. Small volume left sided pleural effusion. Concerning calcific tendinosis/tendinopathy, left supraspinatus.) Radiology Impression Discussion of test interpretation with radiology: I have reviewed the radiologist's reading. Chronic Conditions Patient?s care impacted by: Other (COPD.) Critical Care Time Critical Care Time Critical Care Time: Yes Total Critical Care Time: 60 Attestation: The patient was critically ill with a high probability of imminent or life- threatening deterioration. I spent greater than 30 minutes of discontinuous time evaluating the patient, delivering critical care at the bedside, discussing evaluating data with consultants. Critical care time does not include time spent performing separately billable procedures or teaching. Time spent performing critical care was 60 minutes. Discharge Plan Discharge Clinical Impression: Acute exacerbation of chronic obstructive airways disease Patient Disposition: Admitted As Inpatient Print Language: Angolan
[2025-06-24] MEDS: Magnesium Sulfate/H2O 2 GM/50 ML PIGGYBACK IV (07:29)
[2025-06-24 07:55] LABS: MANUAL DIFF FLAG NO
[2025-06-24 07:57] LABS: Hematocrit 40.1 % (37.0-47.0); Hemoglobin 12.0 g/dl (12.0-16.0); Imm Gran Abs Auto 0.07 X10*3/uL (0.00-0.03); Imm Gran Pct Auto 0.5 % (0.0-0.4); Lymphocytes Absolute Auto 4.6 X10*3/uL (1.2-4.9); Mean Corpuscular HGB Conc 29.9 g/dl (31.0-35.0); Mean Corpuscular Hemoglobin 28.0 pg (27.0-33.0); Mean Corpuscular Volume 93.7 fL (80.0-98.0); NRBC Abs Auto 0.000 X10*3/uL (0.0-0.012); NRBC Pct Auto 0.0 /100WBC (0.0-0.2); Platelet Count 266 X10*3/uL (160-400); Red Blood Count 4.28 X10*6/uL (4.20-5.50); White Blood Count 14.5 X10*3/uL (4.8-10.8)
[2025-06-24 07:58] LABS: Venous Blood Gas Refer to POC result
[2025-06-24 07:59] LABS: VBG HCO3 45 mmol/L (22-26); VBG O2 % Saturation 92.0 %
[2025-06-24 08:15] LABS: Alanine Aminotransferase 19 U/L (0-31); Albumin Level 3.9 g/dL (3.5-5.0); Alkaline Phosphatase 84 U/L (39-117); Anion Gap 15 (12-20); Aspartate Amino Transferase 19 U/L (5-31); Blood Urea Nitrogen 7 mg/dL (9-16); Calcium 9.2 mg/dL (8.4-10.2); Carbon Dioxide 37 mmol/L (22-29); Chloride 96 mmol/L (96-108); Creatinine Clr Calc Pharmacy 87.7; Estimated Glomerular Filt Rate > 60; Magnesium 2.9 mg/dL (1.6-2.6); Potassium 4.4 mmol/L (3.3-5.1); Sodium 144 mmol/L (135-145); Total Protein 6.8 g/dL (6.5-8.0)
[2025-06-24 08:16] LABS: ~Lactic Acid-LAB USE ONLY 1.5 mmol/L (0.5-2.0)
[2025-06-24 08:19] LABS: B Type Natriuretic Peptide 31 pg/mL (<100)
[2025-06-24 08:22] LABS: Troponin-I High Sensitivity 2.7 ng/L (<3.5-17.0)
--- NOTE | 2025-06-24 10:10 | PM.IMHP ---
History of Present Illness Date of Service: 06/24/25 Chief Complaint: Shortness of 54-year-old female with a history of COPD on home O2 3 L/min, former smoker, bipolar disorder, depression, GERD, PTSD who presents to the ED with progressive dyspnea for 2 days, associated with non productive cough, she she was brought recently. She has been using her inhalers without improvement. His symptoms are worse with activity. When she presented she was noted to be hypoxic with oxygen saturation of 89% oxygen. She has no leg edema, no orthopnea or PND. WBC is 14. Chest x-ray show findings suggestive of airway inflammation versus pulmonary edema. Her BNP level is normal and she has no leg edema all other features of heart failure. She had been treated with IV Solu-Medrol, bronchodilators by nebulizer, IV steroid. She presently feels a little bit better however she remained tachycardic and still on fentanyl off oxygen presently saturating 96% on 6 L. the VBG showed a pCO2 of 82, normal pH, oxygen level of 76. She has been given ceftriaxone and doxycycline as well. Review of Systems Review of Systems: Gen: no fever Resp: no sob, no cough CV: no chest, no [place], no leg edema GI: No n/v, no abd pain Neuro: No confusion Yes all other systems are reviewed and are negative [facility] Medical History Bleeding hemorrhoids Respiratory failure with hypoxia COPD (chronic obstructive pulmonary disease) Morbid obesity with BMI of 50.0-59.9, adult Asthma Nicotine dependence, cigarettes, uncomplicated Acid reflux Depression Family History Mother Crohn disease Brother Colitis Surgical History Status post excision of lipoma History of cholecystectomy History of shoulder surgery History of hysterectomy History of endometrial ablation History of loop electrosurgical excision procedure (LEEP) History of colposcopy Social History Household Members: Spouse Housing: Apartment Do you presently have visiting nurse or other home services: Yes (OPHTHALMIC TECHNOLOGIST services) Alcohol intake: never Patient Tobacco Use Status: Former Tobacco user Tobacco use type: Cigarette Cigarettes Per Day: 1 Years Smoked: (onset 15yo, 1ppd x 38yrs, now 2cig/day - 35pyh) Smoked in Last 30 Days: Yes Second Hand Smoke Exposure: No Substance Use Type: Marijuana Substance Use Frequency: Daily Advance Directives: Yes Advance Directives on File: Yes Advance Directives Date on File: 01/04/22 service: No Current occupational status: unemployed and disabled 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 Cognitive needs: Yes (cane and wheelchair) Hearing needs: No Vision needs: Yes (rx glasses) Meds Allergies Allergy/AdvReac Type Severity Reaction Status Date / Time codeine (CODEINE) Allergy Unknown NAUSEA & Verified 06/24/25 03:40 VOMITING, HIVES Penicillins (PENICILLINS) Allergy Unknown DIFF Verified 06/24/25 03:40 BREATHING, RASH ENVIRONMENTAL Allergy Unknown SOB,WHEEZIN Uncoded 06/24/25 03:40 G Active Medications: Current Medications Acetaminophen (Acetaminophen 325 Mg Tablet) 650 mg PO Q6H PRN PRN Reason: Pain, Mild 1-3,fever,headache Al Hydroxide/Mg Hydroxide (Magnesium Hydrox/Alum Hydrox 30 Ml Oral.Susp) 30 ml PO Q4H PRN PRN Reason: Heartburn Calcium Carbonate (Calcium Carbonate 750 Mg Tab.Chew) 750 mg PO Q4H PRN PRN Reason: Heartburn Levalbuterol HCl 2.5 mg/ (Ipratropium [place] 0.5 mg) 0 mg INHALE RQ4H WHILE AWAKE LUIS Levalbuterol HCl 1.25 mg/ (Ipratropium [place] 0.5 mg) 0 mg INHALE Q2H PRN PRN Reason: Shortness of Breath/Wheezing Enoxaparin Sodium (Enoxaparin Sodium 40 Mg/0.4 Ml Syringe) 40 mg SUBCUT Q24H LUIS Sodium Chloride (Ns) 1,000 mls @ 250 mls/hr IV .Q4H ONE Stop: 06/24/25 13:33 Last Admin: 06/24/25 09:55 Dose: 250 mls/hr Doxycycline Hyclate 100 mg/ (Sodium Chloride) 250 mls @ 166.67 mls/hr IV ONCE ONE Stop: 06/24/25 11:09 Last Admin: 06/24/25 09:53 Dose: 166.67 mls/hr Magnesium Hydroxide (Milk Of Magnesia 30 Ml Oral.Susp) 30 ml PO DAILY PRN PRN Reason: Constipation Melatonin (Melatonin 3 Mg Tablet) 6 mg PO BEDTIME PRN PRN Reason: Insomnia Methylprednisolone Sodium Succinate (Methylprednisolone Sod Succ 125 Mg/2 Ml Vial) 60 mg IVPUSH BID LUIS Ondansetron HCl (Ondansetron Hcl 4 Mg/2 Ml Vial) 4 mg IVPUSH Q8H PRN PRN Reason: Nausea and Vomiting Polyethylene Glycol (Polyethylene Glycol 3350 17 Gm Powd.Pack) 17 gm PO DAILY PRN PRN Reason: Constipation Sodium Chloride (0.9 % Sodium Chloride Flush 3 Ml Syringe) 3 ml IVFLUSH QSHIFT [facility] Home Medications ?Medication ?Instructions ?Recorded ?Confirmed ?Last Taken ?Type quetiapine 200 mg tablet,extended 200 mg PO BEDTIME 10/14/20 06/15/25 08/17/24 History release 24 hr risperidone 2 mg tablet 2 mg PO BEDTIME 10/14/20 06/15/25 08/17/24 History gabapentin 600 mg tablet 1,200 mg PO TID 12/15/20 06/15/25 08/17/24 History naproxen sodium 220 mg tablet 220 mg PO BID Pain 01/03/22 06/15/25 Unknown History montelukast 10 mg tablet 10 mg PO DAILY Allergy Symptoms 08/19/24 06/15/25 Unknown History umeclidinium 62.5 mcg/actuation 1 inh inhalation DAILY 06/24/25 Unknown History blister powder for inhalation (Incruse Ellipta) Physical Exam Vital Signs and Narrative: Vital Signs: Last Vital Signs Temp 99.4 F 06/24/25 07:55 Pulse 113 H 06/24/25 07:55 Resp 22 H 06/24/25 07:55 BP 106/58 L 06/24/25 07:55 Pulse Ox 91 L 06/24/25 07:55 O2 Del Method Oxymask 06/24/25 07:55 O2 Flow Rate 6 06/24/25 07:55 BMI result Body Mass Index 35.8 Const: Other: General: AO X 3, no acute distress Resp: Decreased air entry bilaterally, no accessory muscle. CVS: S1,S2,RRR, no leg edema, no JVD GI: +BS, NT, no distention Skin: No rash Neuro: motor grossly intact Psych: appropriate affect Results Labs 06/24/25 07:45 06/24/25 07:45 Labs: Laboratory Results - last 24 hr 06/24/25 06/24/25 06/24/25 07:45 07:51 07:55 MCV 93.7 MCH 28.0 MCHC 29.9 L RDW 14.6 Plt Count 266 D MPV 11.8 Immature Gran % (Auto) 0.5 H Neut % (Auto) 56.6 Lymph % (Auto) 32.0 [place] % (Auto) 5.5 Eos % (Auto) 4.6 H Baso % (Auto) 0.8 Lymph # (Auto) 4.6 [place] # (Auto) 0.8 Eos # (Auto) 0.7 H Baso # (Auto) 0.1 Abs Immat Gran (auto) 0.07 H Absolute Neuts (auto) 8.2 Absolute Nucleated RBC 0.000 Nucleated RBC % (auto) 0.0 VBG pH 7.35 VBG pCO2 82 VBG pO2 76 VBG HCO3 45 H VBG O2 Saturation 92.0 VBG Base Excess 15.7 Anion Gap 15 Estim Creat Clear Calc 87.7 Estimated GFR > 60 Random Glucose 151 H Lactic Acid F/U @ 2Hr 1.5 Calcium 9.2 Magnesium 2.9 H Total Bilirubin 0.4 AST 19 ALT 19 Alkaline Phosphatase 84 B-Natriuretic Peptide 31 Total Protein 6.8 Albumin 3.9 Imaging Radiologist's Impressions: Impressions Chest X-Ray 06/24/25 06:19 IMPRESSION: Pulmonary edema versus acute small airway inflammatory processes. Small volume left sided pleural effusion. Concerning calcific tendinosis/tendinopathy, left supraspinatus. Electronically signed by: Martell Chauhan MD 06/24/2025 07:47 AM EDT Assessment and Plan (1) Acute exacerbation of chronic obstructive airways disease: Status: Acute (2) Respiratory failure with hypoxia: Status: Acute Plan 54-year-old female with a history of COPD on home O2 3 L/min, former smoker, bipolar disorder, depression, GERD, PTSD who presents to the ED with progressive dyspnea for 2 days, associated with non productive cough, and is admitted for copd exacerbation, sepsis and acute hypercarbic and hypoxic respiratory failure. Acute hypercarbic, and Hypoxic respiratory failure due to COPD exacerbation -Bronchodilators by Nebs (Xopenex) in light of tachycardia -IV steroid -Azithromcyin for pleotropic effec, Ceftriaxone--for airway imflamatory process, inc wbc -Keep Oxygen around 88 to 92 % -BiPAP if decompendsate PTSD/Depression/Anxiety continue once med rec completed Leukocytosis--possibly reactive vs from airway imflamation GERD omeprazole Lovenox for DVT prophy Full Code regular diet. Quality Stroke Does the patient have a stroke diagnosis?: No VTE Prior VTE?: No VTE Risk Level:: Medical - moderate - high VTE Device Contraindication: Treatment Not Indicated VTE Drug Contraindication: N/A - Med Ordered
--- NOTE | 2025-06-24 10:34 | PC.NURSE ---
Pt BIBA earlier this morning for increased shortness of breath. Shes alert and oriented. reports being on 3L O2 at home with a baseline spO2 88%. Also reports a non-productive cough with chest pain. Currently on an oxymask at 6L, spO2 at 94-96% and pt reports having some relief. Breath sounds slightly diminished bilat. Skin p/w/d. Sinus tach on tele. Pt medicated as charted, via 22g IV in her right forearm. Plan of care ongoing.
--- NOTE | 2025-06-24 10:46 | PHA.MEDREC ---
Addendum entered by Bharat Hayward PharmD 06/24/25 10:51: reviewed Original Note: Pharmacy Consult ? Medication Reconciliation Pharmacy has completed the medication reconciliation. Spoke to patient to confirm med list. Patient was able to confirm all her medications. Patient reports she has been on both Symbicort and Incruse Ellipta. Patient last had her medications yesterday.
--- NOTE | 2025-06-24 11:31 | PC.NURSE ---
IV pumps alarming, pt states discomfort above IV site, Ronny RN to assist with u/s IV site as pt if difficult stick. Fluids and abx still infusing d/t IV site. Pt remains ST on tele. Oxy mask remains in place. other VSS. Assisted onto bedpan x 2 for bowel movement
--- NOTE | 2025-06-24 15:05 | PC.NURSE ---
Pt remains tachy in 120-130s, tachypneic, pursed-lipped breathing and states she is feeling more short of breath. spO2 maintaining 94-96% on 6L via oxymask. MD made aware. Plan for ABG, question bipap and ICU transfer.
[2025-06-24 15:08] LABS: ABG HCO3 43 mmol/L (22-26); ABG O2 % Saturation 62.0 %
--- NOTE | 2025-06-24 16:35 | PC.NURSE ---
Pt assessed by Dr Mason after refusing bipap x 3 attempts. )[address] Mason back to baseline 3lpm via nc and states pt okay to not have bipap at this time. Will be admitted to medical floor.
--- NOTE | 2025-06-24 18:59 | PC.NURSE ---
this rn assumed care of pt, pt sitting up in stretcher eating dinner, pt offers no complaints at this time, vss
[2025-06-24] MEDS: Psyllium seed 3.7 GM PACKET PO (21:57)
[2025-06-24] MEDS: Hydrocortisone 1 % Ointment 28.35 GM TUBE 1 APPL TOPICAL (21:57)
[2025-06-24] MEDS: diazePAM 10 MG/2 ML CARTRIDGE 2.5 MG IVPUSH (21:58)
--- NOTE | 2025-06-24 22:10 | PC.NURSE ---
pt noted to be labored, struggling to breath and intermittent 84%, aware, per dr.vali rick pt and place pt on bipap. RT at bedside, pt placed on bipap and tolerating well at this time . pt 88%.
[2025-06-25] VITALS (16 sets, daily range): BP systolic 106–147; BP diastolic 61–88; PULSE 101–138; RESP 17–29; TEMP 36.2–36.9; O2SAT 88–97; BMI 34.8
--- NOTE | 2025-06-25 01:16 | PC.NURSE ---
pt noted to be tachycardic 140 and hypoxic 83%, rt and called to bedside, pt BIPAP fio2 to 35.
[2025-06-25 03:41] LABS: ABG Refer to POC result
[2025-06-25 06:23] LABS: Alanine Aminotransferase 18 U/L (0-31); Albumin Level 3.9 g/dL (3.5-5.0); Alkaline Phosphatase 76 U/L (39-117); Anion Gap 11 (12-20); Aspartate Amino Transferase 17 U/L (5-31); Blood Urea Nitrogen 11 mg/dL (9-16); Calcium 9.3 mg/dL (8.4-10.2); Carbon Dioxide 35 mmol/L (22-29); Chloride 99 mmol/L (96-108); Creatinine Clr Calc Pharmacy 104.6; Estimated Glomerular Filt Rate > 60; Potassium 4.2 mmol/L (3.3-5.1); Sodium 141 mmol/L (135-145); Total Protein 6.6 g/dL (6.5-8.0)
--- NOTE | 2025-06-25 06:35 | PM.EVENT ---
Event Note Date of Service: 06/25/25 Event Note: Patient required BiPAP overnight with improvement in tachycardia and tachypnea. Will repeat VBG this a.m. Time Spent With Patient Time: Total time managing care of this patient today ____ minutes.
--- NOTE | 2025-06-25 07:32 | PC.NURSE ---
Pt taken off bipap per RT and placed on 4 ltr Oxymask; pt 90%; HR 140; RR 18; pt speaking full sentences at this time; awaiting bed for admission
[2025-06-25] MEDS: dilTIAZem HCL CD 120 MG CAP.ER.DEG PO (08:34)
[2025-06-25 08:40] LABS: VBG HCO3 35 mmol/L (22-26); VBG O2 % Saturation 98.0 %
[2025-06-25 08:41] LABS: Venous Blood Gas Refer to POC result
[2025-06-25] MEDS: Tiotropium Bromide 2.5 mcg 1 PUFF/2.5 MCG MIST.INHAL 2 PUFF INHALE (08:52)
[2025-06-25] MEDS: Fluticasone/Vilanterol 200/25 BLST.W.DEV 1 PUFF INHALE (08:53)
--- NOTE | 2025-06-25 09:21 | MHC.CM.PN ---
Pt. 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 HCP is : Ozzie, on file and confirmed. For DME, pt. has home O2 from [employer], and a commode. PCP was Dr. Helena CM to call to find out who she has been assisgned to at that office. Pt. is able to arrange transport home at [place], DCP: home, self care. CM to follow for DC needs.
[2025-06-25] MEDS: 0.9 % Sodium Chloride Flush 3 ML SYRINGE IVFLUSH ×3 (12:12→23:31)
--- NOTE | 2025-06-25 12:49 | PM.CNPUL ---
History of Present Illness History of Present Illness Consult date: 06/25/25 Chief complaint: Diff Breathing Narrative: This is an inpatient pulmonary consultation. The patient is a 54-year-old female with a history of COPD on home O2 3 L/min, active smoker, bipolar disorder, depression, GERD, PTSD who presents to the ED with progressive dyspnea for 2 days, associated with non productive cough, she she was brought recently. She has been using her inhalers without improvement. His symptoms are worse with activity. When she presented she was noted to be hypoxic with oxygen saturation of 89% oxygen. She has no leg edema, no orthopnea or PND. WBC is 14. Chest x-ray, personally reviewed by me, show findings suggestive of airway inflammation. She had been treated with IV Solu-Medrol, bronchodilators by nebulizer, IV steroid. She presently feels a little bit better however she remained tachycardic and still on fentanyl off oxygen presently saturating 96% on 6 L. the VBG showed a pCO2 of 82, normal pH, oxygen level of 76. She has been given ceftriaxone and doxycycline as well. After being on BiPAP she had a repeat blood gas demonstrating normalization of the CO2. Currently feels better back to her 3 L of oxygen. She wants to go home. This point she is still tachycardic. She is going to be followed closely by hospitalist service. From a pulmonary standpoint she is doing better she may be discharged once her other conditions are stable she will follow closely with outpatient Pulmonary. She will benefit from a sleep study to assess for hypercarbic respiratory failure. Review of Systems Review of Systems: Gen: no fever Resp: no sob, +wheezing, + cough CV: no chest, no [place], no leg edema GI: No n/v, no abd pain Neuro: No confusion Yes all other systems are reviewed and are negative [facility] Past Medical History Medical History Bleeding hemorrhoids Respiratory failure with hypoxia COPD (chronic obstructive pulmonary disease) Morbid obesity with BMI of 50.0-59.9, adult Asthma Nicotine dependence, cigarettes, uncomplicated Acid reflux Depression Family History Family History Mother Crohn disease Brother Colitis Surgical History Surgical History Status post excision of lipoma History of cholecystectomy History of shoulder surgery History of hysterectomy History of endometrial ablation History of loop electrosurgical excision procedure (LEEP) History of colposcopy Social History Social History Household Members: Spouse Housing: Apartment Do you presently have visiting nurse or other home services: Yes (ASSISTANT DIRECTOR OF FINANCIAL AID services) Alcohol intake: never Patient Tobacco Use Status: Former Tobacco user Tobacco use type: Cigarette Cigarettes Per Day: 1 Years Smoked: (onset 15yo, 1ppd x 38yrs, now 2cig/day - 35pyh) Smoked in Last 30 Days: Yes Second Hand Smoke Exposure: No Substance Use Type: Marijuana Substance Use Frequency: Daily Advance Directives: Yes Advance Directives on File: Yes Advance Directives Date on File: 01/04/22 Nutrition Risks: No Nutritional Risk service: No Current occupational status: unemployed and disabled 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 Cognitive needs: Yes (cane and wheelchair) Hearing needs: No Vision needs: Yes (rx glasses) Meds Allergies Allergy/AdvReac Type Severity Reaction Status Date / Time codeine (CODEINE) Allergy Unknown NAUSEA & Verified 06/24/25 03:40 VOMITING, HIVES Penicillins (PENICILLINS) Allergy Unknown DIFF Verified 06/24/25 03:40 BREATHING, RASH ENVIRONMENTAL Allergy Unknown SOB,WHEEZIN Uncoded 06/24/25 03:40 G Active Medications: Current Medications Acetaminophen (Acetaminophen 325 Mg Tablet) 650 mg PO Q6H PRN PRN Reason: Pain, Mild 1-3,fever,headache Al Hydroxide/Mg Hydroxide (Magnesium Hydrox/Alum Hydrox 30 Ml Oral.Susp) 30 ml PO Q4H PRN PRN Reason: Heartburn Atorvastatin Calcium (Atorvastatin Calcium 20 Mg Tablet) 20 mg PO DAILY [facility] Last Admin: 06/25/25 08:35 Dose: 20 mg Calcium Carbonate (Calcium Carbonate 750 Mg Tab.Chew) 750 mg PO Q4H PRN PRN Reason: Heartburn Diltiazem HCl (Diltiazem Hcl Cd 120 Mg Cap.Er.Deg) 120 mg PO DAILY [facility]; Protocol Last Admin: 06/25/25 08:34 Dose: 120 mg Enoxaparin Sodium (Enoxaparin Sodium 40 Mg/0.4 Ml Syringe) 40 mg SUBCUT Q24H LUIS Last Admin: 06/25/25 12:12 Dose: 40 mg Fluticasone/Vilanterol (Fluticasone/Vilanterol 200/25 Blst.W.Dev) 1 puff INHALE RDAILY [facility] Last Admin: 06/25/25 08:53 Dose: 1 puff Gabapentin (Gabapentin 600 Mg Tablet) 1,200 mg PO TID [facility] Last Admin: 06/25/25 08:35 Dose: 1,200 mg Hydrocortisone (Hydrocortisone 1 % Ointment 28.35 Gm Tube) 1 appl TOPICAL BEDTIME [facility]; Protocol Last Admin: 06/24/25 21:57 Dose: 1 appl Levalbuterol HCl (Levalbuterol Hcl 1.25 Mg/3 Ml Vial.Neb) 1.25 mg INHALE RQ4H WHILE AWAKE [facility] Last Admin: 06/25/25 01:03 Dose: 1.25 mg Levalbuterol HCl (Levalbuterol Hcl 1.25 Mg/3 Ml Vial.Neb) 1.25 mg INHALE Q2H PRN PRN Reason: Shortness of Breath/Wheezing Last Admin: 06/25/25 11:32 Dose: 1.25 mg Magnesium Hydroxide (Milk Of Magnesia 30 Ml Oral.Susp) 30 ml PO DAILY PRN PRN Reason: Constipation Melatonin (Melatonin 3 Mg Tablet) 6 mg PO BEDTIME PRN PRN Reason: Insomnia Methylprednisolone Sodium Succinate (Methylprednisolone Sod Succ 125 Mg/2 Ml Vial) 60 mg IVPUSH BID [facility] Last Admin: 06/25/25 08:34 Dose: 60 mg Montelukast Sodium (Montelukast Sodium 10 Mg Tablet) 10 mg PO DAILY [facility] Last Admin: 06/25/25 08:35 Dose: 10 mg Omeprazole (Omeprazole 40 Mg Capsule.Dr) 40 mg PO DAILY [facility] Last Admin: 06/25/25 08:36 Dose: 40 mg Ondansetron HCl (Ondansetron Hcl 4 Mg/2 Ml Vial) 4 mg IVPUSH Q8H PRN PRN Reason: Nausea and Vomiting Polyethylene Glycol (Polyethylene Glycol 3350 17 Gm Powd.Pack) 17 gm PO DAILY PRN PRN Reason: Constipation Psyllium Hydrophilic Mucilloid (Psyllium Seed 3.7 Gm Packet) 3.7 gm PO BID [facility] Last Admin: 06/25/25 08:36 Dose: Not Given Quetiapine Fumarate (Quetiapine Fumarate 100 Mg Tablet) 100 mg PO BID [facility] Last Admin: 06/25/25 08:35 Dose: 100 mg Risperidone (Risperidone 2 Mg Tablet) 2 mg PO BEDTIME [facility] Last Admin: 06/24/25 21:58 Dose: 2 mg Senna (Sennosides 8.6 Mg Tablet) 17.2 mg PO DAILY [facility] Last Admin: 06/25/25 08:35 Dose: 17.2 mg Sodium Chloride (0.9 % Sodium Chloride Flush 3 Ml Syringe) 3 ml IVFLUSH QSHIFT [facility] Last Admin: 06/25/25 12:12 Dose: 3 ml Tiotropium [place] (Tiotropium [place] 2.5 Mcg 1 Puff/2.5 Mcg Mist.Inhal) 2 puff INHALE RDAILY [facility] Last Admin: 06/25/25 08:52 Dose: 2 puff Vitamin D (Cholecalciferol (Vitamin D3) 25 Mcg Tablet) 50 mcg PO DAILY [facility] Last Admin: 06/25/25 08:35 Dose: 50 mcg Home Medications ?Medication ?Instructions ?Recorded ?Confirmed ?Last Taken ?Type quetiapine 200 mg tablet,extended 200 mg PO BEDTIME 10/14/20 06/24/25 06/23/25 History release 24 hr risperidone 2 mg tablet 2 mg PO BEDTIME 10/14/20 06/24/25 06/23/25 History gabapentin 600 mg tablet 1,200 mg PO TID 12/15/20 06/24/25 06/23/25 History montelukast 10 mg tablet 10 mg PO DAILY Allergy Symptoms 08/19/24 06/24/25 06/23/25 History umeclidinium 62.5 mcg/actuation 1 inh inhalation DAILY 06/24/25 06/24/25 06/23/25 History blister powder for inhalation (Incruse Ellipta) Physical Exam Vital Signs: Vital Signs: Last Vital Signs Temp 97.3 F 06/25/25 06:26 Pulse 115 H 06/25/25 12:26 Resp 20 06/25/25 12:26 BP 106/64 06/25/25 12:26 Pulse Ox 97 06/25/25 12:26 O2 Del Method Oxymask 06/25/25 12:26 O2 Flow Rate 3 06/25/25 12:26 FiO2 35 06/25/25 01:04 BMI result Body Mass Index 35.8 Const: General: no acute distress, alert and awake Orientation/consciousness: patient oriented x3 HEENT: General nose exam: No nasal discharge present Eyes: General: appearance normal, both eyes and all related structures Neck: Neck: Yes trachea midline Chest: Chest palpation & inspection: normal inspection of the chest Resp: Effort & Inspection: normal respiratory effort Auscultation: diminished lung sounds Cardio: Palpation: normal PMI Rate: tachycardic (HR 100 TO 120 BP IS A LITTLE LOW. ) Heart sounds: no murmurs GI: Palpation (GI): Soft to palpation Back/Spine/Pelvis: Thoracic/Lumbar Spine: thoracic and lumbar spine normal to inspection Skin: General skin exam: no rashes or lesions noted Neuro: General: patient oriented x3 and no focal motor deficits Cranial nerves: Yes CN's II-XII intact bilaterally Extrem: General: Yes normal to inspection, Yes no clubbing, cyanosis or edema and Yes no calf tenderness Psych: Appearance: grossly normal Results Laboratory Findings 06/24/25 07:45 06/25/25 05:18 Abnormal lab findings: Abnormal Labs 06/24/25 06/24/25 06/24/25 07:45 07:55 15:05 WBC 14.5 H MCHC 29.9 L Immature Gran % (Auto) 0.5 H Eos % (Auto) 4.6 H Eos # (Auto) 0.7 H Abs Immat Gran (auto) 0.07 H ABG pCO2 at Pt Temp 76 H* ABG pO2 at Pt Temp 42 L* ABG HCO3 43 H VBG pH VBG HCO3 45 H Carbon Dioxide 37 H Anion Gap BUN 7 L Random Glucose 151 H Magnesium 2.9 H 06/25/25 06/25/25 05:18 08:35 WBC MCHC Immature Gran % (Auto) Eos % (Auto) Eos # (Auto) Abs Immat Gran (auto) ABG pCO2 at Pt Temp ABG pO2 at Pt Temp ABG HCO3 VBG pH 7.48 H VBG HCO3 35 H Carbon Dioxide 35 H Anion Gap 11 L BUN Random Glucose 202 H Magnesium Microbiology: Microbiology 06/24/25 07:51 Blood - Venous Blood Culture - Preliminary No growth after 24 hours. 06/24/25 07:51 Blood - Venous Blood Culture - Preliminary No growth after 24 hours. Assessment and Plan (1) Acute respiratory failure with hypoxia and hypercarbia: Status: Acute (2) Acute exacerbation of chronic obstructive airways disease: Status: Acute (3) Nicotine dependence, cigarettes, uncomplicated: Status: Acute Plan Continue Prednisone taper respiratory therapy nebs avoid opiods consider outpt inlab sleep study with end tidal CO2 monitoring F/U with outpt pulmonary Procedures Date of Service Date of Service: 06/25/25
--- NOTE | 2025-06-25 14:01 | MHC.CM.PN ---
Patient is requesting a referral to NA; CM will continue to follow.
--- NOTE | 2025-06-25 18:09 | HO.PM.IMPN ---
Subjective Subjective Date of Service: 06/25/25 Interval History: copd execerebation Review of Systems ovenright events noted required bipap at night Review of Systems: Yes all other systems are reviewed and are negative Physical Exam Exam: Exam: Appearance: Alert.? Oriented X3.? cvs: rrr, [id number] . res: air entry diminshed ,has b/l wheezing abd: no rebound or guarding ,nt, bs present. ext pulses present , no cyanosis. neuro: axo3 , nonfocal. Vital Signs: Vital Signs: Last Vital Signs Temp 98.5 F 06/25/25 15:06 Pulse 108 H 06/25/25 15:17 Resp 20 06/25/25 15:17 BP 115/68 06/25/25 15:06 Pulse Ox 92 06/25/25 15:06 O2 Del Method Nasal Cannula 06/25/25 15:06 O2 Flow Rate 3 06/25/25 15:06 FiO2 35 06/25/25 01:04 BMI result Body Mass Index 34.8 Objective Data Active Medications Acetaminophen (Acetaminophen 325 Mg Tablet) 650 mg PO Q6H PRN PRN Reason: Pain, Mild 1-3,fever,headache Al Hydroxide/Mg Hydroxide (Magnesium Hydrox/Alum Hydrox 30 Ml Oral.Susp) 30 ml PO Q4H PRN PRN Reason: Heartburn Atorvastatin Calcium (Atorvastatin Calcium 20 Mg Tablet) 20 mg PO DAILY [facility] Last Admin: 06/25/25 08:35 Dose: 20 mg Documented By: TODD Calcium Carbonate (Calcium Carbonate 750 Mg Tab.Chew) 750 mg PO Q4H PRN PRN Reason: Heartburn Diltiazem HCl (Diltiazem Hcl Cd 120 Mg Cap.Er.Deg) 120 mg PO DAILY [facility]; Protocol Last Admin: 06/25/25 08:34 Dose: 120 mg Documented By: TODD Enoxaparin Sodium (Enoxaparin Sodium 40 Mg/0.4 Ml Syringe) 40 mg SUBCUT Q24H [facility] Last Admin: 06/25/25 12:12 Dose: 40 mg Documented By: TODD Fluticasone/Vilanterol (Fluticasone/Vilanterol 200/25 Blst.W.Dev) 1 puff INHALE RDAILY [facility] Last Admin: 06/25/25 08:53 Dose: 1 puff Documented By: ZULMA Gabapentin (Gabapentin 600 Mg Tablet) 1,200 mg PO TID [facility] Last Admin: 06/25/25 14:33 Dose: 1,200 mg Documented By: SUDHAKAR Hydrocortisone (Hydrocortisone 1 % Ointment 28.35 Gm Tube) 1 appl TOPICAL BEDTIME [facility]; Protocol Last Admin: 06/24/25 21:57 Dose: 1 appl Documented By: LILLIAN Levalbuterol HCl (Levalbuterol Hcl 1.25 Mg/3 Ml Vial.Neb) 1.25 mg INHALE RQ4H WHILE AWAKE [facility] Last Admin: 06/25/25 15:11 Dose: 1.25 mg Documented By: BHASKAR Levalbuterol HCl (Levalbuterol Hcl 1.25 Mg/3 Ml Vial.Neb) 1.25 mg INHALE Q2H PRN PRN Reason: Shortness of Breath/Wheezing Last Admin: 06/25/25 11:32 Dose: 1.25 mg Documented By: ZULMA Magnesium Hydroxide (Milk Of Magnesia 30 Ml Oral.Susp) 30 ml PO DAILY PRN PRN Reason: Constipation Melatonin (Melatonin 3 Mg Tablet) 6 mg PO BEDTIME PRN PRN Reason: Insomnia Methylprednisolone Sodium Succinate (Methylprednisolone Sod Succ 125 Mg/2 Ml Vial) 60 mg IVPUSH BID [facility] Last Admin: 06/25/25 08:34 Dose: 60 mg Documented By: TODD Montelukast Sodium (Montelukast Sodium 10 Mg Tablet) 10 mg PO DAILY [facility] Last Admin: 06/25/25 08:35 Dose: 10 mg Documented By: TODD Omeprazole (Omeprazole 40 Mg Capsule.) 40 mg PO DAILY [facility] Last Admin: 06/25/25 08:36 Dose: 40 mg Documented By: TODD Ondansetron HCl (Ondansetron Hcl 4 Mg/2 Ml Vial) 4 mg IVPUSH Q8H PRN PRN Reason: Nausea and Vomiting Polyethylene Glycol (Polyethylene Glycol 3350 17 Gm Powd.Pack) 17 gm PO DAILY PRN PRN Reason: Constipation Psyllium Hydrophilic Mucilloid (Psyllium Seed 3.7 Gm Packet) 3.7 gm PO BID [facility] Last Admin: 06/25/25 08:36 Dose: Not Given Documented By: TODD Non-Admin Reason: Patient Refused Quetiapine Fumarate (Quetiapine Fumarate 100 Mg Tablet) 100 mg PO BID [facility] Last Admin: 06/25/25 08:35 Dose: 100 mg Documented By: TODD Risperidone (Risperidone 2 Mg Tablet) 2 mg PO BEDTIME [facility] Last Admin: 06/24/25 21:58 Dose: 2 mg Documented By: LILLIAN Senna (Sennosides 8.6 Mg Tablet) 17.2 mg PO DAILY [facility] Last Admin: 06/25/25 08:35 Dose: 17.2 mg Documented By: TODD Sodium Chloride (0.9 % Sodium Chloride Flush 3 Ml Syringe) 3 ml IVFLUSH QSHIFT [facility] Last Admin: 06/25/25 14:34 Dose: 3 ml Documented By: SUDHAKAR Tiotropium Moore (Tiotropium Moore 2.5 Mcg 1 Puff/2.5 Mcg Mist.Inhal) 2 puff INHALE RDAILY [facility] Last Admin: 06/25/25 08:52 Dose: 2 puff Documented By: ZULMA Vitamin D (Cholecalciferol (Vitamin D3) 25 Mcg Tablet) 50 mcg PO DAILY [facility] Last Admin: 06/25/25 08:35 Dose: 50 mcg Documented By: TODD Labs 06/24/25 07:45 06/25/25 05:18 Labs: Laboratory Results - last 24 hr 06/25/25 06/25/25 05:18 08:35 VBG pH 7.48 H VBG pCO2 47 VBG pO2 124 VBG HCO3 35 H VBG O2 Saturation 98.0 VBG Base Excess 10.0 Anion Gap 11 L Estim Creat Clear Calc 104.6 Estimated GFR > 60 Random Glucose 202 H Calcium 9.3 Total Bilirubin 0.3 AST 17 ALT 18 Alkaline Phosphatase 76 Total Protein 6.6 Albumin 3.9 Microbiology Microbiology Results: Microbiology 06/24/25 07:51 Blood Culture - Preliminary Blood - Venous No growth after 24 hours. 06/24/25 07:51 Blood Culture - Preliminary Blood - Venous No growth after 24 hours. Assessment and Plan (1) COPD (chronic obstructive pulmonary disease): Status: Acute Plan 54-year-old female with a history of COPD on home O2 3 L/min, former smoker, bipolar disorder, depression, GERD, PTSD who presents to the ED with progressive dyspnea for 2 days, associated with non productive cough, and is admitted for copd exacerbation, sepsis and acute hypercarbic and hypoxic respiratory failure. Acute hypercarbic, and Hypoxic respiratory failure due to COPD exacerbation blood gases reviewed fromlast night -improving sob improving startd on nebs ,IV steroid, brief use of bipap due to copd (not due to sepsis) doxy/ Ceftriaxone--for airway imflamatory process, inc wbc Keep Oxygen around 88 to 92 % PTSD/Depression/Anxiety continue once med rec completed Leukocytosis--possibly reactive vs from airway imflamation GERD omeprazole Lovenox for DVT prophy Full Code regular diet. ongoing need for stay:yany hypercarbic, and Hypoxic respiratory failure due to COPD exacerbation -needs nebs,steriods , respiratory status is not optimal yet. Quality Stroke Does the patient have a stroke diagnosis?: No VTE Prior VTE?: No VTE Risk Level:: Medical - moderate - high VTE Device Contraindication: Treatment Not Indicated VTE Drug Contraindication: N/A - Med Ordered
[2025-06-25] MEDS: Psyllium seed 3.7 GM PACKET PO (20:54)
[2025-06-25] MEDS: Hydrocortisone 1 % Ointment 28.35 GM TUBE 1 APPL TOPICAL (21:39)
[2025-06-26 03:24] VITALS: BP 125/67; PULSE 100; RESP 19; TEMP 36.3; O2SAT 92
[2025-06-26 07:12] VITALS: BP 138/74; PULSE 112; RESP 16; TEMP 36.3; O2SAT 92
[2025-06-26] MEDS: Fluticasone/Vilanterol 200/25 BLST.W.DEV 1 PUFF INHALE (07:53)
[2025-06-26] MEDS: Tiotropium Bromide 2.5 mcg 1 PUFF/2.5 MCG MIST.INHAL 2 PUFF INHALE (07:53)
[2025-06-26 07:54] VITALS: PULSE 105; RESP 20; O2SAT 93
[2025-06-26] MEDS: dilTIAZem HCL CD 120 MG CAP.ER.DEG PO (08:43)
[2025-06-26] MEDS: Psyllium seed 3.7 GM PACKET PO (08:44)
[2025-06-26] MEDS: 0.9 % Sodium Chloride Flush 3 ML SYRINGE IVFLUSH (08:44)
[2025-06-26 11:11] VITALS: PULSE 97; RESP 22; O2SAT 95
[2025-06-26 11:12] VITALS: BP 137/84; PULSE 104; RESP 18; TEMP 36.4; O2SAT 96
--- NOTE | 2025-06-26 11:42 | MHC.CM.PN ---
Pt is medically cleared for discharge home with resumption of previous [employer] services and home O2 through [employer], pt will transport home via BLS/[facility].
--- NOTE | 2025-06-26 11:44 | PM.DS ---
DS: Providers Provider Date of Service: 06/26/25 Date of admission: 06/24/25 09:52 Date of discharge: 06/26/25 Primary care physician: PATRIC Gayle Consults: 06/24/25 14:50 Consult to Pulmonology Routine Consulting Provider: [facility] [place] [place] Pulmonology Services Reason for consultation: severe copd Attending physician on discharge: Mary Gill Discharging clinician: Mary Gill DS: Diagnosis Discharge Diagnosis (1) COPD (chronic obstructive pulmonary disease): Status: Acute DS: Summary Hospital Course Hospital Course: HPI:54-year-old female with a history of COPD on home O2 3 L/min, former smoker, bipolar disorder, depression, GERD, PTSD who presents to the ED with progressive dyspnea for 2 days, associated with non productive cough, she she was brought recently. She has been using her inhalers without improvement. His symptoms are worse with activity. When she presented she was noted to be hypoxic with oxygen saturation of 89% oxygen. She has no leg edema, no orthopnea or PND. WBC is 14. Chest x-ray show findings suggestive of airway inflammation versus pulmonary edema. Her BNP level is normal and she has no leg edema all other features of heart failure. She had been treated with IV Solu-Medrol, bronchodilators by nebulizer, IV steroid. She presently feels a little bit better however she remained tachycardic and still on fentanyl off oxygen presently saturating 96% on 6 L. the VBG showed a pCO2 of 82, normal pH, oxygen level of 76. She has been given ceftriaxone and doxycycline as well. Hospital course: 54-year-old female with a history of COPD on home O2 3 L/min, former smoker, bipolar disorder, depression, GERD, PTSD who presents to the ED with progressive dyspnea for 2 days, associated with non productive cough, and is admitted for copd exacerbation, sepsis and acute hypercarbic and hypoxic respiratory failure: cxr:Pulmonary edema versus acute small airway inflammatory processes, mild leukocytosis . Patient was started on nebs, steroids, antibiotics: Seems to be improved with the above management, not hypoxic, asymptomatic. Patient will be going home with p.o. prednisone, Ceftin, doxycycline. Plan: Prednisone 40 mg daily for 4 days. Ceftin 500 mg p.o. b.i.d. for 6 days as well as doxycycline 100 mg p.o. b.i.d. for 6 days. Continue home oxygen, follow up with Pulmonary outpatient. follow up sleep study results with dr torres's office. Above management discussed with the patient in detail length she understand and in agreement with the above plan, time spent 45 minute. All questions answered. Time Attestation Total time managing care of this patient today: 45 mintues. Discharge Coordination Time (in mins): 45 min Quality: Safe Use of Opioids Does Pt have an Active Cancer Diagnosis on the Problem List?: No Quality: Stroke Does the patient have a stroke diagnosis?: No Physical Exam Exam: Exam: Appearance: Alert.? Oriented X3.? cvs: rrr, [id number] . res: clear to auscultation ,no rhonchii or wheezing abd: no rebound or guarding ,nt, bs present. ext pulses present , no cyanosis . neuro: axo3 , nonfocal. Vital Signs: Vital Signs: Last Vital Signs Temp 97.6 F 06/26/25 11:12 Pulse 104 H 06/26/25 11:12 Resp 18 06/26/25 11:12 BP 137/84 06/26/25 11:12 Pulse Ox 96 06/26/25 11:12 O2 Del Method Nasal Cannula 06/26/25 11:12 O2 Flow Rate 3 06/26/25 11:12 FiO2 35 06/25/25 01:04 BMI result Body Mass Index 34.8 DS: Data Data Completed and Pending Completed studies during hospitalization [Text1]: Procedures Assistance with Respiratory Ventilation, Less than 24 Consecutive Hours, Continuous Positive Airway Pressure (01/03/22) Labs on day of discharge: Preliminary micro results at discharge 06/24/25 07:51 Blood Culture - Preliminary Blood - Venous No growth after 48 hours. 06/24/25 07:51 Blood Culture - Preliminary Blood - Venous No growth after 48 hours. Imaging Chest x-ray: Radiologist's impression: ITS Impressions Chest X-Ray 06/24/25 06:19 IMPRESSION: Pulmonary edema versus acute small airway inflammatory processes. Small volume left sided pleural effusion. Concerning calcific tendinosis/tendinopathy, left supraspinatus. Electronically signed by: Martell Chauhan MD 06/24/2025 07:47 AM EDT Discharge Plan Discharge Anticipated Discharge Date/Time: 06/26/25 11:23 Patient Disposition: Home, Self-Care Discharge Diagnosis: copd exacerbation Referrals: Miriam Frazier PA [Primary Care Provider, Internal Medicine] - 1 Week Discharge Medications: New doxycycline monohydrate 100 mg Capsule 100 mg PO Q12H Qty: 12 0RF cefuroxime axetil 500 mg Tablet 500 mg PO Q24H Qty: 12 0RF prednisone 20 mg tablet 40 mg PO DAILY Qty: 8 0RF Continued albuterol sulfate [Ventolin HFA] 90 mcg/actuation HFA aerosol inhaler 2 puff inhalation Q4-6H PRN (Reason: for wheezing) Qty: 18 3RF sennosides [senna] 8.6 mg tablet 17.2 mg PO DAILY 90 Days Qty: 180 0RF budesonide-formoterol [Symbicort] 160-4.5 mcg/actuation HFA aerosol inhaler 2 puff PO BID Qty: 10.2 4RF (DME) Aerochamber Mechanical Vent Spacer See Rx Instructions .Route Qty: 50 1RF Rx Instructions: As directed albuterol sulfate 2.5 mg /3 mL (0.083 %) solution for nebulization 2.5 mg inhalation Q4-6H Qty: 180 4RF hydrocortisone 1 % ointment 1 appl topical BEDTIME Qty: 28.4 0RF (DME) compressor, for nebulizer Device See Rx Instructions .Route Qty: 1 0RF Rx Instructions: As directed 4 times a day Incruse Ellipta 62.5 mcg/actuation blister with device 1 inh inhalation DAILY montelukast 10 mg tablet 10 mg PO DAILY quetiapine 200 mg tablet extended release 24 hr 200 mg PO BEDTIME risperidone 2 mg tablet 2 mg PO BEDTIME gabapentin 600 mg tablet 1,200 mg PO TID diltiazem HCl [Cardizem CD] 120 mg capsule,extended release 24hr 120 mg PO DAILY Qty: 90 3RF Protocol: Hold for SBP/HR < HOLD for SBP < : 90 HOLD for HR < : 60 atorvastatin 20 mg tablet 20 mg PO DAILY Qty: 90 3RF naproxen [Naprosyn] 500 mg tablet 500 mg PO BID PRN (Reason: pain) Qty: 60 3RF cholecalciferol (vitamin D3) 50 mcg (2,000 unit) capsule 50 mcg PO DAILY Qty: 90 3RF omeprazole 40 mg capsule,delayed release(DR/EC) 40 mg PO DAILY Qty: 90 4RF Metamucil (sugar) Powder 1 tbsp PO BID Qty: 1254 2RF menthol-zinc oxide [Calmoseptine] 0.44-20.6 % ointment 1 appl topical TID PRN (Reason: Perianal burning) Qty: 113 2RF Discharge Orders: Discharge Order (Routine); Ordered 06/26/25 Ordered By: Mary Gill Diet: Advance to usual diet Activity on Discharge: As tolerated Stand Alone Forms: Patient Portal Discharge page Print Language: Finnish Care Plan Goals: complete ceftin 500 mg p.o. b.i.d., doxycycline 100 mg po bid.repeat chest imaging in 3-4 weeks outpatient to see resolution of findings. Prednisone taper as prescribed. Continue home oxygen, follow up with Pulmonary outpatient. follow up sleep study results with dr torres's office. Health Concerns: as above. Plan of Treatment: As above. Assessment: As above. Patient Instructions: COPD (Chronic Obstructive Pulmonary Disease) (DC) Discharge Date/Time: 06/26/25 14:05
--- NOTE | 2025-07-09 08:21 | P.CDIM_ITS ---
PROVIDER RESPONSE TEXT: To clarify, the appropriate diagnosis supported by the clinical indicators: Sepsis is/was present and is a clinical diagnosis QUERY TEXT: PHYSICIAN'S DOCUMENTATION REQUEST Date of Query: 07/07/2025 01:54 PM EDT Patient Name: Milagro Loyd Admit Date: 06/24/2025 Dear Mary Gill MD, A review of the medical record indicates additional documentation may be needed. Please review below and update the documentation accordingly. Documentation on the H&P dated 06/24/25, the progress note dated 06/25/25 and the Discharge Summary dated 06/26/25 included the diagnosis of sepsis. The patient's infectious clinical indicators include: : pulse 113 WBC 14.5 Sepsis Systemic manifestations of infection, with 2 or more SIRS criteria which include: Fever > 100.4?F or hypothermia < 96.8?F Leukocytosis - WBC > 12,000 or leukopenia, WBC < 4,000, or > 10% bands Tachycardia- > 90 beats/minute Tachypnea- RR > 20 breaths/minute or PaCO2 < 32mmHg Source: [employer] Manual 2013 Documentation should include the known or suspected organism, and the underlying infection, such as UTI or pneumonia Based on the above information and the recognized standard for sepsis, could you please clarify if this diagnoses is still accurate and reflective of the patient's condition to ensure quality of the medical record. Sepsis is/was present and is a clinical diagnosis After study, Sepsis has been ruled out Other (explain) Clinically unable to determine (explain) Thank you, Cinthya Lennon RN Use of terms such as suspected, likely, concern for, or probable (associated with a specific diagnosis that is being evaluated, monitored, or treated as if it exists) are acceptable and can be coded in the inpatient setting, when documented at the time of discharge. Please use your independent medical judgment in providing your response. THIS QUERY IS PART OF THE PERMANENT MEDICAL RECORD
== END 2025-06-26 14:05 | disposition home or self-care (01) | DRG 720 ==
LOC: HO.ED 09:44 → HO.EDOVER 10:00 → HO.IMC 06-25 12:41
PROVIDERS: Emergency Medicine; Student in an Organized Health Care Education/Training Program; Admitting Provider Internal Medicine; Emergency Provider Emergency Medicine; PCP Physician Assistant Medical; Visit Provider Internal Medicine
DX: A41.9 Sepsis, unspecified organism (principal); J96.01 Acute respiratory failure with hypoxia; J96.02 Acute respiratory failure with hypercapnia; J44.1 Chronic obstructive pulmonary disease with (acute) exacerbation; Z99.81 Dependence on supplemental oxygen; F31.9 Bipolar disorder, unspecified; F43.10 Post-traumatic stress disorder, unspecified; K21.9 Gastro-esophageal reflux disease without esophagitis; Z87.891 Personal history of nicotine dependence; Z79.899 Other long term (current) drug therapy
CPT/HCPCS: 36415; 36600; 71045; 80053; 82803; 83605; 83735; 83880; 84484; 85025; 87040; 93005; 94640; 94660; 94799; 95806; 99285; 99499; J0696; J1271; J1650; J2270; J2919; J3360; J3475

== ENCOUNTER → 2025-06-24 06:45 | Outpatient (BNV) | payer OTHER, SELFPAY | PROVIDERS: Admitting Provider Internal Medicine; Emergency Provider Emergency Medicine; Visit Provider Internal Medicine Cardiovascular Disease | DX: R00.0 Tachycardia, unspecified (principal) | CPT/HCPCS: 93010 ==

== ENCOUNTER → 2025-06-24 06:45 | Outpatient (BNV) | payer OTHER, SELFPAY | PROVIDERS: Emergency Provider Emergency Medicine; Visit Provider Radiology Diagnostic Radiology | DX: R06.00 Dyspnea, unspecified (principal) | CPT/HCPCS: 71045 ==

== ENCOUNTER → 2025-06-24 09:52 | Outpatient (BNV) | payer OTHER, SELFPAY | PROVIDERS: Admitting Provider Internal Medicine; Emergency Provider Emergency Medicine; Visit Provider Hospitalist | DX: J96.01 Acute respiratory failure with hypoxia (principal); J96.02 Acute respiratory failure with hypercapnia; J44.1 Chronic obstructive pulmonary disease with (acute) exacerbation; F17.210 Nicotine dependence, cigarettes, uncomplicated | CPT/HCPCS: 99223 ==

== ENCOUNTER → 2025-06-24 09:52 | Outpatient (BNV) | payer OTHER, SELFPAY | PROVIDERS: Admitting Provider Internal Medicine; Emergency Provider Emergency Medicine; PCP Physician Assistant Medical; Visit Provider Internal Medicine | DX: J44.9 Chronic obstructive pulmonary disease, unspecified (principal) | CPT/HCPCS: 99231; 99239 ==

== ENCOUNTER 2025-07-14 11:31 | Outpatient (REF) | payer OTHER, SELFPAY | END 2025-07-14 11:32 | disposition home or self-care (01) | LOC: HO.MAMMO 11:31 | PROVIDERS: PCP Physician Assistant Medical; Visit Provider Physician Assistant Medical | DX: Z12.31 Encounter for screening mammogram for malignant neoplasm of breast (principal) | CPT/HCPCS: 77063; 77067 ==

== ENCOUNTER → 2025-07-14 12:00 | Outpatient (BNV) | payer OTHER, SELFPAY | PROVIDERS: PCP Physician Assistant Medical; Visit Provider Internal Medicine | DX: Z12.31 Encounter for screening mammogram for malignant neoplasm of breast (principal) | CPT/HCPCS: 77063; 77067 ==

== ENCOUNTER 2025-07-20 02:41 | Inpatient (IN) | payer OTHER, SELFPAY ==
[2025-07-20] VITALS (29 sets, daily range): BP systolic 93–137; BP diastolic 52–95; PULSE 111–139; RESP 15–26; TEMP 36.3–36.9; O2SAT 81–95; BMI 37.5; BMI 35.3
--- NOTE | 2025-07-20 | ECG_ITS ---
Test Reason : tachy Blood Pressure : */* mmHG Vent. Rate : 127 BPM Atrial Rate : 127 BPM P-R Int : 160 ms QRS Dur : 90 ms QT Int : 314 ms P-R-T Axes : 79 112 83 degrees QTcB Int : 456 ms Sinus tachycardia Possible Right ventricular hypertrophy Abnormal ECG When compared with ECG of 24-Jun-2025 07:04, Non-specific change in ST segment in Inferior leads Nonspecific T wave abnormality has replaced inverted T waves in Inferior leads Referred By: Generic ED Physician Electronically Signed By: VICTOR M COOPER
--- NOTE | ~2025-07-20 | CT_ITS ---
CLINICAL HISTORY: dyspnea, tachycardia CT angiography chest with contrast. 3D Postprocessing. Comparison: None provided Findings: The heart size is normal. RV/LV ratio is normal. The thoracic aorta is normal caliber. No acute pulmonary embolus. The visualized thyroid and mediastinum are unremarkable. There is bilateral lower lobe ground-glass type opacification, possible pneumonia or pulmonary edema The visualized upper abdomen is unremarkable. The bones are intact. IMPRESSION: 1. No pulmonary embolus. 2. Bilateral lower lobe consolidation, differential considerations noted This document has been electronically signed by: Karson Esteves MD on 07/20/2025 07:37:21
--- NOTE | ~2025-07-20 | XR_ITS ---
CLINICAL HISTORY: dyspnea 1 view chest x-ray. Comparison: CR/SR - XR CHEST 1V - 06/24/25 07:19 EDT Findings: The lungs appear clear. There is no consolidation, effusion, or pneumothorax. Cardiomediastinal silhouette is within normal limits for technique. IMPRESSION: No acute cardiopulmonary abnormality. This document has been electronically signed by: Shawn Pleitez MD on 07/20/2025 04:17:00
--- NOTE | 2025-07-20 02:48 | PC.NURSE ---
late entry- pt biba from home, a&ox4, respirations even and unlabored. pt reports onset of stuffy nose x1 day, reports she has been having trouble breathing o2 through nose. pt is on 3L nc baseline for copd. on arrival, pt noted to be tachycardic, pt placed into room 5. MD Gonzalez brought to bedside. RT at bedside. 20g placed in left ac, right ac and 22g in left hand. ekg obtained. pt placed on oxymax 3L for comfort as pt states she can not breath into the nose. Sinus tach on tele 111-130 bpm.
--- NOTE | 2025-07-20 03:02 | ED.SOB ---
HPI - SOB/Dyspnea General Chief Complaint: Upper Respiratory Symptoms Stated Complaint: SOB Time Seen by Provider: 07/20/25 03:02 Source: patient, EMS and old records reviewed Mode of arrival: EMS Limitations: no limitations History of Present Illness ED Provider: Dr. Verona Gonzalez HPI Narrative: 54-year-old female with a history of oxygen-dependent COPD wearing 3 L nasal cannula at all times presenting with shortness of breath and nasal congestion ongoing for the last several days. Patient reports she has been using her oxygen but feels short of breath because her nose is so congested she feels as though she is not getting the oxygen through her nasal cannula. Denies associated fever. Has a cough which is nonproductive. This is her baseline. Denies chest pain. No nausea, vomiting, diarrhea, leg swelling. Has been using her inhalers as prescribed. Received a DuoNeb in route by EMS with some improvement in her shortness of breath but admits she still feels congested. She is very fixated on the nasal congestion. Related Data Home Medications ?Medication ?Instructions ?Recorded ?Confirmed quetiapine 200 mg tablet,extended 200 mg PO BEDTIME 10/14/20 06/24/25 release 24 hr risperidone 2 mg tablet 2 mg PO BEDTIME 10/14/20 06/24/25 gabapentin 600 mg tablet 1,200 mg PO TID 12/15/20 06/24/25 montelukast 10 mg tablet 10 mg PO DAILY Allergy Symptoms 08/19/24 06/24/25 umeclidinium 62.5 mcg/actuation 1 inh inhalation DAILY 06/24/25 06/24/25 blister powder for inhalation (Incruse Ellipta) Previous Rx's ?Medication ?Instructions ?Recorded compressor, for nebulizer #1 ea 01/08/22 omeprazole 40 mg capsule,delayed 40 mg PO DAILY #90 caps 12/31/24 release Ventolin HFA 90 mcg/actuation 2 puff inhalation Q4-6H PRN for 01/08/25 aerosol inhaler (albuterol sulfate) wheezing #18 ea atorvastatin 20 mg tablet 20 mg PO DAILY #90 tabs 03/19/25 cholecalciferol (vitamin D3) 50 50 mcg PO DAILY #90 caps 03/19/25 mcg (2,000 unit) capsule diltiazem HCl 120 mg 120 mg PO DAILY #90 caps 03/19/25 capsule,extended release 24 hr (Cardizem CD) budesonide-formoterol HFA 160 2 puff PO BID #10.2 ea 04/16/25 mcg-4.5 mcg/actuation aerosol inhaler (Symbicort) inhalational spacing device #50 ea 04/20/25 (Aerochamber Mechanical Vent) menthol 0.44 %-zinc oxide 20.6 % 1 appl topical TID PRN Perianal 04/22/25 topical ointment (Calmoseptine) burning #113 grams psyllium seed (sugar) oral powder 1 tbsp PO BID #1,254 grams 04/22/25 (Metamucil (sugar) oral powder) cefuroxime axetil 500 mg tablet 500 mg PO Q24H #12 tabs 06/26/25 doxycycline monohydrate 100 mg 100 mg PO Q12H #12 caps 06/26/25 capsule prednisone 20 mg tablet 40 mg (2 x 20 mg) PO DAILY #8 tabs 06/26/25 hydrocortisone 1 % topical ointment 1 appl topical BEDTIME #28 grams 07/08/25 sennosides 8.6 mg tablet (senna) 17.2 mg (2 x 8.6 mg) PO DAILY #180 07/08/25 tabs albuterol sulfate 2.5 mg/3 mL 2.5 mg (3 mL) inhalation Q4-6H 07/14/25 (0.083 %) solution for nebulization shortness of breath or wheezing #180 mL naproxen 500 mg tablet 500 mg PO BID PRN for pain #60 tabs 07/15/25 Allergies Allergy/AdvReac Type Severity Reaction Status Date / Time codeine (CODEINE) Allergy Unknown NAUSEA & Verified 07/20/25 02:51 VOMITING, HIVES Penicillins (PENICILLINS) Allergy Unknown DIFF Verified 07/20/25 02:51 BREATHING, RASH ENVIRONMENTAL Allergy Unknown SOB,WHEEZIN Uncoded 07/20/25 02:51 G Review of Systems Review of Systems: As per HPI, full review of systems performed and negative but for the above mentioned pertinent positives and negatives. [facility] Past Medical History Medical History Bleeding hemorrhoids Respiratory failure with hypoxia COPD (chronic obstructive pulmonary disease) Morbid obesity with BMI of 50.0-59.9, adult Asthma Nicotine dependence, cigarettes, uncomplicated Acid reflux Depression Surgical History Status post excision of lipoma History of cholecystectomy History of shoulder surgery History of hysterectomy History of endometrial ablation History of loop electrosurgical excision procedure (LEEP) History of colposcopy Family History Family History Mother Crohn disease Brother Colitis Social History Social History Household Members: Caregiver Housing: Apartment Do you presently have visiting nurse or other home services: No Alcohol intake: never Comment: pt rings for assistance to bedside commode Patient Tobacco Use Status: Former Tobacco user Tobacco use type: Cigarette Cigarettes Per Day: 1 Years Smoked: (onset 15yo, 1ppd x 38yrs, now 2cig/day - 35pyh) Smoked in Last 30 Days: No Second Hand Smoke Exposure: No Use of substances other than those prescribed or required for medical reasons: No Substance Use Type: Marijuana Advance Directives: Yes Advance Directives on File: Yes Advance Directives Date on File: 01/04/22 Do you have a plan to hurt others: No Plan Patient : No service: No Current occupational status: unemployed and disabled 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 SKIN: Normal skin color for ethnicity, warm, dry, no rashes noted. HEENT: Normocephalic, atraumatic, no stridor, EOMI, sinus congestion. NECK: Soft, supple, full ROM, midline structures nontender, no step-offs, no deformities, no lymphadenopathy. CHEST: Heart regular tachycardia, symmetric chest rise and fall. PULMONARY: Coarse lung sounds bilaterally, diminished at the bases, moderate respiratory distress with poor air movement, no wheezes. ABDOMINAL: Soft, protuberant nontender, quiet bowel sounds in all quadrants. : Deferred. MUSCULOSKELETAL: Normal tone, full range of motion, no deformities, 1+ peripheral edema bilaterally. NEURO: Alert and oriented to person, CN II through XII intact, no focal neurologic deficits. PSYCHIATRIC: Anxious affect, appropriate demeanor. Vital Signs: Vital Signs: Last Vital Signs Temp 97.3 F 07/20/25 06:21 Pulse 127 H 07/20/25 06:21 Resp 18 07/20/25 06:21 BP 109/61 07/20/25 06:21 Pulse Ox 92 07/20/25 06:21 O2 Del Method Oxymask 07/20/25 06:21 O2 Flow Rate 5 07/20/25 06:21 Oxygen Flow Rate 3 07/20/25 03:38 BMI result Body Mass Index 37.5 Medications Administered Discontinued Medications Generic Name Dose Route Start Last Admin Trade Name Freq PRN Reason Stop Dose Admin Albuterol Sulfate 2.5 mg 07/20/25 05:01 07/20/25 05:04 Albuterol Sulfate (0.083%) 2.5 Mg/3 Ml Vial.Neb INHALE 07/20/25 05:02 2.5 mg ONCE ONE Administration Albuterol/Ipratropium 3 ml 07/20/25 03:19 07/20/25 03:21 Albuterol/Iprat 2.5/0.5mg 3 Ml Ampul.Neb INHALE 07/20/25 03:20 3 ml ONCE ONE Administration Ceftriaxone Sodium 1 gm 07/20/25 03:03 07/20/25 03:23 Ceftriaxone Sodium 1 Gm Vial IVPUSH 07/20/25 03:04 1 gm ONCE ONE Administration Fluticasone Propionate 1 spray 07/20/25 03:14 07/20/25 03:23 Fluticasone Propionate Nasal 16 Gm Lawrence NOSTRIL-B 07/20/25 03:15 Not Given ONCE ONE Doxycycline Hyclate 100 mg/ 250 mls @ 166.67 mls/hr 07/20/25 03:03 07/20/25 05:08 Sodium Chloride IV 07/20/25 04:32 Infused ONCE ONE Infusion Lactated Ringer's 1,000 mls @ 999 mls/hr 07/20/25 03:07 07/20/25 05:20 Lr IV 07/20/25 04:07 Infused .Q1H1M ONE Infusion Iohexol 65 ml 07/20/25 06:58 07/20/25 06:59 Iohexol 350 Mg/Ml 100 Ml Infus..Btl IV 07/20/25 06:59 65 ml ONCE ONE Administration Medical Decision Making Medical Decision Making [facility] Narrative: Patient presents today with chief complaint of shortness of breath. Differential diagnosis includes, but is not limited to, upper respiratory infection, pneumonia, COPD exacerbation, asthma exacerbation, CHF, pneumothorax, pleural effusion, pulmonary embolism, ACS. Broad-based work-up will be initiated to evaluate for etiology of patient's symptoms. 3:06 AM 07/20/2025 (Tariq VelascoO.) patient flagging for sepsis with hypotension, tachycardia and probable COPD exacerbation. She is afebrile though her blood pressure is low at 90 7/. Her repeat blood pressure did improve to 121/56 however, we will give a 1 L fluid bolus, broad-spectrum antibiotics including Rocephin and doxycycline. 3:52 AM 07/20/2025 (Dr. Verona Gonzalez, TariqO.) initial lactic acid level is 2.5 which could be elevated in the setting of albuterol treatments. We will continue to monitor. She remains afebrile, resting comfortably on an OxyMask. Work of breathing improved after DuoNeb. 7:53 AM 07/20/2025 (Dr. Verona Gonzalez, [place]at[place].O.) case discussed with the hospitalist who agrees she should have a CTA prior to admission. Her chest x-ray is relatively clear, lactic acid level has improved after IV fluid administration. Remains afebrile though absolutely hypoxic without oxygen. Given her increased oxygen requirements and COPD exacerbation, we will admit to hospitalist for further care and evaluation. Differential Diagnosis Differential Diagnoses: The differential diagnosis associated with the presentation includes (as above) Admission/Observation Consideration of admission/observation: Escalation of care including admission/observation considered Lab Data [facility] Lab Attestation statement: I reviewed the patient's lab results. 07/20/25 03:19 07/20/25 03:19 Labs: Lab Results 07/20/25 07/20/25 07/20/25 Range/Units 03:19 05:45 06:25 WBC 13.0 H (4.8-10.8) X10*3/uL RBC 4.31 (4.20-5.50) X10*6/uL Hgb 12.0 (12.0-16.0) g/dl Hct 39.3 (37.0-47.0) % MCV 91.2 (80.0-98.0) fL MCH 27.8 (27.0-33.0) pg MCHC 30.5 L (31.0-35.0) g/dl RDW 14.9 (11.0-16.0) % Plt Count 286 (160-400) X10*3/uL MPV 11.5 (9.4-12.3) fL Immature Gran % (Auto) 0.5 H (0.0-0.4) % Neut % (Auto) 58.0 (45-73) % Lymph % (Auto) 24.3 (20-40) % [place] % (Auto) 6.4 (2-11) % Eos % (Auto) 9.8 H (0-4) % Baso % (Auto) 1.0 (0-2) % Lymph # (Auto) 3.2 (1.2-4.9) X10*3/uL [place] # (Auto) 0.8 (0.1-1.2) X10*3/uL Eos # (Auto) 1.3 H (0.0-0.4) X10*3/uL Baso # (Auto) 0.1 (0.0-0.2) X10*3/uL Abs Immat Gran (auto) 0.06 H (0.00-0.03) X10*3/uL Absolute Neuts (auto) 7.6 (2.0-8.3) x10*3/uL Absolute Nucleated RBC 0.000 (0.0-0.012) X10*3/uL Nucleated RBC % (auto) 0.0 (0.0-0.2) /100WBC VBG pH 7.44 H (7.32-7.43) VBG pCO2 58 mmHg VBG pO2 142 mmHg VBG HCO3 40 H (22-26) mmol/L VBG O2 Saturation 99.0 % VBG Base Excess 13.7 mmol/L Sodium 144 (135-145) mmol/L Potassium 4.3 (3.3-5.1) mmol/L Chloride 98 (96-108) mmol/L Carbon Dioxide 38 H (22-29) mmol/L Anion Gap 12 (12-20) BUN 4 L (9-16) mg/dL Creatinine 0.76 (0.5-1.4) mg/dL Estim Creat Clear Calc 80.5 Estimated GFR > 60 Random Glucose 265 H (60-115) mg/dL Lactic Acid 2.5 H* (0.5-2.0) mmol/L Lactic Acid F/U @ 2Hr 1.2 (0.5-2.0) mmol/L Calcium 9.2 (8.4-10.2) mg/dL Magnesium 1.9 (1.6-2.6) mg/dL Total Bilirubin 0.2 (0.0-1.0) mg/dL AST 24 (5-31) U/L ALT 17 (0-31) U/L Alkaline Phosphatase 90 (39-117) U/L Troponin I High Sens < 2.7 (<3.5-17.0) ng/L B-Natriuretic Peptide 17 (<100) pg/mL Total Protein 7.4 (6.5-8.0) g/dL Albumin 3.9 (3.5-5.0) g/dL COVID-19 ([facility]ITLIN) Negative (Negative) COVID-19 Clin Com See Note Influenza Type A (KAVITA) Negative (Negative) Influenza Type B (KAVITA) Negative (Negative) Influenza A & B Note See Note Independent Interpretation I performed an independent interpretation of an: EKG and Plain X-Ray Interpretation: My independent interpretation of the chest x-ray reveals no consolidations, pulmonary edema, pleural effusion, pneumothorax, obvious bony abnormalities. My independent interpretation of the ECG reveals normal sinus tachycardia with rate of 127, extreme right axis deviation, right bundle-branch block, no ST elevations or depressions to suggest ischemic changes, relatively unchanged from previous on 06/24/2025. Radiology Impression Discussion of test interpretation with radiology: I have reviewed the radiologist's reading. Independent Historian Clinical information obtained from an independent historian. History obtained from or confirmed by: EMS External Record Review External record reviewed: Inpatient record Prescription Management I considered prescription management with: Antibiotic Chronic Conditions Patient?s care impacted by: Other (COPD) Critical Care Time Critical Care Time Critical Care Time: Yes Total Critical Care Time: 40 Attestation: CRITICAL CARE TIME: 40 minutes of critical care time was spent in direct patient care at the bedside or in the immediate area with this patient. Critical care was necessary to treat or prevent imminent or life-threatening deterioration of the following conditions acute respiratory failure with hypoxia and hypercapnia, sepsis due to COPD exacerbation and probable pneumonia. This patient is high risk for decompensation and/or . This time was spent assessing and managing the patient, interpreting labs and imaging, coordinating care with other medical providers, gathering history from either the patient, their representatives, EMS or chart review, and discussing management with admitting team. Discharge Plan Discharge Clinical Impression: Acute exacerbation of chronic obstructive airways disease, Acute respiratory failure with hypoxia and hypercarbia, Acute lactic acidosis Patient Disposition: Admitted As Inpatient Print Language: Greek
[2025-07-20] MEDS: Albuterol/Iprat 2.5/0.5MG 3 ML AMPUL.NEB INHALE (03:21)
[2025-07-20] MEDS: Lactated Ringers 1,000 ML 999 ML IV (03:23)
[2025-07-20 03:29] LABS: Hematocrit 39.3 % (37.0-47.0); Hemoglobin 12.0 g/dl (12.0-16.0); Imm Gran Abs Auto 0.06 X10*3/uL (0.00-0.03); Imm Gran Pct Auto 0.5 % (0.0-0.4); Lymphocytes Absolute Auto 3.2 X10*3/uL (1.2-4.9); MANUAL DIFF FLAG NO; Mean Corpuscular HGB Conc 30.5 g/dl (31.0-35.0); Mean Corpuscular Hemoglobin 27.8 pg (27.0-33.0); Mean Corpuscular Volume 91.2 fL (80.0-98.0); NRBC Abs Auto 0.000 X10*3/uL (0.0-0.012); NRBC Pct Auto 0.0 /100WBC (0.0-0.2); Platelet Count 286 X10*3/uL (160-400); Red Blood Count 4.31 X10*6/uL (4.20-5.50); White Blood Count 13.0 X10*3/uL (4.8-10.8)
[2025-07-20 03:43] LABS: Alanine Aminotransferase 17 U/L (0-31); Albumin Level 3.9 g/dL (3.5-5.0); Alkaline Phosphatase 90 U/L (39-117); Anion Gap 12 (12-20); Aspartate Amino Transferase 24 U/L (5-31); Blood Urea Nitrogen 4 mg/dL (9-16); Calcium 9.2 mg/dL (8.4-10.2); Carbon Dioxide 38 mmol/L (22-29); Chloride 98 mmol/L (96-108); Creatinine Clr Calc Pharmacy 80.5; Estimated Glomerular Filt Rate > 60; Magnesium 1.9 mg/dL (1.6-2.6); Potassium 4.3 mmol/L (3.3-5.1); Sodium 144 mmol/L (135-145); Total Protein 7.4 g/dL (6.5-8.0)
[2025-07-20 03:47] LABS: IDNOW Serial# 08D9AD1C; Influenza B2 Negative (Negative)
[2025-07-20 03:48] LABS: COVID-19 Test Negative (Negative); IDNOW Serial# 55D5AD1C
[2025-07-20 03:51] LABS: Troponin-I High Sensitivity < 2.7 ng/L (<3.5-17.0)
[2025-07-20 04:17] LABS: B Type Natriuretic Peptide 17 pg/mL (<100)
--- NOTE | 2025-07-20 04:58 | PC.NURSE ---
pt noted to be labored, sating between 85-88% on 3L oxymax, MD Gonzalez at bedside, RT called for treatment
[2025-07-20] MEDS: Albuterol Sulfate (0.083%) 2.5 MG/3 ML VIAL.NEB INHALE (05:04)
--- NOTE | 2025-07-20 05:08 | PC.NURSE ---
rt placed pt on breathing treatment at this time, and 5L oxymax.
[2025-07-20 05:27] LABS: Reflex Lactate? Lactic Acid Added
[2025-07-20 06:08] LABS: ~Lactic Acid-LAB USE ONLY 1.2 mmol/L (0.5-2.0)
[2025-07-20 06:28] LABS: Venous Blood Gas Refer to POC result
[2025-07-20 06:30] LABS: VBG HCO3 40 mmol/L (22-26); VBG O2 % Saturation 99.0 %
[2025-07-20] MEDS: iohexoL 350 MG/ML 100 ML INFUS..BTL 65 ML IV (06:59)
--- NOTE | 2025-07-20 07:42 | PC.NURSE ---
pt requesting to use the restroom - O2 utilized w/ exertion. upon returning to restroom, pt placed back on the monitor. SPO2 of 81% on 6L via oxymask - pt titrated to 10L via oxymask w/ good effect. sinus tachycardic. otherwise vss and up to date. RT bedside to assess/give breathing tx. pt currently pending admission. plan of care ongoing. call pandya placed within reach.
[2025-07-20] MEDS: levalbuterol HCL 3.75 MG, Ipratropium Bromide 0.5 MG INHALE (07:46)
--- NOTE | 2025-07-20 07:57 | PM.IMHP ---
History of Present Illness Date of Service: 07/20/25 Chief Complaint: shortness of breath 54-year-old female with a history of oxygen-dependent COPD wearing 3 L nasal cannula at all times presenting with shortness of breath and nasal congestion ongoing for the last several days. Patient reports she has been using her oxygen but feels short of breath because her nose is so congested she feels as though she is not getting the oxygen through her nasal cannula. She denied fever, chills, nausea, vomiting, diarrhea, recent travel, sick contacts. Did report a dry cough as well. She had been using her inhalers with no effect. Chest CTA negative for PE but showing bilateral lower lobe consolidation. She was noted to be tachycardic, tachypneic. Her white blood cell count is mildly elevated and she does. COVID, flu and RSV negative. She was given doxycycline, Rocephin, IV fluids, Flonase, albuterol in the ER. She will be admitted for further management of acute on chronic hypoxic respiratory failure. Review of Systems Review of Systems: Denies any recent fever chills or decrease in appetite respiratory denies any shortness of breath coverage production cardiovascular is adjustment of any PND or edema gastrointestinal denies any dysphagia abdominal pain nausea vomiting or diarrhea genitourinary denies any dysuria frequency or hematuria musculoskeletal denies any joint pain or swelling neuropsych denies any weakness or seizures all other systems reviewed are negative [facility] Medical History Bleeding hemorrhoids Respiratory failure with hypoxia COPD (chronic obstructive pulmonary disease) Morbid obesity with BMI of 50.0-59.9, adult Asthma Nicotine dependence, cigarettes, uncomplicated Acid reflux Depression Family History Mother Crohn disease Brother Colitis Surgical History Status post excision of lipoma History of cholecystectomy History of shoulder surgery History of hysterectomy History of endometrial ablation History of loop electrosurgical excision procedure (LEEP) History of colposcopy Social History Household Members: Caregiver Housing: Apartment Do you presently have visiting nurse or other home services: No Alcohol intake: never Comment: pt rings for assistance to bedside commode Patient Tobacco Use Status: Former Tobacco user Tobacco use type: Cigarette Cigarettes Per Day: 1 Years Smoked: (onset 15yo, 1ppd x 38yrs, now 2cig/day - 35pyh) Smoked in Last 30 Days: No Second Hand Smoke Exposure: No Use of substances other than those prescribed or required for medical reasons: No Substance Use Type: Marijuana Advance Directives: Yes Advance Directives on File: Yes Advance Directives Date on File: 01/04/22 Do you have a plan to hurt others: No Plan Patient : No service: No Current occupational status: unemployed and disabled 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 Cognitive needs: Yes (cane and wheelchair) Hearing needs: No Vision needs: Yes (rx glasses) Meds Allergies Allergy/AdvReac Type Severity Reaction Status Date / Time codeine (CODEINE) Allergy Unknown NAUSEA & Verified 07/20/25 02:51 VOMITING, HIVES Penicillins (PENICILLINS) Allergy Unknown DIFF Verified 07/20/25 02:51 BREATHING, RASH ENVIRONMENTAL Allergy Unknown SOB,WHEEZIN Uncoded 07/20/25 02:51 G Home Medications ?Medication ?Instructions ?Recorded ?Confirmed ?Last Taken ?Type quetiapine 200 mg tablet,extended 200 mg PO BEDTIME 10/14/20 07/20/25 07/19/25 21:00 History release 24 hr risperidone 2 mg tablet 2 mg PO BEDTIME 10/14/20 07/20/25 07/19/25 21:00 History gabapentin 600 mg tablet 1,200 mg PO TID 12/15/20 07/20/25 07/19/25 21:00 History montelukast 10 mg tablet 10 mg PO DAILY Allergy Symptoms 08/19/24 07/20/25 07/19/25 21:00 History umeclidinium 62.5 mcg/actuation 1 inh inhalation DAILY 06/24/25 07/20/25 07/19/25 21:00 History blister powder for inhalation (Incruse Ellipta) Physical Exam Vital Signs and Narrative: Vital Signs: Last Vital Signs Temp 98.3 F 07/20/25 07:41 Pulse 128 H 07/20/25 07:48 Resp 25 H 07/20/25 07:48 BP 127/76 07/20/25 07:41 Pulse Ox 93 07/20/25 07:41 O2 Del Method Oxymask 07/20/25 07:41 O2 Flow Rate 10 07/20/25 07:41 Oxygen Flow Rate 3 07/20/25 03:38 BMI result Body Mass Index 37.5 Appearing in no acute distress head is normocephalic atraumatic eyes pupils are PERRLA sclera is anicteric mouth throat mucous membranes are intact and moist neck is supple no lymphadenopathy, no JVD noted lung sounds diminished heart regular rate rhythm, clear S1, S2 positive bowel sounds, abdomen is soft, nontender neuro patient is alert x3, no focal deficits Results Labs 07/20/25 03:19 07/20/25 03:19 Labs: Laboratory Results - last 24 hr 07/20/25 07/20/25 07/20/25 03:19 05:45 06:25 MCV 91.2 MCH 27.8 MCHC 30.5 L RDW 14.9 Plt Count 286 MPV 11.5 Immature Gran % (Auto) 0.5 H Neut % (Auto) 58.0 Lymph % (Auto) 24.3 [place] % (Auto) 6.4 Eos % (Auto) 9.8 H Baso % (Auto) 1.0 Lymph # (Auto) 3.2 [place] # (Auto) 0.8 Eos # (Auto) 1.3 H Baso # (Auto) 0.1 Abs Immat Gran (auto) 0.06 H Absolute Neuts (auto) 7.6 Absolute Nucleated RBC 0.000 Nucleated RBC % (auto) 0.0 VBG pH 7.44 H VBG pCO2 58 VBG pO2 142 VBG HCO3 40 H VBG O2 Saturation 99.0 VBG Base Excess 13.7 Anion Gap 12 Estim Creat Clear Calc 80.5 Estimated GFR > 60 Random Glucose 265 H Lactic Acid 2.5 H* Lactic Acid F/U @ 2Hr 1.2 Calcium 9.2 Magnesium 1.9 Total Bilirubin 0.2 AST 24 ALT 17 Alkaline Phosphatase 90 Troponin I High Sens < 2.7 B-Natriuretic Peptide 17 Total Protein 7.4 Albumin 3.9 COVID-19 ([facility]) Negative COVID-19 Clin Com See Note Influenza Type A ([facility]ITA) Negative Influenza Type B ([facility]AVITA) Negative Influenza A & B Note See Note Assessment and Plan (1) COPD (chronic obstructive pulmonary disease): Qualifiers: COPD type: unspecified COPD Qualified Code(s): J44.9 - Chronic obstructive pulmonary disease, unspecified Status: Acute Plan 54 year old women admitted with Acute respiratory failure secondary to COPD and pneumonia Severe sepsis secondary to Acute on chronic respiratory failure secondary to COPD exacerbation and Pneumonia Tachycardia, tachypnea, leukocytosis, lactic acidosis CTA showing bilateral consolidation Rocephin and azithromycin Duonebs, IV steroids Mucinex for dry cough Pulmonary consultation continue baseline oxygen Mental health continue home medications GERD PPI Severe obesity. BMI 37.5 Discussed importance of weight management as this may be contributing to worsening of other comorbidities DVT prophylaxis with Lovonex Full code Quality Stroke Does the patient have a stroke diagnosis?: No VTE Prior VTE?: No VTE Risk Level:: Medical - moderate - high VTE Device Contraindication: Treatment Not Indicated VTE Drug Contraindication: N/A - Med Ordered
[2025-07-20] MEDS: 0.9 % Sodium Chloride Flush 3 ML SYRINGE IVFLUSH ×2 (09:10→23:51)
--- NOTE | 2025-07-20 09:13 | PC.NURSE ---
Pt's O2 tubing was disconnected when RN entered room. Pt 76% on room air. replaced O2 at 3L, pt still 87%. Currently on 4L
--- NOTE | 2025-07-20 09:15 | PHA.MEDREC ---
Pharmacy Consult ? Medication Reconciliation Pharmacy has completed the medication reconciliation. Spoke with patient at bedside and they were able to confirm their meds, nothing changed since discharge at the end of June and they said they finished the cephalexin, doxycycline, and prednisone and said they no longer take the psyllium seed powder.
--- NOTE | 2025-07-20 09:17 | PC.NURSE ---
Pt not ambulated r/t heart rat 118-135
[2025-07-20] MEDS: guaiFENesin LA 600 MG TAB.ER.12H PO ×2 (11:19→20:32)
[2025-07-20] MEDS: Lactated Ringers 1,000 ML 100 ML IVCONT (11:32)
[2025-07-20] MEDS: dilTIAZem HCL CD 120 MG CAP.ER.DEG PO (12:13)
--- NOTE | 2025-07-20 14:05 | PC.NURSE ---
patient seemingly more drowsy than previous assessments. able to answer questions/follow commands but falls asleep while conversating. sob/wob noted. pt remains on 4L via oxymask w/ an SPO2 of 93%. pt remains in upright position to promote patent airway. sinus tachycardic on the monitor. otherwise vss and up to date. admitting provider notified/aware of findings.
--- NOTE | 2025-07-20 15:05 | PC.NURSE ---
RT bedside - drawing ABG. plan of care ongoing.
[2025-07-20 15:07] LABS: ABG HCO3 40 mmol/L (22-26); ABG O2 % Saturation 98.0 %
--- NOTE | 2025-07-20 15:26 | PC.NURSE ---
pt placed on bipap via RT d/t most recent ABG results. placed on bipap at 14/7 w/ a rate of 16. SPO2 at 92%. sinus tachycardic on the monitor - otherwise vss and up to date. plan of care ongoing. call pandya placed within reach.
[2025-07-20] MEDS: Furosemide 20 MG/2 ML VIAL IVPUSH (15:33)
[2025-07-20] MEDS: diazePAM 10 MG/2 ML CARTRIDGE 5 MG IVPUSH (15:33)
--- NOTE | 2025-07-20 15:54 | P.CONPL_ITS ---
History of Present Illness History of Present Illness Consult date: 07/20/25 Chief complaint: PNA, COPD Narrative: THIS PATIENT IS 54 YEARS OLD FEMALE, PAST HISTORY OF SMOKING AND SHE HAS ADVANCED CHRONIC OBSTRUCTIVE PULMONARY DISEASE. SHE CLAIMS THAT SHE QUIT SMOKING 6 MONTHS AGO. BUT BEFORE QUITTING SMOKING SHE HAS ALREADY DEVELOPED ADVANCED COPD. WITH CHRONIC RESPIRATORY FAILURE, DEPENDENT ON O2 3 L/MINUTE. SHE HAS MULTIPLE COMORBIDITIES INCLUDING BIPOLAR DISORDER, ANXIETY AND DEPRESSION, AND WAS HOSPITALIZED ABOUT 2 WEEKS AGO WITH ACUTE EXACERBATION OF COPD/RESPIRATORY FAILURE. ON HER LAST ADMISSION SHE WAS FOUND TO HAVE HYPOXEMIA WELL HYPERCAPNIA, WHICH IMPROVED AFTER THE TREATMENT. SHE WAS SUPPOSED TO BE SEEING ME IN THE OFFICE BUT HAS NOT COME TO THE OFFICE SO FAR. TODAY SHE PRESENTS TO THE EMERGENCY ROOM WITH INCREASED SHORTNESS OF BREATH OVER THE PAST FEW DAYS. THIS TIME SHE COMPLAINS MORE OF NASAL CONGESTION AND DIFFICULTY IN BREATHING. SHE HAS REMAINED ALERT BUT SHE HAS HARD TIME IN CONVERSATION DUE TO SHORTNESS OF BREATH. DENIES FEVER OR CHILLS. Review of Systems 2 Review of Systems: SHE IS VERY SHORT OF BREATH AND HARDLY CAN DO THE CONVERSATION. IN GENERAL SHE IS QUITE SICK WEAK AND CONFINED TO THE BED. [facility] Past Medical History Medical History (Updated 07/20/25 @ 16:07 by Haven Longo MD) Pneumonia Bleeding hemorrhoids Respiratory failure with hypoxia COPD (chronic obstructive pulmonary disease) Morbid obesity with BMI of 50.0-59.9, adult Asthma Nicotine dependence, cigarettes, uncomplicated Acid reflux Depression Family History Family History Mother Crohn disease Brother Colitis Surgical History Surgical History Status post excision of lipoma History of cholecystectomy History of shoulder surgery History of hysterectomy History of endometrial ablation History of loop electrosurgical excision procedure (LEEP) History of colposcopy Social History Social History Household Members: Caregiver Housing: Apartment Do you presently have visiting nurse or other home services: No Alcohol intake: never Comment: pt rings for assistance to bedside commode Patient Tobacco Use Status: Former Tobacco user Tobacco use type: Cigarette Cigarettes Per Day: 1 Years Smoked: (onset 15yo, 1ppd x 38yrs, now 2cig/day - 35pyh) Smoked in Last 30 Days: No Second Hand Smoke Exposure: No Use of substances other than those prescribed or required for medical reasons: No Substance Use Type: Marijuana Advance Directives: Yes Advance Directives on File: Yes Advance Directives Date on File: 01/04/22 Do you have a plan to hurt others: No Plan Patient : No service: No Current occupational status: unemployed and disabled 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 Cognitive needs: Yes (cane and wheelchair) Hearing needs: No Vision needs: Yes (rx glasses) Meds Allergies Allergy/AdvReac Type Severity Reaction Status Date / Time codeine (CODEINE) Allergy Unknown NAUSEA & Verified 07/20/25 02:51 VOMITING, HIVES Penicillins (PENICILLINS) Allergy Unknown DIFF Verified 07/20/25 02:51 BREATHING, RASH ENVIRONMENTAL Allergy Unknown SOB,WHEEZIN Uncoded 07/20/25 02:51 G Active Medications: Current Medications Acetaminophen (Acetaminophen 325 Mg Tablet) 650 mg PO Q6H PRN PRN Reason: Pain, Mild 1-3,fever,headache Albuterol Sulfate (Albuterol Sulfate (0.083%) 2.5 Mg/3 Ml Vial.Neb) 2.5 mg INHALE RQ4H WHILE AWAKE [facility] Last Admin: 07/20/25 15:27 Dose: Not Given Atorvastatin Calcium (Atorvastatin Calcium 20 Mg Tablet) 20 mg PO DAILY [facility] Calcium Carbonate (Calcium Carbonate 750 Mg Tab.Chew) 750 mg PO Q4H PRN PRN Reason: Heartburn Ceftriaxone Sodium (Ceftriaxone Sodium 1 Gm Vial) 1 gm IVPUSH Q24H [facility] Last Admin: 07/20/25 11:19 Dose: 1 gm Diltiazem HCl (Diltiazem Hcl Cd 120 Mg Cap.Er.Deg) 120 mg PO DAILY [facility]; Protocol Last Admin: 07/20/25 12:13 Dose: 120 mg Enoxaparin Sodium (Enoxaparin Sodium 40 Mg/0.4 Ml Syringe) 40 mg SUBCUT Q24H [facility] Last Admin: 07/20/25 09:06 Dose: 40 mg Fluticasone Propionate (Fluticasone Propionate Nasal 16 Gm [place]) 1 spray NOSTRIL-B BID [facility] Gabapentin (Gabapentin 600 Mg Tablet) 1,200 mg PO TID [facility] Guaifenesin (Guaifenesin La 600 Mg Tab.Er.12h) 600 mg PO BID [facility] Last Admin: 07/20/25 11:19 Dose: 600 mg Doxycycline Hyclate 100 mg/ (Sodium Chloride) 250 mls @ 166.67 mls/hr IV Q12H [facility] Last Admin: 07/20/25 11:47 Dose: 166.67 mls/hr Levalbuterol HCl (Levalbuterol Hcl 1.25 Mg/3 Ml Vial.Neb) 1.25 mg INHALE Q4H [facility] Last Admin: 07/20/25 15:23 Dose: 1.25 mg Magnesium Hydroxide (Milk Of Magnesia 30 Ml Oral.Susp) 30 ml PO DAILY PRN PRN Reason: Constipation Melatonin (Melatonin 3 Mg Tablet) 6 mg PO BEDTIME PRN PRN Reason: Insomnia Methylprednisolone Sodium Succinate (Methylprednisolone Sod Succ 40 Mg/Ml Vial) 40 mg IVPUSH Q12H [facility] Last Admin: 07/20/25 11:18 Dose: 40 mg Naproxen (Naproxen 500 Mg Tablet) 500 mg PO BID PRN PRN Reason: for pain Omeprazole (Omeprazole 20 Mg Capsule.) 40 mg PO DAILY@0630 [facility] Ondansetron HCl (Ondansetron Hcl 4 Mg/2 Ml Vial) 4 mg IVPUSH Q8H PRN PRN Reason: Nausea and Vomiting Quetiapine Fumarate (Quetiapine Fumarate 100 Mg Tablet) 100 mg PO BID [facility] Risperidone (Risperidone 2 Mg Tablet) 2 mg PO BEDTIME [facility] Senna (Sennosides 8.6 Mg Tablet) 17.2 mg PO DAILY [facility] Sodium Chloride (0.9 % Sodium Chloride Flush 3 Ml Syringe) 3 ml IVFLUSH QSHIFT [facility] Last Admin: 07/20/25 15:42 Dose: Not Given Vitamin D (Cholecalciferol (Vitamin D3) 25 Mcg Tablet) 50 mcg PO DAILY [facility] Home Medications ?Medication ?Instructions ?Recorded ?Confirmed ?Last Taken ?Type quetiapine 200 mg tablet,extended 200 mg PO BEDTIME 07/20/25 07/19/25 21:00 History release 24 hr risperidone 2 mg tablet 2 mg PO BEDTIME 10/14/2007/19/25 21:00 History gabapentin 600 mg tablet 1,200 mg PO TID 12/15/2007/19/25 21:00 History montelukast 10 mg tablet 10 mg PO DAILY Allergy Sympt oms 08/19/24 07/20/25 07/19/25 21:00 History umeclidinium 62.5 mcg/actuation 1 inh inhalation DAILY 06/24/25 07/20/25 07/19/25 21:00 History blister powder for inhalation (Incruse Ellipta) Physical Exam 2 Vital Signs: Vital Signs: Last Vital Signs Temp 98.2 F 07/20/25 14:04 Pulse 125 H 07/20/25 15:23 Resp 26 H 07/20/25 15:25 BP 133/71 07/20/25 15:33 Pulse Ox 92 07/20/25 15:22 O2 Del Method BiPAP 07/20/25 15:22 O2 Flow Rate 3 07/20/25 14:04 Oxygen Flow Rate 3 07/20/25 03:38 BMI result Body Mass Index 37.5 Const: Other: SHE IS TACHYPNEIC, AND SEEMS TO BE IN MODERATE RESPIRATORY DISTRESS. General: alert and awake Orientation/consciousness: patient oriented x3 HEENT: Head: Yes normal to inspection General nose exam: No nasal polyps present, No nasal discharge present and Other nasal findings present (THERE IS BILATERAL NASAL CONGESTION) Face and sinus: Yes sinuses nontender Throat: Yes posterior oropharynx normal (DIFFICULT TO VISUALIZE) Eyes: General: appearance normal, both eyes and all related structures Neck: Neck: Yes normal visual inspection, Yes no lymphadenopathy, Yes trachea midline and Yes no JVD Thyroid: Thyroid normal Chest: Chest palpation & inspection: normal inspection of the chest, normal palpation of entire chest wall and no tenderness Resp: Other: BREATH SOUNDS ARE VERY DISTANT ON BOTH SIDES, NO WHEEZES, INSPIRATORY CREPITATIONS HEARD OVER THE BASILAR AREAS. Cardio: Palpation: normal PMI Rate: regular rate Rhythm: regular rhythm Heart sounds: no gallops and no murmurs GI: Palpation (GI): Soft to palpation, nontender, No hepatosplenomegaly present and no masses Auscultation: normal bowel sounds Back/Spine/Pelvis: Other: NOT EXAMINED Skin: General skin exam: no rashes or lesions noted Neuro: General: patient oriented x3, No gait normal (CONFINED TO BED AT THIS TIME AND NOT AMBULATE) and no focal motor deficits Cranial nerves: Yes CN's II-XII intact bilaterally Extrem: General: Yes normal to inspection, Yes no clubbing, cyanosis or edema and Yes no calf tenderness Psych: Speech and movement: Normal speech and movement present Affect: A nxious affect present Results Laboratory Findings 07/20/25 03:19 07/20/25 03:19 Abnormal lab findings: Abnormal Labs 07/20/25 07/20/25 07/20/25 03:19 06:25 15:03 WBC 13.0 H MCHC 30.5 L Immature Gran % (Auto) 0.5 H Eos % (Auto) 9.8 H Eos # (Auto) 1.3 H Abs Immat Gran (auto) 0.06 H ABG pH at Pt Temp 7.34 L ABG pCO2 at Pt Temp 73 H* ABG pO2 at Pt Temp 116 H ABG HCO3 40 H VBG pH 7.44 H VBG HCO3 40 H Carbon Dioxide 38 H BUN 4 L Random Glucose 265 H Lactic Acid 2.5 H* Diagnostic Findings Chest x-ray: report reviewed and image reviewed CT scan - chest: report reviewed and image reviewed Additional studies: CTA OF THE CHEST, NEGATIVE FOR PULMONARY EMBOLI. BRONCHOVASCULAR MARKINGS ARE SOMEWHAT CROWDED IN THE LOWER LOBES, CHANGES OF BRONCHIECTASIS PRESENT IN THE LOWER LOBES AND THERE ARE NODULAR DENSITIES SUGGESTING, . PNEUMONIA Assessment and Plan (1) Acute exacerbation of chronic obstructive airways disease: Status: Acute (2) Acute respiratory failure with hypoxia and hypercarbia: Status: Acute Plan O2 3 L/MINUTE. DUONEB UPDRAFTS WITH IPRATROPIUM AND ALBUTEROL Q 6 HOURS WHILE AWAKE. LEVALBUTEROL 1.25 2 PUFFS Q 6 HOURS P.R.N. CONTINUE CEFTRIAXONE AND DOXYCYCLINE IV SOLU-MEDROL 40 MG Q.8 HOURS . I RECOMMEND THAT PATIENT SHOULD BE ON BIPAP WITH PRESSURE SETTING OF 15/6 CM AT NIGHT, FOR ABOUT 8 HOURS PER NIGHT. AVOID USING ANY HEAVY SEDATIVES OR NARCOTICS. CHECK BLOOD GASES IN THE MORNING. Procedures Date of Service Date of Service: 07/20/25
--- NOTE | 2025-07-20 16:18 | PC.NURSE ---
Pt on BIPAP. Incontinent of urine and loose stool x 1. Wears a brief at baseline. Now using bedpan
[2025-07-20 16:19] LABS: ABG Refer to POC result
--- NOTE | 2025-07-20 16:52 | PC.NURSE ---
pt taken off bipap via RT at this time. transitioned to 3L via oxymask w/ good effect - SPO2 @ 91%. sob/wob decreased at this time. all other vss and up to date aside from remaining sinus tachycardic on the monitor. phlebotomy bedside obtaining VBG. plan of care ongoing. call pandya placed within reach.
[2025-07-20 17:00] LABS: Venous Blood Gas Refer to POC result
[2025-07-20 17:01] LABS: VBG HCO3 41 mmol/L (22-26); VBG O2 % Saturation 99.0 %
--- NOTE | 2025-07-20 22:41 | PC.NURSE ---
pt resting comfortably, breathing even and unlabored. 85% on 3L oxymask, increased to 4L.
[2025-07-21] VITALS (12 sets, daily range): BP systolic 103–124; BP diastolic 55–86; PULSE 88–131; RESP 16–22; TEMP 36.4–36.8; O2SAT 89–96
[2025-07-21] MEDS: Flu Vacc TS2025-26(6mo up)/PF 0.5 ML SYRINGE IM (01:27)
[2025-07-21 06:32] LABS: Hematocrit 38.3 % (37.0-47.0); Hemoglobin 11.8 g/dl (12.0-16.0); Mean Corpuscular HGB Conc 30.8 g/dl (31.0-35.0); Mean Corpuscular Hemoglobin 27.8 pg (27.0-33.0); Mean Corpuscular Volume 90.1 fL (80.0-98.0); NRBC Abs Auto 0.000 X10*3/uL (0.0-0.012); NRBC Pct Auto 0.0 /100WBC (0.0-0.2); Platelet Count 321 X10*3/uL (160-400); Red Blood Count 4.25 X10*6/uL (4.20-5.50); White Blood Count 13.1 X10*3/uL (4.8-10.8)
[2025-07-21 06:41] LABS: Alanine Aminotransferase 11 U/L (0-31); Albumin Level 3.4 g/dL (3.5-5.0); Alkaline Phosphatase 83 U/L (39-117); Anion Gap 12 (12-20); Aspartate Amino Transferase 14 U/L (5-31); Blood Urea Nitrogen 6 mg/dL (9-16); Calcium 9.4 mg/dL (8.4-10.2); Carbon Dioxide 37 mmol/L (22-29); Chloride 98 mmol/L (96-108); Creatinine Clr Calc Pharmacy 93.8; Estimated Glomerular Filt Rate > 60; Potassium 4.3 mmol/L (3.3-5.1); Sodium 143 mmol/L (135-145); Total Protein 6.5 g/dL (6.5-8.0)
[2025-07-21 07:54] LABS: Glucose, Whole Blood 201 mg/dL (60-115)
[2025-07-21] MEDS: dilTIAZem HCL CD 120 MG CAP.ER.DEG PO (07:57)
[2025-07-21] MEDS: guaiFENesin LA 600 MG TAB.ER.12H PO ×2 (07:57→19:58)
[2025-07-21] MEDS: 0.9 % Sodium Chloride Flush 3 ML SYRINGE IVFLUSH ×3 (08:00→22:23)
--- NOTE | 2025-07-21 09:14 | HO.PM.IMPN ---
Subjective Subjective Date of Service: 07/21/25 Interval History: still sob but improving Physical Exam Exam: Exam: General: AO X 3, mild acute distress, cushinoid Resp: poor air movement, crackles at bases bilateral, mild accessory muscles used CVS: S1,S2,Rapid regular GI: soft, non tender, non distended Neuro: motor grossly intact, alert Psych: appropriate affect, appropriate insight Vital Signs: Vital Signs: Last Vital Signs Temp 97.8 F 07/21/25 07:29 Pulse 113 H 07/21/25 07:29 Resp 22 H 07/21/25 07:29 BP 113/56 L 07/21/25 07:29 Pulse Ox 89 L 07/21/25 07:29 O2 Del Method Nasal Cannula 07/21/25 07:29 O2 Flow Rate 3 07/21/25 07:29 FiO2 40 07/21/25 03:21 Oxygen Flow Rate 3 07/20/25 03:38 BMI result Body Mass Index 35.3 Objective Data Active Medications Acetaminophen (Acetaminophen 325 Mg Tablet) 650 mg PO Q6H PRN PRN Reason: Pain, Mild 1-3,fever,headache Atorvastatin Calcium (Atorvastatin Calcium 20 Mg Tablet) 20 mg PO DAILY [facility] Last Admin: 07/21/25 07:57 Dose: 20 mg Documented By: JULIO C Calcium Carbonate (Calcium Carbonate 750 Mg Tab.Chew) 750 mg PO Q4H PRN PRN Reason: Heartburn Ceftriaxone Sodium (Ceftriaxone Sodium 1 Gm Vial) 1 gm IVPUSH Q24H [facility] Last Admin: 07/20/25 11:19 Dose: 1 gm Documented By: PAN Diltiazem HCl (Diltiazem Hcl Cd 120 Mg Cap.Er.Deg) 120 mg PO DAILY [facility]; Protocol Last Admin: 07/21/25 07:57 Dose: 120 mg Documented By: JULIO C Enoxaparin Sodium (Enoxaparin Sodium 40 Mg/0.4 Ml Syringe) 40 mg SUBCUT Q24H [facility] Last Admin: 07/21/25 08:00 Dose: 40 mg Documented By: JULIO C Fluticasone Propionate (Fluticasone Propionate Nasal 16 Gm [place]) 1 spray NOSTRIL-B BID [facility] Last Admin: 07/20/25 22:57 Dose: Not Given Documented By: RADHA Non-Admin Reason: Med Not Available Gabapentin (Gabapentin 600 Mg Tablet) 1,200 mg PO TID [facility] Last Admin: 07/21/25 07:55 Dose: 1,200 mg Documented By: JULIO C Guaifenesin (Guaifenesin La 600 Mg Tab.Er.12h) 600 mg PO BID [facility] Last Admin: 07/21/25 07:57 Dose: 600 mg Documented By: JULIO C Doxycycline Hyclate 100 mg/ (Sodium Chloride) 250 mls @ 166.67 mls/hr IV Q12H [facility] Last Infusion: 07/21/25 01:32 Dose: Infused Documented By: MIKE Insulin Human Lispro (Insulin Lispro 100 Unit/Ml 3 Ml Vial) 5 unit SUBCUT QIDACHS [facility] Last Admin: 07/21/25 07:59 Dose: 5 unit Documented By: JULIO C Levalbuterol HCl (Levalbuterol Hcl 1.25 Mg/3 Ml Vial.Neb) 1.25 mg INHALE Q4H [facility] Last Admin: 07/21/25 07:22 Dose: 1.25 mg Documented By: GILBERT Magnesium Hydroxide (Milk Of Magnesia 30 Ml Oral.Susp) 30 ml PO DAILY PRN PRN Reason: Constipation Melatonin (Melatonin 3 Mg Tablet) 6 mg PO BEDTIME PRN PRN Reason: Insomnia Methylprednisolone Sodium Succinate (Methylprednisolone Sod Succ 40 Mg/Ml Vial) 40 mg IVPUSH Q12H [facility] Last Admin: 07/20/25 23:51 Dose: 40 mg Documented By: MIKE Naproxen (Naproxen 500 Mg Tablet) 500 mg PO BID PRN PRN Reason: for pain Last Admin: 07/20/25 21:14 Dose: 500 mg Documented By: RADHA Omeprazole (Omeprazole 20 Mg Capsule.Dr) 40 mg PO DAILY@0630 [facility] Last Admin: 07/21/25 07:57 Dose: 40 mg Documented By: JULIO C Ondansetron HCl (Ondansetron Hcl 4 Mg/2 Ml Vial) 4 mg IVPUSH Q8H PRN PRN Reason: Nausea and Vomiting Quetiapine Fumarate (Quetiapine Fumarate 100 Mg Tablet) 100 mg PO BID [facility] Last Admin: 07/21/25 07:57 Dose: 100 mg Documented By: JULIO C Risperidone (Risperidone 2 Mg Tablet) 2 mg PO BEDTIME [facility] Last Admin: 07/20/25 21:14 Dose: 2 mg Documented By: RADHA Senna (Sennosides 8.6 Mg Tablet) 17.2 mg PO DAILY [facility] Last Admin: 07/21/25 07:59 Dose: Not Given Documented By: JULIO C Non-Admin Reason: Patient Refused Sodium Chloride (0.9 % Sodium Chloride Flush 3 Ml Syringe) 3 ml IVFLUSH QSHIFT [facility] Last Admin: 07/21/25 08:00 Dose: 3 ml Documented By: JULIO C Vitamin D (Cholecalciferol (Vitamin D3) 25 Mcg Tablet) 50 mcg PO DAILY [facility] Last Admin: 07/21/25 07:54 Dose: 50 mcg Documented By: JULIO C Labs 07/21/25 05:53 07/21/25 05:53 Labs: Laboratory Results - last 24 hr 07/20/25 07/20/25 07/21/25 15:03 16:56 05:53 MCV 90.1 MCH 27.8 MCHC 30.8 L RDW 15.3 Plt Count 321 MPV 11.3 Absolute Nucleated RBC 0.000 Nucleated RBC % (auto) 0.0 O2 Saturation 98.0 ABG pH at Pt Temp 7.34 L ABG pCO2 at Pt Temp 73 H* ABG pO2 at Pt Temp 116 H ABG HCO3 40 H ABG Base Excess (Actual) 11.7 VBG pH 7.50 H VBG pCO2 52 VBG pO2 123 VBG HCO3 41 H VBG O2 Saturation 99.0 VBG Base Excess 15.2 Anion Gap 12 Estim Creat Clear Calc 93.8 Estimated GFR > 60 POC Glucose Random Glucose 189 H Calcium 9.4 Total Bilirubin 0.2 AST 14 ALT 11 Alkaline Phosphatase 83 Total Protein 6.5 Albumin 3.4 L 07/21/25 07:49 MCV MCH MCHC RDW Plt Count MPV Absolute Nucleated RBC Nucleated RBC % (auto) O2 Saturation ABG pH at Pt Temp ABG pCO2 at Pt Temp ABG pO2 at Pt Temp ABG HCO3 ABG Base Excess (Actual) VBG pH VBG pCO2 VBG pO2 VBG HCO3 VBG O2 Saturation VBG Base Excess Anion Gap Estim Creat Clear Calc Estimated GFR POC Glucose 201 H Random Glucose Calcium Total Bilirubin AST ALT Alkaline Phosphatase Total Protein Albumin Microbiology Microbiology Results: Microbiology 07/20/25 03:19 Blood Culture - Preliminary Blood - Venous No growth after 24 hours. 07/20/25 03:19 Blood Culture - Preliminary Blood - Venous No growth after 24 hours. Assessment and Plan (1) COPD (chronic obstructive pulmonary disease): Status: Acute Plan 54F PMH chronic hypoxic and hypercapnic respiratory failure due to COPD on 3 L home O2, mood disorder presented with shortness of breaths Severe sepsis and acute on chronic hypoxic and hypercapnic respiratory failure secondary to COPD with acute decompensation and possible bilateral pneumonia Required BiPAP overnight, now back on 3 L with goal saturation of 89-92% Continue ceftriaxone azithromycin, steroids, DuoNebs, Mucinex, pulmonary eval Prediabetes with steroid induced hyperglycemia Last A1c 5.7, can use insulin sliding scale while on steroids Mood disorder Continue Seroquel, Risperdal Obesity Weight loss recommended DVT prophylaxis with Lovenox Full Code reason for continued hospitalization: Still tachypneic, tachycardic, short of breath at risk for further decompensation given comorbidities Quality Stroke Does the patient have a stroke diagnosis?: No VTE Prior VTE?: No VTE Risk Level:: Medical - moderate - high VTE Device Contraindication: Treatment Not Indicated VTE Drug Contraindication: N/A - Med Ordered
--- NOTE | 2025-07-21 09:41 | MHC.CM.PN ---
DX COPD exacerbation Re-hospitalization <30 days same dx, disease progression She lives with Ozzie/HCP/CLINICAL TRIAL LEADER/SO She requires assist ADLs CLINICAL TRIAL LEADER Pete 33 hrs DME 3L O2 [place], walker, cane, WC, commode+ shower chair A referral has been sent to [facility], pts preference. DP Home resume Pete CLINICAL TRIAL LEADER. Patient will arrange for her brother to provide transportation home.
[2025-07-21 10:58] LABS: Glucose, Whole Blood 239 mg/dL (60-115)
[2025-07-21 16:32] LABS: Glucose, Whole Blood 162 mg/dL (60-115)
[2025-07-21 19:50] LABS: Glucose, Whole Blood 221 mg/dL (60-115)
[2025-07-22] VITALS (12 sets, daily range): BP systolic 108–143; BP diastolic 58–79; PULSE 59–126; RESP 12–20; TEMP 36.1–36.9; O2SAT 88–95
[2025-07-22 07:02] LABS: Glucose, Whole Blood 195 mg/dL (60-115)
[2025-07-22 07:22] LABS: VBG HCO3 41 mmol/L (22-26); VBG O2 % Saturation 92.0 %
[2025-07-22 07:22] LABS: Venous Blood Gas Refer to POC result
[2025-07-22 07:24] LABS: Hematocrit 37.7 % (37.0-47.0); Hemoglobin 11.7 g/dl (12.0-16.0); Mean Corpuscular HGB Conc 31.0 g/dl (31.0-35.0); Mean Corpuscular Hemoglobin 27.5 pg (27.0-33.0); Mean Corpuscular Volume 88.5 fL (80.0-98.0); NRBC Abs Auto 0.000 X10*3/uL (0.0-0.012); NRBC Pct Auto 0.0 /100WBC (0.0-0.2); Platelet Count 347 X10*3/uL (160-400); Red Blood Count 4.26 X10*6/uL (4.20-5.50); White Blood Count 15.9 X10*3/uL (4.8-10.8)
[2025-07-22 07:38] LABS: Anion Gap 12 (12-20); Blood Urea Nitrogen 12 mg/dL (9-16); Calcium 9.3 mg/dL (8.4-10.2); Carbon Dioxide 37 mmol/L (22-29); Chloride 97 mmol/L (96-108); Creatinine Clr Calc Pharmacy 87.0; Estimated Glomerular Filt Rate > 60; Magnesium 1.8 mg/dL (1.6-2.6); Potassium 4.1 mmol/L (3.3-5.1); Sodium 142 mmol/L (135-145)
[2025-07-22] MEDS: guaiFENesin LA 600 MG TAB.ER.12H PO ×2 (07:52→22:35)
[2025-07-22] MEDS: dilTIAZem HCL CD 120 MG CAP.ER.DEG PO (07:53)
[2025-07-22] MEDS: 0.9 % Sodium Chloride Flush 3 ML SYRINGE IVFLUSH ×2 (07:54→15:14)
[2025-07-22 11:01] LABS: Glucose, Whole Blood 202 mg/dL (60-115)
--- NOTE | 2025-07-22 11:34 | MHC.CM.PN ---
Per MD rounds patient is not cleared to discharge today. DX COPD exacerbation and BELA PNA. DP home with [facility]. She has arranged for her brother to provide transportation home.
[2025-07-22 15:44] LABS: Glucose, Whole Blood 171 mg/dL (60-115)
--- NOTE | 2025-07-22 17:19 | HO.PM.IMPN ---
Subjective Subjective Date of Service: 07/22/25 Interval History: copd excerebation Review of Systems sob seems similar denies any chest pain Review of Systems: Yes all other systems are reviewed and are negative Physical Exam Exam: Exam: General: AO X 3, mild acute distress, cushinoid Resp: poor air movement, few scattered crackles at bases , mild accessory muscles used CVS: S1,S2,Rapid regular GI: soft, non tender, non distended Neuro: motor grossly intact, alert Psych: appropriate affect, appropriate insight Vital Signs: Vital Signs: Last Vital Signs Temp 97.5 F 07/22/25 15:57 Pulse 103 H 07/22/25 15:57 Resp 18 07/22/25 15:57 BP 118/58 L 07/22/25 15:57 Pulse Ox 92 07/22/25 15:57 O2 Del Method Nasal Cannula 07/22/25 15:57 O2 Flow Rate 3 07/22/25 15:57 FiO2 40 07/21/25 03:21 Oxygen Flow Rate 3 07/20/25 03:38 BMI result Body Mass Index 35.3 Objective Data Active Medications Acetaminophen (Acetaminophen 325 Mg Tablet) 650 mg PO Q6H PRN PRN Reason: Pain, Mild 1-3,fever,headache Last Admin: 07/22/25 15:12 Dose: 650 mg Documented By: JULIO C Acetazolamide (Acetazolamide 250 Mg Tablet) 250 mg PO DAILY [facility] Last Admin: 07/22/25 09:54 Dose: 250 mg Documented By: JULIO C Atorvastatin Calcium (Atorvastatin Calcium 20 Mg Tablet) 20 mg PO DAILY [facility] Last Admin: 07/22/25 07:52 Dose: 20 mg Documented By: JULIO C Calcium Carbonate (Calcium Carbonate 750 Mg Tab.Chew) 750 mg PO Q4H PRN PRN Reason: Heartburn Ceftriaxone Sodium (Ceftriaxone Sodium 1 Gm Vial) 1 gm IVPUSH Q24H [facility] Last Admin: 07/22/25 12:08 Dose: 1 gm Documented By: JULIO C Dextrose (Dextrose 50 % 25 Gm/50 Ml Syringe) 25 gm IVPUSH Q15M PRN; Protocol PRN Reason: per Hypoglycemia Standing Ord. Diltiazem HCl (Diltiazem Hcl Cd 120 Mg Cap.Er.Deg) 120 mg PO DAILY [facility]; Protocol Last Admin: 07/22/25 07:53 Dose: 120 mg Documented By: JULIO C Enoxaparin Sodium (Enoxaparin Sodium 40 Mg/0.4 Ml Syringe) 40 mg SUBCUT Q24H [facility] Last Admin: 07/22/25 07:53 Dose: 40 mg Documented By: JULIO C Fluticasone Propionate (Fluticasone Propionate Nasal 16 Gm [place]) 1 spray NOSTRIL-B BID [facility] Last Admin: 07/22/25 08:17 Dose: 1 spray Documented By: JULIO C Gabapentin (Gabapentin 600 Mg Tablet) 1,200 mg PO TID [facility] Last Admin: 07/22/25 15:12 Dose: 1,200 mg Documented By: JULIO C Glucose (Glucose Gel 15 Gm Gel..Gram.) 15 gm PO Q15M PRN; Protocol PRN Reason: per Hypoglycemia Standing Ord. Guaifenesin (Guaifenesin La 600 Mg Tab.Er.12h) 600 mg PO BID [facility] Last Admin: 07/22/25 07:52 Dose: 600 mg Documented By: JULIO C Hydrocortisone (Hydrocortisone 1 % Ointment 28.35 Gm Tube) 1 appl TOPICAL BEDTIME [facility]; Protocol Doxycycline Hyclate 100 mg/ (Sodium Chloride) 250 mls @ 166.67 mls/hr IV Q12H [facility] Last Infusion: 07/22/25 13:40 Dose: Infused Documented By: JULIO C Insulin Human Lispro (Insulin Lispro 100 Unit/Ml 3 Ml Vial) 0 unit SUBCUT QIDACHS [facility]; Protocol Last Admin: 07/22/25 12:08 Dose: 4 unit Documented By: JULIO C Levalbuterol HCl (Levalbuterol Hcl 1.25 Mg/3 Ml Vial.Neb) 1.25 mg INHALE RQ4H [facility] Last Admin: 07/22/25 15:35 Dose: 1.25 mg Documented By: SCOVILChente Magnesium Hydroxide (Milk Of Magnesia 30 Ml Oral.Susp) 30 ml PO DAILY PRN PRN Reason: Constipation Melatonin (Melatonin 3 Mg Tablet) 6 mg PO BEDTIME PRN PRN Reason: Insomnia Methylprednisolone Sodium Succinate (Methylprednisolone Sod Succ 40 Mg/Ml Vial) 40 mg IVPUSH Q12H [facility] Last Admin: 07/22/25 12:08 Dose: 40 mg Documented By: JULIO C Naproxen (Naproxen 500 Mg Tablet) 500 mg PO BID PRN PRN Reason: for pain Last Admin: 07/22/25 09:54 Dose: 500 mg Documented By: JULIO C Omeprazole (Omeprazole 20 Mg Capsule.Dr) 40 mg PO DAILY@0630 [facility] Last Admin: 07/22/25 03:40 Dose: 40 mg Documented By: LIUDMILA Ondansetron HCl (Ondansetron Hcl 4 Mg/2 Ml Vial) 4 mg IVPUSH Q8H PRN PRN Reason: Nausea and Vomiting Quetiapine Fumarate (Quetiapine Fumarate 100 Mg Tablet) 100 mg PO BID [facility] Last Admin: 07/22/25 07:53 Dose: 100 mg Documented By: JULIO C Risperidone (Risperidone 2 Mg Tablet) 2 mg PO BEDTIME [facility] Last Admin: 07/21/25 19:58 Dose: 2 mg Documented By: LIUDMILA Senna (Sennosides 8.6 Mg Tablet) 17.2 mg PO DAILY [facility] Last Admin: 07/22/25 08:20 Dose: Not Given Documented By: JULIO C Non-Admin Reason: Patient Refused Sodium Chloride (0.9 % Sodium Chloride Flush 3 Ml Syringe) 3 ml IVFLUSH QSHIFT [facility] Last Admin: 07/22/25 15:14 Dose: 3 ml Documented By: JULIO C Vitamin D (Cholecalciferol (Vitamin D3) 25 Mcg Tablet) 50 mcg PO DAILY [facility] Last Admin: 07/22/25 07:52 Dose: 50 mcg Documented By: JULIO C Labs 07/22/25 07:09 07/22/25 07:09 Labs: Laboratory Results - last 24 hr 07/21/25 07/22/25 07/22/25 19:32 06:51 07:09 MCV 88.5 MCH 27.5 MCHC 31.0 RDW 15.4 Plt Count 347 MPV 11.7 Absolute Nucleated RBC 0.000 Nucleated RBC % (auto) 0.0 VBG pH VBG pCO2 VBG pO2 VBG HCO3 VBG O2 Saturation VBG Base Excess Anion Gap 12 Estim Creat Clear Calc 87.0 Estimated GFR > 60 POC Glucose 221 H 195 H Random Glucose 195 H Calcium 9.3 Magnesium 1.8 07/22/25 07/22/25 07/22/25 07:19 10:51 15:39 MCV MCH MCHC RDW Plt Count MPV Absolute Nucleated RBC Nucleated RBC % (auto) VBG pH 7.46 H VBG pCO2 58 VBG pO2 70 VBG HCO3 41 H VBG O2 Saturation 92.0 VBG Base Excess 15.2 Anion Gap Estim Creat Clear Calc Estimated GFR POC Glucose 202 H 171 H Random Glucose Calcium Magnesium Microbiology Microbiology Results: Microbiology 07/20/25 03:19 Blood Culture - Preliminary Blood - Venous No growth after 48 hours. 07/20/25 03:19 Blood Culture - Preliminary Blood - Venous No growth after 48 hours. Assessment and Plan (1) COPD (chronic obstructive pulmonary disease): Status: Acute Plan 54F PMH chronic hypoxic and hypercapnic respiratory failure due to COPD on 3 L home O2, mood disorder presented with shortness of breaths Severe sepsis and acute on chronic hypoxic and hypercapnic respiratory failure secondary to COPD with acute decompensation and possible bilateral pneumonia Required BiPAP overnight, now back on 3 L with goal saturation of 89-92% Continue ceftriaxone azithromycin, steroids, DuoNebs, Mucinex, pulmonary eval Prediabetes with steroid induced hyperglycemia Last A1c 5.7, can use insulin sliding scale while on steroids Mood disorder Continue Seroquel, Risperdal Obesity Weight loss recommended DVT prophylaxis with Lovenox Full Code reason for continued hospitalization: Still tachypneic, tachycardic, short of breath at risk for further decompensation given comorbidities Quality Stroke Does the patient have a stroke diagnosis?: No VTE Prior VTE?: No VTE Risk Level:: Medical - moderate - high VTE Device Contraindication: Treatment Not Indicated VTE Drug Contraindication: N/A - Med Ordered
[2025-07-22 21:40] LABS: Glucose, Whole Blood 186 mg/dL (60-115)
[2025-07-22 22:21] LABS: Glucose, Whole Blood 170 mg/dL (60-115)
[2025-07-22] MEDS: Hydrocortisone 1 % Ointment 28.35 GM TUBE 1 APPL TOPICAL (22:30)
[2025-07-23] VITALS (10 sets, daily range): BP systolic 124–138; BP diastolic 61–72; PULSE 87–115; RESP 12–20; TEMP 36.4–36.7; O2SAT 91–93
[2025-07-23] MEDS: 0.9 % Sodium Chloride Flush 3 ML SYRINGE IVFLUSH ×2 (00:30→08:58)
[2025-07-23 07:04] LABS: Glucose, Whole Blood 187 mg/dL (60-115)
[2025-07-23] MEDS: guaiFENesin LA 600 MG TAB.ER.12H PO (08:54)
[2025-07-23] MEDS: dilTIAZem HCL CD 120 MG CAP.ER.DEG PO (08:54)
[2025-07-23 09:47] LABS: VBG HCO3 33 mmol/L (22-26); VBG O2 % Saturation 92.0 %
[2025-07-23 10:56] LABS: Glucose, Whole Blood 166 mg/dL (60-115)
--- NOTE | 2025-07-23 10:56 | PM.DS ---
DS: Providers Provider Date of Service: 07/23/25 Date of admission: 07/20/25 08:00 Date of discharge: 07/23/25 Primary care physician: PATRIC Gayle Consults: 07/20/25 08:00 Consult to Pulmonology Routine Consulting Provider: [facility] Reason for consultation: copd, ? chronic lung disease Attending physician on discharge: Mary Gill Discharging clinician: Mary Gill DS: Diagnosis Discharge Diagnosis (1) COPD (chronic obstructive pulmonary disease): Status: Acute DS: Summary Hospital Course Hospital Course: HPI:54-year-old female with a history of oxygen-dependent COPD wearing 3 L nasal cannula at all times presenting with shortness of breath and nasal congestion ongoing for the last several days. Patient reports she has been using her oxygen but feels short of breath because her nose is so congested she feels as though she is not getting the oxygen through her nasal cannula. She denied fever, chills, nausea, vomiting, diarrhea, recent travel, sick contacts. Did report a dry cough as well. She had been using her inhalers with no effect. Chest CTA negative for PE but showing bilateral lower lobe consolidation. She was noted to be tachycardic, tachypneic. Her white blood cell count is mildly elevated and she does. COVID, flu and RSV negative. She was given doxycycline, Rocephin, IV fluids, Flonase, albuterol in the ER. She will be admitted for further management of acute on chronic hypoxic respiratory failure Hopsital course: 54F PMH chronic hypoxic and hypercapnic respiratory failure due to COPD on 3 L home O2, mood disorder presented with shortness of breaths: Patient was admitted for Severe sepsis and acute on chronic hypoxic and hypercapnic respiratory failure secondary to COPD with acute decompensation and possible bilateral pneumonia, CTA showed bilateral pneumonia, blood cultures sent-Required BiPAP overnight, Continue ceftriaxone azithromycin, steroids, DuoNebs, Mucinex, in addition patient was seen by Pulmonary: Recommended to continue above management, with the above supportive care patient seems to be improved significantly. Patient will be going home with p.o. antibiotics and steroids. In addition patient will need outpatient sleep study and may need outpatient BiPAP (which will be done out patiently). Currently asymptomatic.blood culture neg@48hrs. Prediabetic: Recommended we repeat a hemoglobin A1c outpatient, monitor fingersticks closely-further management outpatient with PCP. going home with po ceftin,doxycycline ,prednisone -please complete course of medications , consider chest imaging in 3-4 weeks to see resolution of pneumonia. plan: po ceftin,doxycycline ,prednisone . Monitor fingersticks at home closely as well as hemoglobin A1c outpatient Further management out patiently as per PCP, outpatient follow-up with Dr. Longo's office-for further pulmonary workup and management. Above management discussed with the patient in detail length she understand and in agreement with the above plan, time spent 45 minute, all question answered, staff was present during conversation. Time Attestation Total time managing care of this patient today: 45 mintues. Discharge Coordination Time (in mins): 45 min Quality: Safe Use of Opioids Does Pt have an Active Cancer Diagnosis on the Problem List?: No Quality: Stroke Does the patient have a stroke diagnosis?: No Physical Exam Exam: Exam: General: AO X 3, mild acute distress, cushinoid Resp: poor air movement, few scattered crackles at bases , mild accessory muscles used CVS: S1,S2,Rapid regular GI: soft, non tender, non distended Neuro: motor grossly intact, alert Psych: appropriate affect, appropriate insight Vital Signs: Vital Signs: Last Vital Signs Temp 97.6 F 07/23/25 07:05 Pulse 106 H 07/23/25 08:54 Resp 20 07/23/25 07:55 BP 128/62 07/23/25 08:54 Pulse Ox 92 07/23/25 07:05 O2 Del Method Nasal Cannula 07/23/25 07:05 O2 Flow Rate 3 07/23/25 07:05 FiO2 40 07/21/25 03:21 Oxygen Flow Rate 3 07/20/25 03:38 BMI result Body Mass Index 35.3 DS: Data Data Completed and Pending Completed studies during hospitalization [Text1]: Procedures Assistance with Respiratory Ventilation, Less than 24 Consecutive Hours, Continuous Positive Airway Pressure (06/24/25) Labs on day of discharge: Laboratory Results - last 24 hr 07/22/25 07/22/25 07/22/25 10:51 15:39 20:57 VBG pH VBG pCO2 VBG pO2 VBG HCO3 VBG O2 Saturation VBG Base Excess POC Glucose 202 H 171 H 186 H 09/17/25 09/18/25 09/18/25 22:16 06:55 09:43 VBG pH 7.40 VBG pCO2 52 VBG pO2 72 VBG HCO3 33 H VBG O2 Saturation 92.0 VBG Base Excess 7.0 POC Glucose 170 H 187 H Preliminary micro results at discharge 07/20/25 03:19 Blood Culture - Preliminary Blood - Venous No growth after 48 hours. 07/20/25 03:19 Blood Culture - Preliminary Blood - Venous No growth after 48 hours. Discharge Plan Discharge Anticipated Discharge Date/Time: 07/23/25 10:31 Patient Disposition: Home, Self-Care Discharge Diagnosis: Severe sepsis ,copd ,pneumonia Referrals: Miriam Frazier PA [Primary Care Provider, Internal Medicine] - 1 Week Discharge Medications: New doxycycline monohydrate 100 mg Capsule 100 mg PO Q12H Qty: 10 0RF cefuroxime axetil 500 mg Tablet 500 mg PO Q12H Qty: 10 0RF guaifenesin [Mucinex] 600 mg Tablet Extended Release 12hr 600 mg PO BID Qty: 10 0RF prednisone 10 mg tablet See Taper PO DIRECTED Qty: 30 0RF Taper: Prednisone 40 mg daily for 3 Days and 0 Hour 30 mg daily for 3 Days and 0 Hour 20 mg daily for 3 Days and 0 Hour 10 mg daily for 3 Days and 0 Hour Rx Instructions: see taper instructions (DME) FreeStyle Lite Strips Strip Qty: 100 0RF Rx Instructions: Test four times a day or as directed. (DME) blood-glucose meter [FreeStyle Lite Meter] Kit Qty: 1 0RF Rx Instructions: As Directed alcohol swabs Pads, Medicated 1 pad TOPICAL QIDACHS Qty: 100 0RF Rx Instructions: Use four times a day or as directed. (DME) pen needle, diabetic 32 gauge x 1/4 needle Qty: 100 0RF Rx Instructions: Use four times a day or as directed. (DME) lancets [FreeStyle Lancets] 28 gauge misc Qty: 100 0RF Rx Instructions: Test four times a day or as directed. Continued albuterol sulfate [Ventolin HFA] 90 mcg/actuation HFA aerosol inhaler 2 puff inhalation Q4-6H PRN (Reason: for wheezing) Qty: 18 3RF budesonide-formoterol [Symbicort] 160-4.5 mcg/actuation HFA aerosol inhaler 2 puff PO BID Qty: 10.2 4RF (DME) Aerochamber Mechanical Vent Spacer See Rx Instructions .Route Qty: 50 1RF Rx Instructions: As directed hydrocortisone 1 % ointment 1 appl topical BEDTIME Qty: 28 0RF sennosides [senna] 8.6 mg tablet 17.2 mg PO DAILY Qty: 180 0RF albuterol sulfate 2.5 mg /3 mL (0.083 %) solution for nebulization 2.5 mg inhalation Q4-6H Qty: 180 4RF naproxen 500 mg tablet 500 mg PO BID PRN (Reason: for pain) Qty: 60 1RF (DME) compressor, for nebulizer Device See Rx Instructions .Route Qty: 1 0RF Rx Instructions: As directed 4 times a day Incruse Ellipta 62.5 mcg/actuation blister with device 1 inh inhalation DAILY montelukast 10 mg tablet 10 mg PO DAILY quetiapine 200 mg tablet extended release 24 hr 200 mg PO BEDTIME risperidone 2 mg tablet 2 mg PO BEDTIME gabapentin 600 mg tablet 1,200 mg PO TID diltiazem HCl [Cardizem CD] 120 mg capsule,extended release 24hr 120 mg PO DAILY Qty: 90 3RF Protocol: Hold for SBP/HR < HOLD for SBP < : 90 HOLD for HR < : 60 atorvastatin 20 mg tablet 20 mg PO DAILY Qty: 90 3RF cholecalciferol (vitamin D3) 50 mcg (2,000 unit) capsule 50 mcg PO DAILY Qty: 90 3RF omeprazole 40 mg capsule,delayed release(DR/EC) 40 mg PO DAILY Qty: 90 4RF menthol-zinc oxide [Calmoseptine] 0.44-20.6 % ointment 1 appl topical TID PRN (Reason: Perianal burning) Qty: 113 2RF Discharge Orders: Discharge Order (Routine); Ordered 07/23/25 Ordered By: Mary Gill Diet: Advance to usual diet Activity on Discharge: As tolerated Stand Alone Forms: Patient Portal Discharge page Print Language: Argentine Other Ambulatory Orders: Basic Metabolic Panel (Routine) Timeframe: 1 Week Facility: [facility] - Location: Laboratory Ordered By: Mary Gill Complete Blood Count no Diff (Routine) Timeframe: 1 Week Facility: [facility] - Location: Laboratory Ordered By: Mary Gill Hemoglobin A1c (Routine) Timeframe: 1 Week Facility: [facility] - Location: Laboratory Ordered By: Mary Gill Care Plan Goals: severe sepsis with pneumonia ,copd: given nebs,steriods ,antibiotics -seems improved. Currently asymptomatic. Prediabetic: Recommended we repeat a hemoglobin A1c outpatient, monitor fingersticks closely-further management outpatient with PCP. going home with po ceftin,doxycycline ,prednisone -please complete course of medications , consider chest imaging in 3-4 weeks to see resolution of pneumonia. Health Concerns: as above. Plan of Treatment: as above. Assessment: as above. Discharge Date/Time: 07/23/25 14:02
--- NOTE | 2025-07-23 12:04 | MHC.CM.PN ---
Patient is discharged today to home self care. She has arranged for her brother to provide transportation home.
== END 2025-07-23 14:02 | disposition home or self-care (01) | DRG 720 ==
LOC: HO.ED 07:58 → HO.EDOVER 08:04 → HO.IMC 21:34
PROVIDERS: Internal Medicine; Admitting Provider Nurse Practitioner Acute Care; Emergency Provider Emergency Medicine; PCP Physician Assistant Medical; Visit Provider Internal Medicine
DX: A41.9 Sepsis, unspecified organism (principal); J96.21 Acute and chronic respiratory failure with hypoxia; J18.9 Pneumonia, unspecified organism; R65.20 Severe sepsis without septic shock; J44.0 Chronic obstructive pulmonary disease with (acute) lower respiratory infection; R73.03 Prediabetes; E66.9 Obesity, unspecified; Z71.3 Dietary counseling and surveillance; Z68.35 Body mass index [BMI] 35.0-35.9, adult; J96.22 Acute and chronic respiratory failure with hypercapnia; Z20.822 Contact with and (suspected) exposure to COVID-19; Z87.891 Personal history of nicotine dependence; Z79.899 Other long term (current) drug therapy
CPT/HCPCS: 36415; 36600; 71045; 71275; 80048; 80053; 82803; 82947; 83605; 83735; 83880; 84484; 85025; 85027; 87040; 87502; 87635; 90656; 93005; 94640; 94660; 99285; J0696; J1271; J1650; J1938; J2919; J3360; J7120; Q9967

== ENCOUNTER → 2025-07-20 03:02 | Outpatient (BNV) | payer OTHER, SELFPAY | PROVIDERS: Admitting Provider Nurse Practitioner Acute Care; Emergency Provider Emergency Medicine; PCP Physician Assistant Medical; Visit Provider Internal Medicine | DX: R00.0 Tachycardia, unspecified (principal) | CPT/HCPCS: 93010 ==

== ENCOUNTER → 2025-07-20 03:03 | Outpatient (BNV) | payer OTHER, SELFPAY | PROVIDERS: Emergency Provider Emergency Medicine; PCP Physician Assistant Medical; Visit Provider Radiology Diagnostic Radiology | DX: R91.8 Other nonspecific abnormal finding of lung field (principal); R06.00 Dyspnea, unspecified | CPT/HCPCS: 71045; 71275 ==

== ENCOUNTER → 2025-07-20 08:00 | Outpatient (BNV) | payer OTHER, SELFPAY | PROVIDERS: Admitting Provider Nurse Practitioner Acute Care; Emergency Provider Emergency Medicine; PCP Physician Assistant Medical; Visit Provider Internal Medicine | DX: J44.1 Chronic obstructive pulmonary disease with (acute) exacerbation (principal); J96.01 Acute respiratory failure with hypoxia; J96.02 Acute respiratory failure with hypercapnia | CPT/HCPCS: 99223 ==

== ENCOUNTER → 2025-07-20 08:00 | Outpatient (BNV) | payer OTHER, SELFPAY | PROVIDERS: Admitting Provider Nurse Practitioner Acute Care; Emergency Provider Emergency Medicine; PCP Physician Assistant Medical; Visit Provider Nurse Practitioner Acute Care | DX: J44.9 Chronic obstructive pulmonary disease, unspecified (principal) | CPT/HCPCS: 99223; 99232; 99239 ==

== ENCOUNTER 2025-07-29 14:31 | Outpatient (REF) | payer OTHER, SELFPAY ==
[2025-07-29 15:39] LABS: Appearance Urine Clear; Glucose Urine UA Negative (Negative); PH 8.0 (5.0-9.0); Specific Gravity - Urine 1.015 (1.005-1.025); UMIC TRIGGER UACC YES
[2025-07-29 15:47] LABS: Hematocrit 42.2 % (37.0-47.0); Hemoglobin 13.4 g/dl (12.0-16.0); Imm Gran Abs Auto 0.23 X10*3/uL (0.00-0.03); Imm Gran Pct Auto 1.2 % (0.0-0.4); Lymphocytes Absolute Auto 3.8 X10*3/uL (1.2-4.9); MANUAL DIFF FLAG SCAN; Mean Corpuscular HGB Conc 31.8 g/dl (31.0-35.0); Mean Corpuscular Hemoglobin 27.8 pg (27.0-33.0); Mean Corpuscular Volume 87.6 fL (80.0-98.0); NRBC Abs Auto 0.000 X10*3/uL (0.0-0.012); NRBC Pct Auto 0.0 /100WBC (0.0-0.2); PLT CLUMP 1; Red Blood Count 4.82 X10*6/uL (4.20-5.50); SCAN SMEAR FLAG 1
[2025-07-29 15:55] LABS: UACC Culture Trigger YES
[2025-07-29 16:09] LABS: Platelet Count 320 X10*3/uL (160-400); White Blood Count 19.4 X10*3/uL (4.8-10.8)
[2025-07-29 16:21] LABS: VBG HCO3 36 mmol/L (22-26); VBG O2 % Saturation 94.0 %
[2025-07-29 16:23] LABS: Alanine Aminotransferase 18 U/L (0-31); Albumin Level 4.2 g/dL (3.5-5.0); Alkaline Phosphatase 61 U/L (39-117); Anion Gap 13 (12-20); Aspartate Amino Transferase 14 U/L (5-31); Blood Urea Nitrogen 12 mg/dL (9-16); Calcium 9.2 mg/dL (8.4-10.2); Carbon Dioxide 35 mmol/L (22-29); Chloride 98 mmol/L (96-108); Estimated Glomerular Filt Rate > 60; Potassium 4.4 mmol/L (3.3-5.1); Sodium 142 mmol/L (135-145); Total Protein 6.9 g/dL (6.5-8.0)
[2025-07-29 19:12] LABS: Venous Blood Gas Refer to POC result
== END 2025-07-29 14:32 | disposition home or self-care (01) ==
LOC: HO.LAB 14:31
PROVIDERS: Internal Medicine; Absent Provider Internal Medicine; PCP Physician Assistant Medical; Visit Provider Internal Medicine
DX: J44.89 Other specified chronic obstructive pulmonary disease (principal); K64.9 Unspecified hemorrhoids; Z87.891 Personal history of nicotine dependence; Z99.89 Dependence on other enabling machines and devices; Z79.51 Long term (current) use of inhaled steroids
CPT/HCPCS: 36415; 80053; 81001; 82803; 83036; 84443; 85025; 87086; 99212

== ENCOUNTER 2025-07-29 15:17 | Outpatient (AMB) | payer OTHER, SELFPAY ==
--- NOTE | 2025-07-29 15:31 | A.OFFVIS_ITS ---
Vital Signs 07/29/25 15:32 Height 4 ft 11 in Weight 167 lb 8.821 oz BMI 33.8 BP 98/70 Blood Pressure Location Lt brachial Position Sitting Pulse 122 H Pulse Source Pulse Oximeter Pulse Oximetry (%) 92 Oxygen Delivery Method Nasal Cannula Oxygen Flow Rate 3 Intake Visit Reasons: copd Intake Note: [place] [facility] [place] good, little short winded, tired Manager Marketing Required: No Allergies codeine (CODEINE) Allergy (Unknown, Verified 07/29/25 15:44) NAUSEA & VOMITING, HIVES Penicillins (PENICILLINS) Allergy (Unknown, Verified 07/29/25 15:44) DIFF BREATHING, RASH ENVIRONMENTAL Allergy (Unknown, Uncoded 07/29/25 15:44) SOB,WHEEZING Medication List - Last Reconciled 07/29/25 by Haven Longo MD albuterol sulfate 2.5 mg (3 mL) inhalation Q4-6H alcohol swabs 1 pad topical QIDACHS atorvastatin 20 mg PO DAILY blood sugar diagnostic (FreeStyle Lite Strips) Test four times a day or as directed. blood-glucose meter (FreeStyle Lite Meter kit) As Directed budesonide-formoterol 160-4.5 mcg/actuation (Symbicort) 2 puffs PO BID cholecalciferol (vitamin D3) 50 mcg PO DAILY compressor, for nebulizer As directed 4 times a day diltiazem HCl CD (Cardizem CD) 120 mg See Protocol PO DAILY gabapentin 1,200 mg PO TID hydrocortisone 1% 1 appl topical BEDTIME inhalational spacing device (Aerochamber Mechanical Vent) As directed lancets (FreeStyle Lancets) Test four times a day or as directed. menthol-zinc oxide 0.44-20.6 % (Calmoseptine) 1 appl topical TID PRN montelukast 10 mg PO DAILY naproxen 500 mg PO BID PRN omeprazole 40 mg PO DAILY pen needle, diabetic Use four times a day or as directed. prednisone 20 mg (4 x 5 mg) PO DAILY 15 days quetiapine ER 200 mg PO BEDTIME risperidone 2 mg PO BEDTIME sennosides (senna) 17.2 mg (2 x 8.6 mg) PO DAILY umeclidinium 62.5 mcg/actuation (Incruse Ellipta) 1 inh inhalation DAILY Ventolin HFA 90 mcg/actuation (albuterol sulfate) 2 puffs inhalation Q4-6H PRN NS Do you need a note to return to daycare/school/sports/work: No HPI HPI copd: Details: This 54 years old female with advanced chronic obstructive pulmonary disease and respiratory failure, Was treated in the hospital for an acute exacerbation with acute on chronic respiratory failure. And discharged home over the last weekend . She was treated with a course of azithromycin and also prednisone. For 1st 2 nights she was on BiPAP treatment and then was weaned off that. She is on a prednisone taper right now, along with all her regular medications. Comes today for short-term follow-up. She claims that she feels much better, even though she is still short of breath on minimal exertion. Her mental status has remained clear, she can walk around in the house with O2 3 L/minute. Currently she is on prednisone 20 mg a day. [facility] Medical History Pneumonia Bleeding hemorrhoids Respiratory failure with hypoxia COPD (chronic obstructive pulmonary disease) Morbid obesity with BMI of 50.0-59.9, adult Asthma Nicotine dependence, cigarettes, uncomplicated Acid reflux Depression Surgical History Status post excision of lipoma History of cholecystectomy History of shoulder surgery History of hysterectomy History of endometrial ablation History of loop electrosurgical excision procedure (LEEP) History of colposcopy Family History Mother Crohn disease Brother Colitis 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 Cognitive needs: Yes (cane and wheelchair) Hearing needs: No Vision needs: Yes (rx glasses) Review of Systems Const All systems reviewed & are unremarkable except as noted in HPI and below Eyes Reports no additional complaints ENT Reports no additional complaints Card Denies chest pain, Denies irregular heart rhythm and Denies leg edema Resp Reports as per HPI GI Reports heartburn (Controlled with omeprazole) Reports no additional complaints Musc Reports back pain (Mild off and on) Skin/Breast Reports system reviewed and no additional complaints, except as documented Neuro Reports no additional complaints Psych Reports anxiety Endo Reports no additional complaints Physical Exam Vital Signs: Last Vital Signs Pulse 122 H 07/29/25 15:32 BP 98/70 07/29/25 15:32 Pulse Ox 92 07/29/25 15:32 Oxygen Delivery Method Nasal Cannula 07/29/25 15:32 Oxygen Flow Rate 3 07/29/25 15:32 BMI result Body Mass Index 33.8 Last Vital Signs Temp 98.2 F 07/20/25 14:04 Pulse 125 H 07/20/25 15:23 Resp 26 H 07/20/25 15:25 BP 133/71 07/20/25 15:33 Pulse Ox 92 07/20/25 15:22 O2 Del Method BiPAP 07/20/25 15:22 O2 Flow Rate 3 07/20/25 14:04 Oxygen Flow Rate 3 07/20/25 03:38 BMI result Body Mass Index 37.5 Const Other: SHE IS TACHYPNEIC, AND SEEMS TO BE IN MODERATE RESPIRATORY DISTRESS. General: alert and awake Orientation/consciousness: patient oriented x3 HEENT Head: Yes normal to inspection General nose exam: No nasal polyps present, No nasal discharge present and Other nasal findings present (THERE IS BILATERAL NASAL CONGESTION) Face and sinus: Yes sinuses nontender Throat: Yes posterior oropharynx normal (DIFFICULT TO VISUALIZE) Eyes General: appearance normal, both eyes and all related structures Neck Neck: Yes normal visual inspection, Yes no lymphadenopathy, Yes trachea midline and Yes no JVD Thyroid: Thyroid normal Chest Chest palpation & inspection: normal inspection of the chest, normal palpation of entire chest wall and no tenderness Resp Other: BREATH SOUNDS ARE VERY DISTANT ON BOTH SIDES, NO WHEEZES, OR CREPITATIONS . Cardio Palpation: normal PMI Rate: regular rate Rhythm: regular rhythm Heart sounds: no gallops and no murmurs GI Palpation (GI): Soft to palpation, nontender, No hepatosplenomegaly present and no masses Auscultation: normal bowel sounds Back/Spine/Pelvis Other: NOT EXAMINED Skin General skin exam: no rashes or lesions noted Neuro General: patient oriented x3, No gait normal (CONFINED TO BED AT THIS TIME AND NOT AMBULATE) and no focal motor deficits Cranial nerves: Yes CN's II-XII intact bilaterally Extrem General: Yes normal to inspection, Yes no clubbing, cyanosis or edema and Yes no calf tenderness Psych Speech and movement: Normal speech and movement present Affect: Anxious affect present Results Reviewed Results Reviewed: HOSPITAL COURSE WAS REVIEWED Assessment & Plan Assessment & Plan (1) COPD (chronic obstructive pulmonary disease): Comment: SHE HAS ADVANCED/ RATHER END-STAGE CHRONIC OBSTRUCTIVE PULMONARY DISEASE. HE IS PRONE TO HAVE ACUTE EXACERBATIONS. TODAY SHE FEELS BACK TO HER BASELINE, EVEN THOUGH SHE IS SHORT OF BREATH ON MINIMAL EXERTION. Code(s): J44.9 - Chronic obstructive pulmonary disease, unspecified Category: Medical Qualifiers: COPD type: unspecified COPD Qualified Code(s): J44.9 - Chronic obstruct yesika pulmonary disease, unspecified Plan: WILL CONTINUE HER PRESENT REGIMEN LISTED. SHE IS ON PREDNISONE TAPER. (2) Acute exacerbation of chronic obstructive airways disease: Comment: ACUTE EXACERBATION PROBABLY CAUSED BY EARLY PNEUMONIA, HAS IMPROVED, SHE SEEMS TO BE AT BASELINE AT THIS TIME. Code(s): J44.1 - Chronic obstructive pulmonary disease with (acute) exacerbation Category: Medical Plan: PREDNISONE TAPER 20 MG A DAY FOR 3 MORE DAYS THEN 10 MG A DAY FOR 1 WEEK , AFTER THAT SHE MAY HAVE TO STAY ON 5 MG A DAY SOMETIME. (3) Acute respiratory failure with hypoxia and hypercarbia: Comment: PATIENT WAS ADMITTED WITH ACUTE ON CHRONIC RESPIRATORY FAILURE WITH SIGNIFICANT HYPERCAPNIA. SHE WAS TREATED WITH BIPAP FOR 1ST 2 NIGHTS AND THEN TAKEN OFF THE BIPAP PATIENT IS STILL SOMEWHAT DYSPNEIC, BUT SHE IS MENTALLY ALERT. Code(s): J96.01 - Acute respiratory failure with hypoxia; J96.02 - Acute respiratory failure with hypercapnia Category: Medical Plan: CHECK VENOUS BLOOD GAS TO MAKE SURE SHE IS NOT DEVELOPING HYPERCAPNIA AGAIN. PATIENT IS INSTRUCTED TO DO DEEP BREATHING EXERCISES WITH PURSED LIP TECHNIQUE EVERY FEW HOURS. Orders: Orders Venous Blood Gas Today J44.9 - Chronic obstructive pulmonary disease, unspecified, J96.01 - Acute respiratory failure with hypoxia, J96.02 - Acute respiratory failure with hypercapnia Coding Level of Care Code Est Pt Level 4 (63078) Diagnoses Chronic obstructive pulmonary disease, unspecified COPD type J44.9 COPD type: unspecified COPD Acute exacerbation of chronic obstructive airways disease J44.1 Acute respiratory failure with hypoxia and hypercarbia J96.01; J96.02
[2025-07-29 15:32] VITALS: BP 98/70; PULSE 122; O2SAT 92; BMI 33.8
== END 2025-07-29 15:50 | disposition home or self-care (01) ==
LOC: HO.HPS 15:18
PROVIDERS: PCP Physician Assistant Medical; Visit Provider Internal Medicine
DX: J44.9 Chronic obstructive pulmonary disease, unspecified (principal); J44.1 Chronic obstructive pulmonary disease with (acute) exacerbation; J96.01 Acute respiratory failure with hypoxia; J96.02 Acute respiratory failure with hypercapnia
CPT/HCPCS: 99214

== ENCOUNTER 2025-08-04 14:26 | Outpatient (AMB) | payer OTHER, SELFPAY ==
[2025-08-04 10:06] VITALS: BP 120/68; PULSE 126; TEMP 36.6; O2SAT 95; BMI 34.7
--- NOTE | 2025-08-04 10:06 | MHC.PC.OV ---
Vital Signs 08/04/25 10:06 Height 4 ft 11 in Weight 172 lb BMI 34.7 BP 120/68 Blood Pressure Location Rt brachial Position Sitting Pulse 126 H Pulse Source Pulse Oximeter Temp 98 F Temp Source Temporal Artery Scan Pulse Oximetry (%) 95 Oxygen Delivery Method Room Air Intake Visit Reasons: [facility] Lead Auditor Required: No Accompanied by: Self / Same As Patient Allergies codeine (CODEINE) Allergy (Unknown, Verified 08/04/25 14:52) NAUSEA & VOMITING, HIVES Penicillins (PENICILLINS) Allergy (Unknown, Verified 08/04/25 14:52) DIFF BREATHING, RASH ENVIRONMENTAL Allergy (Unknown, Uncoded 07/29/25 15:44) SOB,WHEEZING Medication List - Last Reconciled 08/04/25 by PATRIC Gayle albuterol sulfate 2.5 mg (3 mL) inhalation Q4-6H alcohol swabs 1 pad topical QIDACHS atorvastatin 20 mg PO DAILY blood sugar diagnostic (FreeStyle Lite Strips) Test four times a day or as directed. blood-glucose meter (FreeStyle Lite Meter kit) As Directed budesonide-formoterol 160-4.5 mcg/actuation (Symbicort) 2 puffs PO BID cholecalciferol (vitamin D3) 50 mcg PO DAILY compressor, for nebulizer As directed 4 times a day diltiazem HCl CD (Cardizem CD) 120 mg See Protocol PO DAILY gabapentin 1,200 mg PO TID hydrocortisone 1% 1 appl topical BEDTIME inhalational spacing device (Aerochamber Mechanical Vent) As directed lancets (FreeStyle Lancets) Test four times a day or as directed. menthol-zinc oxide 0.44-20.6 % (Calmoseptine) 1 appl topical TID PRN metformin ER (Glucophage XR) 500 mg PO BID montelukast 10 mg PO DAILY naproxen 500 mg PO BID PRN omeprazole 40 mg PO DAILY pen needle, diabetic Use four times a day or as directed. prednisone 20 mg (4 x 5 mg) PO DAILY 15 days quetiapine ER 200 mg PO BEDTIME risperidone 2 mg PO BEDTIME sennosides (senna) 17.2 mg (2 x 8.6 mg) PO DAILY umeclidinium 62.5 mcg/actuation (Incruse Ellipta) 1 inh inhalation DAILY Tobacco use date assessed: 08/04/25 Dental Screening Dental Screen Date: 08/04/25 Did you have a dental visit in the last 12 months?: No Did you have a dental problem in the last 6 months where you did not have access to dental care?: No HPI HPI Comments History of Present Illness Details The patient is a 54-year-old female with COPD, MDD, DM Carpal tunnel, cigarette smoker and obesity presenting for IP follow up. She was IP 07/20-07/23 for COPD, pneumonia, and diabetes mellitus. The patient has a history of Chronic Obstructive Pulmonary Disease (COPD) and was recently hospitalized due to an exacerbation of COPD and bacterial pneumonia. She reports that her breathing becomes more difficult in humid conditions, but improves in cooler environments. She is on chronic Oxygen. She uses albuterol, symbicort and Incruse ellipta, and is currently on prednisone for another week. She has a follow up with Pulmonary, Dr. Hoskins on 08/12. The patient has been experiencing elevated blood glucose levels, which were first managed with insulin during her recent hospital stay. Her blood glucose levels have been elevated, with readings of 208 mg/dL, likely exacerbated by her current prednisone use. She has not been on any oral diabetes medication previously, and her hemoglobin A1c was recorded at 7.0% on 07/29. Patient was informed and verbally consented to the use of an ambient scribe for clinic note documentation during this visit. [facility] Medical History (Updated 08/04/25 @ 17:28 by PATRIC Gayle) Acid reflux Asthma Bleeding hemorrhoids COPD (chronic obstructive pulmonary disease) Depression Diabetes Morbid obesity with BMI of 50.0-59.9, adult Nicotine dependence, cigarettes, uncomplicated Pneumonia Respiratory failure with hypoxia Surgical History History of cholecystectomy History of colposcopy History of endometrial ablation History of hysterectomy History of loop electrosurgical excision procedure (LEEP) History of shoulder surgery Status post excision of lipoma Family History (Updated 08/04/25 @ 14:57 by Angela Cruz MA) Mother Crohn disease Mental health disorder Brother Colitis Mental health disorder Father No problems noted. 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 1. Little interest or pleasure in doing things: not at all 2. Feeling down, depressed, or hopeless: not at all 3. Trouble falling or staying asleep, or sleeping too much: not at all 4. Feeling tired or having little energy: not at all 5. Poor appetite or overeating: not at all 6. Feeling bad about yourself - or that you are a failure or have let yourself or your family down: not at all 7. Trouble concentrating on things, such as reading the newspaper or watching television: not at all 8. Moving or speaking so slowly that other people could have noticed. Or the opposite - being so fidgety or restless that you have been moving around a lot more than usual: not at all 9. Thoughts that you would be better off or of hurting yourself in some way: not at all Total score: 0 Depression Screening Interpretation: Negative Depression Screening Done: Yes Source: Developed by Drs. Juan Cardoza, Pam Tafoya, Faisal Shepard and colleagues, with an educational naseem from [employer]. Thrive Questionnaire Date Thrive assessed: 08/04/25 I am a: Patient Within the past 12 months, did the food you bought not last and you didn't have the money to get more?: Never true Within the past 12 months, did you worry whether your food would run out before you got money to buy more?: Never true Do you have trouble paying for medicines?: No Do you have trouble getting transportation to medical appointments?: No Do you have trouble paying your heating and electricity bill?: No Do you have trouble taking care of your child, family member or friend?: No Do you have trouble with day-to-day activities such as bathing, preparing meals, shopping, managing finances, etc.?: No Are you currently unemployed and looking for a job?: No Are you interested in more education?: No THRIVE Score: 0 AUDIT C Alcohol Use Questionnaire (AUDIT-C) 1. How often do you have a drink containing alcohol?: Never 3. How often do you have six or more drinks on one occasion?: Never Total Score: 0 PRANEETH-7 AMB Questionnaire PRANEETH-7 Date PRANEETH - 7 assessed: 08/04/25 Feeling nervous, anxious, or on edge: 0 = Not at all Not being able to stop or control worryin = Not at all Worrying too much about different things: 0 = Not at all Trouble relaxin = Not at all Being so restless that it is hard to sit still: 0 = Not at all Becoming easily annoyed or irritable: 0 = Not at all Feeling afraid as if something awful might happen: 0 = Not at all Total PRANEETH-7 score (0-4 normal; 5-9 mild; 10-14 moderate; 15-21 severe): 0 Source: Developed by Drs. Juan Cardoza, Pam Tafoya, Faisal Shepard and colleagues, with an educational naseem from [employer]. Review of Systems Const Details: CONSTITUTIONAL Negative HEAD/NECK Negative RESPIRATORY Reports dyspnea, especially in humid conditions. Denies cough or hemoptysis. CARDIOVASCULAR Reports elevated heart rate, possibly due to antidepressant medication MUSCULOSKELETAL Negative NEUROLOGICAL Negative PSYCHIATRIC Depression Physical exam (Primary Care) Vital Signs: Last Vital Signs Temp 98 F 08/04/25 10:06 Pulse 126 H 08/04/25 10:06 BP 120/68 08/04/25 10:06 Pulse Ox 95 08/04/25 10:06 Oxygen Delivery Method Room Air 08/04/25 10:06 BMI result Body Mass Index 34.7 GENERAL Well developed, obese, in no apparent distress, using oxygen HEENT Head-Normocephalic Neck- Supple, No lymphadenopathy, thyroid WNL RESPIRATORY Normal I:E, mild expiratory wheezing CARDIOVASCULAR Tachycardia, normal rhythm, No murmurs or rubs NEUROLOGICAL Gait normal PSYCHIATRIC Oriented to person, place and time Mood and affect WNL Appearance WNL Speech WNL Thought processes WNL Tobacco/Smoking Status: Tobacco use Status Tobacco use date assessed 08/04/25 08/04/25 10:07 Patient Tobacco Use Status Former Tobacco user 08/04/25 10:07 Tobacco use type Cigarette 08/04/25 10:07 PHQ-9: PHQ-9 Score PHQ-9: Total score 0 08/04/25 14:58 Depression Screening Interpretation: Negative Thrive Assessment: Date of Thrive Assessment Date Thrive assessed 08/04/25 08/04/25 10:07 Coding Level of Care Code Established Pt Est Pt Level 4 (14233) Patient Type Established Diagnoses Chronic obstructive pulmonary disease, unspecified COPD type J44.9 COPD type: unspecified COPD Pneumonia J18.9 Diabetes E11.9 Depression, unspecified depression type F32.A Depression Type: unspecified Time Spent (min) 30 Comment Time spent on chart review, medication reconciliation, H&P, patient education, and orders Assessment & Plan Assessment & Plan (1) COPD (chronic obstructive pulmonary disease): Code(s): J44.9 - Chronic obstructive pulmonary disease, unspecified Category: Medical Qualifiers: COPD type: unspecified COPD Qualified Code(s): J44.9 - Chronic obstructive pulmonary disease, unspecified Plan: The patient will continue using albuterol and her inhalers as prescribed. She is advised to complete her course of prednisone and follow up with her store protection specialist on the . Patient to follow up on 08/27 or sooner if symptoms persist or worsen. (2) Pneumonia: Code(s): J18.9 - Pneumonia, unspecified organism Category: Medical Plan: Resolved. (3) Diabetes: Code(s): E11.9 - Type 2 diabetes mellitus without complications Category: Medical Plan: The patient will start on metformin twice daily with meals to manage her blood glucose levels. She is instructed to monitor her blood glucose levels daily and report any significant changes. A follow-up appointment is scheduled to assess her response to the medication and adjust treatment as necessary on 08/27. (4) Depression: Code(s): F32.9 - Major depressive disorder, single episode, unspecified Category: Medical Qualifiers: Depression Type: unspecified Qualified Code(s): F32.A - Depression, unspecified Plan: Patient is followed by Aida Fernandez. She is on multiple medications. Plan I discussed with the patient the management of her COPD and diabetes mellitus. We reviewed the importance of completing her prednisone course and following up with her store protection specialist. I explained the initiation of metformin for her diabetes management and the need for regular blood glucose monitoring. We also discussed the potential side effects of metformin and the importance of reporting any adverse effects. A follow-up appointment was scheduled to evaluate her progress and adjust treatment as necessary. Medications: New metformin ER (Glucophage XR) 500 mg PO BID 60 tabs 0RF for diabetes Refilled naproxen 500 mg PO BID PRN 60 tabs 1RF for pain Patient Instructions: - Continue using albuterol and inhalers as prescribed. - Complete the course of prednisone. - Start metformin twice daily with meals. - Monitor blood glucose levels daily and report significant changes. - Attend follow-up appointment on the .
== END 2025-08-04 15:21 | disposition home or self-care (01) ==
LOC: HO.HMCHD 14:27
PROVIDERS: PCP Physician Assistant Medical; Visit Provider Physician Assistant Medical
DX: J44.9 Chronic obstructive pulmonary disease, unspecified (principal); E11.9 Type 2 diabetes mellitus without complications; J18.9 Pneumonia, unspecified organism; F32.A Depression, unspecified

== ENCOUNTER → 2025-08-04 14:26 | Outpatient (BNVA) | payer OTHER, SELFPAY | PROVIDERS: PCP Physician Assistant Medical; Visit Provider Physician Assistant Medical | DX: E11.9 Type 2 diabetes mellitus without complications (principal); J44.9 Chronic obstructive pulmonary disease, unspecified; J18.9 Pneumonia, unspecified organism; E66.9 Obesity, unspecified; F32.A Depression, unspecified; F17.210 Nicotine dependence, cigarettes, uncomplicated; Z68.34 Body mass index [BMI] 34.0-34.9, adult; Z99.81 Dependence on supplemental oxygen | CPT/HCPCS: 99212 ==

== ENCOUNTER 2025-08-12 14:55 | Outpatient (AMB) | payer OTHER, SELFPAY ==
[2025-08-12 15:14] VITALS: BP 102/62; PULSE 121; O2SAT 91; BMI 34.7
--- NOTE | 2025-08-12 15:14 | MHC.OFFVIS ---
Vital Signs 08/12/25 15:14 Height 4 ft 11 in Weight 172 lb BMI 34.7 BP 102/62 Blood Pressure Location Lt brachial Position Sitting Pulse 121 H Pulse Source Pulse Oximeter Pulse Oximetry (%) 91 L Oxygen Delivery Method Nasal Cannula Oxygen Flow Rate 2 Intake Visit Reasons: copd Intake Note: pt is here for follow up and states she is a little short today with her breath. Business Process Consultant Required: No Newspaper Library Manager: Newspaper Library Manager offered & declined Allergies codeine (CODEINE) Allergy (Unknown, Verified 08/12/25 15:26) NAUSEA & VOMITING, HIVES Penicillins (PENICILLINS) Allergy (Unknown, Verified 08/12/25 15:26) DIFF BREATHING, RASH ENVIRONMENTAL Allergy (Unknown, Uncoded 08/12/25 15:26) SOB,WHEEZING Medication List - Last Reconciled 08/12/25 by Haven Longo MD albuterol sulfate 2.5 mg (3 mL) inhalation Q4-6H alcohol swabs 1 pad topical QIDACHS 90 days atorvastatin 20 mg PO DAILY blood sugar diagnostic (FreeStyle Lite Strips) Test four times a day or as directed. blood-glucose meter (FreeStyle Lite Meter kit) As Directed budesonide-formoterol 160-4.5 mcg/actuation (Symbicort) 2 puffs PO BID cholecalciferol (vitamin D3) 50 mcg PO DAILY compressor, for nebulizer As directed 4 times a day diltiazem HCl CD (Cardizem CD) 120 mg See Protocol PO DAILY gabapentin 1,200 mg PO TID hydrocortisone 1% 1 appl topical BEDTIME inhalational spacing device (Aerochamber Mechanical Vent) As directed lancets (FreeStyle Lancets) Test four times a day or as directed. menthol-zinc oxide 0.44-20.6 % (Calmoseptine) 1 appl topical TID PRN metformin ER (Glucophage XR) 500 mg PO BID 90 days montelukast 10 mg PO DAILY 90 days naproxen 500 mg PO BID PRN omeprazole 40 mg PO DAILY pen needle, diabetic Use four times a day or as directed. prednisone 20 mg (4 x 5 mg) PO DAILY 15 days quetiapine ER 200 mg PO BEDTIME risperidone 2 mg PO BEDTIME sennosides (senna) 17.2 mg (2 x 8.6 mg) PO DAILY umeclidinium 62.5 mcg/actuation (Incruse Ellipta) 1 inh inhalation DAILY Do you need a note to return to daycare/school/sports/work: No HPI HPI copd: Details: THIS 54 YEARS OLD FEMALE WITH END-STAGE CHRONIC OBSTRUCTIVE PULMONARY DISEASE DUE TO CHRONIC SMOKING, HAS CHRONIC RESPIRATORY FAILURE WITH HYPOXEMIA AND HYPERCAPNIA. SHE WAS ADMITTED A FEW WEEKS AGO TO [facility] WITH ACUTE ON CHRONIC RESPIRATORY FAILURE. SHE REQUIRED USE OF BIPAP FOR THE 1ST 2 DAYS, AND THEN WAS TAKEN OFF THE BIPAP. IN THE HOSPITAL TREATED FOR POSSIBLE PNEUMONIA. CTA OF THE CHEST WAS NEGATIVE FOR PULMONARY EMBOLI BUT IT WAS INDICATING PRESENCE OF BIBASILAR ATELECTASIS. PATIENT WAS TREATED WITH IV STEROIDS FOLLOWED BY PREDNISONE TAPER WHICH SHE HAS NOW COMPLETED. ON DISCHARGE HOME SHE WAS SENT ON OXYGEN 3 L/MINUTE., DUONEB UPDRAFTS, DEEP BREATHING EXERCISES , AND STRICTLY NO SMOKING. SHE CLAIMS THAT SHE HAS NOT SMOKED SINCE SHE WENT HOME. SHE GETS SHORT OF BREATH ON STANDING AND WALKING AROUND. SHE STAYING MOSTLY IN THE WHEELCHAIR. MENTAL STATUS HAS REMAINED CLEAR AND STABLE [facility] Medical History Diabetes Pneumonia Bleeding hemorrhoids Respiratory failure with hypoxia COPD (chronic obstructive pulmonary disease) Morbid obesity with BMI of 50.0-59.9, adult Asthma Nicotine dependence, cigarettes, uncomplicated Acid reflux Depression Surgical History Status post excision of lipoma History of cholecystectomy History of shoulder surgery History of hysterectomy History of endometrial ablation History of loop electrosurgical excision procedure (LEEP) History of colposcopy Family History Mother Crohn disease Mental health disorder Brother Colitis Mental health disorder Father No problems noted. 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 Cognitive needs: No (cane and wheelchair) Hearing needs: No Vision needs: Yes (rx glasses) Review of Systems Const All systems reviewed & are unremarkable except as noted in HPI and below Eyes Reports no additional complaints ENT Reports no additional complaints Card Denies chest pain, Denies irregular heart rhythm and Denies leg edema Resp Reports as per HPI GI Reports heartburn (Controlled with omeprazole) Reports no additional complaints Musc Reports back pain (Mild off and on) Skin/Breast Reports system reviewed and no additional complaints, except as documented Neuro Reports no additional complaints Psych Reports anxiety Endo Reports no additional complaints Physical Exam Vital Signs: Last Vital Signs Pulse 121 H 08/12/25 15:14 BP 102/62 08/12/25 15:14 Pulse Ox 91 L 08/12/25 15:14 Oxygen Delivery Method Nasal Cannula 08/12/25 15:14 Oxygen Flow Rate 2 08/12/25 15:14 BMI result Body Mass Index 34.7 Last Vital Signs Temp 98.2 F 07/20/25 14:04 Pulse 125 H 07/20/25 15:23 Resp 26 H 07/20/25 15:25 BP 133/71 07/20/25 15:33 Pulse Ox 92 07/20/25 15:22 O2 Del Method BiPAP 07/20/25 15:22 O2 Flow Rate 3 07/20/25 14:04 Oxygen Flow Rate 3 07/20/25 03:38 BMI result Body Mass Index 37.5 Const Other: SHE IS TACHYPNEIC, AND SEEMS TO BE IN MODERATE RESPIRATORY DISTRESS. General: alert and awake Orientation/consciousness: patient oriented x3 HEENT Head: Yes normal to inspection General nose exam: No nasal polyps present, No nasal discharge present and Other nasal findings present (THERE IS BILATERAL NASAL CONGESTION) Face and sinus: Yes sinuses nontender Throat: Yes posterior oropharynx normal (DIFFICULT TO VISUALIZE) Eyes General: appearance normal, both eyes and all related structures Neck Neck: Yes normal visual inspection, Yes no lymphadenopathy, Yes trachea midline and Yes no JVD Thyroid: Thyroid normal Chest Chest palpation & inspection: normal inspection of the chest, normal palpation of entire chest wall and no tenderness Resp Other: BREATH SOUNDS ARE VERY DISTANT ON BOTH SIDES, NO WHEEZES, OR CREPITATIONS . Cardio Palpation: normal PMI Rate: regular rate Rhythm: regular rhythm Heart sounds: no gallops and no murmurs GI Palpation (GI): Soft to palpation, nontender, No hepatosplenomegaly present and no masses Auscultation: normal bowel sounds Back/Spine/Pelvis Other: NOT EXAMINED Skin General skin exam: no rashes or lesions noted Neuro General: patient oriented x3, No gait normal (CONFINED TO BED AT THIS TIME AND NOT AMBULATE) and no focal motor deficits Cranial nerves: Yes CN's II-XII intact bilaterally Extrem General: Yes normal to inspection, Yes no clubbing, cyanosis or edema and Yes no calf tenderness Psych Speech and movement: Normal speech and movement present Affect: Anxious affect present Results Reviewed Results Reviewed: /XR chest 1V 06/24/2025 IN THE ER IMPRESSION: Pulmonary edema versus acute small airway inflammatory processes. Small volume left sided pleural effusion. Concerning calcific tendinosis/tendinopathy, left supraspinatus. Electronically signed by: Martell Chauhan MD 06/24/2025 07:47 AM EDT RP 07/20/2025 IMPRESSION: 1. No pulmonary embolus. 2. Bilateral lower lobe consolidation, differential considerations noted This document has been electronically signed by: Karson Esteves MD on 07/20/2025 07:37:21 VENOUS BLOOD GASES PH=7.37 PCO2 66 PO2 42 HCO3 38 C/W CHRONIC COMPENSATED RESPIRATORY FAILURE Assessment & Plan Assessment & Plan (1) COPD (chronic obstructive pulmonary disease): Comment: THIS PATIENT HAS ADVANCED CHRONIC OBSTRUCTIVE PULMONARY DISEASE. SHE HAS BEEN ACTIVE SMOKER UP UNTIL RECENT HOSPITALIZATION. HAS DEVELOPED CHRONIC RESPIRATORY FAILURE SINCE HER DISCHARGE HOME 2 WEEKS AGO SHE IS RELATIVELY STABLE BUT VERY MUCH DECONDITIONED. Code(s): J44.9 - Chronic obstructive pulmonary disease, unspecified Category: Medical Qualifiers: COPD type: unspecified COPD Qualified Code(s): J44.9 - Chronic obstructive pulmonary disease, unspecified Plan: SYMBICORT 160-4.5 2 PUFFS B.I.D. INCRUSE ELLIPTA 1 INHALATION DAILY. ALBUTEROL 2.5 MG IN THE NEBULIZER Q 4-6 HOURS P.R.N. FOR ACUTE DISTRESS (2) Nicotine dependence, cigarettes, uncomplicated: Comment: She has longstanding history of smoking and has advanced chronic obstructive pulmonary disease. Claims that she has quit smoking completely since 5 months now . STILL SMOKES 1 OR 2 CIGARETTES A DAY Code(s): F17.210 - Nicotine dependence, cigarettes, uncomplicated Category: Medical Plan: I CAUTIONED HER THAT SHE HAS ACUTE ON CHRONIC RESPIRATORY FAILURE. IF SHE CONTINUES TO SMOKE SHE MAY NEED TO BE ON NONINVASIVE RESPIRATORY SUPPORT (3) Acute exacerbation of chronic obstructive airways disease: Comment: ACUTE EXACERBATION PROBABLY CAUSED BY EARLY PNEUMONIA, HAS IMPROVED, SHE SEEMS TO BE AT BASELINE AT THIS TIME. SHE DID IMPROVE WHILE IN THE HOSPITAL. SINCE DISCHARGE HOME HAS BEEN STABLE. HOWEVER SHE REMAINS WEAK AND IS SHORT OF BREATH ON MINIMAL EXERTION. Code(s): J44.1 - Chronic obstructive pulmonary disease with (acute) exacerbation Category: Medical Plan: VENOUS BLOOD GAS STUDY ORDERED SHE IS ADVISED TO STAY ON OXYGEN 3 L/MINUTE 24 HOURS A DAY. MUST DO DEEP BREATHING EXERCISES WITH PURSED LIP BREATHING TECHNIQUE. IF VENOUS BLOOD GASES SHOWING CO2 RETENTION THEN SHE NEEDS TO BE STARTED ON NONINVASIVE RESPIRATORY SUPPORT AT HOME * BLOOD GAS STUDY SHOWS PCO2 66 PH 7.37 ( CHRONIC COMPENSATED RESPIRATORY FAILURE ) WILL START PATIENT ON DIAMOX 250 MG ONCE A DAY , AND MONITOR CLOSELY IF SHE DOES NOT BENEFIT FROM DIAMOX SHE MAY NEED TO BE STARTED ON NONINVASIVE VENTILATORY SUPPORT Orders: Orders Venous Blood Gas Today J44.9 - Chronic obstructive pulmonary disease, unspecified, J96.01 - Acute respiratory failure with hypoxia, J96.02 - Acute respiratory failure with hypercapnia Medications: New acetazolamide 250 mg PO DAILY 30 tabs 3RF RESPIRATORY FAILURE 30 days Coding Level of Care Code Est Pt Level 4 (81214) Diagnoses Chronic obstructive pulmonary disease, unspecified COPD type J44.9 COPD type: unspecified COPD Nicotine dependence, cigarettes, uncomplicated F17.210 Acute exacerbation of chronic obstructive airways disease J44.1
== END 2025-08-12 15:36 | disposition home or self-care (01) ==
LOC: HO.HPS 14:55
PROVIDERS: PCP Physician Assistant Medical; Visit Provider Internal Medicine
DX: J44.9 Chronic obstructive pulmonary disease, unspecified (principal); F17.210 Nicotine dependence, cigarettes, uncomplicated; J44.1 Chronic obstructive pulmonary disease with (acute) exacerbation
CPT/HCPCS: 99214

== ENCOUNTER 2025-08-12 14:55 | Outpatient (REF) | payer OTHER, SELFPAY ==
[2025-08-12 15:55] LABS: Venous Blood Gas Refer to POC result
[2025-08-12 16:01] LABS: VBG HCO3 38 mmol/L (22-26); VBG O2 % Saturation 62.0 %
== END 2025-08-12 14:56 | disposition home or self-care (01) ==
LOC: HO.LAB 14:55
PROVIDERS: PCP Physician Assistant Medical; Visit Provider Internal Medicine
DX: J96.21 Acute and chronic respiratory failure with hypoxia (principal); J96.22 Acute and chronic respiratory failure with hypercapnia; J44.1 Chronic obstructive pulmonary disease with (acute) exacerbation; F17.210 Nicotine dependence, cigarettes, uncomplicated; Z79.52 Long term (current) use of systemic steroids; Z79.899 Other long term (current) drug therapy
CPT/HCPCS: 36415; 82803; 99212

== ENCOUNTER 2025-09-10 14:46 | Outpatient (AMB) | payer OTHER, SELFPAY ==
[2025-09-10 15:01] VITALS: BP 110/60; PULSE 120; O2SAT 90
--- NOTE | 2025-09-10 15:01 | A.OFFVIS_ITS ---
Vital Signs 09/10/25 15:01 Height 4 ft 11 in BP 110/60 Blood Pressure Location Lt brachial Position Sitting Pulse 120 H Pulse Source Pulse Oximeter Pulse Oximetry (%) 90 L Oxygen Delivery Method Nasal Cannula Oxygen Flow Rate 2 Intake Visit Reasons: COPD Intake Note: pt is here for follow up and states she is still not at baseline, using 3 liters at home, 2 liters when out Electromedical Equipment Technician Required: No Allergies codeine (CODEINE) Allergy (Unknown, Verified 09/10/25 15:27) NAUSEA & VOMITING, HIVES Penicillins (PENICILLINS) Allergy (Unknown, Verified 09/10/25 15:27) DIFF BREATHING, RASH ENVIRONMENTAL Allergy (Unknown, Uncoded 09/10/25 15:27) SOB,WHEEZING Medication List - Last Reconciled 09/10/25 by Haven Longo MD acetazolamide 250 mg PO DAILY 30 days albuterol sulfate 2.5 mg (3 mL) inhalation Q4-6H alcohol swabs 1 pad topical QIDACHS 90 days atorvastatin 20 mg PO DAILY blood sugar diagnostic (FreeStyle Lite Strips) Test four times a day or as directed. blood-glucose meter (FreeStyle Lite Meter kit) As Directed budesonide-formoterol 160-4.5 mcg/actuation (Symbicort) 2 puffs PO BID cholecalciferol (vitamin D3) 50 mcg PO DAILY compressor, for nebulizer As directed 4 times a day diltiazem HCl CD (Cardizem CD) 120 mg See Protocol PO DAILY gabapentin 1,200 mg PO TID glipizide ER 5 mg PO DAILY hydrocortisone 1% 1 appl topical BEDTIME inhalational spacing device (Aerochamber Mechanical Vent) As directed ipratropium-albuterol 0.5 mg-3 mg(2.5 mg base)/3 mL 3 mL inhalation Q6-8H PRN 15 days lancets (FreeStyle Lancets) Test four times a day or as directed. menthol-zinc oxide 0.44-20.6 % (Calmoseptine) 1 appl topical TID PRN montelukast 10 mg PO DAILY 90 days naproxen 500 mg PO BID PRN omeprazole 40 mg PO DAILY pen needle, diabetic Use four times a day or as directed. prednisone 20 mg (4 x 5 mg) PO DAILY 15 days quetiapine ER 200 mg PO BEDTIME risperidone 2 mg PO BEDTIME sennosides (senna) 17.2 mg (2 x 8.6 mg) PO DAILY umeclidinium 62.5 mcg/actuation (Incruse Ellipta) 1 inh inhalation DAILY Do you need a note to return to daycare/school/sports/work: No HPI HPI COPD: Details: Ana is here for one-month follow-up. She was brought in the wheelchair by her . Claims that she has been fairly stable during the past month. Continues to use her medications regularly. Claims that she is not smoking, this is confirmed by her home we have met for the 1st time. She remains alert without any disorientation. Uses her meds regularly . [facility] Medical History Diabetes Pneumonia Bleeding hemorrhoids Respiratory failure with hypoxia COPD (chronic obstructive pulmonary disease) Morbid obesity with BMI of 50.0-59.9, adult Asthma Nicotine dependence, cigarettes, uncomplicated Acid reflux Depression Surgical History Status post excision of lipoma History of cholecystectomy History of shoulder surgery History of hysterectomy History of endometrial ablation History of loop electrosurgical excision procedure (LEEP) History of colposcopy Family History Mother Crohn disease Mental health disorder Brother Colitis Mental health disorder Father No problems noted. 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 Cognitive needs: No (cane and wheelchair) Hearing needs: No Vision needs: Yes (rx glasses) Review of Systems Const All systems reviewed & are unremarkable except as noted in HPI and below Eyes Reports no additional complaints ENT Reports no additional complaints Card Denies chest pain, Denies irregular heart rhythm and Denies leg edema Resp Reports as per HPI GI Reports heartburn (Controlled with omeprazole) Reports no additional complaints Musc Reports back pain (Mild off and on) Skin/Breast Reports system reviewed and no additional complaints, except as documented Neuro Reports no additional complaints Psych Reports anxiety Endo Reports no additional complaints Physical Exam Vital Signs: Last Vital Signs Pulse 120 H 09/10/25 15:01 BP 110/60 09/10/25 15:01 Pulse Ox 90 L 09/10/25 15:01 Oxygen Delivery Method Nasal Cannula 09/10/25 15:01 Oxygen Flow Rate 2 09/10/25 15:01 Last Vital Signs Temp 98.2 F 07/20/25 14:04 Pulse 125 H 07/20/25 15:23 Resp 26 H 07/20/25 15:25 BP 133/71 07/20/25 15:33 Pulse Ox 92 07/20/25 15:22 O2 Del Method BiPAP 07/20/25 15:22 O2 Flow Rate 3 07/20/25 14:04 Oxygen Flow Rate 3 07/20/25 03:38 BMI result Body Mass Index 37.5 Const Other: SHE IS TACHYPNEIC, AND SEEMS TO BE IN MODERATE RESPIRATORY DISTRESS. General: alert and awake Orientation/consciousness: patient oriented x3 HEENT Head: Yes normal to inspection General nose exam: No nasal polyps present, No nasal discharge present and Other nasal findings present (THERE IS BILATERAL NASAL CONGESTION) Face and sinus: Yes sinuses nontender Throat: Yes posterior oropharynx normal (DIFFICULT TO VISUALIZE) Eyes General: appearance normal, both eyes and all related structures Neck Neck: Yes normal visual inspection, Yes no lymphadenopathy, Yes trachea midline and Yes no JVD Thyroid: Thyroid normal Chest Chest palpation & inspection: normal inspection of the chest, normal palpation of entire chest wall and no tenderness Resp Other: BREATH SOUNDS ARE VERY DISTANT ON BOTH SIDES, NO WHEEZES, OR CREPITATIONS . Cardio Palpation: normal PMI Rate: regular rate Rhythm: regular rhythm Heart sounds: no gallops and no murmurs GI Palpation (GI): Soft to palpation, nontender, No hepatosplenomegaly present and no masses Auscultation: normal bowel sounds Back/Spine/Pelvis Other: NOT EXAMINED Skin General skin exam: no rashes or lesions noted Neuro General: patient oriented x3, No gait normal (CONFINED TO BED AT THIS TIME AND NOT AMBULATE) and no focal motor deficits Cranial nerves: Yes CN's II-XII intact bilaterally Extrem General: Yes normal to inspection, Yes no clubbing, cyanosis or edema and Yes no calf tenderness Psych Speech and movement: Normal speech and movement present Affect: Anxious affect present Results Reviewed Results Reviewed: Reviewed her blood gas results last time. PCO2 gone up to 66 but pH is 7.34, c/w chronic compensated respiratory failure. Assessment & Plan Assessment & Plan (1) COPD (chronic obstructive pulmonary disease): Comment: THIS PATIENT HAS ADVANCED CHRONIC OBSTRUCTIVE PULMONARY DISEASE. SHE HAS BEEN ACTIVE SMOKER UP UNTIL RECENT HOSPITALIZATION. HAS DEVELOPED CHRONIC RESPIRATORY FAILURE SINCE HER DISCHARGE HOME 6 WEEKS AGO SHE IS RELATIVELY STABLE BUT VERY MUCH DECONDITIONED AND TO SLEEP MUCH DURING THE DAY TIME Code(s): J44.9 - Chronic obstructive pulmonary disease, unspecified Category: Medical Qualifiers: COPD type: unspecified COPD Qualified Code(s): J44.9 - Chronic obstruct yesika pulmonary disease, unspecified Plan: CONTINUE THE PRESENT MEDICAL REGIMEN. SYMBICORT 160-4.52 PUFFS B.I.D. IPRATROPIUM-ALBUTEROL SOLUTION IN THE NEBULIZER Q 6 HOURS WHILE AWAKE INCRUSE ELLIPTA 1 INHALATION DAILY ACETAZOLAMIDE 250 MG P.O. DAILY (2) Respiratory failure with hypoxia: Comment: She has resting and exertional Hypoxemia , requiring oxygen supplementation. Does desaturate very quickly if taken off the oxygen. We adjusted the O2 flow in the office and she needs 2- 3 L/minute to keep O2 sat just above 90% Code(s): J96.91 - Respiratory failure, unspecified with hypoxia Category: Medical Plan: ADVISED TO CONTINUE USING THE OXYGEN BUT CAUTIOUSLY. USE 3 L/MINUTE WHEN GOING OUTDOORS, AND 2 L/MINUTE AT HOME. I DEMONSTRATED TO HER THE DEEP BREATHING EXERCISES WITH PURSED LIP TECHNIQUE. STRESSED THAT SHE HAS TO DO AT LEAST 10 TIMES EVERY HOUR WHILE AWAKE. I TOLD HER THAT IF SHE DOES NOT DO EXERCISES SHE IS GOING TO HAVE WORSENING OF HER RESPIRATORY FAILURE/CO2 RETENTION AND THEN DEFINITELY SHE WOULD NEED TO USE BIPAP. SHE SAY IS VERY LOUDLY NO BIPAP ) VENOUS BLOOD GAS STUDY IS ORDERED AGAIN. (3) Nicotine dependence, cigarettes, uncomplicated: Comment: She has longstanding history of smoking and has advanced chronic obstructive pulmonary disease. Claims that she has quit smoking completely since 5 months now . SHE SAY SHE IS NOT SMOKING AT ALL, AND IT IS CONFIRMED BY HER WHO CAME WITH HER. Code(s): F17.210 - Nicotine dependence, cigarettes, uncomplicated Category: Medical Plan: ABSOLUTELY NO SMOKING Orders: Orders Venous Blood Gas Today Haven Longo MD J96.91 - Respiratory failure, unspecified with hypoxia Electrolytes Today Haven Longo MD J96.91 - Respiratory failure, unspecified with hypoxia Medications: Changed From glipizide ER 5 mg PO BID 60 tabs 1RF for diabetes To glipizide ER 5 mg PO DAILY PATRIC Gayle Coding Level of Care Code Est Pt Level 3 (68144) Diagnoses Chronic obstructive pulmonary disease, unspecified COPD type J44.9 COPD type: unspecified COPD Respiratory failure with hypoxia J96.91 Nicotine dependence, cigarettes, uncomplicated F17.210
== END 2025-09-10 15:27 | disposition home or self-care (01) ==
LOC: HO.HPS 14:47
PROVIDERS: PCP Physician Assistant Medical; Visit Provider Internal Medicine
DX: J44.9 Chronic obstructive pulmonary disease, unspecified (principal); J96.91 Respiratory failure, unspecified with hypoxia; F17.210 Nicotine dependence, cigarettes, uncomplicated
CPT/HCPCS: 99213

== ENCOUNTER → 2025-09-10 14:46 | Outpatient (BNVA) | payer OTHER, SELFPAY | PROVIDERS: PCP Physician Assistant Medical; Visit Provider Internal Medicine | DX: J96.91 Respiratory failure, unspecified with hypoxia (principal); J44.9 Chronic obstructive pulmonary disease, unspecified; F17.210 Nicotine dependence, cigarettes, uncomplicated | CPT/HCPCS: 99212 ==

== ENCOUNTER 2025-10-13 14:05 | Outpatient (AMB) | payer OTHER, SELFPAY ==
[2025-10-13 14:12] VITALS: BP 114/68; PULSE 114; TEMP 36.6; O2SAT 90; BMI 33.1
--- NOTE | 2025-10-13 14:12 | A.OFFPC_ITS ---
Vital Signs 10/13/25 14:12 Height 4 ft 11 in Weight 164 lb BMI 33.1 BP 114/68 Blood Pressure Location Rt brachial Position Sitting Pulse 114 H Pulse Source Pulse Oximeter Temp 98 F Temp Source Temporal Artery Scan Pulse Oximetry (%) 90 L Oxygen Delivery Method Room Air Intake Visit Reasons: follow up Fibre Optic Cable Splicer Required: No Accompanied by: Self / Same As Patient Allergies codeine (CODEINE) Allergy (Unknown, Verified 10/14/25 14:37) NAUSEA & VOMITING, HIVES Penicillins (PENICILLINS) Allergy (Unknown, Verified 10/14/25 14:37) DIFF BREATHING, RASH ENVIRONMENTAL Allergy (Unknown, Uncoded 10/14/25 14:37) SOB,WHEEZING Medication List - Last Reconciled 10/26/25 by PATRIC Gayle acetazolamide 250 mg PO DAILY 30 days albuterol sulfate 90 mcg/actuation (Ventolin HFA) 2 puffs inhalation Q4-6H PRN 30 days albuterol sulfate 2.5 mg (3 mL) inhalation Q4-6H alcohol swabs 1 pad topical QIDACHS 90 days atorvastatin 20 mg PO DAILY blood sugar diagnostic (FreeStyle Lite Strips) Test four times a day or as directed. blood-glucose meter (FreeStyle Lite Meter kit) As Directed budesonide-formoterol 160-4.5 mcg/actuation (Symbicort) 2 puffs PO BID cholecalciferol (vitamin D3) 50 mcg PO DAILY compressor, for nebulizer As directed 4 times a day diltiazem HCl CD (Cardizem CD) 120 mg See Protocol PO DAILY gabapentin 1,200 mg PO TID glipizide ER 5 mg PO DAILY hydrocortisone 2.5% 1 appl NM BEDTIME PRN 10 days inhalational spacing device (Aerochamber Mechanical Vent) As directed ipratropium-albuterol 0.5 mg-3 mg(2.5 mg base)/3 mL 3 mL inhalation Q6-8H PRN 15 days lancets (FreeStyle Lancets) Test four times a day or as directed. menthol-zinc oxide 0.44-20.6 % (Calmoseptine) 1 appl topical TID PRN montelukast 10 mg PO DAILY 90 days naproxen 500 mg PO BID PRN omeprazole 40 mg PO DAILY pen needle, diabetic Use four times a day or as directed. polyethylene glycol 3350 (Miralax) 17 grams PO DAILY quetiapine ER 200 mg PO BEDTIME risperidone 2 mg PO BEDTIME sennosides (senna) 17.2 mg (2 x 8.6 mg) PO DAILY umeclidinium 62.5 mcg/actuation (Incruse Ellipta) 1 inh inhalation DAILY Tobacco use date assessed: 10/13/25 Dental Screening Dental Screen Date: 10/13/25 Did you have a dental visit in the last 12 months?: No Did you have a dental problem in the last 6 months where you did not have access to dental care?: No HPI HPI Comments History of Present Illness Details History of Present Illness The patient is a 55 year old female with COPD, MDD, DM Carpal tunnel, cigarette smoker and obesity presenting for follow-up for management of type 2 diabetes, specifically addressing hypoglycemia. Her blood sugars have been dipping low, leading to her waking up at 3:30 AM with a glucose level of 65 mg/dL. She experienced a significant crash two weeks prior, with her blood sugar dipping to 33 mg/dL. She is currently taking glipizide 5 mg once a day, as taking it twice a day caused her sugars to drop too low. During the day, her blood sugar averages around 110 mg/dL. To manage low blood sugar, she drinks orange juice or SunnyD, which brings her level up to about 90 mg/dL, and then it typically holds between 90 and 110 mg/dL. She also eats oatmeal with protein to help stabilize her blood sugar after a hypoglycemic event. The patient also has a history of constipation and is being treated with Metamucil, a fiber supplement, and another pill. She acknowledges not drinking enough water. She has follow-up appointments scheduled with a weatherization technician and a environmental tech. Her breathing has been without problems recently. Medical History: - Type 2 diabetes mellitus - Constipation Medications: - Glipizide 5 mg once daily for diabetes . - Metamucil for constipation. - Fiber supplement for constipation. - Unspecified pill for constipation. Health Maintenance - Diet: The patient reports cutting out sugar from candy and drinks, opting for sugar-free versions. - Follow-up care: Has appointments with pulmonology and gastroenterology. Social History - Diet: The patient has cut out sugar fr om candies and drinks, using sugar-free alternatives like sugar-free senia lan and Sprite. - Fluid intake: States she does not drin k enough water. Results - Home Glucose Monitoring: Reports fransico gonzalez up with blood sugar of 65 mg/dL, with a recent low of 33 mg/dL. - Home Glucose Monitoring: Daytime avera ge is 110 mg/dL. - Home Glucose Monitoring: After drinkin g juice for hypoglycemia, sugar rises to 90-110 mg/dL. Patient was informed and verbally consented to the use of an ambient scribe for clinic note documentation during this visit. [facility] Medical History Diabetes Pneumonia Bleeding hemorrhoids Respiratory failure with hypoxia COPD (chronic obstructive pulmonary disease) Morbid obesity with BMI of 50.0-59.9, adult Asthma Nicotine dependence, cigarettes, uncomplicated Acid reflux Depression Surgical History Status post excision of lipoma History of cholecystectomy History of shoulder surgery History of hysterectomy History of endometrial ablation History of loop electrosurgical excision procedure (LEEP) History of colposcopy Family History Mother Crohn disease Mental health disorder Brother Colitis Mental health disorder Father No problems noted. 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 Juan Cardoza, Pam Faisal Gabriel and colleagues, with an educational naseem from [employer]. Review of Systems Narrative Review of Systems - Endocrine: Reports nocturnal hypoglycemia with blood sugar readings of 65 mg/dL and a recent episode as low as 33 mg/dL. - Respiratory: Denies recent breathing problems. - Gastrointestinal: Reports constipation, requiring medication. - Constitutional: Denies other concerns. Physical exam (Primary Care) Vital Signs: Last Vital Signs Temp 98 F 10/13/25 14:12 Pulse 114 H 10/13/25 14:12 BP 114/68 10/13/25 14:12 Pulse Ox 90 L 10/13/25 14:12 Oxygen Delivery Method Room Air 10/13/25 14:12 BMI result Body Mass Index 33.1 GENERAL Well developed, obese, in no apparent distress, using oxygen HEENT Head-Normocephalic Neck- Supple, No lymphadenopathy, thyroid WNL RESPIRATORY Normal I:E, clear to auscultation CARDIOVASCULAR Tachycardia, normal rhythm, No murmurs or rubs NEUROLOGICAL Gait normal PSYCHIATRIC Oriented to person, place and time Mood and affect WNL Appearance WNL Speech WNL Thought processes WNL Tobacco/Smoking Status: Tobacco use Status Tobacco use date assessed 10/13/25 10/13/25 14:23 Patient Tobacco Use Status Former Tobacco user 10/13/25 14:23 Tobacco use type Cigarette 10/13/25 14:23 Thrive Assessment: Date of Thrive Assessment Date Thrive assessed 08/04/25 10/13/25 14:23 Coding Level of Care Code Established Pt Est Pt Level 4 (52592) Established Pt Add On Problem Visit Only Patient Type Established Diagnoses Diabetes E11.9 Constipation K59.00 Chronic obstructive pulmonary disease, unspecified COPD type J44.9 COPD type: unspecified COPD Time Spent (min) 30 Comment Time was spent on chart review, H&P, Patient education and orders Assessment & Plan Assessment & Plan (1) Diabetes: Code(s): E11.9 - Type 2 diabetes mellitus without complications Category: Medical (2) Constipation: Code(s): K59.00 - Constipation, unspecified Category: Medical (3) COPD (chronic obstructive pulmonary disease): Comment: THIS PATIENT HAS ADVANCED CHRONIC OBSTRUCTIVE PULMONARY DISEASE. SHE HAS BEEN ACTIVE SMOKER UP UNTIL RECENT HOSPITALIZATION. THANK GOD, NOT SMOKING ANYMORE. BEING ACTIVELY TREATED FOR CHRONIC RESPIRATORY FAILURE. SHE SEEMS TO BE STRONGER MORE ALERT AND, STABILIZED Code(s): J44.9 - Chronic obstructive pulmonary disease, unspecified Category: Medical Qualifiers: COPD type: unspecified COPD Qualified Code(s): J44.9 - Chronic obstructive pulmonary disease, unspecified Plan Plan Patient was informed and verbally consented to the use of an ambient scribe for clinic note documentation during this visit. 1. Type 2 Diabetes Mellitus With Hypoglycemia The patient is experiencing nocturnal and fasting hypoglycemia, with blood sugar readings as low as 33-65 mg/dL, while on glipizide 5mg daily. To address this, the glipizide dose will be reduced to 2.5mg (half a pill) to be taken once daily in the morning with breakfast. The goal is to maintain blood sugar above 80 mg/dL and below 180 mg/dL. The patient will have blood work done in 4-6 weeks to check her A1c level. A follow-up visit is scheduled in 6-8 weeks to review the lab results and assess her response to the medication adjustment. For hypoglycemic episodes, she is advised to continue drinking orange juice or SunnyD and to follow it with a protein source, like her current oatmeal with protein, to stabilize her blood sugar. 2. Constipation The patient continues to experience constipation despite taking Metamucil and other fiber supplements. She was encouraged to increase her water intake. She has an upcoming follow-up with gastroenterology in December to further manage this issue. 3. Medication Refill The patient requested a refill for Aleve. 4. Pulmonary Follow-Up The patient has an upcoming appointment with her weatherization technician, Dr. Cao, tomorrow. She was advised to keep this appointment. Discussion Notes I discussed with the patient her recurrent episodes of hypoglycemia, particularly in the morning, with blood glucose levels dropping to 65 mg/dL and as low as 33 mg/dL two weeks ago. We believe this is due to her current dose of glipizide 5 mg. I recommended reducing her dose to half a pill (2.5 mg) taken in the morning to prevent these low blood sugar events, explaining that it is preferable for her sugar to be slightly higher than to be too low. We scheduled lab work in 4-6 weeks to check her A1c and a follow-up visit in 6-8 weeks to review the results. I affirmed her use of orange juice to quickly raise her blood sugar and recommended following it with a protein source to maintain stability. We also discussed the use of sorbitol as a sugar alcohol in sugar- free candies and advised her to adhere to the recommended serving sizes to avoid gastrointestinal side effects like gas and bloating. I encouraged her to keep her upcoming specialty appointments with pulmonology and gastroenterology. Patient Instructions - Take half a pill (2.5 mg) of glipizide in the morning with breakfast. - If you experience low blood sugar, drink orange juice or SunnyD. - After drinking juice for low blood sugar, eat something with protein, like oatmeal, to keep your sugar stable. - When eating candies with sugar substitutes like sorbitol, follow the serving size on the package to avoid stomach upset. - Complete blood work in about 4 to 6 weeks to check your A1c level. - Schedule a follow-up appointment with me in about 6 to 8 weeks. - Keep your scheduled appointments with the pulmonary and gastroenterology sp ecialists. - A refill for your Aleve will be sent.
== END 2025-10-13 14:39 | disposition home or self-care (01) ==
LOC: HO.HMCHD 14:05
PROVIDERS: PCP Physician Assistant Medical; Visit Provider Physician Assistant Medical
DX: E11.9 Type 2 diabetes mellitus without complications (principal); K59.00 Constipation, unspecified; J44.9 Chronic obstructive pulmonary disease, unspecified

== ENCOUNTER → 2025-10-13 14:05 | Outpatient (BNVA) | payer OTHER, SELFPAY | PROVIDERS: PCP Physician Assistant Medical; Visit Provider Physician Assistant Medical | DX: E11.649 Type 2 diabetes mellitus with hypoglycemia without coma (principal); J44.9 Chronic obstructive pulmonary disease, unspecified; K59.00 Constipation, unspecified | CPT/HCPCS: 99212 ==

== ENCOUNTER 2025-10-14 14:14 | Outpatient (REF) | payer OTHER, SELFPAY ==
[2025-10-14 14:52] LABS: MANUAL DIFF FLAG NO
[2025-10-14 14:56] LABS: Venous Blood Gas Refer to POC result
[2025-10-14 14:58] LABS: Hematocrit 41.0 % (37.0-47.0); Hemoglobin 11.6 g/dl (12.0-16.0); Imm Gran Abs Auto 0.03 X10*3/uL (0.00-0.03); Imm Gran Pct Auto 0.3 % (0.0-0.4); Lymphocytes Absolute Auto 3.6 X10*3/uL (1.2-4.9); Mean Corpuscular HGB Conc 28.3 g/dl (31.0-35.0); Mean Corpuscular Hemoglobin 24.5 pg (27.0-33.0); Mean Corpuscular Volume 86.5 fL (80.0-98.0); NRBC Abs Auto 0.000 X10*3/uL (0.0-0.012); NRBC Pct Auto 0.0 /100WBC (0.0-0.2); Platelet Count 395 X10*3/uL (160-400); Red Blood Count 4.74 X10*6/uL (4.20-5.50); White Blood Count 11.3 X10*3/uL (4.8-10.8)
[2025-10-14 15:18] LABS: Iron 23 mcg/dL (30-160); Percent Iron Saturation 9 % (15-50); Total Iron Binding Capacity 269 mcg/dL (228-428); Unsaturated Iron Binding 246 ug/dL
[2025-10-14 15:32] LABS: Ferritin 25 ng/mL (10-250)
[2025-10-14 16:18] LABS: VBG HCO3 41 mmol/L (22-26); VBG O2 % Saturation 44.0 %
== END 2025-10-14 14:15 | disposition home or self-care (01) ==
LOC: HO.LAB 14:14
PROVIDERS: Absent Provider Internal Medicine; PCP Physician Assistant Medical; Visit Provider Internal Medicine
DX: J96.01 Acute respiratory failure with hypoxia (principal); J96.02 Acute respiratory failure with hypercapnia; J44.9 Chronic obstructive pulmonary disease, unspecified; K59.09 Other constipation; F17.210 Nicotine dependence, cigarettes, uncomplicated; Z79.51 Long term (current) use of inhaled steroids; Z79.899 Other long term (current) drug therapy
CPT/HCPCS: 36415; 82728; 82803; 83540; 85025; 99212

== ENCOUNTER 2025-10-14 14:14 | Outpatient (AMB) | payer OTHER, SELFPAY ==
[2025-10-14 14:23] VITALS: BP 110/62; PULSE 109; O2SAT 91; BMI 33.1
--- NOTE | 2025-10-14 14:23 | A.OFFVIS_ITS ---
Vital Signs 10/14/25 14:23 Height 4 ft 11 in Weight 164 lb BMI 33.1 BP 110/62 Blood Pressure Location Lt brachial Position Sitting Pulse 109 H Pulse Source Pulse Oximeter Pulse Oximetry (%) 91 L Oxygen Delivery Method Nasal Cannula Oxygen Flow Rate 3 Intake Visit Reasons: copd Intake Note: pt is here for follow up and states she is doing well, mostly on 3 liters at home. 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 [employer] Vehicle Required: No 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 Vehicle Services: 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 Vehicle Offered & Declined Overhauler Helper: Overhauler Helper offered & declined Allergies codeine (CODEINE) Allergy (Unknown, Verified 10/14/25 14:37) NAUSEA & VOMITING, HIVES Penicillins (PENICILLINS) Allergy (Unknown, Verified 10/14/25 14:37) DIFF BREATHING, RASH ENVIRONMENTAL Allergy (Unknown, Uncoded 10/14/25 14:37) SOB,WHEEZING Medication List - Last Reconciled 10/14/25 by Haven Longo MD acetazolamide 250 mg PO DAILY 30 days albuterol sulfate 90 mcg/actuation (Ventolin HFA) 2 puffs inhalation Q4-6H PRN 30 days albuterol sulfate 2.5 mg (3 mL) inhalation Q4-6H alcohol swabs 1 pad topical QIDACHS 90 days atorvastatin 20 mg PO DAILY blood sugar diagnostic (FreeStyle Lite Strips) Test four times a day or as directed. blood-glucose meter (FreeStyle Lite Meter kit) As Directed budesonide-formoterol 160-4.5 mcg/actuation (Symbicort) 2 puffs PO BID cholecalciferol (vitamin D3) 50 mcg PO DAILY compressor, for nebulizer As directed 4 times a day diltiazem HCl CD (Cardizem CD) 120 mg See Protocol PO DAILY gabapentin 1,200 mg PO TID glipizide ER 5 mg PO DAILY hydrocortisone 2.5% 1 appl [place] BEDTIME PRN 10 days inhalational spacing device (Aerochamber Mechanical Vent) As directed ipratropium-albuterol 0.5 mg-3 mg(2.5 mg base)/3 mL 3 mL inhalation Q6-8H PRN 15 days lancets (FreeStyle Lancets) Test four times a day or as directed. menthol-zinc oxide 0.44-20.6 % (Calmoseptine) 1 appl topical TID PRN montelukast 10 mg PO DAILY 90 days naproxen 500 mg PO BID PRN omeprazole 40 mg PO DAILY pen needle, diabetic Use four times a day or as directed. polyethylene glycol 3350 (Miralax) 17 grams PO DAILY quetiapine ER 200 mg PO BEDTIME risperidone 2 mg PO BEDTIME sennosides (senna) 17.2 mg (2 x 8.6 mg) PO DAILY umeclidinium 62.5 mcg/actuation (Incruse Ellipta) 1 inh inhalation DAILY Do you need a note to return to daycare/school/sports/work: No HPI HPI copd: Details: Milagro is here for short-term follow-up. She is not smoking, and she is very proud to tell me that. She uses her inhalers very regularly and uses O2 continuously 24 hours a day at 3 L/minute. She does deep breathing exercises along with her regularly. Her mental status has remained stable and alert. She is in very up beat mood today . [facility] Medical History Diabetes Pneumonia Bleeding hemorrhoids Respiratory failure with hypoxia COPD (chronic obstructive pulmonary disease) Morbid obesity with BMI of 50.0-59.9, adult Asthma Nicotine dependence, cigarettes, uncomplicated Acid reflux Depression Surgical History Status post excision of lipoma History of cholecystectomy History of shoulder surgery History of hysterectomy History of endometrial ablation History of loop electrosurgical excision procedure (LEEP) History of colposcopy Family History Mother Crohn disease Mental health disorder Brother Colitis Mental health disorder Father No problems noted. 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 Cognitive needs: No (cane and wheelchair) Hearing needs: No Vision needs: Yes (rx glasses) Review of Systems Const All systems reviewed & are unremarkable except as noted in HPI and below Eyes Reports no additional complaints ENT Reports no additional complaints Card Denies chest pain, Denies irregular heart rhythm and Denies leg edema Resp Reports as per HPI GI Reports heartburn (Controlled with omeprazole) Reports no additional complaints Musc Reports back pain (Mild off and on) Skin/Breast Reports system reviewed and no additional complaints, except as documented Neuro Reports no additional complaints Psych Reports anxiety Endo Reports no additional complaints Physical Exam Vital Signs: Last Vital Signs Pulse 109 H 10/14/25 14:23 BP 110/62 10/14/25 14:23 Pulse Ox 91 L 10/14/25 14:23 Oxygen Delivery Method Nasal Cannula 10/14/25 14:23 Oxygen Flow Rate 3 10/14/25 14:23 BMI result Body Mass Index 33.1 Last Vital Signs Temp 98.2 F 07/20/25 14:04 Pulse 125 H 07/20/25 15:23 Resp 26 H 07/20/25 15:25 BP 133/71 07/20/25 15:33 Pulse Ox 92 07/20/25 15:22 O2 Del Method BiPAP 07/20/25 15:22 O2 Flow Rate 3 07/20/25 14:04 Oxygen Flow Rate 3 07/20/25 03:38 BMI result Body Mass Index 37.5 Const Other: SHE IS TACHYPNEIC, AND SEEMS TO BE IN MODERATE RESPIRATORY DISTRESS. General: alert and awake Orientation/consciousness: patient oriented x3 HEENT Head: Yes normal to inspection General nose exam: No nasal polyps present, No nasal discharge present and Other nasal findings present (THERE IS BILATERAL NASAL CONGESTION) Face and sinus: Yes sinuses nontender Throat: Yes posterior oropharynx normal (DIFFICULT TO VISUALIZE) Eyes General: appearance normal, both eyes and all related structures Neck Neck: Yes normal visual inspection, Yes no lymphadenopathy, Yes trachea midline and Yes no JVD Thyroid: Thyroid normal Chest Chest palpation & inspection: normal inspection of the chest, normal palpation of entire chest wall and no tenderness Resp Other: BREATH SOUNDS ARE VERY DISTANT ON BOTH SIDES, NO WHEEZES, OR CREPITATIONS . Cardio Palpation: normal PMI Rate: regular rate Rhythm: regular rhythm Heart sounds: no gallops and no murmurs GI Palpation (GI): Soft to palpation, nontender, No hepatosplenomegaly present and no masses Auscultation: normal bowel sounds Back/Spine/Pelvis Other: NOT EXAMINED Skin General skin exam: no rashes or lesions noted Neuro General: patient oriented x3, No gait normal (CONFINED TO BED AT THIS TIME AND NOT AMBULATE) and no focal motor deficits Cranial nerves: Yes CN's II-XII intact bilaterally Extrem General: Yes normal to inspection, Yes no clubbing, cyanosis or edema and Yes no calf tenderness Psych Speech and movement: Normal speech and movement present Affect: Anxious affect present Results Reviewed Results Reviewed: venous BG test ordered Assessment & Plan Assessment & Plan (1) COPD (chronic obstructive pulmonary disease): Comment: THIS PATIENT HAS ADVANCED CHRONIC OBSTRUCTIVE PULMONARY DISEASE. SHE HAS BEEN ACTIVE SMOKER UP UNTIL RECENT HOSPITALIZATION. THANK GOD, NOT SMOKING ANYMORE. BEING ACTIVELY TREATED FOR CHRONIC RESPIRATORY FAILURE. SHE SEEMS TO BE STRONGER MORE ALERT AND, STABILIZED Code(s): J44.9 - Chronic obstructive pulmonary disease, unspecified Category: Medical Qualifiers: COPD type: unspecified COPD Qualified Code(s): J44.9 - Chronic obstructive pulmonary disease, unspecified Plan: CONTINUE INCRUSE ELLIPTA ONCE A DAY IPRATROPIUM-ALBUTEROL SOLUTION IN THE NEBULIZER Q 6 HOURS WHILE AWAKE SYMBICORT 160-4.52 PUFFS B.I.D. ALBUTEROL HFA 2 PUFFS Q 4-6 HOURS P.R.N. (2) Acute respiratory failure with hypoxia and hypercarbia: Comment: PATIENT WAS ADMITTED WITH ACUTE ON CHRONIC RESPIRATORY FAILURE WITH SIGNIFICANT HYPERCAPNIA. SHE WAS TREATED WITH BIPAP FOR 1ST 2 NIGHTS AND THEN TAKEN OFF THE BIPAP PATIENT IS STILL SOMEWHAT DYSPNEIC, BUT SHE IS MENTALLY ALERT, AND PHYSICALLY STRONGER THAN BEFORE. Code(s): J96.01 - Acute respiratory failure with hypoxia; J96.02 - Acute respiratory failure with hypercapnia Category: Medical Plan: VENOUS BLOOD GAS STUDY ORDERED. CONTINUE ACETAZOLAMIDE 250 MG ONCE A DAY. CONTINUE DEEP BREATHING EXERCISES WITH PURSED LIP TECHNIQUE 3 TIMES A DAY. (3) Nicotine dependence, cigarettes, uncomplicated: Comment: She has longstanding history of smoking and has advanced chronic obstructive pulmonary disease. Claims that she has quit smoking completely since 5 months now . SHE SAY SHE IS NOT SMOKING AT ALL, AND IT IS CONFIRMED BY HER WHO CAME WITH HER. Code(s): F17.210 - Nicotine dependence, cigarettes, uncomplicated Category: Medical Plan: COMMENDED FOR NOT GOING BACK TO SMOKING Orders: Orders Venous Blood Gas Today J44.9 - Chronic obstructive pulmonary disease, unspecified, J96.01 - Acute respiratory failure with hypoxia, J96.02 - Acute respiratory failure with hypercapnia Coding Level of Care Code Est Pt Level 3 (46070) Diagnoses Chronic obstructive pulmonary disease, unspecified COPD type J44.9 COPD type: unspecified COPD Acute respiratory failure with hypoxia and hypercarbia J96.01; J96.02 Nicotine dependence, cigarettes, uncomplicated F17.210
== END 2025-10-14 14:40 | disposition home or self-care (01) ==
LOC: HO.HPS 14:15
PROVIDERS: PCP Internal Medicine; Visit Provider Internal Medicine
DX: J44.9 Chronic obstructive pulmonary disease, unspecified (principal); J96.01 Acute respiratory failure with hypoxia; J96.02 Acute respiratory failure with hypercapnia; F17.210 Nicotine dependence, cigarettes, uncomplicated
CPT/HCPCS: 99213